=== PATIENT | male | born 1985 | race Caucasian/White ===

== ENCOUNTER 2024-01-28 18:11 | Emergency (ER) | payer OTHER, SELFPAY ==
[2024-01-28 18:14] VITALS: BP 132/72; PULSE 106; O2SAT 96
[2024-01-28 18:19] VITALS: BP 130/79; PULSE 99; RESP 16; TEMP 36.8; O2SAT 98
--- NOTE | 2024-01-28 18:20 | ED_ITS ---
HPI - General Adult General Chief complaint: Psychiatric Symptoms Stated complaint: SI Time Seen by Provider: 01/28/24 18:14 Source: patient and RN notes reviewed Limitations: no limitations History of Present Illness HPI narrative: 38-year-old male who has a history of alcohol use, cocaine use, presents via EMS for evaluation of suicidal ideation. Patient states he was discharged from detox from [facility] yesterday in [place]. He attempted to connect with family here in [place] but he states that ?they want nothing to do with me?. Patient states that ?I feel like everyone has turned their back on me?. He admits to suicidal ideation and had presented to [facility]. Patient was transported via EMS because of this. Currently he reports suicidal ideation where he states he was wandering in traffic hoping to get hit by a car. Patient adamantly denies any alcohol or illicit drug use. He denies tobacco use. He has no physical complaints at this time. Related Data Allergies Allergy/AdvReac Type Severity Reaction Status Date / Time No Known Allergies Allergy Verified 01/28/24 18:26 Review of Systems 2 Constitutional: Constitutional: Denies chills, Denies fever(s) and Denies headache(s) Eyes: Eyes: Denies change in vision and Denies other (No redness.) ENT: Denies headache(s) Cardiovascular: Cardiovascular: Denies chest pain and Denies palpitations Respiratory: Respiratory: Denies cough Gastrointestinal: Gastrointestinal: Denies abdominal pain, Denies hematochezia, Denies diarrhea, Denies nausea and Denies vomiting Genitourinary: Genitourinary: Denies difficulty urinating Musculoskeletal: Musculoskeletal: Denies back pain, Denies muscle weakness and Denies numbness Integumentary/Breasts: Skin/Breast: Denies rash Neurologic: Denies headache(s), Denies focal weakness and Denies numbness Psychiatric: Psychiatric: Reports depression, Reports hopelessness and Reports suicidal ideation Endocrine: Endocrine: Denies palpitations [facility] Past Medical History Attestation statement: The following information was validated with the patient. [facility] Narrative: Polysubstance use Social History Social History Advance Directives: No Advance Directives Information Provided: No Physical Exam ED Vital Signs: Vital Signs - 24 hr 01/28/24 18:19 01/28/24 22:40 01/29/24 04:48 Temperature 98.2 F 98.6 F 98.2 F Pulse Rate 99 86 82 Respiratory Rate 16 18 17 Blood Pressure 130/79 134/78 115/73 Pulse Oximetry 98 98 96 Oxygen Delivery Method Room Air Room Air Room Air BMI result Body Mass Index 40.6 Const General: cooperative Orientation/consciousness: patient oriented x3 Resp Other: Lung sounds clear bilaterally Cardio Rate: regular rate Rhythm: regular rhythm Neuro General: patient oriented x3 Psych Thought content: Suicidality present, no homicidality and no delusions Course Course Course Narrative: 11:00 p.m. patient has been seen and evaluated by the care team. He has been cleared from a psychiatric standpoint. There recommendation was to remain in the emergency department for possible detox placement in the morning. The patient is adamantly refusing this staining does not wish to wait and would like to be discharged. The patient is able to contract for safety. No evidence of withdrawal. January 28, 2024, 11:00 p.m., the patient has changed his mind and would like to remain in the emergency department for detox bed availability search in the morning. January 29, 2024, 1:45 a.m. patient resting comfortably at this time. There is no evidence of withdrawal. Awaiting possible detox bed placement in the morning. Reevaluation(s) Reevaluation #1: Patient was evaluated and cleared by the care team. Not a harm to self or others. Patient not suicidal or homicidal. He did want a detox bed however now he would like to go home and set up detox for himself. Patient denies medical complaints at this time and would like to leave. I agree with this plan Time: 07:59 Medical Decision Making Medical Decision Making [facility] Narrative: 38-year-old male who has a history of alcohol dependence, cocaine use, recent discharge from detox, presenting with suicidal ideation with a plan to jump out into traffic. Patient denies any illicit drug or pill use. He has no physical complaints. Check labs, care team evaluation Differential Diagnosis Differential Diagnoses: The differential diagnosis associated with the presentation includes Polysubstance use Depression Bipolar PTSD Psychosis Admission/Observation Consideration of admission/observation: Escalation of care including admission/observation considered Consult Healthcare Provider Management of the patient was discussed with: Behavioral Health Provider Lab Data 01/28/24 19:38 01/28/24 19:38 Labs: Lab Results 01/28/24 Range/Units 19:38 WBC 11.9 H (4.8-10.8) X10*3/uL RBC 4.66 (4.60-5.80) X10*6/uL Hgb 14.3 (14.0-18.0) g/dl Hct 41.9 L (42.0-52.0) % MCV 89.9 (80.0-98.0) fL MCH 30.7 (27.0-33.0) pg MCHC 34.1 (31.0-36.0) g/dl RDW 13.8 (11.0-16.0) % Plt Count 266 (160-400) X10*3/uL MPV 10.1 (9.4-12.4) fL Immature Gran % (Auto) 0.8 H (0.0-0.4) % Neut % (Auto) 62.4 (45-73) % Lymph % (Auto) 20.1 (20-40) % [place] % (Auto) 13.1 H (2-11) % Eos % (Auto) 3.1 (0-4) % Baso % (Auto) 0.5 (0-2) % Lymph # (Auto) 2.4 (1.2-4.9) X10*3/uL [place] # (Auto) 1.6 H (0.1-1.2) X10*3/uL Eos # (Auto) 0.4 (0.0-0.4) X10*3/uL Baso # (Auto) 0.1 (0.0-0.2) X10*3/uL Abs Immat Gran (auto) 0.09 H (0.00-0.03) X10*3/uL Absolute Neuts (auto) 7.4 (2.0-8.3) x10*3/uL Absolute Nucleated RBC 0.000 (0.0-0.012) X10*3/uL Nucleated RBC % (auto) 0.0 (0.0-0.2) /100WBC Smear Tech's Comments VERIFIED Sodium 140 (135-145) mmol/L Potassium 4.1 (3.3-5.1) mmol/L Chloride 102 (96-108) mmol/L Carbon Dioxide 27 (22-29) mmol/L Anion Gap 15 (12-20) BUN 16 (9-16) mg/dL Creatinine 0.79 (0.5-1.4) mg/dL Estim Creat Clear Calc 168.7 Estimated GFR > 60 Random Glucose 99 (60-115) mg/dL Calcium 8.9 (8.4-10.2) mg/dL Total Bilirubin 0.7 (0.0-1.0) mg/dL AST 95 H (5-37) U/L ALT 110 H (0-40) U/L Alkaline Phosphatase 73 (39-117) U/L Total Protein 7.5 (6.5-8.0) g/dL Albumin 4.0 (3.5-5.0) g/dL Salicylates < 5.0 L (15-30) mg/dL Urine Opiates Screen Not Detected (Not Detect) Ur Buprenorphine Scrn Not Detected (Not Detect) ng/mL Ur Oxycodone Screen Not Detected (Not Detect) ng/mL Urine Methadone Screen Not Detected (Not Detect) ng/mL Urine Fentanyl Screen Not Detected (Not Detect) Acetaminophen < 3 (<30) mcg/mL Ur Barbiturates Screen Not Detected (Not Detect) Ur Phencyclidine Scrn Not Detected (Not Detect) Ur Amphetamines Screen Not Detected (Not Detect) U Benzodiazepines Scrn POSITIVE H (Not Detect) Urine Cocaine Screen POSITIVE H (Not Detect) U Marijuana (THC) Screen Not Detected (Not Detect) Ethyl Alcohol < 10 mg/dL Discharge Plan Discharge Clinical Impression: Suicidal ideation, Cocaine use disorder Patient Disposition: Home, Self-Care Instructions: Cocaine Abuse (ED), Help Prevent Suicide (ED), Suicide Prevention (ED) Additional Instructions: Follow-up with your plan according to the care team Report to detox if you choose. . Follow-up with your primary care provider. Call this week to schedule a follow- up appointment. Return to the emergency department if you have any worsening of symptoms, or any concerns. Get well soon! Referrals: Physician,Wiley J [Primary Care Provider] - 2 days Interventions: [place]-Suicide Risk Severity Scale Last Done: 01/28/24 19:09 Print Language: Panamanian
[2024-01-28 18:23] VITALS: BMI 40.6
[2024-01-28 19:47] LABS: Basophils Absolute Auto 0.1 X10*3/uL (0.0-0.2); Basophils Percent Auto 0.5 % (0-2); Eosinophils Absolute Auto 0.4 X10*3/uL (0.0-0.4); Eosinophils Percent Auto 3.1 % (0-4); Hematocrit 41.9 % (42.0-52.0); Hemoglobin 14.3 g/dl (14.0-18.0); Imm Gran Abs Auto 0.09 X10*3/uL (0.00-0.03); Imm Gran Pct Auto 0.8 % (0.0-0.4); Lymphocytes Absolute Auto 2.4 X10*3/uL (1.2-4.9); Lymphocytes Percent Auto 20.1 % (20-40); MANUAL DIFF FLAG SCAN; Mean Corpuscular HGB Conc 34.1 g/dl (31.0-36.0); Mean Corpuscular Hemoglobin 30.7 pg (27.0-33.0); Mean Corpuscular Volume 89.9 fL (80.0-98.0); Mean Platelet Volume 10.1 fL (9.4-12.4); Monocytes Absolute Auto 1.6 X10*3/uL (0.1-1.2); Monocytes Percent Auto 13.1 % (2-11); Neutrophils Absolute Auto 7.4 x10*3/uL (2.0-8.3); Neutrophils Percent Auto 62.4 % (45-73); Platelet Count 266 X10*3/uL (160-400); Red Blood Count 4.66 X10*6/uL (4.60-5.80); Red Cell Distribution Width 13.8 % (11.0-16.0); SCAN SMEAR FLAG 1; White Blood Count 11.9 X10*3/uL (4.8-10.8)
[2024-01-28 19:56] LABS: Amphetamine Screen Urine Not Detected (Not Detect); Barbiturates, Urine Not Detected (Not Detect); Benzodiazepines Screen Urine POSITIVE (Not Detect); Buprenorphine Scr Not Detected (Not Detect); Cannabinoid Screen Urine Not Detected (Not Detect); Cocaine Screen Urine POSITIVE (Not Detect); Fentanyl, urine Not Detected (Not Detect); Methadone Screen, Urine Not Detected (Not Detect); Opiate Screen Urine Not Detected (Not Detect); Oxycodone Screen Urine Not Detected (Not Detect); Phencyclidine Screen Urine Not Detected (Not Detect)
[2024-01-28 20:06] LABS: Alanine Aminotransferase 110 U/L (0-40); Alkaline Phosphatase 73 U/L (39-117); Anion Gap 15 (12-20); Aspartate Amino Transferase 95 U/L (5-37); Bilirubin Total 0.7 mg/dL (0.0-1.0); Blood Urea Nitrogen 16 mg/dL (9-16); Calcium 8.9 mg/dL (8.4-10.2); Carbon Dioxide 27 mmol/L (22-29); Chloride 102 mmol/L (96-108); Creatinine Clr Calc Pharmacy 168.7; Estimated Glomerular Filt Rate > 60; Ethanol < 10 mg/dL; Glucose Random 99 mg/dL (60-115); Potassium 4.1 mmol/L (3.3-5.1); Sodium 140 mmol/L (135-145); Total Protein 7.5 g/dL (6.5-8.0)
[2024-01-28 20:08] LABS: Acetaminophen LAB < 3 mcg/mL (<30); SLIDE REVIEW VERIFIED; Salicylate < 5.0 mg/dL (15-30)
[2024-01-28 22:40] VITALS: BP 134/78; PULSE 86; RESP 18; TEMP 37; O2SAT 98
[2024-01-29 04:48] VITALS: BP 115/73; PULSE 82; RESP 17; TEMP 36.8; O2SAT 96
--- NOTE | 2024-01-29 05:21 | PC.NURSE ---
belongings by charge desk
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
--- NOTE | 2024-01-29 07:45 | PC.NURSE ---
patient belongings placed in pod locker #9
[2024-01-29 08:04] VITALS: BP 122/79; PULSE 85; RESP 20; TEMP 36.3; O2SAT 99
== END 2024-01-29 08:05 | disposition home or self-care (01) ==
PROVIDERS: Physician Assistant; Emergency Provider Emergency Medicine
DX: R45.851 Suicidal ideations (principal); F14.988 Cocaine use, unspecified with other cocaine-induced disorder; F32.A Depression, unspecified; F19.10 Other psychoactive substance abuse, uncomplicated
CPT/HCPCS: 36415; 80053; 80143; 80179; 80307; 85025; 99284; S9485

== ENCOUNTER 2024-02-03 02:05 | Inpatient (IN) | payer OTHER, SELFPAY ==
--- NOTE | 2024-02-03 | ECG_ITS ---
Test Reason : CHEST PAIN Blood Pressure : / mmHG Vent. Rate : 097 BPM Atrial Rate : 097 BPM P-R Int : 154 ms QRS Dur : 082 ms QT Int : 352 ms P-R-T Axes : 036 009 019 degrees QTc Int : 447 ms Sinus rhythm with occasional Premature ventricular complexes Otherwise normal ECG No previous ECGs available Referred By: Generic ED Physician Electronically Signed By:FABIENNE SOTO MD
[2024-02-03 02:11] VITALS: BP 118/75; PULSE 73; RESP 16; TEMP 36.9; O2SAT 95; BMI 37.7
--- NOTE | 2024-02-03 03:10 | ED.PSYCH ---
HPI - Psych General Chief Complaint: Psychiatric Symptoms Stated Complaint: chest pain Time Seen by Provider: 02/03/24 03:03 Source: patient Mode of arrival: ambulatory Limitations: no limitations History of Present Illness ED Provider: Dr. Verenice Lance HPI Narrative: Patient comes to the emergency room complaining of suicidal ideation. Patient states that he is very upset because he feels that his family does not care about him. Patient states that he went to try detox, sign heme himself out, went to his house to get family support, they turned him away. Patient now has suicidal thoughts. Patient states that now his having flashbacks from childhood. Patient admits to vague SI, no HI. Patient admits to using cocaine. Related Data Home Medications ?Medication ?Instructions ?Recorded ?Confirmed No Known Home Meds 02/03/24 02/03/24 Allergies Allergy/AdvReac Type Severity Reaction Status Date / Time No Known Allergies Allergy Verified 02/03/24 02:16 Review of Systems Review of Systems: Constitutional : No Weight loss, No Fever, No Chills, No Night Sweats, No Fatigue, No Malaise ENT/Mouth : No Hearing loss, No Ear Pain, No Nasal Congestion, No Sinus Pain, No Hoarseness, No sore throat, No Rhinorrhea, No Swallowing Difficulty Eyes: No Eye Pain, No Swelling, No Redness, No Foreign Body, No Discharge, No Vision Changes Cardiovascular : No Chest Pain, No SOB, No Dyspnea on Exertion, No Orthopnea, No Edema, No Palpitations Respiratory : No Cough, No Sputum, No Wheezing, No Smoke Exposure, No Dyspnea Gastrointestinal : No Nausea, No Vomiting, No Diarrhea, No Constipation, No abdominal Pain, No Hematochezia, No Melena Genitourinary : no irregular bleeding, No Dysuria, No Urinary Frequency, No Hematuria, No Urinary Incontinence, No Urgency, No Flank Pain, No Urinary Flow Changes, No Hesitancy Musculoskeletal : No joint pain, No Myalgias, No Joint Swelling Skin : No Skin Lesions, No rash Neuro : No Weakness, No Numbness, No Paresthesias, No Loss of Consciousness, No Dizziness, No Headache Psych : No Anxiety/Panic, complaining of depression and SI, no HI, admits to using cocaine Heme/Lymph: No Bruising, No Bleeding,No Lymphadenopathy Endocrine : No Polyuria, No Polydipsia, No Temperature Intolerance PMFSH Past Medical History Medical History Depression Polysubstance abuse Social History Social History Advance Directives: No Advance Directives Information Provided: Yes Physical Exam Vital Signs: Vital Signs: Last Vital Signs Temp 98.4 F 02/03/24 02:11 Pulse 73 02/03/24 02:11 Resp 16 02/03/24 02:11 BP 118/75 02/03/24 02:11 Pulse Ox 95 02/03/24 02:11 O2 Del Method Room Air 02/03/24 02:11 BMI result Body Mass Index 37.7 Const: Other: Appearance: Alert. Oriented X3. No acute distress. Eyes: Pupils equal, round and reactive to light. ENT: Pharynx normal. Neck: Normal inspection. Neck supple. No lymph nodes noted. No crepitus CVS: Normal heart rate and rhythm. Pulses normal. Normal S1 and S2 Respiratory: No respiratory distress. Breath sounds normal. No Wheezing. No rales Abdomen: Soft and nontender. No rigidity. No distention. Skin: Skin warm and dry. Normal skin color. Normal skin turgor. Extremities: No lower extremity edema. No Lacerations. No Rash Neuro: Oriented X 3. No motor deficit. No sensory deficit. Moving all extremities. No slurred speech. CN 2 through 12 grossly intact Psych: calm, cooperative, tearful Medical Decision Making Medical Decision Making [facility] Narrative: -my interpretation of EKG: Normal sinus rhythm, heart rate 97, no ST segment depression or elevation, nonspecific T-wave inversion in lead 3, multiple PVCs, QTC 447 -patient's white blood cell count slightly elevated, normal chemistry, normal troponin , toxicology positive for benzodiazepines and cocaine -care team consult pending -physician observation started at 04:04 Differential Diagnosis Differential Diagnoses: The differential diagnosis associated with the presentation includes (Polysubstance abuse, ACS, SI) Admission/Observation Consideration of admission/observation: Escalation of care including admission/observation considered (Patient is under physician observation waiting to be seen by the care team) Lab Data 02/03/24 03:19 02/03/24 03:19 Labs: Lab Results 02/03/24 02/03/24 Range/Units 03:19 03:21 WBC 12.5 H (4.8-10.8) X10*3/uL RBC 4.52 L (4.60-5.80) X10*6/uL Hgb 13.5 L (14.0-18.0) g/dl Hct 40.4 L (42.0-52.0) % MCV 89.4 (80.0-98.0) fL MCH 29.9 (27.0-33.0) pg MCHC 33.4 (31.0-36.0) g/dl RDW 13.4 (11.0-16.0) % Plt Count 278 (160-400) X10*3/uL MPV 10.0 (9.4-12.4) fL Immature Gran % (Auto) 0.5 H (0.0-0.4) % Neut % (Auto) 70.5 (45-73) % Lymph % (Auto) 19.0 L (20-40) % [place] % (Auto) 8.7 (2-11) % Eos % (Auto) 1.1 (0-4) % Baso % (Auto) 0.2 (0-2) % Lymph # (Auto) 2.4 (1.2-4.9) X10*3/uL [place] # (Auto) 1.1 (0.1-1.2) X10*3/uL Eos # (Auto) 0.1 (0.0-0.4) X10*3/uL Baso # (Auto) 0.0 (0.0-0.2) X10*3/uL Abs Immat Gran (auto) 0.06 H (0.00-0.03) X10*3/uL Absolute Neuts (auto) 8.8 H (2.0-8.3) x10*3/uL Absolute Nucleated RBC 0.000 (0.0-0.012) X10*3/uL Nucleated RBC % (auto) 0.0 (0.0-0.2) /100WBC Sodium 142 (135-145) mmol/L Potassium 4.4 (3.3-5.1) mmol/L Chloride 106 (96-108) mmol/L Carbon Dioxide 26 (22-29) mmol/L Anion Gap 14 (12-20) BUN 13 (9-16) mg/dL Creatinine 0.82 (0.5-1.4) mg/dL Estim Creat Clear Calc 165.8 Estimated GFR > 60 Random Glucose 96 (60-115) mg/dL Calcium 9.6 D (8.4-10.2) mg/dL Total Bilirubin 0.4 (0.0-1.0) mg/dL AST 32 (5-37) U/L ALT 48 H (0-40) U/L Alkaline Phosphatase 60 (39-117) U/L Troponin I High Sens 5.7 (<3.5-35.0) ng/L Total Protein 7.1 (6.5-8.0) g/dL Albumin 3.9 (3.5-5.0) g/dL Urine Opiates Screen Not Detected (Not Detect) Ur Buprenorphine Scrn Not Detected (Not Detect) ng/mL Ur Oxycodone Screen Not Detected (Not Detect) ng/mL Urine Methadone Screen Not Detected (Not Detect) ng/mL Urine Fentanyl Screen Not Detected (Not Detect) Ur Barbiturates Screen Not Detected (Not Detect) Ur Phencyclidine Scrn Not Detected (Not Detect) Ur Amphetamines Screen Not Detected (Not Detect) U Benzodiazepines Scrn POSITIVE H (Not Detect) Urine Cocaine Screen POSITIVE H (Not Detect) U Marijuana (THC) Screen Not Detected (Not Detect) Ethyl Alcohol < 10 mg/dL Discharge Plan Discharge Clinical Impression: Suicidal ideation, Polysubstance abuse Patient Disposition: Still a Patient Prescriptions: No Action No Known Home Meds Print Language: Kinyarwanda
[2024-02-03 03:27] LABS: MANUAL DIFF FLAG NO
[2024-02-03 03:28] LABS: Basophils Percent Auto 0.2 % (0-2); Eosinophils Absolute Auto 0.1 X10*3/uL (0.0-0.4); Eosinophils Percent Auto 1.1 % (0-4); Hematocrit 40.4 % (42.0-52.0); Hemoglobin 13.5 g/dl (14.0-18.0); Imm Gran Abs Auto 0.06 X10*3/uL (0.00-0.03); Imm Gran Pct Auto 0.5 % (0.0-0.4); Lymphocytes Absolute Auto 2.4 X10*3/uL (1.2-4.9); Mean Corpuscular HGB Conc 33.4 g/dl (31.0-36.0); Mean Corpuscular Hemoglobin 29.9 pg (27.0-33.0); Mean Corpuscular Volume 89.4 fL (80.0-98.0); Monocytes Absolute Auto 1.1 X10*3/uL (0.1-1.2); Monocytes Percent Auto 8.7 % (2-11); Neutrophils Absolute Auto 8.8 x10*3/uL (2.0-8.3); Neutrophils Percent Auto 70.5 % (45-73); Platelet Count 278 X10*3/uL (160-400); Red Blood Count 4.52 X10*6/uL (4.60-5.80); Red Cell Distribution Width 13.4 % (11.0-16.0); White Blood Count 12.5 X10*3/uL (4.8-10.8)
[2024-02-03 03:39] LABS: Amphetamine Screen Urine Not Detected (Not Detect); Barbiturates, Urine Not Detected (Not Detect); Benzodiazepines Screen Urine POSITIVE (Not Detect); Buprenorphine Scr Not Detected (Not Detect); Cannabinoid Screen Urine Not Detected (Not Detect); Cocaine Screen Urine POSITIVE (Not Detect); Fentanyl, urine Not Detected (Not Detect); Methadone Screen, Urine Not Detected (Not Detect); Opiate Screen Urine Not Detected (Not Detect); Oxycodone Screen Urine Not Detected (Not Detect); Phencyclidine Screen Urine Not Detected (Not Detect)
[2024-02-03 03:43] LABS: Alanine Aminotransferase 48 U/L (0-40); Albumin Level 3.9 g/dL (3.5-5.0); Alkaline Phosphatase 60 U/L (39-117); Anion Gap 14 (12-20); Aspartate Amino Transferase 32 U/L (5-37); Bilirubin Total 0.4 mg/dL (0.0-1.0); Blood Urea Nitrogen 13 mg/dL (9-16); Calcium 9.6 mg/dL (8.4-10.2); Carbon Dioxide 26 mmol/L (22-29); Chloride 106 mmol/L (96-108); Creatinine Clr Calc Pharmacy 165.8; Estimated Glomerular Filt Rate > 60; Ethanol < 10 mg/dL; Glucose Random 96 mg/dL (60-115); Potassium 4.4 mmol/L (3.3-5.1); Sodium 142 mmol/L (135-145); Total Protein 7.1 g/dL (6.5-8.0)
[2024-02-03 03:49] LABS: Troponin-I High Sensitivity 5.7 ng/L (<3.5-35.0)
[2024-02-03 09:58] VITALS: BP 105/60; PULSE 67; RESP 14; TEMP 36.2; O2SAT 97
--- NOTE | 2024-02-03 10:09 | PC.NURSE ---
assumed care of pt at 0700, pt resting quietly in room, pending CARE team consult.
[2024-02-03 10:55] LABS: Appearance Urine Clear; Color Urine Yellow; Glucose Urine UA Negative (Negative); Leukocyte Esterase Urine Trace (Negative); Nitrite Urine Negative (Negative); Specific Gravity - Urine 1.025 (1.005-1.025); UMIC TRIGGER UA YES; Urine Blood Negative (Negative); Urine Ketones Trace mg/dL (Negative); Urine Protein Negative (Neg-Trace)
[2024-02-03 11:13] LABS: Bacteria Urine None Seen (None Seen); Hyaline Casts Urine 0-2 /LPF (0-2); RBC Urine 0-2 /HPF (0-2); Squamous Epithelial Cell Urine 0-2 /HPF (0-2); WBC Urine 0-5 /HPF (0-5)
[2024-02-03 14:38] VITALS: BP 126/73; PULSE 68; RESP 18; TEMP 36.7; O2SAT 96
[2024-02-03 20:18] VITALS: BP 128/84; PULSE 72; RESP 18; TEMP 36.5; O2SAT 98
--- NOTE | 2024-02-04 05:57 | PC.NURSE ---
Patient received a shower prior bedtime, he has been sleeping throughout the night, respirations are even and unlabored. Plan of care ongoing.
[2024-02-04 06:03] VITALS: BP 116/70; PULSE 76; RESP 14; TEMP 36.3; O2SAT 99
--- NOTE | 2024-02-04 07:06 | PC.NURSE ---
Assumed care of patient at 0645, patient appears to be sleeping, respirations even and unlabored, no apparent distress noted. Continue plan of care of care for IPLOC
[2024-02-04 15:47] VITALS: BP 121/74; PULSE 82; RESP 18; TEMP 36.4; O2SAT 99; BMI 39.9
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
[2024-02-04 20:00] VITALS: BP 131/82; PULSE 77; TEMP 36.6; O2SAT 98
[2024-02-04] MEDS: traZODone HCL 50 MG TABLET PO (20:49)
[2024-02-04] MEDS: hydrOXYzine HCL 25 MG TABLET PO (20:49)
[2024-02-04] MEDS: Nicotine Polacrilex 2 MG GUM 4 MG BUCCAL (20:50)
[2024-02-05 08:00] VITALS: BP 118/69; PULSE 71; RESP 16; TEMP 36.4; O2SAT 98
[2024-02-05 08:09] LABS: Estimated Average Glucose 114 mg/dL; Hemoglobin A1c % 5.6 % (<6.0)
[2024-02-05 08:23] LABS: Cholesterol 208 mg/dL (<200); HDL Cholesterol 41 mg/dL (>40); LDL Cholesterol Calculated 135 mg/dL (<100); Triglycerides 160 mg/dL (<150)
[2024-02-05 08:40] LABS: TSH reflex Free T4 10.65 uIU/mL (0.32-4.0)
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
[2024-02-05] MEDS: hydrOXYzine HCL 25 MG TABLET PO (10:32)
[2024-02-05] MEDS: Nicotine 21 MG PATCH.TD24 TRANSDERMA (10:33)
[2024-02-05] MEDS: Nicotine Polacrilex 2 MG GUM 4 MG BUCCAL (10:34)
[2024-02-05] MEDS: buPROPion HCL 75 MG TABLET PO (11:51)
[2024-02-05 12:33] LABS: Free T4 (Free Thyroxine) 0.83 ng/dL (0.71-1.85)
[2024-02-05 20:00] VITALS: BP 149/64; PULSE 94; TEMP 35.8; O2SAT 99
[2024-02-05] MEDS: QUEtiapine Fumarate 50 MG TABLET PO (20:35)
[2024-02-06] MEDS: Levothyroxine Sodium 25 MCG TABLET PO (07:13)
[2024-02-06 08:00] VITALS: BP 126/68; PULSE 74; RESP 18; TEMP 36.4; O2SAT 97
[2024-02-06] MEDS: buPROPion HCL 75 MG TABLET PO (08:32)
[2024-02-06] MEDS: Nicotine 21 MG PATCH.TD24 TRANSDERMA (11:28)
[2024-02-06] MEDS: Nicotine Polacrilex 2 MG GUM 4 MG BUCCAL (11:29)
--- NOTE | 2024-02-06 12:38 | P.PNPSI_ITS ---
Subjective Subjective Date of Service: 02/06/24 Reason For Visit: Depression, SI Interim History: Reports he is tolerating new med trial without adverse effects. Isolative in an active milieu which he notes is overwhelming for him. Medication Compliance: Yes Side effects from medications: No Attending Groups: No Review of Systems Acute medical concerns: No Medical Review of Systems: unchanged Review of Systems Review of Systems Yes all other systems are reviewed and are negative Mental Status Exam Mental Status Exam Patient Appearance: Fatigued Patient Orientation: Person, Place, Time and Situation Level of Consciousness: Alert Patient Behavior: Appropriate, Talkative, Cooperative and Good Eye Contact Mood Description: Depressed Affect Description: Flat Patient Cognition Impaired: No Ability to Follow Directions: Good Speech Pattern: Spontaneous Speech Memory Description: Episodic Impaired Perceptual Disturbances: Depersonalization and Derealization Thought Process: Confusion Thought Content: positive for Perseveration and positive for Suicidal Ideation Depressive Symptoms: Thoughts of /Suicide Judgement: Fair Diagnostics Vital Signs (24Hr): Vital Signs - 24 hr 02/05/24 20:00 02/06/24 08:00 Temperature 96.4 F L 97.6 F Pulse Rate 94 74 Respiratory Rate 18 Blood Pressure 149/64 H 126/68 Pulse Oximetry 99 97 Oxygen Delivery Method Room Air Room Air BMI result Body Mass Index 39.9 Labs 02/03/24 03:19 02/03/24 03:19 Labs: Laboratory Results - last 48 hr 02/05/24 07:28 Estimat Average Glucose 114 Hemoglobin A1c % 5.6 Triglycerides 160 H Cholesterol 208 H LDL Cholesterol, Calc 135 H HDL Cholesterol 41 TSH 10.65 H Free T4 0.83 Medications Medications Current Medications Acetaminophen (Acetaminophen 325 Mg Tablet) 650 mg PO Q6H PRN PRN Reason: Headache/Pain Mild Scale (1-3) Al Hydroxide/Mg Hydroxide (Magnesium Hydrox/Alum Hydrox 30 Ml Oral.Susp) 30 ml PO Q6H PRN PRN Reason: Heartburn/Nausea Bupropion HCl (Bupropion Hcl 75 Mg Tablet) 75 mg PO DAILY [facility] Last Admin: 02/06/24 08:32 Dose: 75 mg Hydroxyzine HCl (Hydroxyzine Hcl 25 Mg Tablet) 25 mg PO Q6H PRN PRN Reason: Anxiety Last Admin: 02/05/24 10:32 Dose: 25 mg Levothyroxine Sodium (Levothyroxine Sodium 25 Mcg Tablet) 25 mcg PO DAILY@0600 [facility] Last Admin: 02/06/24 07:13 Dose: 25 mcg Magnesium Hydroxide (Milk Of Magnesia 30 Ml Oral.Susp) 30 ml PO DAILY PRN PRN Reason: Constipation Nicotine (Nicotine 21 Mg Patch.Td24) 21 mg TRANSDERMA DAILY PRN PRN Reason: smoking cessation Last Admin: 02/06/24 11:28 Dose: 21 mg Nicotine Polacrilex (Nicotine Polacrilex 2 Mg Gum) 4 mg BUCCAL Q2H PRN PRN Reason: Nicotine Cravings Last Admin: 02/06/24 11:29 Dose: 4 mg Olanzapine (Olanzapine 5 Mg Tablet) 5 mg PO TID PRN PRN Reason: agitation Quetiapine Fumarate (Quetiapine Fumarate 50 Mg Tablet) 50 mg PO BEDTIME [facility] Last Admin: 02/05/24 20:35 Dose: 50 mg Quetiapine Fumarate (Quetiapine Fumarate 50 Mg Tablet) 50 mg PO BID PRN PRN Reason: anxiety, agitation Allergies Allergies Allergy/AdvReac Type Severity Reaction Status Date / Time trazodone AdvReac Severe Nightmare Verified 02/05/24 11:12 Assessment & Plan Assessment & Plan (1) Polysubstance abuse: Status: Acute Code(s): F19.10 - Other psychoactive substance abuse, uncomplicated (2) Mood disorder: Status: Acute Code(s): F39 - Unspecified mood [affective] disorder Plan 38 yo male, hx of mood disorder (affirms hypomania by hx) and polysubstance use disorder. Plan: Admit, CV, 15 min checks Wellbutrin 75 mg daily Seroquel 50 mg HS Levothyroxine 25 mcg daily Collateral contact Aftercare planning 02/05: Continue tx. Reason for continued inpatient stay Substantial Risk for: rapid decompensation Time Spent With Patient Time: Total time managing care of this patient today ____ minutes.
[2024-02-06 19:56] VITALS: BP 124/72; PULSE 98; TEMP 37.2; O2SAT 98
[2024-02-06] MEDS: QUEtiapine Fumarate 50 MG TABLET PO ×2 (20:41→21:53)
[2024-02-07] MEDS: Levothyroxine Sodium 25 MCG TABLET PO (05:56)
[2024-02-07 08:00] VITALS: BP 136/61; PULSE 86; RESP 18; TEMP 37; O2SAT 98
[2024-02-07] MEDS: buPROPion HCL 75 MG TABLET PO (08:33)
--- NOTE | 2024-02-07 17:02 | P.PNPSI_ITS ---
Subjective Subjective Date of Service: 02/07/24 Reason For Visit: Depression, SI Subjective Notes: Conditional Voluntary Healthcare Proxy: No Guardianship: No Medical Problems Affecting Mental Status: No Interim History: Met with pt to review planning for further care. He has interest in returning home, gathering belongings and application to return to [facility] where he was earlier this year to complete their program and transfer to [facility]. Tolerating Wellbutrin/Seroquel. Asks that Seroquel be titrated. Team has discussed going to [facility] directly from the unit-he declines. Medication Compliance: Yes Side effects from medications: No Attending Groups: Intermittent Review of Systems Acute medical concerns: No Medical Review of Systems: unchanged Review of Systems Review of Systems Yes all other systems are reviewed and are negative (denies) Mental Status Exam Mental Status Exam Patient Appearance: Fatigued Patient Orientation: Person, Place, Time and Situation Level of Consciousness: Alert Patient Behavior: Appropriate, Talkative, Cooperative and Good Eye Contact Mood Description: Depressed Affect Description: Flat Patient Cognition Impaired: No Ability to Follow Directions: Good Speech Pattern: Spontaneous Speech Memory Description: Episodic Impaired Perceptual Disturbances: Depersonalization and Derealization Thought Process: Confusion Thought Content: positive for Perseveration and positive for Suicidal Ideation Depressive Symptoms: Thoughts of /Suicide Judgement: Fair Diagnostics Vital Signs (24Hr): Vital Signs - 24 hr 02/06/24 19:56 02/07/24 08:00 Temperature 98.9 F 98.6 F Pulse Rate 98 86 Respiratory Rate 18 Blood Pressure 124/72 136/61 Pulse Oximetry 98 98 Oxygen Delivery Method Room Air Room Air BMI result Body Mass Index 39.9 Labs 02/03/24 03:19 02/03/24 03:19 Medications Medications Current Medications Acetaminophen (Acetaminophen 325 Mg Tablet) 650 mg PO Q6H PRN PRN Reason: Headache/Pain Mild Scale (1-3) Al Hydroxide/Mg Hydroxide (Magnesium Hydrox/Alum Hydrox 30 Ml Oral.Susp) 30 ml PO Q6H PRN PRN Reason: Heartburn/Nausea Bupropion HCl (Bupropion Hcl 75 Mg Tablet) 75 mg PO DAILY [facility] Last Admin: 02/07/24 08:33 Dose: 75 mg Guaifenesin/Dextromethorphan (Guaifenesin Dm 600/30 1 Tab Tab.Er.12h) 2 tab PO BID PRN PRN Reason: Congestion Hydroxyzine HCl (Hydroxyzine Hcl 25 Mg Tablet) 25 mg PO Q6H PRN PRN Reason: Anxiety Last Admin: 02/05/24 10:32 Dose: 25 mg Levothyroxine Sodium (Levothyroxine Sodium 25 Mcg Tablet) 25 mcg PO DAILY@0600 [facility] Last Admin: 02/07/24 05:56 Dose: 25 mcg Magnesium Hydroxide (Milk Of Magnesia 30 Ml Oral.Susp) 30 ml PO DAILY PRN PRN Reason: Constipation Nicotine (Nicotine 21 Mg Patch.Td24) 21 mg TRANSDERMA DAILY PRN PRN Reason: smoking cessation Last Admin: 02/06/24 11:28 Dose: 21 mg Nicotine Polacrilex (Nicotine Polacrilex 2 Mg Gum) 4 mg BUCCAL Q2H PRN PRN Reason: Nicotine Cravings Last Admin: 02/06/24 11:29 Dose: 4 mg Olanzapine (Olanzapine 5 Mg Tablet) 5 mg PO TID PRN PRN Reason: agitation Quetiapine Fumarate (Quetiapine Fumarate 50 Mg Tablet) 50 mg PO BID PRN PRN Reason: anxiety, agitation Last Admin: 02/06/24 21:53 Dose: 50 mg Quetiapine Fumarate (Quetiapine Fumarate 100 Mg Tablet) 100 mg PO BEDTIME [facility] Allergies Allergies Allergy/AdvReac Type Severity Reaction Status Date / Time trazodone AdvReac Severe Nightmare Verified 02/05/24 11:12 Assessment & Plan Assessment & Plan (1) Polysubstance abuse: Status: Acute Code(s): F19.10 - Other psychoactive substance abuse, uncomplicated (2) Mood disorder: Status: Acute Code(s): F39 - Unspecified mood [affective] disorder Plan 38 yo male, hx of mood disorder (affirms hypomania by hx) and polysubstance use disorder. Plan: Admit, CV, 15 min checks Wellbutrin 75 mg daily Seroquel 50 mg HS Levothyroxine 25 mcg daily Collateral contact Aftercare planning 02/05: Continue tx. 02/06: Increase Seroquel to 100 mg HS Reason for continued inpatient stay Substantial Risk for: rapid decompensation Time Spent With Patient Time: Total time managing care of this patient today ____ minutes.
[2024-02-07 20:00] VITALS: BP 127/72; PULSE 100; TEMP 37.4; O2SAT 98
[2024-02-07] MEDS: Acetaminophen 325 MG TABLET 650 MG PO (21:14)
[2024-02-07] MEDS: QUEtiapine Fumarate 100 MG TABLET PO (21:14)
[2024-02-07] MEDS: guaiFENesin DM 600/30 1 TAB TAB.ER.12H 2 TAB PO (21:18)
[2024-02-08] MEDS: Levothyroxine Sodium 25 MCG TABLET PO (07:00)
[2024-02-08 08:00] VITALS: BP 106/51; PULSE 81; RESP 18; TEMP 36.9; O2SAT 96
[2024-02-08] MEDS: buPROPion HCL 75 MG TABLET PO (08:24)
--- NOTE | 2024-02-08 10:04 | PM.EVENT ---
Event Note Date of Service: 02/08/24 Event Note: 38 year old male admitted to adult psychiatry with consult to hospitalist service for evaluation of possible cellulitis R elbow. The patient has a subcentimeter scabbed abrasion over the R olecranon with out any swelling, fluctuance, purulent drainage. He is unsure how he got the wound. There is faint erythema extending from the elbow into the ulnar aspect of the R forearm. He is afebrile.Do not suspect sepsis at this time. Pt non toxic appearing. Will treat with doxycycline 100mg BID x 7 days for acute cellulitis RUE. Advised to take wtih full glass of water and food. Do not lie down for one hour after taking. Thank you for allowing me to participate in this consult. Signing off at this time. Please do not hesitate to call for further questions or for any acute medical issue. Time Spent With Patient Time: Total time managing care of this patient today ____ minutes.
[2024-02-08] MEDS: Doxycycline Monohydrate 100 MG CAPSULE PO ×2 (10:27→21:47)
--- NOTE | 2024-02-08 11:43 | HO.PSYCHPN ---
Subjective Subjective Date of Service: 02/08/24 Reason For Visit: Depression, SI Subjective Notes: Conditional Voluntary Healthcare Proxy: No Guardianship: No Medical Problems Affecting Mental Status: No Interim History: Reports R Elbow Cellulitis is still painful but improving with treatment. Continues to report poor sleep. Discussed increase of Seroquel to 150 mg which he is in agreement with. Tolerating Wellbutrin. Will plan to increase on 02/09 if he continues to tolerate this. Medication Compliance: Yes Side effects from medications: No Attending Groups: Yes Review of Systems Acute medical concerns: No Medical Review of Systems: unchanged Mental Status Exam Mental Status Exam Patient Appearance: Fatigued Patient Orientation: Person, Place, Time and Situation Level of Consciousness: Alert Patient Behavior: Appropriate, Talkative, Cooperative and Good Eye Contact Mood Description: Depressed Affect Description: Flat Patient Cognition Impaired: No Ability to Follow Directions: Good Speech Pattern: Spontaneous Speech Memory Description: Episodic Impaired Perceptual Disturbances: Depersonalization and Derealization Judgement: Good Diagnostics Vital Signs (24Hr): Vital Signs - 24 hr 02/07/24 20:00 02/08/24 08:00 Temperature 99.3 F 98.5 F Pulse Rate 100 81 Respiratory Rate 18 Blood Pressure 127/72 106/51 L Pulse Oximetry 98 96 Oxygen Delivery Method Room Air Room Air BMI result Body Mass Index 39.9 Labs 02/03/24 03:19 02/03/24 03:19 Medications Medications Current Medications Acetaminophen (Acetaminophen 325 Mg Tablet) 650 mg PO Q6H PRN PRN Reason: Headache/Pain Mild Scale (1-3) Last Admin: 02/07/24 21:14 Dose: 650 mg Al Hydroxide/Mg Hydroxide (Magnesium Hydrox/Alum Hydrox 30 Ml Oral.Susp) 30 ml PO Q6H PRN PRN Reason: Heartburn/Nausea Bupropion HCl (Bupropion Hcl 75 Mg Tablet) 75 mg PO DAILY [facility] Last Admin: 02/08/24 08:24 Dose: 75 mg Doxycycline Monohydrate (Doxycycline Monohydrate 100 Mg Capsule) 100 mg PO Q12H [facility] Stop: 02/14/24 22:16 Last Admin: 02/08/24 10:27 Dose: 100 mg Guaifenesin/Dextromethorphan (Guaifenesin Dm 600/30 1 Tab Tab.Er.12h) 2 tab PO BID PRN PRN Reason: Congestion Last Admin: 02/07/24 21:18 Dose: 2 tab Hydroxyzine HCl (Hydroxyzine Hcl 25 Mg Tablet) 25 mg PO Q6H PRN PRN Reason: Anxiety Last Admin: 02/05/24 10:32 Dose: 25 mg Ibuprofen (Ibuprofen 600 Mg Tablet) 600 mg PO Q8H PRN PRN Reason: Pain, Mild (Pain Scale 1-3) Levothyroxine Sodium (Levothyroxine Sodium 25 Mcg Tablet) 25 mcg PO DAILY@[facility] Last Admin: 02/08/24 07:00 Dose: 25 mcg Magnesium Hydroxide (Milk Of Magnesia 30 Ml Oral.Susp) 30 ml PO DAILY PRN PRN Reason: Constipation Nicotine (Nicotine 21 Mg Patch.Td24) 21 mg TRANSDERMA DAILY PRN PRN Reason: smoking cessation Last Admin: 02/06/24 11:28 Dose: 21 mg Nicotine Polacrilex (Nicotine Polacrilex 2 Mg Gum) 4 mg BUCCAL Q2H PRN PRN Reason: Nicotine Cravings Last Admin: 02/06/24 11:29 Dose: 4 mg Olanzapine (Olanzapine 5 Mg Tablet) 5 mg PO TID PRN PRN Reason: agitation Quetiapine Fumarate (Quetiapine Fumarate 50 Mg Tablet) 50 mg PO BID PRN PRN Reason: anxiety, agitation Last Admin: 02/06/24 21:53 Dose: 50 mg Quetiapine Fumarate (Quetiapine Fumarate 100 Mg Tablet) 100 mg PO [facility]TIME [facility] Last Admin: 02/07/24 21:14 Dose: 100 mg Allergies Allergies Allergy/AdvReac Type Severity Reaction Status Date / Time trazodone AdvReac Severe Nightmare Verified 02/05/24 11:12 Assessment & Plan Assessment & Plan (1) Polysubstance abuse: Status: Acute Code(s): F19.10 - Other psychoactive substance abuse, uncomplicated (2) Mood disorder: Status: Acute Code(s): F39 - Unspecified mood [affective] disorder Plan 38 yo male, hx of mood disorder (affirms hypomania by hx) and polysubstance use disorder. Plan: Admit, CV, 15 min checks Wellbutrin 75 mg daily Seroquel 50 mg HS Levothyroxine 25 mcg daily Collateral contact Aftercare planning 02/05: Continue tx. 02/06: Increase Seroquel to 100 mg HS 02/07: Increase Seroquel to 150 mg HS Reason for continued inpatient stay Substantial Risk for: rapid decompensation Time Spent With Patient Time: Total time managing care of this patient today ____ minutes.
[2024-02-08 20:00] VITALS: BP 150/75; PULSE 104; RESP 18; TEMP 37.1; O2SAT 98
[2024-02-08] MEDS: Ibuprofen 600 MG TABLET PO (20:24)
[2024-02-08] MEDS: Acetaminophen 325 MG TABLET 650 MG PO (20:24)
[2024-02-08] MEDS: QUEtiapine Fumarate 50 MG TABLET 150 MG PO (20:25)
[2024-02-08] MEDS: guaiFENesin DM 600/30 1 TAB TAB.ER.12H 2 TAB PO (20:27)
[2024-02-08] MEDS: hydrOXYzine HCL 25 MG TABLET PO (20:27)
[2024-02-08] MEDS: QUEtiapine Fumarate 50 MG TABLET PO (20:30)
[2024-02-09] MEDS: Levothyroxine Sodium 25 MCG TABLET PO (06:52)
[2024-02-09 08:00] VITALS: BP 105/59; PULSE 68; RESP 18; TEMP 36.1; O2SAT 98
[2024-02-09] MEDS: buPROPion HCL 75 MG TABLET PO (08:53)
[2024-02-09] MEDS: Doxycycline Monohydrate 100 MG CAPSULE PO ×2 (09:58→22:11)
--- NOTE | 2024-02-09 10:26 | P.PNPSI_ITS ---
Subjective Subjective Date of Service: 02/09/24 Reason For Visit: Depression, SI Subjective Notes: Conditional Voluntary Healthcare Proxy: No Guardianship: No Medical Problems Affecting Mental Status: No Interim History: Continues to report poor sleep. As Seroquel 150 mg is ineffective will discontinue and return to Trazodone, adding Prazosin. Discussion of Wellbutrin titration. Pt is finding this agent useful and feels ready to increase. Reports improvement in R Elbow Cellulitis Medication Compliance: Yes Side effects from medications: No Attending Groups: Yes Review of Systems Acute medical concerns: No Medical Review of Systems: unchanged Review of Systems Review of Systems R Elbow Cellulitis resolving Yes all other systems are reviewed and are negative Mental Status Exam Mental Status Exam Patient Appearance: Fatigued Patient Orientation: Person, Place, Time and Situation Level of Consciousness: Alert Patient Behavior: Appropriate, Talkative, Cooperative and Good Eye Contact Mood Description: Depressed Affect Description: Flat Patient Cognition Impaired: No Ability to Follow Directions: Good Speech Pattern: Spontaneous Speech Memory Description: Episodic Impaired Perceptual Disturbances: Depersonalization and Derealization Judgement: Good Diagnostics Vital Signs (24Hr): Vital Signs - 24 hr 02/08/24 20:00 02/09/24 08:00 Temperature 98.7 F 96.9 F Pulse Rate 104 H 68 Respiratory Rate 18 18 Blood Pressure 150/75 H 105/59 L Pulse Oximetry 98 98 Oxygen Delivery Method Room Air Room Air BMI result Body Mass Index 39.9 Labs 02/03/24 03:19 02/03/24 03:19 Medications Medications Current Medications Acetaminophen (Acetaminophen 325 Mg Tablet) 650 mg PO Q6H PRN PRN Reason: Headache/Pain Mild Scale (1-3) Last Admin: 02/08/24 20:24 Dose: 650 mg Al Hydroxide/Mg Hydroxide (Magnesium Hydrox/Alum Hydrox 30 Ml Oral.Susp) 30 ml PO Q6H PRN PRN Reason: Heartburn/Nausea Bupropion HCl (Bupropion Hcl 75 Mg Tablet) 75 mg PO DAILY [facility] Last Admin: 02/09/24 08:53 Dose: 75 mg Doxycycline Monohydrate (Doxycycline Monohydrate 100 Mg Capsule) 100 mg PO Q12H [facility] Stop: 02/14/24 22:16 Last Admin: 02/09/24 09:58 Dose: 100 mg Guaifenesin/Dextromethorphan (Guaifenesin Dm 600/30 1 Tab Tab.Er.12h) 2 tab PO BID PRN PRN Reason: Congestion Last Admin: 02/08/24 20:27 Dose: 2 tab Hydroxyzine HCl (Hydroxyzine Hcl 25 Mg Tablet) 25 mg PO Q6H PRN PRN Reason: Anxiety Last Admin: 02/08/24 20:27 Dose: 25 mg Ibuprofen (Ibuprofen 600 Mg Tablet) 600 mg PO Q8H PRN PRN Reason: Pain, Mild (Pain Scale 1-3) Last Admin: 02/08/24 20:24 Dose: 600 mg Levothyroxine Sodium (Levothyroxine Sodium 25 Mcg Tablet) 25 mcg PO DAILY@0600 [facility] Last Admin: 02/09/24 06:52 Dose: 25 mcg Magnesium Hydroxide (Milk Of Magnesia 30 Ml Oral.Susp) 30 ml PO DAILY PRN PRN Reason: Constipation Nicotine (Nicotine 21 Mg Patch.Td24) 21 mg TRANSDERMA DAILY PRN PRN Reason: smoking cessation Last Admin: 02/06/24 11:28 Dose: 21 mg Nicotine Polacrilex (Nicotine Polacrilex 2 Mg Gum) 4 mg BUCCAL Q2H PRN PRN Reason: Nicotine Cravings Last Admin: 02/06/24 11:29 Dose: 4 mg Olanzapine (Olanzapine 5 Mg Tablet) 5 mg PO TID PRN PRN Reason: agitation Quetiapine Fumarate (Quetiapine Fumarate 50 Mg Tablet) 50 mg PO BID PRN PRN Reason: anxiety, agitation Last Admin: 02/08/24 20:30 Dose: 50 mg Quetiapine Fumarate (Quetiapine Fumarate 50 Mg Tablet) 150 mg PO BEDTIME [facility] Last Admin: 02/08/24 20:25 Dose: 150 mg Allergies Allergies Allergy/AdvReac Type Severity Reaction Status Date / Time trazodone AdvReac Severe Nightmare Verified 02/05/24 11:12 Assessment & Plan Assessment & Plan (1) Polysubstance abuse: Status: Acute Code(s): F19.10 - Other psychoactive substance abuse, uncomplicated (2) Mood disorder: Status: Acute Code(s): F39 - Unspecified mood [affective] disorder Plan 38 yo male, hx of mood disorder (affirms hypomania by hx) and polysubstance use disorder. Plan: Admit, CV, 15 min checks Wellbutrin 75 mg daily Seroquel 50 mg HS Levothyroxine 25 mcg daily Collateral contact Aftercare planning 02/05: Continue tx. 02/06: Increase Seroquel to 100 mg HS 02/08: Discontinue HS Seroquel Increase Wellbutrin XL to 150 mg Trazodone 100 mg HS Prazosin 1 mg HS Reason for continued inpatient stay Substantial Risk for: rapid decompensation Time Spent With Patient Time: Total time managing care of this patient today ____ minutes.
[2024-02-09 20:00] VITALS: BP 141/75; PULSE 95; RESP 17; TEMP 36; O2SAT 98
[2024-02-09] MEDS: Prazosin HCL 1 MG CAPSULE PO (20:00)
[2024-02-09] MEDS: Ibuprofen 600 MG TABLET PO (20:01)
[2024-02-09] MEDS: guaiFENesin DM 600/30 1 TAB TAB.ER.12H 2 TAB PO (20:01)
[2024-02-09] MEDS: traZODone HCL 100 MG TABLET PO (20:01)
[2024-02-09] MEDS: Acetaminophen 325 MG TABLET 650 MG PO (20:01)
[2024-02-09] MEDS: QUEtiapine Fumarate 50 MG TABLET PO (20:02)
[2024-02-10] MEDS: Levothyroxine Sodium 25 MCG TABLET PO (06:23)
[2024-02-10 08:00] VITALS: BP 146/70; PULSE 75; RESP 18; TEMP 36.4; O2SAT 97
[2024-02-10] MEDS: Doxycycline Monohydrate 100 MG CAPSULE PO ×2 (09:14→22:02)
[2024-02-10] MEDS: buPROPion HCl XL 150 MG TAB.ER.24H PO (09:15)
--- NOTE | 2024-02-10 10:52 | HO.PSYCHPN ---
Subjective Subjective Date of Service: 02/10/24 Reason For Visit: Depression, SI Subjective Notes: Conditional Voluntary Healthcare Proxy: No Guardianship: No Medical Problems Affecting Mental Status: No Interim History: Reports regime to be helpful at this time. Denies SE Denies SI/HI/AH/VH Sleep he reports is improving Reports cellulitis resolving-no sx of exacerbation of infection. Medication Compliance: Yes Side effects from medications: No Attending Groups: Intermittent Review of Systems Acute medical concerns: No Medical Review of Systems: unchanged Review of Systems Review of Systems Yes all other systems are reviewed and are negative Mental Status Exam Mental Status Exam Patient Appearance: Fatigued Patient Orientation: Person, Place, Time and Situation Level of Consciousness: Alert Patient Behavior: Appropriate, Talkative, Cooperative and Good Eye Contact Mood Description: Depressed Affect Description: Flat Patient Cognition Impaired: No Ability to Follow Directions: Good Speech Pattern: Spontaneous Speech Memory Description: Episodic Impaired Perceptual Disturbances: Depersonalization and Derealization Judgement: Good Diagnostics Vital Signs (24Hr): Vital Signs - 24 hr 02/09/24 20:00 02/10/24 08:00 Temperature 96.8 F 97.5 F Pulse Rate 95 75 Respiratory Rate 17 18 Blood Pressure 141/75 H 146/70 H Pulse Oximetry 98 97 Oxygen Delivery Method Room Air Room Air BMI result Body Mass Index 39.9 Labs 02/03/24 03:19 02/03/24 03:19 Medications Medications Current Medications Acetaminophen (Acetaminophen 325 Mg Tablet) 650 mg PO Q6H PRN PRN Reason: Headache/Pain Mild Scale (1-3) Last Admin: 02/09/24 20:01 Dose: 650 mg Al Hydroxide/Mg Hydroxide (Magnesium Hydrox/Alum Hydrox 30 Ml Oral.Susp) 30 ml PO Q6H PRN PRN Reason: Heartburn/Nausea Bupropion HCl (Bupropion Hcl Xl 150 Mg Tab.Er.24h) 150 mg PO DAILY [facility] Last Admin: 02/10/24 09:15 Dose: 150 mg Doxycycline Monohydrate (Doxycycline Monohydrate 100 Mg Capsule) 100 mg PO Q12H [facility] Stop: 02/14/24 22:16 Last Admin: 02/10/24 09:14 Dose: 100 mg Guaifenesin/Dextromethorphan (Guaifenesin Dm 600/30 1 Tab Tab.Er.12h) 2 tab PO BID PRN PRN Reason: Congestion Last Admin: 02/09/24 20:01 Dose: 2 tab Hydroxyzine HCl (Hydroxyzine Hcl 25 Mg Tablet) 25 mg PO Q6H PRN PRN Reason: Anxiety Last Admin: 02/08/24 20:27 Dose: 25 mg Ibuprofen (Ibuprofen 600 Mg Tablet) 600 mg PO Q8H PRN PRN Reason: Pain, Mild (Pain Scale 1-3) Last Admin: 02/09/24 20:01 Dose: 600 mg Levothyroxine Sodium (Levothyroxine Sodium 25 Mcg Tablet) 25 mcg PO DAILY@0600 [facility] Last Admin: 02/10/24 06:23 Dose: 25 mcg Magnesium Hydroxide (Milk Of Magnesia 30 Ml Oral.Susp) 30 ml PO DAILY PRN PRN Reason: Constipation Nicotine (Nicotine 21 Mg Patch.Td24) 21 mg TRANSDERMA DAILY PRN PRN Reason: smoking cessation Last Admin: 02/06/24 11:28 Dose: 21 mg Nicotine Polacrilex (Nicotine Polacrilex 2 Mg Gum) 4 mg BUCCAL Q2H PRN PRN Reason: Nicotine Cravings Last Admin: 02/06/24 11:29 Dose: 4 mg Olanzapine (Olanzapine 5 Mg Tablet) 5 mg PO TID PRN PRN Reason: agitation Prazosin HCl (Prazosin Hcl 1 Mg Capsule) 1 mg PO BEDTIME [facility]; Protocol Last Admin: 02/09/24 20:00 Dose: 1 mg Quetiapine Fumarate (Quetiapine Fumarate 50 Mg Tablet) 50 mg PO BID PRN PRN Reason: anxiety, agitation Last Admin: 02/09/24 20:02 Dose: 50 mg Trazodone HCl (Trazodone Hcl 100 Mg Tablet) 100 mg PO BEDTIME [facility] Last Admin: 02/09/24 20:01 Dose: 100 mg Allergies Allergies Allergy/AdvReac Type Severity Reaction Status Date / Time No Known Allergies Allergy Verified 02/09/24 16:48 Assessment & Plan Assessment & Plan (1) Polysubstance abuse: Status: Acute Code(s): F19.10 - Other psychoactive substance abuse, uncomplicated (2) Mood disorder: Status: Acute Code(s): F39 - Unspecified mood [affective] disorder Plan 38 yo male, hx of mood disorder (affirms hypomania by hx) and polysubstance use disorder. Plan: Admit, CV, 15 min checks Wellbutrin 75 mg daily Seroquel 50 mg HS Levothyroxine 25 mcg daily Collateral contact Aftercare planning 02/05: Continue tx. 02/06: Increase Seroquel to 100 mg HS 02/08: Discontinue HS Seroquel Increase Wellbutrin XL to 150 mg Trazodone 100 mg HS Prazosin 1 mg HS 02/09 No changes today. Reason for continued inpatient stay Substantial Risk for: rapid decompensation Time Spent With Patient Time: Total time managing care of this patient today ____ minutes.
[2024-02-10 20:00] VITALS: BP 134/73; PULSE 88; RESP 16; TEMP 36.6; O2SAT 96
[2024-02-10] MEDS: traZODone HCL 100 MG TABLET PO (22:02)
[2024-02-10] MEDS: guaiFENesin DM 600/30 1 TAB TAB.ER.12H 2 TAB PO (22:03)
[2024-02-10] MEDS: QUEtiapine Fumarate 50 MG TABLET PO (22:03)
[2024-02-10 22:05] VITALS: BP 159/89
[2024-02-10] MEDS: Prazosin HCL 1 MG CAPSULE PO (22:05)
[2024-02-11 08:00] VITALS: BP 141/77; PULSE 92; RESP 16; TEMP 36.4; O2SAT 97
[2024-02-11] MEDS: buPROPion HCl XL 150 MG TAB.ER.24H PO (09:45)
[2024-02-11] MEDS: Levothyroxine Sodium 25 MCG TABLET PO (09:45)
[2024-02-11] MEDS: Doxycycline Monohydrate 100 MG CAPSULE PO ×2 (09:45→21:45)
--- NOTE | 2024-02-11 12:02 | HO.PSYCHPN ---
Subjective Subjective Date of Service: 02/11/24 Reason For Visit: Depression, SI Subjective Notes: Conditional Voluntary Interim History: Pt reports some difficulty staying asleep. He reports mood is better, less depressed. No SI/HI. We discussed increasing trazodone to 150mg po qhs and prazosin to 2mg po qhs. No behavioral concerns. Review of Systems Review of Systems R Elbow Cellulitis resolving Yes all other systems are reviewed and are negative Mental Status Exam Mental Status Exam Patient Appearance: Fatigued Patient Orientation: Person, Place, Time and Situation Level of Consciousness: Alert Patient Behavior: Appropriate, Talkative, Cooperative and Good Eye Contact Mood Description: Depressed Affect Description: Flat Patient Cognition Impaired: No Ability to Follow Directions: Good Speech Pattern: Spontaneous Speech Memory Description: Episodic Impaired Diagnostics Vital Signs (24Hr): Vital Signs - 24 hr 02/10/24 20:00 02/10/24 22:05 02/11/24 08:00 Temperature 97.9 F 97.5 F Pulse Rate 88 92 Respiratory Rate 16 16 Blood Pressure 134/73 159/89 H 141/77 H Pulse Oximetry 96 97 Oxygen Delivery Method Room Air Room Air BMI result Body Mass Index 39.9 Labs 02/03/24 03:19 02/03/24 03:19 Medications Medications Current Medications Acetaminophen (Acetaminophen 325 Mg Tablet) 650 mg PO Q6H PRN PRN Reason: Headache/Pain Mild Scale (1-3) Last Admin: 02/09/24 20:01 Dose: 650 mg Al Hydroxide/Mg Hydroxide (Magnesium Hydrox/Alum Hydrox 30 Ml Oral.Susp) 30 ml PO Q6H PRN PRN Reason: Heartburn/Nausea Bupropion HCl (Bupropion Hcl Xl 150 Mg Tab.Er.24h) 150 mg PO DAILY [facility] Last Admin: 02/11/24 09:45 Dose: 150 mg Doxycycline Monohydrate (Doxycycline Monohydrate 100 Mg Capsule) 100 mg PO Q12H [facility] Stop: 02/14/24 22:16 Last Admin: 02/11/24 09:45 Dose: 100 mg Guaifenesin/Dextromethorphan (Guaifenesin Dm 600/30 1 Tab Tab.Er.12h) 2 tab PO BID PRN PRN Reason: Congestion Last Admin: 02/10/24 22:03 Dose: 2 tab Hydroxyzine HCl (Hydroxyzine Hcl 25 Mg Tablet) 25 mg PO Q6H PRN PRN Reason: Anxiety Last Admin: 02/08/24 20:27 Dose: 25 mg Ibuprofen (Ibuprofen 600 Mg Tablet) 600 mg PO Q8H PRN PRN Reason: Pain, Mild (Pain Scale 1-3) Last Admin: 02/09/24 20:01 Dose: 600 mg Levothyroxine Sodium (Levothyroxine Sodium 25 Mcg Tablet) 25 mcg PO DAILY@0600 [facility] Last Admin: 02/11/24 09:45 Dose: 25 mcg Magnesium Hydroxide (Milk Of Magnesia 30 Ml Oral.Susp) 30 ml PO DAILY PRN PRN Reason: Constipation Nicotine (Nicotine 21 Mg Patch.Td24) 21 mg TRANSDERMA DAILY PRN PRN Reason: smoking cessation Last Admin: 02/06/24 11:28 Dose: 21 mg Nicotine Polacrilex (Nicotine Polacrilex 2 Mg Gum) 4 mg BUCCAL Q2H PRN PRN Reason: Nicotine Cravings Last Admin: 02/06/24 11:29 Dose: 4 mg Olanzapine (Olanzapine 5 Mg Tablet) 5 mg PO TID PRN PRN Reason: agitation Prazosin HCl (Prazosin Hcl 1 Mg Capsule) 1 mg PO BEDTIME [facility]; Protocol Last Admin: 02/10/24 22:05 Dose: 1 mg Quetiapine Fumarate (Quetiapine Fumarate 50 Mg Tablet) 50 mg PO BID PRN PRN Reason: anxiety, agitation Last Admin: 02/10/24 22:03 Dose: 50 mg Trazodone HCl (Trazodone Hcl 100 Mg Tablet) 100 mg PO BEDTIME [facility] Last Admin: 02/10/24 22:02 Dose: 100 mg Allergies Allergies Allergy/AdvReac Type Severity Reaction Status Date / Time No Known Allergies Allergy Verified 02/09/24 16:48 Assessment & Plan Assessment & Plan (1) Polysubstance abuse: Status: Acute Code(s): F19.10 - Other psychoactive substance abuse, uncomplicated (2) Mood disorder: Status: Acute Code(s): F39 - Unspecified mood [affective] disorder Plan 38 yo male, hx of mood disorder (affirms hypomania by hx) and polysubstance use disorder. Plan: Admit, CV, 15 min checks Wellbutrin 75 mg daily Seroquel 50 mg HS Levothyroxine 25 mcg daily Collateral contact Aftercare planning 02/05: Continue tx. 02/06: Increase Seroquel to 100 mg HS 02/08: Discontinue HS Seroquel Increase Wellbutrin XL to 150 mg Trazodone 100 mg HS Prazosin 1 mg HS 02/09 No changes today. 02/10 continue tx. Reason for continued inpatient stay Substantial Risk for: inability to function Time Spent With Patient Time: Total time managing care of this patient today ____ minutes.
[2024-02-11 20:00] VITALS: BP 131/70; PULSE 80; RESP 16; TEMP 36.9; O2SAT 96
[2024-02-11 21:44] VITALS: BP 131/70
[2024-02-11] MEDS: traZODone HCL 50 MG TABLET 150 MG PO (21:44)
[2024-02-11] MEDS: Prazosin HCL 1 MG CAPSULE 2 MG PO (21:44)
[2024-02-11] MEDS: guaiFENesin DM 600/30 1 TAB TAB.ER.12H 2 TAB PO (21:45)
[2024-02-12 08:00] VITALS: BP 93/53; PULSE 73; TEMP 36.4; O2SAT 96
[2024-02-12] MEDS: buPROPion HCl XL 150 MG TAB.ER.24H PO (09:07)
[2024-02-12] MEDS: Levothyroxine Sodium 25 MCG TABLET PO (09:07)
[2024-02-12] MEDS: Doxycycline Monohydrate 100 MG CAPSULE PO ×2 (09:16→21:12)
--- NOTE | 2024-02-12 11:39 | HO.PSYCHPN ---
Subjective Subjective Date of Service: 02/12/24 Reason For Visit: Depression, SI Interim History: Met with patient; discussed with team Patient reports that he is feeling good says all SI fully resolved and he is feeling ready to go. Still some trouble sleeping and agrees to start clonidine at bedtime. Asked for trazodone to be lowered back to 100 since he did not fall asleep despite its increase dose. Review of vitals and this morning patient Mild to moderately hypotensive this morning; likely because took trazodone last night; asymptomatic Mental Status Exam Mental Status Exam Narrative: Pt is alert and oriented; behavior is cooperative, friendly and calm; patient is not in distress; dressed in hospitall attire with adequate hygiene; mood is described as good and affect congruent; eye contact appropriate; Speech is normal rate, a little soft volume, normal prosody and not pressured; mi psychomotor retardation present; thought process is organized and goal directed; Thought content is on tx, feeling better; otherwise pertinent to relevant topics and without any delusional content, paranoid ideations or grandiosity; denies any SI/HI. There is no evidence of perceptual disturbance; denies AVH Patients insight and judgment improved Diagnostics Vital Signs (24Hr): Vital Signs - 24 hr 02/11/24 20:00 02/11/24 21:44 02/12/24 08:00 Temperature 98.5 F 97.6 F Pulse Rate 80 73 Respiratory Rate 16 Blood Pressure 131/70 131/70 93/53 L Pulse Oximetry 96 96 Oxygen Delivery Method Room Air Room Air BMI result Body Mass Index 39.9 Labs 02/03/24 03:19 02/03/24 03:19 Medications Medications Current Medications Acetaminophen (Acetaminophen 325 Mg Tablet) 650 mg PO Q6H PRN PRN Reason: Headache/Pain Mild Scale (1-3) Last Admin: 02/09/24 20:01 Dose: 650 mg Al Hydroxide/Mg Hydroxide (Magnesium Hydrox/Alum Hydrox 30 Ml Oral.Susp) 30 ml PO Q6H PRN PRN Reason: Heartburn/Nausea Bupropion HCl (Bupropion Hcl Xl 150 Mg Tab.Er.24h) 150 mg PO DAILY [facility] Last Admin: 02/12/24 09:07 Dose: 150 mg Doxycycline Monohydrate (Doxycycline Monohydrate 100 Mg Capsule) 100 mg PO Q12H [facility] Stop: 02/14/24 22:16 Last Admin: 02/12/24 09:16 Dose: 100 mg Guaifenesin/Dextromethorphan (Guaifenesin Dm 600/30 1 Tab Tab.Er.12h) 2 tab PO BID PRN PRN Reason: Congestion Last Admin: 02/11/24 21:45 Dose: 2 tab Hydroxyzine HCl (Hydroxyzine Hcl 25 Mg Tablet) 25 mg PO Q6H PRN PRN Reason: Anxiety Last Admin: 02/08/24 20:27 Dose: 25 mg Ibuprofen (Ibuprofen 600 Mg Tablet) 600 mg PO Q8H PRN PRN Reason: Pain, Mild (Pain Scale 1-3) Last Admin: 02/09/24 20:01 Dose: 600 mg Levothyroxine Sodium (Levothyroxine Sodium 25 Mcg Tablet) 25 mcg PO DAILY@0600 [facility] Last Admin: 02/12/24 09:07 Dose: 25 mcg Magnesium Hydroxide (Milk Of Magnesia 30 Ml Oral.Susp) 30 ml PO DAILY PRN PRN Reason: Constipation Nicotine (Nicotine 21 Mg Patch.Td24) 21 mg TRANSDERMA DAILY PRN PRN Reason: smoking cessation Last Admin: 02/06/24 11:28 Dose: 21 mg Nicotine Polacrilex (Nicotine Polacrilex 2 Mg Gum) 4 mg BUCCAL Q2H PRN PRN Reason: Nicotine Cravings Last Admin: 02/06/24 11:29 Dose: 4 mg Olanzapine (Olanzapine 5 Mg Tablet) 5 mg PO TID PRN PRN Reason: agitation Prazosin HCl (Prazosin Hcl 1 Mg Capsule) 2 mg PO BEDTIME [facility]; Protocol Last Admin: 02/11/24 21:44 Dose: 2 mg Quetiapine Fumarate (Quetiapine Fumarate 50 Mg Tablet) 50 mg PO BID PRN PRN Reason: anxiety, agitation Last Admin: 02/10/24 22:03 Dose: 50 mg Trazodone HCl (Trazodone Hcl 50 Mg Tablet) 150 mg PO BEDTIME [facility] Last Admin: 02/11/24 21:44 Dose: 150 mg Allergies Allergies Allergy/AdvReac Type Severity Reaction Status Date / Time No Known Allergies Allergy Verified 02/09/24 16:48 Assessment & Plan Assessment & Plan (1) Polysubstance abuse: Status: Acute Code(s): F19.10 - Other psychoactive substance abuse, uncomplicated (2) Mood disorder: Status: Acute Code(s): F39 - Unspecified mood [affective] disorder Plan 38 yo male, hx of mood disorder (affirms hypomania by hx) and polysubstance use disorder. Plan: Admit, CV, 15 min checks Wellbutrin 75 mg daily Seroquel 50 mg HS Levothyroxine 25 mcg daily Collateral contact Aftercare planning 02/05: Continue tx. 02/06: Increase Seroquel to 100 mg HS 02/08: Discontinue HS Seroquel Increase Wellbutrin XL to 150 mg Trazodone 100 mg HS Prazosin 1 mg HS 02/09 No changes today. 02/10 continue tx. Patient reports that he is feeling good says all SI fully resolved and he is feeling ready to go. Still some trouble sleeping and agrees to start clonidine at bedtime. Asked for trazodone to be lowered back to 100 since he did not fall asleep despite its increase dose. Review of vitals and this morning patient Mild to moderately hypotensive this morning; likely because took trazodone last night; asymptomatic and likely to tolerate clonidine -lower trazodone back to 100 -Clonidine 0.1 mg q.h.s. Patient educated on: diagnosis, medication risk/benefits and therapeutic strategies Informed Consent: understands Reason for continued inpatient stay Substantial Risk for: rapid decompensation Time Spent With Patient Time: Total time managing care of this patient today ____ minutes.
[2024-02-12 20:00] VITALS: PULSE 80; RESP 16; TEMP 36.8; O2SAT 96
[2024-02-12 21:12] VITALS: BP 129/76
[2024-02-12] MEDS: Prazosin HCL 1 MG CAPSULE 2 MG PO (21:12)
[2024-02-12] MEDS: traZODone HCL 100 MG TABLET PO (21:12)
[2024-02-12] MEDS: cloNIDine HCL 0.1 MG TABLET PO (21:12)
[2024-02-12] MEDS: guaiFENesin DM 600/30 1 TAB TAB.ER.12H 2 TAB PO (21:13)
[2024-02-13] MEDS: Levothyroxine Sodium 25 MCG TABLET PO (06:31)
[2024-02-13 08:00] VITALS: BP 135/70; PULSE 82; RESP 16; TEMP 36.4; O2SAT 96
[2024-02-13] MEDS: Doxycycline Monohydrate 100 MG CAPSULE PO ×2 (09:14→21:14)
[2024-02-13] MEDS: buPROPion HCl XL 150 MG TAB.ER.24H PO (09:14)
--- NOTE | 2024-02-13 10:57 | P.PNPSI_ITS ---
Subjective Subjective Date of Service: 02/13/24 Reason For Visit: Depression, SI Interim History: Met with patient; discussed with team Patient reports that he is good that he slept well with clonidine at bedtime. Denies psychiatric symptoms and is appreciative of help Mental Status Exam Mental Status Exam Narrative: Pt is alert and oriented; behavior is cooperative, friendly and calm; patient is not in distress; dressed in hospitall attire with adequate hygiene; mood is described as good and affect congruent; eye contact appropriate; Speech is normal rate, a little soft volume, normal prosody and not pressured; mi psychomotor retardation present; thought process is organized and goal directed; Thought content is on tx, feeling better; otherwise pertinent to relevant topics and without any delusional content, paranoid ideations or grandiosity; denies any SI/HI. There is no evidence of perceptual disturbance; denies AVH Patients insight and judgment fair. Diagnostics Vital Signs (24Hr): Vital Signs - 24 hr 02/12/24 20:00 02/12/24 21:12 02/12/24 21:12 Temperature 98.3 F Pulse Rate 80 Respiratory Rate 16 Blood Pressure 129/76 129/76 Pulse Oximetry 96 Oxygen Delivery Method Room Air 02/13/24 08:00 Temperature 97.5 F Pulse Rate 82 Respiratory Rate 16 Blood Pressure 135/70 Pulse Oximetry 96 Oxygen Delivery Method Room Air BMI result Body Mass Index 39.9 Labs 02/03/24 03:19 02/03/24 03:19 Medications Medications Current Medications Acetaminophen (Acetaminophen 325 Mg Tablet) 650 mg PO Q6H PRN PRN Reason: Headache/Pain Mild Scale (1-3) Last Admin: 02/09/24 20:01 Dose: 650 mg Al Hydroxide/Mg Hydroxide (Magnesium Hydrox/Alum Hydrox 30 Ml Oral.Susp) 30 ml PO Q6H PRN PRN Reason: Heartburn/Nausea Bupropion HCl (Bupropion Hcl Xl 150 Mg Tab.Er.24h) 150 mg PO DAILY [facility] Last Admin: 02/13/24 09:14 Dose: 150 mg Clonidine HCl (Clonidine Hcl 0.1 Mg Tablet) 0.1 mg PO BEDTIME [facility]; Protocol Last Admin: 02/12/24 21:12 Dose: 0.1 mg Doxycycline Monohydrate (Doxycycline Monohydrate 100 Mg Capsule) 100 mg PO Q12H [facility] Stop: 02/14/24 22:16 Last Admin: 02/13/24 09:14 Dose: 100 mg Guaifenesin/Dextromethorphan (Guaifenesin Dm 600/30 1 Tab Tab.Er.12h) 2 tab PO BID PRN PRN Reason: Congestion Last Admin: 02/12/24 21:13 Dose: 2 tab Hydroxyzine HCl (Hydroxyzine Hcl 25 Mg Tablet) 25 mg PO Q6H PRN PRN Reason: Anxiety Last Admin: 02/08/24 20:27 Dose: 25 mg Ibuprofen (Ibuprofen 600 Mg Tablet) 600 mg PO Q8H PRN PRN Reason: Pain, Mild (Pain Scale 1-3) Last Admin: 02/09/24 20:01 Dose: 600 mg Levothyroxine Sodium (Levothyroxine Sodium 25 Mcg Tablet) 25 mcg PO DAILY@0600 [facility] Last Admin: 02/13/24 06:31 Dose: 25 mcg Magnesium Hydroxide (Milk Of Magnesia 30 Ml Oral.Susp) 30 ml PO DAILY PRN PRN Reason: Constipation Nicotine (Nicotine 21 Mg Patch.Td24) 21 mg TRANSDERMA DAILY PRN PRN Reason: smoking cessation Last Admin: 02/06/24 11:28 Dose: 21 mg Nicotine Polacrilex (Nicotine Polacrilex 2 Mg Gum) 4 mg BUCCAL Q2H PRN PRN Reason: Nicotine Cravings Last Admin: 02/06/24 11:29 Dose: 4 mg Olanzapine (Olanzapine 5 Mg Tablet) 5 mg PO TID PRN PRN Reason: agitation Prazosin HCl (Prazosin Hcl 1 Mg Capsule) 2 mg PO BEDTIME [facility]; Protocol Last Admin: 02/12/24 21:12 Dose: 2 mg Quetiapine Fumarate (Quetiapine Fumarate 50 Mg Tablet) 50 mg PO BID PRN PRN Reason: anxiety, agitation Last Admin: 02/10/24 22:03 Dose: 50 mg Trazodone HCl (Trazodone Hcl 100 Mg Tablet) 100 mg PO BEDTIME [facility] Last Admin: 02/12/24 21:12 Dose: 100 mg Allergies Allergies Allergy/AdvReac Type Severity Reaction Status Date / Time No Known Allergies Allergy Verified 02/09/24 16:48 Assessment & Plan Assessment & Plan (1) Polysubstance abuse: Status: Acute Code(s): F19.10 - Other psychoactive substance abuse, uncomplicated (2) Mood disorder: Status: Acute Code(s): F39 - Unspecified mood [affective] disorder Plan 38 yo male, hx of mood disorder (affirms hypomania by hx) and polysubstance use disorder. Plan: Admit, CV, 15 min checks Wellbutrin 75 mg daily Seroquel 50 mg HS Levothyroxine 25 mcg daily Collateral contact Aftercare planning 02/05: Continue tx. 02/06: Increase Seroquel to 100 mg HS 02/08: Discontinue HS Seroquel Increase Wellbutrin XL to 150 mg Trazodone 100 mg HS Prazosin 1 mg HS 02/09 No changes today. 02/10 continue tx. 02/11 Patient reports that he is feeling good says all SI fully resolved and he is feeling ready to go. Still some trouble sleeping and agrees to start clonidine at bedtime. Asked for trazodone to be lowered back to 100 since he did not fall asleep despite its increase dose. Review of vitals and this morning patient Mild to moderately hypotensive this morning; likely because took trazodone last night; asymptomatic and likely to tolerate clonidine -lower trazodone back to 100 -Clonidine 0.1 mg q.h.s. 02/12 reports good mood; sleeping well with clonidine at bedtime. Patient educated on: diagnosis and medication risk/benefits Informed Consent: understands Reason for continued inpatient stay Substantial Risk for: med/psych decompensation Time Spent With Patient Time: Total time managing care of this patient today ____ minutes.
[2024-02-13 20:00] VITALS: BP 134/62; PULSE 77; RESP 16; TEMP 36.8; O2SAT 98
[2024-02-13 21:13] VITALS: BP 134/62
[2024-02-13] MEDS: Prazosin HCL 1 MG CAPSULE 2 MG PO (21:13)
[2024-02-13 21:14] VITALS: BP 134/62
[2024-02-13] MEDS: traZODone HCL 100 MG TABLET PO (21:14)
[2024-02-13] MEDS: cloNIDine HCL 0.1 MG TABLET PO (21:14)
[2024-02-13] MEDS: guaiFENesin DM 600/30 1 TAB TAB.ER.12H 2 TAB PO (21:16)
[2024-02-14] MEDS: Levothyroxine Sodium 25 MCG TABLET PO (06:24)
[2024-02-14 08:00] VITALS: BP 119/59; PULSE 80; TEMP 36.2; O2SAT 97
[2024-02-14] MEDS: Doxycycline Monohydrate 100 MG CAPSULE PO (09:16)
[2024-02-14] MEDS: buPROPion HCl XL 150 MG TAB.ER.24H PO (09:16)
--- NOTE | 2024-02-14 16:48 | P.DS_ITS ---
DS: Providers Provider Date of Service: 02/14/24 Date of admission: 02/04/24 11:20 Date of discharge: 02/14/24 Primary care physician: Martine Physician Admitting clinician: Flori Louis Attending physician on admission: Casper Fregoso Consults: 02/07/24 22:07 Consult to Hospitalist Routine Comment: Consulting Provider: Hospitalist Reason For Exam: rule out Rt elbow cellulits Attending physician on discharge: Casper Fregoso Discharging clinician: Flori Louis DS: Diagnosis Discharge Diagnosis (1) Polysubstance abuse: Status: Acute (2) Mood disorder: Status: Acute DS: Medications Discharge Medications Home Medications: Previous Rx's ?Medication ?Instructions ?Recorded bupropion HCl 150 mg 24 hr tablet, 150 mg PO DAILY #30 tabs 02/14/24 extended release clonidine HCl 0.1 mg tablet 0.1 mg PO BEDTIME #30 tabs 02/14/24 doxycycline monohydrate 100 mg 100 mg PO Q12H #2 caps 02/14/24 capsule levothyroxine 25 mcg capsule 25 mcg PO DAILY #30 caps 02/14/24 prazosin 1 mg capsule 2 mg PO BEDTIME #30 caps 02/14/24 quetiapine 50 mg tablet 50 mg PO BID PRN anxiety, 02/14/24 agitation #30 tabs trazodone 100 mg tablet 100 mg PO BEDTIME #30 tabs 02/14/24 Mental Status Exam Mental Status Exam Patient Appearance: Fatigued Patient Orientation: Person, Place, Time and Situation Level of Consciousness: Alert Patient Behavior: Appropriate, Talkative, Cooperative and Good Eye Contact Mood Description: Depressed Affect Description: Flat Patient Cognition Impaired: No Ability to Follow Directions: Good Speech Pattern: Spontaneous Speech Memory Description: Episodic Impaired Perceptual Disturbances: Depersonalization and Derealization Judgement: Good DS: Summary Hospital Course Hospital Course: Admission to adult psychiatry for exacerbation of mood disorder, polysubstance use disorder and SI. Recent AMA discharge from [facility]. When pt returned to family they told him that he was not able to remain at the home due to his substance use. Reports precipitants as loss of relationship with the mother of his children for the past six years due to addiction issues. Pt's goals were to obtain sobriety by a return to [facility] where he reports his best success, transition into their CSS program and hopefully repair relationships with family and return to his children and life. Medications were evaluated and adjusted. Medically, R Elbow Cellulitis was treated. Levothyroxine was initiated for a TSH of 10.65. Pt to follow up with PCP with [facility] for ongoint therapy and psychopharmacology. Status at Discharge Functional status at discharge: independent ambulation Overall status at discharge: patient is progressing back to baseline Time Spent with Patient Time attestation: Total time managing care of this patient today ____ minutes. Time spent: Less than 30 minutes Discharge Plan Discharge Anticipated Discharge Date/Time: 02/14/24 12:00 Patient Disposition: Home, Self-Care Discharge Diagnosis: Mood Disorder Polysubstance Use Disorder Referrals: [facility] Diagnostic Intake saundra Laws [Other] - 02/15/24 3:00 pm [facility] Tawana [Other] - 1 Week (Please follow up for primary care ) Discharge Medications: New clonidine HCl 0.1 mg Tablet 0.1 mg PO BEDTIME Qty: 30 0RF Protocol: Hold for SBP< HOLD for SBP < : 90 prazosin 1 mg Capsule 2 mg PO BEDTIME Qty: 30 0RF Protocol: Hold for SBP< HOLD for SBP < : 90 trazodone 100 mg Tablet 100 mg PO BEDTIME Qty: 30 0RF doxycycline monohydrate 100 mg Capsule 100 mg PO Q12H Qty: 2 0RF bupropion HCl 150 mg Tablet Extended Release 24 Hr 150 mg PO DAILY Qty: 30 0RF quetiapine 50 mg Tablet 50 mg PO BID PRN (Reason: anxiety, agitation) Qty: 30 0RF levothyroxine 25 mcg capsule 25 mcg PO DAILY Qty: 30 0RF Discharge Orders: Discharge Order (Routine); Ordered 02/14/24 Ordered By: Flori Louis Diet: Advance to usual diet Activity on Discharge: As tolerated Stand Alone Forms: Patient Portal Discharge page, Community Support Print Language: Bulgarian Care Plan Goals: Abstinence from substances Mood and Behavioral Stabilization Health Concerns: Abstinence from substances Mood and Behavioral Stabilization Plan of Treatment: Attend scheduled appointments Take medications as directed Follow up with PCP and have labs check thyroid values. --TSH high at 10.65 on admission --Levothyroxine 25 mcg initiated. Call/Return as needed Assessment: Scheduled discharge Discharge Date/Time: 02/14/24 11:39
== END 2024-02-14 11:39 | disposition home or self-care (01) | DRG 753 ==
LOC: HO.ED 03:15 → HO.PM5 02-04 11:24
PROVIDERS: Admitting Provider Psychiatry & Neurology Psychiatry; Emergency Provider Emergency Medicine; Visit Provider Clinical Nurse Specialist Psychiatric/Mental Health, Adult
DX: F39 Unspecified mood [affective] disorder (principal); R45.851 Suicidal ideations; F19.10 Other psychoactive substance abuse, uncomplicated; L03.113 Cellulitis of right upper limb; Z79.890 Hormone replacement therapy; Z79.899 Other long term (current) drug therapy
CPT/HCPCS: 36415; 80053; 80061; 80307; 81001; 81003; 83036; 84439; 84443; 84484; 85025; 93005; 99285; S9485

== ENCOUNTER → 2024-02-03 02:05 | Outpatient (BNV) | payer OTHER, SELFPAY | PROVIDERS: Emergency Provider Emergency Medicine; Visit Provider Internal Medicine Cardiovascular Disease | DX: R07.9 Chest pain, unspecified (principal) | CPT/HCPCS: 93010 ==

== ENCOUNTER → 2024-02-04 11:20 | Outpatient (BNV) | payer OTHER, SELFPAY | PROVIDERS: Admitting Provider Psychiatry & Neurology Psychiatry; Emergency Provider Emergency Medicine; Visit Provider Clinical Nurse Specialist Psychiatric/Mental Health, Adult | DX: F39 Unspecified mood [affective] disorder (principal); F19.10 Other psychoactive substance abuse, uncomplicated | CPT/HCPCS: 90792; 99231; 99232; 99238 ==

== ENCOUNTER 2024-09-02 14:53 | Inpatient (IN) | payer OTHER, SELFPAY ==
--- NOTE | ~2024-09-02 | CT_ITS ---
CLINICAL HISTORY: tachy, hypoxia, elevated ddimer, R sided CP CT angiography chest with contrast. 3D Postprocessing. Comparison: None Findings: The heart is nonenlarged. The study is positive for bilateral lower lobe pulmonary embolism, moderate clot burden. No definite heart strain by CT. No mediastinal adenopathy or pericardial effusion. No discrete thyroid lesion detected. Motion artifact limits interpretation of the lungs. No effusion or pneumothorax. No acute osseous finding. The visualized upper abdomen demonstrates no acute process. Small hiatal hernia. Impression: The study is positive for bilateral lower lobe pulmonary embolism, moderate clot burden. No definite heart strain by CT. This document has been electronically signed by: Broderick Barrera MD on 09/03/2024 11:19:08
--- NOTE | ~2024-09-02 | XR_ITS ---
CLINICAL HISTORY: cough, flu B, low O2 sat 2 views chest Comparison: None Findings: Cardiac and mediastinal contours are normal. Mild interstitial prominence with scattered peribronchial thickening. No focal consolidation. No effusion. No pneumothorax. No acute osseous finding. Impression: Mild interstitial prominence with scattered peribronchial thickening. No focal consolidation. This document has been electronically signed by: Broderick Barrera MD on 09/03/2024 11:53:33
--- NOTE | ~2024-09-02 | US_ITS ---
CLINICAL HISTORY: Pulmonary embolism, look for DVT. Venous duplex ultrasound bilateral lower extremity Comparison: None Findings: The visualized deep veins are fully compressible with normal Doppler color flow and spectral tracings. No popliteal cyst. IMPRESSION: 1. Negative for bilateral lower extremity deep vein thrombosis. This document has been electronically signed by: Vitaly Silva DO on 09/04/2024 10:22:49
--- NOTE | 2024-09-02 14:54 | ECG_ITS ---
Test Reason : chest pain Blood Pressure : */* mmHG Vent. Rate : 116 BPM Atrial Rate : 116 BPM P-R Int : 120 ms QRS Dur : 88 ms QT Int : 332 ms P-R-T Axes : 22 5 60 degrees QTcB Int : 461 ms Sinus tachycardia Otherwise normal ECG When compared with ECG of 03-Feb-2024 02:05, Premature ventricular complexes are no longer Present Nonspecific T wave abnormality now evident in Lateral leads Referred By: Aixa Guerrero Electronically Signed By: FABIENNE SOTO MD
[2024-09-02 15:14] VITALS: BP 147/98; PULSE 116; RESP 18; TEMP 37.1; O2SAT 93; BMI 48.8
--- NOTE | 2024-09-02 15:15 | ED_ITS ---
HPI - General Adult General Chief complaint: Psychiatric Symptoms Stated complaint: chest pain Time Seen by Provider: 09/02/24 15:26 Source: patient Mode of arrival: ambulatory Limitations: no limitations History of Present Illness ED Provider: GRADY CRUZ PA-C HPI narrative: 39-year-old male with pmhx significant for depression presents to the ED today for evaluation of suicidal ideation. Patient reports leaving a prison house yesterday. Upon leaving the house, he felt himself go into a crisis . Admits to SI with plan to stab himself. Denies HI. Gonzalo AH/VH/TH. 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 Denies hx of etoh withdrawal or withdrawal seizures. He also endorses right-sided chest pain radiating to his right shoulder that began this morning. Chest pain began prior to sniffing cocaine. Denies cardiac history. Admits to recent URI with dry cough and sore throat x1 week. Denies fever, chills, sob, wheezing. Related Data Home Medications ?Medication ?Instructions ?Recorded ?Confirmed baclofen 10 mg tablet 10 mg PO BID 09/02/24 09/02/24 bupropion HCl 75 mg tablet 75 mg PO BID 09/02/24 09/02/24 clonidine HCl 0.1 mg tablet 0.1 mg PO TID PRN Anxiety 09/02/24 09/02/24 hydroxyzine HCl 50 mg tablet 50 mg PO 3XD PRN Anxiety 09/02/24 09/02/24 ibuprofen 600 mg PO TID PRN Pain 09/02/24 09/02/24 melatonin 5 mg capsule 5 mg PO BEDTIME PRN Insomnia 09/02/24 09/02/24 trazodone 100 mg tablet 100 mg PO BEDTIME PRN Insomnia 09/02/24 09/02/24 Allergies Allergy/AdvReac Type Severity Reaction Status Date / Time No Known Allergies Allergy Verified 09/02/24 15:16 Review of Systems 2 Review of Systems: Yes all other systems are reviewed and are negative PMFSH Past Medical History Attestation statement: The following information was validated with the patient. Source: old records reviewed and nursing notes reviewed Medical History Mood disorder Depression Polysubstance abuse Social History Social History Household Members: None Housing: Homeless Do you presently have visiting nurse or other home services: No Alcohol intake: current Alcohol intake frequency: 3 or more drinks per day Patient Tobacco Use Status: Never used Tobacco Cigarettes Per Day: 3 Smoked in Last 30 Days: Yes e-Cigarette/Vaping Use: Currently Using Use of substances other than those prescribed or required for medical reasons: Yes Substance Use Type: Crack/Cocaine Substance Use Frequency: Chronic Longstanding Last Used Substance: Hours (ago) Any prior treatment program specific to substance use: Yes (pt left addiction program yesterday) Advance Directives: No Advance Directives Information Provided: Yes Do you have a plan to hurt others: No Plan service: No Sexual orientation: Straight/Heterosexual Physical Exam ED Vital Signs: Vital Signs - 24 hr 09/02/24 15:14 09/02/24 19:11 Temperature 98.7 F 99.1 F Pulse Rate 116 H 97 Respiratory Rate 18 18 Blood Pressure 147/98 H 120/61 Pulse Oximetry 93 91 L Oxygen Delivery Method Room Air Room Air BMI result Body Mass Index 48.8 Hypertensive, tachycardic, afebrile General: Well appearing, in no acute distress. Skin: Warm, dry, intact. No rashes or lesions. Head: Normocephalic, atraumatic. EENT: Hearing is intact b/l. Conjunctiva clear. PERRLA. EOM intact. Moist mucous membranes.? Neck: Supple without LAD Cardiac: Chest wall symmetric. RRR. Lungs: Normal respiratory effort without accessory muscle use. bronchospastic cough. CTA bilaterally, no adventitious breath sounds. Abdomen: Soft, non-tender, non-distended Ext: Upper and lower extremities atraumatic, without tenderness, deformity, swelling or erythema Neuro: AOx3. Normal speech. CN 2-12 grossly intact. Ambulating with steady gait. Psych: Appropriate mood and affect. Responds appropriately to questions. Course Course Course Narrative: RME performed by Aixa Guerrero PA-C. Patient is a 39 year old assigned male at presenting to the emergency department with chest pain and suicidal ideation. Patient states he feels as though he is having a crisis attack and feels like killing himself. Detailed physical exam and review of systems are deferred to the correctional agency director. EKG, labs, and swabs ordered. salesperson sheet music made aware. Reevaluation(s) Reevaluation #1: 1715 --CBC without leukocytosis or left shift. Normocytic anemia, chronic when compared to priors. H&H above transfusion threshold. Chemistry without acute electrolyte abnormality requiring intervention. No JOVAN. Random glucose 129. Liver function around baseline. Troponin 11.7. EKG showing sinus tachycardia with a rate of 116 beats per minute, QT 332, QTC 461, no acute ischemic changes or ST elevations. Urine with trace leukocyte esterase, 6-10 WBCs however there are 11-20 squamous epithelial cells without urine bacteria. Likely contamination. Will await urine culture for treatment as patient is asymptomatic. Urine toxicology positive for benzodiazepines, cocaine and THC, otherwise negative. Salicylates, acetaminophen ethanol undetectable. Patient tested positive for influenza of the. Negative for COVID, RSV and strep throat. > discussed all results with patient. placed on respiratory precautions. as symptoms have been present for 1 week, he is out of window for tamiflu administration. > Spoke with care team. Plan to make patient inpatient bed search. Patient placed in physician observation pending placement and disposition. Reevaluation #2: observation continued no acute events overnight, pending inpatient bed search NAKIA 09/03/24 Medications Administered Generic Name Dose Route Start Last Admin Trade Name Freq PRN Reason Stop Dose Admin Bupropion HCl 75 mg 09/02/24 21:00 09/02/24 21:00 Bupropion Hcl 75 Mg Tablet PO 75 mg BID ELVIRA Administration Trazodone HCl 100 mg 09/02/24 19:47 09/02/24 21:00 Trazodone Hcl 100 Mg Tablet PO 100 mg BEDTIME PRN Administration Insomnia Discontinued Medications Generic Name Dose Route Start Last Admin Trade Name Freq PRN Reason Stop Dose Admin Benzonatate 200 mg 09/02/24 18:09 09/02/24 18:52 Benzonatate 100 Mg Capsule PO 09/02/24 18:10 200 mg ONCE ONE Administration Medical Decision Making Medical Decision Making [facility] Narrative: 39-year-old male with pmhx significant for depression presents to the ED today for evaluation of suicidal ideation. Tachycardic to 116. Hypertensive to 147/98. Vitals are otherwise WNL. He is nontoxic appearing and in NAD. on exam, no noted respiratory distress. bronchospastic cough, lungs are cta b/l. small abrasion to right palm, no active bleeding. exam otherwise unremarkable. Differential diagnosis includes viral syndrome, bronchitis, pneumonia, anemia, electrolyte abnormality, anxiety, depression, psychosis, polysubstance use. low suspicion for acs, arrhythmia Plan for medical clearance and care team evaluation. Differential Diagnosis Differential Diagnoses: The differential diagnosis associated with the presentation includes as above Admission/Observation Consideration of admission/observation: Escalation of care including admission/observation considered Lab Data MDM Lab Attestation statement: I reviewed the patient's lab results. as above. 09/02/24 15:56 09/02/24 15:53 Labs: Lab Results 09/02/24 09/02/24 09/02/24 Range/Units 15:53 15:54 15:56 WBC 8.4 (4.8-10.8) X10*3/uL RBC 4.70 (4.60-5.80) X10*6/uL Hgb 13.9 L (14.0-18.0) g/dl Hct 40.7 L (42.0-52.0) % MCV 86.6 (80.0-98.0) fL MCH 29.6 (27.0-33.0) pg MCHC 34.2 (31.0-36.0) g/dl RDW 13.0 (11.0-16.0) % Plt Count 195 D (160-400) X10*3/uL MPV 10.2 (9.4-12.4) fL Immature Gran % (Auto) 0.4 (0.0-0.4) % Neut % (Auto) 55.7 (45-73) % Lymph % (Auto) 31.5 (20-40) % [place] % (Auto) 11.8 H (2-11) % Eos % (Auto) 0.4 (0-4) % Baso % (Auto) 0.2 (0-2) % Lymph # (Auto) 2.6 (1.2-4.9) X10*3/uL [place] # (Auto) 1.0 (0.1-1.2) X10*3/uL Eos # (Auto) 0.0 (0.0-0.4) X10*3/uL Baso # (Auto) 0.0 (0.0-0.2) X10*3/uL Abs Immat Gran (auto) 0.03 (0.00-0.03) X10*3/uL Absolute Neuts (auto) 4.7 (2.0-8.3) x10*3/uL Absolute Nucleated RBC 0.000 (0.0-0.012) X10*3/uL Nucleated RBC % (auto) 0.0 (0.0-0.2) /100WBC Sodium 142 (135-145) mmol/L Potassium 3.7 (3.3-5.1) mmol/L Chloride 107 (96-108) mmol/L Carbon Dioxide 27 (22-29) mmol/L Anion Gap 12 (12-20) BUN 10 (9-16) mg/dL Creatinine 0.80 (0.5-1.4) mg/dL Estim Creat Clear Calc 188.6 Estimated GFR > 60 Random Glucose 129 H (60-115) mg/dL Calcium 8.6 D (8.4-10.2) mg/dL Total Bilirubin 0.9 (0.0-1.0) mg/dL AST 87 H (5-37) U/L ALT 131 H (0-40) U/L Alkaline Phosphatase 68 (39-117) U/L Troponin I High Sens 11.7 D (<3.5-35.0) ng/L Total Protein 7.8 (6.5-8.0) g/dL Albumin 3.9 (3.5-5.0) g/dL Urine Color Dark Yellow Urine Appearance Cloudy Urine pH 6.0 (5.0-9.0) Ur Specific [place] >= 1.030 H (1.005-1.025) Urine Protein 100 (2+) H (Neg-Trace) mg/dL Urine Glucose (UA) Negative (Negative) mg/dL Urine Ketones Trace (Negative) mg/dL Urine Blood Negative (Negative) Urine Nitrite Negative (Negative) Ur Leukocyte Esterase Trace H (Negative) Urine RBC 0-2 (0-2) /HPF Urine WBC 6-10 H (0-5) /HPF Ur Squamous Epith Cells 11-20 (0-2) /HPF Urine Bacteria None Seen (None Seen) Hyaline Casts 6-10 (0-2) /LPF Salicylates < 5.0 L (15-30) mg/dL Urine Opiates Screen Not Detected (Not Detect) Ur Buprenorphine Scrn Not Detected (Not Detect) ng/mL Ur Oxycodone Screen Not Detected (Not Detect) ng/mL Urine Methadone Screen Not Detected (Not Detect) ng/mL Urine Fentanyl Screen Not Detected (Not Detect) Acetaminophen < 3 (<30) mcg/mL Ur Barbiturates Screen Not Detected (Not Detect) Ur Phencyclidine Scrn Not Detected (Not Detect) Ur Amphetamines Screen Not Detected (Not Detect) U Benzodiazepines Scrn POSITIVE H (Not Detect) Urine Cocaine Screen POSITIVE H (Not Detect) U Marijuana (THC) Screen POSITIVE H (Not Detect) Ethyl Alcohol < 10 mg/dL Influenza Type A (PCR) NEGATIVE (Negative) Influenza Type B (PCR) POSITIVE A (Negative) RSV RNA Qual (PCR) NEGATIVE (Negative) SARS-CoV-2 RNA (RT-PCR) NEGATIVE (Negative) S. pyogenes GrpA GRACE (Negative) 09/02/24 Range/Units 16:38 WBC (4.8-10.8) X10*3/uL RBC (4.60-5.80) X10*6/uL Hgb (14.0-18.0) g/dl Hct (42.0-52.0) % MCV (80.0-98.0) fL MCH (27.0-33.0) pg MCHC (31.0-36.0) g/dl RDW (11.0-16.0) % Plt Count (160-400) X10*3/uL MPV (9.4-12.4) fL Immature Gran % (Auto) (0.0-0.4) % Neut % (Auto) (45-73) % Lymph % (Auto) (20-40) % [place] % (Auto) (2-11) % Eos % (Auto) (0-4) % Baso % (Auto) (0-2) % Lymph # (Auto) (1.2-4.9) X10*3/uL [place] # (Auto) (0.1-1.2) X10*3/uL Eos # (Auto) (0.0-0.4) X10*3/uL Baso # (Auto) (0.0-0.2) X10*3/uL Abs Immat Gran (auto) (0.00-0.03) X10*3/uL Absolute Neuts (auto) (2.0-8.3) x10*3/uL Absolute Nucleated RBC (0.0-0.012) X10*3/uL Nucleated RBC % (auto) (0.0-0.2) /100WBC Sodium (135-145) mmol/L Potassium (3.3-5.1) mmol/L Chloride (96-108) mmol/L Carbon Dioxide (22-29) mmol/L Anion Gap (12-20) BUN (9-16) mg/dL Creatinine (0.5-1.4) mg/dL Estim Creat Clear Calc Estimated GFR Random Glucose (60-115) mg/dL Calcium (8.4-10.2) mg/dL Total Bilirubin (0.0-1.0) mg/dL AST (5-37) U/L ALT (0-40) U/L Alkaline Phosphatase (39-117) U/L Troponin I High Sens (<3.5-35.0) ng/L Total Protein (6.5-8.0) g/dL Albumin (3.5-5.0) g/dL Urine Color Urine Appearance Urine pH (5.0-9.0) Ur Specific [place] (1.005-1.025) Urine Protein (Neg-Trace) mg/dL Urine Glucose (UA) (Negative) mg/dL Urine Ketones (Negative) mg/dL Urine Blood (Negative) Urine Nitrite (Negative) Ur Leukocyte Esterase (Negative) Urine RBC (0-2) /HPF Urine WBC (0-5) /HPF Ur Squamous Epith Cells (0-2) /HPF Urine Bacteria (None Seen) Hyaline Casts (0-2) /LPF Salicylates (15-30) mg/dL Urine Opiates Screen (Not Detect) Ur Buprenorphine Scrn (Not Detect) ng/mL Ur Oxycodone Screen (Not Detect) ng/mL Urine Methadone Screen (Not Detect) ng/mL Urine Fentanyl Screen (Not Detect) Acetaminophen (<30) mcg/mL Ur Barbiturates Screen (Not Detect) Ur Phencyclidine Scrn (Not Detect) Ur Amphetamines Screen (Not Detect) U Benzodiazepines Scrn (Not Detect) Urine Cocaine Screen (Not Detect) U Marijuana (THC) Screen (Not Detect) Ethyl Alcohol mg/dL Influenza Type A (PCR) (Negative) Influenza Type B (PCR) (Negative) RSV RNA Qual (PCR) (Negative) SARS-CoV-2 RNA (RT-PCR) (Negative) S. pyogenes GrpA GRACE Negative (Negative) Independent Interpretation I performed an independent interpretation of an: EKG Interpretation: EKG showing sinus tachycardia with a rate of 116 beats per minute, QT 332, QTC 461, no acute ischemic changes or ST elevation External Record Review External record reviewed: Inpatient record Prescription Management I considered prescription management with: Pain Medication Discharge Plan Discharge Clinical Impression: Suicidal ideation, Polysubstance abuse Patient Disposition: Still a Patient Prescriptions: No Action baclofen 10 mg tablet 10 mg PO BID clonidine HCl 0.1 mg tablet 0.1 mg PO TID PRN (Reason: Anxiety) Protocol: Hold for SBP< HOLD for SBP < : 90 trazodone 100 mg tablet 100 mg PO BEDTIME PRN (Reason: Insomnia) hydroxyzine HCl 50 mg tablet 50 mg PO 3XD PRN (Reason: Anxiety) melatonin 5 mg capsule 5 mg PO BEDTIME PRN (Reason: Insomnia) ibuprofen 600 mg 600 mg PO TID PRN (Reason: Pain) bupropion HCl 75 mg tablet 75 mg PO BID Interventions: [place]-Suicide Risk Severity Scale Last Done: 09/02/24 15:31 Print Language: [place]
--- NOTE | 2024-09-02 15:36 | PC.NURSE ---
Pt congested, coughing on arrival; reports flu-like sx's for 2 days; denies SOB; reports R sided CP, worse with deep inspiration; pt reports leaving his [facility] house yesterday and using ETOH and cocaine last night; pt states he felt suicidal with no plan today
--- OUTSIDE RECORDS SUMMARY | 2024-09-02 15:58 | XMS_ITS | Clinical Summary ---
Author Organization [facility] it Address [address] [place] [address] Care Team Providers Care Conveyor Worker Name Role Phone Grant Moreno MD Primary Care Provider Encounters Date Type Department Care Team Description 08/08/2024 Telephone Adult Medicine [facility] [address] [place] [id number] Praveena Renteria RN from Last 3 Months Immunizations Name Administration Dates Next Due Hepatitis B ([id number] , Recombivax HB-Adult) 19yo and older 12/22/2001 PPD Test 12/22/2001 Social History Tobacco Use Types Packs/Day Years Used Date Smoking Tobacco: Never Assessed Sex and Gender Information Value Date Recorded Sex Assigned at Not on file Legal Sex Male 9:59 AM EST Gender Identity Not on file Sexual Orientation Not on file Plan of Treatment Health Maintenance Due Date Last Done Comments Hepatitis B Vaccines (2 of 3 - 3-dose series) 01/19/2002 12/22/2001 DTaP,Tdap,and Td Vaccines (1 - Tdap) 2006 Cholesterol Screening (Lipid Panel) 09/07/2022 Depression Screening 09/07/2022 HIV Screening 09/07/2022 Hepatitis C Screening 09/07/2022 Social Influencers of Health Screening 09/07/2022 COVID-19 Vaccine ( - 2023-2 5 season) 2024 Influenza Vaccine (#1) 2024 HIB Vaccines Aged Out No longer eligi ble based on patient's age to complete this topic HPV Vaccines Aged Out No longer eligi ble based on patient's age to complete this topic Hepatitis A Vaccines Aged Out No long er eligible based on patient's age to complete this topic IPV Vaccines Aged Out No longer eligi ble based on patient's age to complete this topic MMR Vaccines Aged Out No longer eligi ble based on patient's age to complete this topic Meningococcal ACWY Vaccine Aged Out N o longer eligible based on patient's age to complete this topic Meningococcal B Vacine Aged Out No lo nger eligible based on patient's age to complete this topic Pneumococcal Vaccine: Pediat rics (0 to 5 Years) and At-Risk Patients (6 to 64 Years) Aged Out No longer eligi ble based on patient's age to complete this topic RSV Immunization Patients Un [place] 20 months Aged Out No longer eligible b ased on patient's age to complete this topic Varicella Vaccines Aged Out No longer eligible based on patient's age to complete this topic Care Teams Conveyor Worker Relationship Specialty Start Date End Date Grant Moreno MD [address] [place] [id number] PCP - General 05/29/22
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
--- OUTSIDE RECORDS SUMMARY | 2024-09-02 15:58 | XMS_ITS | Clinical Summary ---
Author Organization [facility] Address [address] [place] [address] Care Team Providers Care Rapid Extractor Operator Name Role Phone Patient, Has No Pcp Or Ref Primary Care Provider Unavailable Allergies No known active allergies Encounters Date Type Department Care Team Description 08/06/2024 7:56 PM EST - 08/07/2024 2:10 AM EST Emergency [facility] Emergency Department [address] [place] [id number] Nitin Hairston II, MD Lindsay, Robert J., MD Traumatic injury of head, initial encounter (Primary Dx) Discharge Disposition: Home or Self Care (01) from Last 3 Months Social History Tobacco Use Types Packs/Day Years [...] 08/06/2024 6:55 PM EST Plan of Treatment Health Maintenance Due Date Last Done Comments HIV Screening 1987 Hepatitis C Screening 1987 Varicella Vaccines (1 of 2 - 13+ 2-dose series) 2000 Hepatitis B Vaccines (2 of 3 - 3-dose series) 01/19/2002 12/22/2001 COVID-19 Vaccine (1 - 2023-2 5 season) 2024 Influenza Vaccine (#1) 2024 Alcohol/Substance Use Screening 07/19/2024 Depression Screening and Follow-Up 07/19/2024 Social Drivers of Health Maria Elena ual Screening 07/19/2024 DTaP,Tdap,and Td Vaccines (2 - Td or Tdap) 04/17/2032 04/17/2022 RSV Vaccine (60+ years old a nd patients) (1 - 1-dose 75+ series) 2062 Pneumococcal Vaccine: Pediat shahram (0-5 Years) and At-Risk Patients (6-50 Years) Aged Out No longer eligible b ased on patient's age to complete this topic Procedures * Due to [place] [employer] law, this organization might not be sharing negative HIV tests. Procedure Name Priority Date/Time Associated Diagnosis Comments CT MAXILLOFACIAL BONES WO CONTRAST STAT 08/06/2024 11:[address] CERVICAL SPINE WO CONTRAST STAT 08/06/2024 11:[address] HEAD WO CONTRAST STAT 08/06/2024 1 1:15 PM EST from Last 3 Months Results * Due to [place] [employer] law, this organization might not be sharing [...] obtain the completed interpretation. ? Workstation ID: [id number] Up-to-date CT equipment and radiation dose reduction techniques were employed. CTDIvol: 34.8 - 121.6 mGy. DLP: 4357 mGy-cm. ??The following accession numbers are related to this dose report [id number]: [id number] Up-to-date CT equipment and radiation dose reduction techniques were employed. CTDIvol: 34.8 - 121.6 mGy. DLP: 4357 mGy-cm. ??The following accession numbers are related to this dose report [id number]: [id number] Up-to-date CT equipment and radiation dose reduction techniques were employed. CTDIvol: 34.8 - 121.6 mGy. DLP: 4357 mGy-cm. ??The following accession numbers are related to this dose report [id number]: [id number] Narrative 08/07/2024 12:47 AM EST PROCEDURE: CT [...] clear. ??Lung apices clear. Resulting Agency Comment [id number] Procedure Note Kun Baltazar MD - 08/07/2024 [...] possible to obtain thecompleted interpretation. Workstation ID: [id number] Up-to-date CT equipment and radiation dose reduction techniques wereemployed. CTDIvol: 34.8 - 121.6 mGy. DLP: 4357 mGy-cm. The followingaccession numbers are related to this dose report [id number]: [id number] Up-to-date CT equipment and radiation dose reduction techniques wereemployed. CTDIvol: 34.8 - 121.6 mGy. DLP: 4357 mGy-cm. The followingaccession numbers are related to this dose report [id number]: [id number] Up-to-date CT equipment and radiation dose reduction techniques wereemployed. CTDIvol: 34.8 - 121.6 mGy. DLP: 4357 mGy-cm. The followingaccession numbers are related to this dose report [id number]: [id number] Nitin Hairston II, MD IMG CT PROCEDURES Final Re sult * CT [...] obtain the completed interpretation. ? Workstation ID: [id number] Up-to-date CT equipment and radiation dose reduction techniques were employed. CTDIvol: 34.8 - 121.6 mGy. DLP: 4357 mGy-cm. ??The following accession numbers are related to this dose report [id number]: [id number] Up-to-date CT equipment and radiation dose reduction techniques were employed. CTDIvol: 34.8 - 121.6 mGy. DLP: 4357 mGy-cm. ??The following accession numbers are related to this dose report [id number]: [id number] Up-to-date CT equipment and radiation dose reduction techniques were employed. CTDIvol: 34.8 - 121.6 mGy. DLP: 4357 mGy-cm. ??The following accession numbers are related to this dose report [id number]: [id number] Narrative 08/07/2024 12:47 AM EST PROCEDURE: CT [...] clear. ??Lung apices clear. Resulting Agency Comment [id number] Procedure Note Kun Baltazar MD - 08/07/2024 [...] possible to obtain thecompleted interpretation. Workstation ID: [id number] Up-to-date CT equipment and radiation dose reduction techniques wereemployed. CTDIvol: 34.8 - 121.6 mGy. DLP: 4357 mGy-cm. The followingaccession numbers are related to this dose report [id number]: [id number] Up-to-date CT equipment and radiation dose reduction techniques wereemployed. CTDIvol: 34.8 - 121.6 mGy. DLP: 4357 mGy-cm. The followingaccession numbers are related to this dose report [id number]: [id number] Up-to-date CT equipment and radiation dose reduction techniques wereemployed. CTDIvol: 34.8 - 121.6 mGy. DLP: 4357 mGy-cm. The followingaccession numbers are related to this dose report [id number]: [id number] Nitin Hairston II, MD IMG CT PROCEDURES Final Re sult * CT [...] obtain the completed interpretation. ? Workstation ID: [id number] Up-to-date CT equipment and radiation dose reduction techniques were employed. CTDIvol: 34.8 - 121.6 mGy. DLP: 4357 mGy-cm. ??The following accession numbers are related to this dose report [id number]: [id number] Up-to-date CT equipment and radiation dose reduction techniques were employed. CTDIvol: 34.8 - 121.6 mGy. DLP: 4357 mGy-cm. ??The following accession numbers are related to this dose report [id number]: [id number] Up-to-date CT equipment and radiation dose reduction techniques were employed. CTDIvol: 34.8 - 121.6 mGy. DLP: 4357 mGy-cm. ??The following accession numbers are related to this dose report [id number]: [id number] Narrative 08/07/2024 12:47 AM EST PROCEDURE: CT [...] clear. ??Lung apices clear. Resulting Agency Comment [id number] Procedure Note Kun Baltazar MD - 08/07/2024 [...] possible to obtain thecompleted interpretation. Workstation ID: [id number] Up-to-date CT equipment and radiation dose reduction techniques wereemployed. CTDIvol: 34.8 - 121.6 mGy. DLP: 4357 mGy-cm. The followingaccession numbers are related to this dose report [id number]: [id number] Up-to-date CT equipment and radiation dose reduction techniques wereemployed. CTDIvol: 34.8 - 121.6 mGy. DLP: 4357 mGy-cm. The followingaccession numbers are related to this dose report [id number]: [id number] Up-to-date CT equipment and radiation dose reduction techniques wereemployed. CTDIvol: 34.8 - 121.6 mGy. DLP: 4357 mGy-cm. The followingaccession numbers are related to this dose report [id number]: [id number] Nitin Hairston II, MD IMG CT PROCEDURES Final Re sult from Last [address] [place] [address] MEDICAID Care Teams Rapid Extractor Operator Relationship Specialty Start Date End Date Patient, Has No Pcp Or Ref DO NOT EDIT THIS RECORD VIA PROVIDER ON THE FLY PCP - General [employer] Bi Developer 08/06/24
--- OUTSIDE RECORDS SUMMARY | 2024-09-02 15:58 | XMS_ITS | Encounter Summary ---
Author Organization [facility] Address [address] [place] [address] Care Team Providers Care Outside Machinist Helper Name Role Phone Grant Moreno MD Primary Care Provider Encounter Details Date Type Department Care Team (Late st Contact Info) Description 08/08/2024 Telephone Adult Medicine [address] [phone] Praveena Renteria RN Social History Tobacco Use Types Packs/Day Years Used Date Smoking Tobacco: Never Assessed Sex and Gender Information Value Date Recorded Sex Assigned at Not on file Legal Sex Male 9:59 AM EST Gender Identity Not on file Sexual Orientation Not on file documented as of this encounter Progress Notes * Praveena Renteria RN - 08/08/2024 4:03 PM EST Pt has not established in the office. Call to the pt and number on file is not in service documented in this encounter Plan of Treatment Not on file documented as of this encounter Visit Diagnoses Not on filedocumented in this encounter Care Teams Outside Machinist Helper Relationship Specialty Start Date End Date Grant Moreno MD [address] [place] [id number] PCP - General 05/29/22 documented as of this encounter
[2024-09-02 16:08] LABS: MANUAL DIFF FLAG NO
[2024-09-02 16:11] LABS: Appearance Urine Cloudy; Color Urine Dark Yellow; Glucose Urine UA Negative (Negative); Leukocyte Esterase Urine Trace (Negative); Nitrite Urine Negative (Negative); Specific Gravity - Urine >= 1.030 (1.005-1.025); UMIC TRIGGER UA YES; Urine Blood Negative (Negative); Urine Ketones Trace mg/dL (Negative); Urine Protein 100 (2+) mg/dL (Neg-Trace)
[2024-09-02 16:13] LABS: Basophils Percent Auto 0.2 % (0-2); Eosinophils Percent Auto 0.4 % (0-4); Hematocrit 40.7 % (42.0-52.0); Hemoglobin 13.9 g/dl (14.0-18.0); Imm Gran Abs Auto 0.03 X10*3/uL (0.00-0.03); Imm Gran Pct Auto 0.4 % (0.0-0.4); Lymphocytes Absolute Auto 2.6 X10*3/uL (1.2-4.9); Lymphocytes Percent Auto 31.5 % (20-40); Mean Corpuscular HGB Conc 34.2 g/dl (31.0-36.0); Mean Corpuscular Hemoglobin 29.6 pg (27.0-33.0); Mean Corpuscular Volume 86.6 fL (80.0-98.0); Mean Platelet Volume 10.2 fL (9.4-12.4); Monocytes Percent Auto 11.8 % (2-11); Neutrophils Absolute Auto 4.7 x10*3/uL (2.0-8.3); Neutrophils Percent Auto 55.7 % (45-73); Platelet Count 195 X10*3/uL (160-400); White Blood Count 8.4 X10*3/uL (4.8-10.8)
[2024-09-02 16:18] LABS: Bacteria Urine None Seen (None Seen); RBC Urine 0-2 /HPF (0-2)
[2024-09-02 16:22] LABS: Amphetamine Screen Urine Not Detected (Not Detect); Barbiturates, Urine Not Detected (Not Detect); Benzodiazepines Screen Urine POSITIVE (Not Detect); Buprenorphine Scr Not Detected (Not Detect); Cannabinoid Screen Urine POSITIVE (Not Detect); Cocaine Screen Urine POSITIVE (Not Detect); Fentanyl, urine Not Detected (Not Detect); Methadone Screen, Urine Not Detected (Not Detect); Opiate Screen Urine Not Detected (Not Detect); Oxycodone Screen Urine Not Detected (Not Detect); Phencyclidine Screen Urine Not Detected (Not Detect)
[2024-09-02 16:24] LABS: Alanine Aminotransferase 131 U/L (0-40); Albumin Level 3.9 g/dL (3.5-5.0); Alkaline Phosphatase 68 U/L (39-117); Anion Gap 12 (12-20); Aspartate Amino Transferase 87 U/L (5-37); Bilirubin Total 0.9 mg/dL (0.0-1.0); Blood Urea Nitrogen 10 mg/dL (9-16); Calcium 8.6 mg/dL (8.4-10.2); Carbon Dioxide 27 mmol/L (22-29); Chloride 107 mmol/L (96-108); Creatinine Clr Calc Pharmacy 188.6; Estimated Glomerular Filt Rate > 60; Ethanol < 10 mg/dL; Glucose Random 129 mg/dL (60-115); Potassium 3.7 mmol/L (3.3-5.1); Sodium 142 mmol/L (135-145); Total Protein 7.8 g/dL (6.5-8.0)
[2024-09-02 16:31] LABS: Troponin-I High Sensitivity 11.7 ng/L (<3.5-35.0)
[2024-09-02 16:46] LABS: Influenza A PCR NEGATIVE (Negative); Influenza B PCR POSITIVE (Negative); Resp Syncy Virus RNA Qual PCR NEGATIVE (Negative); SARS COV2 PCR INHOUSE NEGATIVE (Negative)
[2024-09-02 16:49] LABS: Acetaminophen LAB < 3 mcg/mL (<30); Salicylate < 5.0 mg/dL (15-30)
[2024-09-02 16:54] LABS: IDNOW Serial# 58CA691E; Strep A Nucleic Acid Negative (Negative)
--- NOTE | 2024-09-02 16:59 | PC.NURSE ---
Care airport operations crew member at bedside with pt
--- NOTE | 2024-09-02 18:09 | PC.NURSE ---
Pt flu B+; pt has dry, persistent cough; PAHermanC aware; pt placed on airborne/droplet precautions; pt compliant with wearing a mask when out of the room
[2024-09-02] MEDS: Benzonatate 100 MG CAPSULE 200 MG PO (18:52)
--- NOTE | 2024-09-02 18:58 | PC.NURSE ---
Pt's home medications secured and placed in locker #2; no controlled meds
[2024-09-02 19:11] VITALS: BP 120/61; PULSE 97; RESP 18; TEMP 37.3; O2SAT 91
--- NOTE | 2024-09-02 19:11 | MHC.CARE ---
Pt evaluated by the CARE Team and will be an adult bedsearch. On a section 12A for safety.
--- NOTE | 2024-09-02 19:11 | PC.NURSE ---
patient appears to remain at rest presently respirations are even and unlabored appears in no distress
[2024-09-02] MEDS: traZODone HCL 100 MG TABLET PO (21:00)
[2024-09-02] MEDS: buPROPion HCL 75 MG TABLET PO (21:00)
[2024-09-03 07:41] VITALS: BP 137/91; PULSE 100; RESP 16; TEMP 36.8; O2SAT 92
[2024-09-03] MEDS: Albuterol Sulfate 90 MCG 8 GM INHALER 4 PUFF INHALE (09:22)
[2024-09-03] MEDS: buPROPion HCL 75 MG TABLET PO ×2 (09:22→22:07)
[2024-09-03 09:46] LABS: D Dimer High Sensitivity 901 NG/ML
[2024-09-03 10:01] LABS: B Type Natriuretic Peptide < 10 pg/mL (<100)
[2024-09-03 10:03] LABS: Troponin-I High Sensitivity 11.7 ng/L (<3.5-35.0)
[2024-09-03 10:10] VITALS: O2SAT 88
[2024-09-03 10:11] VITALS: O2SAT 96
[2024-09-03] MEDS: iohexoL 350 MG/ML 100 ML INFUS..BTL IV (11:12)
[2024-09-03 11:45] LABS: INTERNATIONAL NORM RATIO 1.1 (0.9-1.1); Prothrombin Time 13.2 SEC (10.9-12.4)
[2024-09-03 11:48] LABS: Partial Thromboplastin Time 24.5 SEC (26.0-36.8)
--- NOTE | 2024-09-03 12:44 | PHA.MEDREC ---
Addendum entered by Kaye Souza [facility] 09/03/24 13:01: reviewed by [facility]. Addendum entered by Louis Macias 09/03/24 12:46: Patient last took his meds 2 days ago. He takes all as prescribed. Original Note: Pharmacy Consult ? Medication Reconciliation Reviewed med rec done by nursing and verified RX bottles in patient locker. Patient confirmed he is not using nicotine patches. He reports medications he was unable to afford were the ones filled at [facility] outpatient pharmacy. Patient reports he last took his meds
[2024-09-03 13:02] VITALS: BP 134/93; PULSE 84; RESP 24; O2SAT 98
[2024-09-03] MEDS: Enoxaparin Sodium 150 MG/ML SYRINGE SUBCUT (13:04)
[2024-09-03 13:24] LABS: Hematocrit 39.7 % (42.0-52.0); Hemoglobin 13.6 g/dl (14.0-18.0); Mean Corpuscular HGB Conc 34.3 g/dl (31.0-36.0); Mean Corpuscular Hemoglobin 29.8 pg (27.0-33.0); Mean Corpuscular Volume 86.9 fL (80.0-98.0); Mean Platelet Volume 10.1 fL (9.4-12.4); Platelet Count 172 X10*3/uL (160-400); Red Blood Count 4.57 X10*6/uL (4.60-5.80); White Blood Count 7.7 X10*3/uL (4.8-10.8)
--- NOTE | 2024-09-03 13:43 | P.HPHOSP_ITS ---
History of Present Illness Date of Service: 09/03/24 Chief Complaint: pulmonary embolism 39-year-old male with pmhx significant for depression presented to the ED today for evaluation of suicidal ideation. Patient was then noticed to be hypoxic with dyspnea. CTA ordered and showed bilateral PE. Patient given one dose of Lovenox. Patient denied chest pain, NVD, recent travel, sick contacts, bedbound. 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 Plan will be to admit patient for management and treatment of acute unprovoked PE. Review of Systems 2 Review of Systems: Denies any recent fever chills or decrease in appetite respiratory denies any shortness of breath or cough cardiovascular denied chest pain gastrointestinal denies any dysphagia abdominal pain nausea vomiting or diarrhea genitourinary denies any dysuria frequency or hematuria musculoskeletal denies any joint pain or swelling neuropsych denies any weakness or seizures all other systems reviewed are negative [facility] Medical History (Updated 09/06/24 @ 17:05 by Fide Grossman NP) Cocaine use disorder Mood disorder Depression Polysubstance abuse Social History Household Members: None Housing: Homeless Housing Other:: [place] house Do you presently have visiting nurse or other home services: No Alcohol intake: current Alcohol intake frequency: 3 or more drinks per day Comment: Sitter Patient Tobacco Use Status: Current everyday Tobacco user Tobacco use type: Cigarette Cigarette Packs Per Day: 0.5 Cigarettes Per Day: 10.0 Smoked in Last 30 Days: Yes e-Cigarette/Vaping Use: Never Used Patient Interested in Nicotine Replacement: No Patient Given Instructions on How to Stop Smoking: Yes Date Education Initiated: 09/05/24 Second Hand Smoke Exposure: No Use of substances other than those prescribed or required for medical reasons: Yes Substance Use Type: Crack/Cocaine and Marijuana Substance Use Frequency: Chronic Longstanding Last Used Substance: Days (ago) Last Used Substance Other:: 4 days ago Currently Displaying Signs/Symptoms of Drug Intoxication Withdrawal: No Any prior treatment program specific to substance use: Yes Have you been hit, kicked, punched, or otherwise hurt by someone within the past year? If so, by whom?: No Do you feel safe in your current relationship?: No Current Relationship Is there a partner from a previous relationship who is making you feel unsafe now?: No Are you made to feel afraid or neglected: No Advance Directives: No Advance Directives Information Provided: No Do you have thoughts of harming others: None Do you have a plan to hurt others: No Plan Recently lost weight without trying: No How much weight loss: Not applicable Eating poorly because of decreased appetite: No Nutrition screen score: 0 Nutrition Risks: No Nutritional Risk Poor oral hygiene: No service: No Sexual orientation: Straight/Heterosexual Meds Allergies Allergy/AdvReac Type Severity Reaction Status Date / Time No Known Allergies Allergy Verified 09/02/24 15:16 Active Medications: Current Medications Bupropion HCl (Bupropion Hcl 75 Mg Tablet) 75 mg PO BID ELVIRA Last Admin: 09/03/24 09:22 Dose: 75 mg Clonidine HCl (Clonidine Hcl 0.1 Mg Tablet) 0.1 mg PO TID PRN; Protocol PRN Reason: Anxiety Hydroxyzine HCl (Hydroxyzine Hcl 50 Mg Tablet) 50 mg PO TID PRN PRN Reason: Anxiety Ibuprofen (Ibuprofen 200 Mg Tablet) 600 mg PO TID PRN PRN Reason: Pain, Mild (Pain Scale 1-3) Trazodone HCl (Trazodone Hcl 100 Mg Tablet) 100 mg PO BEDTIME PRN PRN Reason: Insomnia Last Admin: 09/02/24 21:00 Dose: 100 mg Home Medications ?Medication ?Instructions ?Recorded ?Confirmed ?Last Taken ?Type baclofen 10 mg tablet 10 mg PO BID 09/02/24 09/05/24 Unknown History bupropion HCl 75 mg tablet 75 mg PO BID 09/02/24 09/05/24 09/05/24 08:08 History clonidine HCl 0.1 mg tablet 0.1 mg PO TID PRN Anxiety 09/02/24 09/05/24 Unknown History hydroxyzine HCl 50 mg tablet 50 mg PO TID PRN Anxiety 09/02/24 09/05/24 Unknown History ibuprofen 600 mg PO TID PRN Pain 09/02/24 09/05/24 Unknown History melatonin 5 mg capsule 5 mg PO BEDTIME PRN Insomnia 09/02/24 09/05/24 Unknown History trazodone 100 mg tablet 100 mg PO BEDTIME PRN Insomnia 09/02/24 09/05/24 09/05/24 00:15 History multivitamin 1 tab PO DAILY 09/03/24 09/05/24 Unknown History Physical Exam 2 Vital Signs and Narrative: Vital Signs: Last Vital Signs Temp 98.2 F 09/03/24 07:41 Pulse 84 09/03/24 13:02 Resp 24 H 09/03/24 13:02 BP 134/93 H 09/03/24 13:02 Pulse Ox 98 09/03/24 13:02 O2 Del Method Nasal Cannula 09/03/24 13:02 O2 Flow Rate 2 09/03/24 13:02 BMI result Body Mass Index 48.8 Appearing in no acute distress head is normocephalic atraumatic eyes pupils are PERRLA sclera is anicteric mouth throat mucous membranes are intact and moist neck is supple no lymphadenopathy, no JVD noted lung sounds are clear to auscultation heart regular rate rhythm, clear S1, S2 positive bowel sounds, abdomen is soft, nontender neuro patient is alert x3, no focal deficits Results Labs 09/04/24 06:36 09/04/24 06:36 Labs: Laboratory Results - last 24 hr 09/02/24 09/02/24 09/02/24 15:53 15:56 16:38 MCV 86.6 MCH 29.6 MCHC 34.2 RDW 13.0 Plt Count 195 D MPV 10.2 Immature Gran % (Auto) 0.4 Neut % (Auto) 55.7 Lymph % (Auto) 31.5 Grundy % (Auto) 11.8 H Eos % (Auto) 0.4 Baso % (Auto) 0.2 Lymph # (Auto) 2.6 [place] # (Auto) 1.0 Eos # (Auto) 0.0 Baso # (Auto) 0.0 Abs Immat Gran (auto) 0.03 Absolute Neuts (auto) 4.7 Absolute Nucleated RBC 0.000 Nucleated RBC % (auto) 0.0 PT INR APTT D-Dimer High Sensitivty Anion Gap 12 Estim Creat Clear Calc 188.6 Estimated GFR > 60 Random Glucose 129 H Calcium 8.6 D Total Bilirubin 0.9 AST 87 H ALT 131 H Alkaline Phosphatase 68 B-Natriuretic Peptide Total Protein 7.8 Albumin 3.9 Urine Color Dark Yellow Urine Appearance Cloudy Urine pH 6.0 Ur Specific [place] >= 1.030 H Urine Protein 100 (2+) H Urine Glucose (UA) Negative Urine Ketones Trace Urine Blood Negative Urine Nitrite Negative Ur Leukocyte Esterase Trace H Urine RBC 0-2 Urine WBC 6-10 H Ur Squamous Epith Cells 11-20 Urine Bacteria None Seen Hyaline Casts 6-10 Salicylates < 5.0 L Urine Opiates Screen Not Detected Ur Buprenorphine Scrn Not Detected Ur Oxycodone Screen Not Detected Urine Methadone Screen Not Detected Urine Fentanyl Screen Not Detected Acetaminophen < 3 Ur Barbiturates Screen Not Detected Ur Phencyclidine Scrn Not Detected Ur Amphetamines Screen Not Detected U Benzodiazepines Scrn POSITIVE H Urine Cocaine Screen POSITIVE H U Marijuana (THC) Screen POSITIVE H Ethyl Alcohol < 10 Influenza Type A (PCR) NEGATIVE Influenza Type B (PCR) POSITIVE A RSV RNA Qual (PCR) NEGATIVE SARS-CoV-2 RNA (RT-PCR) NEGATIVE S. pyogenes GrpA GRACE Negative 09/03/24 09/03/24 09:32 13:15 MCV 86.9 MCH 29.8 MCHC 34.3 RDW 13.0 Plt Count 172 MPV 10.1 Immature Gran % (Auto) Neut % (Auto) Lymph % (Auto) [place] % (Auto) Eos % (Auto) Baso % (Auto) Lymph # (Auto) [place] # (Auto) Eos # (Auto) Baso # (Auto) Abs Immat Gran (auto) Absolute Neuts (auto) Absolute Nucleated RBC 0.000 Nucleated RBC % (auto) 0.0 PT 13.2 H INR 1.1 APTT 24.5 L D-Dimer High Sensitivty 901 Anion Gap Estim Creat Clear Calc Estimated GFR Random Glucose Calcium Total Bilirubin AST ALT Alkaline Phosphatase B-Natriuretic Peptide < 10 Total Protein Albumin Urine Color Urine Appearance Urine pH Ur Specific [place] Urine Protein Urine Glucose (UA) Urine Ketones Urine Blood Urine Nitrite Ur Leukocyte Esterase Urine RBC Urine WBC Ur Squamous Epith Cells Urine Bacteria Hyaline Casts Salicylates Urine Opiates Screen Ur Buprenorphine Scrn Ur Oxycodone Screen Urine Methadone Screen Urine Fentanyl Screen Acetaminophen Ur Barbiturates Screen Ur Phencyclidine Scrn Ur Amphetamines Screen U Benzodiazepines Scrn Urine Cocaine Screen U Marijuana (THC) Screen Ethyl Alcohol Influenza Type A (PCR) Influenza Type B (PCR) RSV RNA Qual (PCR) SARS-CoV-2 RNA (RT-PCR) S. pyogenes GrpA GRACE Assessment and Plan (1) Bilateral pulmonary embolism: Status: Acute Plan 39 year old man admitted with unprovoked PE. Acute hypoxic resp failure secondary to PE CTA>bilateral PE with moderate clot burden s/p Lovenox in the ED start Eliquis 10 mg BID for 7 days then 5 mg BID heme consult oxygen supplementation to keep o2 sats >90% Flu A pos 09/02/24 out of window for tamiflu given 1 week of URI symptoms SI/mental health care team when medically clear continue home medications normocytic anemia no bleeding stable HH Morbid obesity. BMI 48.8 Discussed importance of weight management as this may be contributing to worsening of other comorbidities DVT prophylaxis with eliquis Full code Quality Stroke Does the patient have a stroke diagnosis?: No VTE Prior VTE?: No VTE Risk Level:: Medical - moderate - high VTE Device Contraindication: Treatment Not Indicated VTE Drug Contraindication: N/A - Med Ordered
--- NOTE | 2024-09-03 15:40 | P.CNHO_ITS ---
Subjective - Subjective Chief complaint: Consult for: Pulmonary embolism. Patient: new to practice Consult date: 09/03/24 Primary Care Provider: Unknown Physician Printing Press Machinist Utilized?: No - Greek Speaking HPI - Consult Narrative Reason for consult: Consult for: Pulmonary embolism. Narrative: Tj Pires is a 39 year old gentleman,presented to the ED today for evaluation of suicidal ideation. Patient was then noticed to be hypoxic with dyspnea. CTA ordered and showed bilateral PE. Patient given one dose of Lovenox. Patient denied chest pain, NVD, recent travel, sick contacts, bedbound. 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 Pt. admitted for management and treatment of acute unprovoked PE. PMFSH Medical History) pmhx significant for depression. Mood disorder Depression Polysubstance abuse Social History:) Household Members: None Housing: Homeless Do you presently have visiting nurse or other home services: No Alcohol intake: current Alcohol intake frequency: 3 or more drinks per day Patient Tobacco Use Status: Never used Tobacco Cigarettes Per Day: 3 Smoked in Last 30 Days: Yes e-Cigarette/Vaping Use: Currently Using Use of substances other than those prescribed or required for medical reasons: Yes Substance Use Type: Crack/Cocaine Substance Use Frequency: Chronic Longstanding Last Used Substance: Hours (ago) Review of Systems 2 Review of Systems: Denies any recent fever chills or decrease in appetite respiratory denies any shortness of breath or cough cardiovascular denied chest pain gastrointestinal denies any dysphagia abdominal pain nausea vomiting or diarrhea genitourinary denies any dysuria frequency or hematuria musculoskeletal denies any joint pain or swelling neuropsych denies any weakness or seizures all other systems reviewed are negative Review of Systems - Constitutional Reports no additional constitutional complaints, Reports body aches, Reports fatigue, Reports lack of energy, Reports weight loss - Eyes Reports no additional eye complaints - ENT Reports no additional ear, nose, mouth, and throat complaints - Cardiovascular Reports no additional cardiovascular complaints - Respiratory Reports no additional respiratory complaints - Gastrointestinal Reports no additional gastrointestinal complaints - Genitourinary Genitourinary: Reports no additional male genitourinary complaints - Musculoskeletal Reports no additional musculoskeletal complaints - Integumentary/Breasts Skin/Breast: Reports no additional skin complaints - Neurologic Reports no additional neurologic complaints - Psychiatric Reports no additional psychiatric complaints - Endocrine Reports no additional endocrine complaints - Hematologic/Lymphatic Reports no additional hematologic/lymphatic complaints - Allergic/Immunologic Reports no additional allergic/immunologic complaints Oncology Screenings - ECOG Performance Status ECOG Performance Status: 2 [facility] Medical History: Medical History (Last Reviewed 09/02/24 @ 17:12 by SKY Valdovinos) Depression Mood disorder Polysubstance abuse Functional capacity: wheelchair bound Patient : No Social History: Social History (Last Reviewed 09/02/24 @ 17:12 by SKY Valdovinos) Living Situation History: Household Members: None Housing: Homeless Do you presently have visiting nurse or other home services: No Alcohol History Details: 1. How often do you have a drink containing alcohol?: e. 4 or more times a week Tobacco History: Patient Tobacco Use Status: Never used Tobacco Cigarettes Per Day: 3 Smoked in Last 30 Days: Yes e-Cigarette/Vaping Use: Currently Using Substance Use History: Use of substances other than those prescribed or required for medical reasons : Yes Substance Use Type: Crack/Cocaine Substance Use Frequency: Chronic Longstanding Last Used Substance: Hours (ago) Any prior treatment program specific to substance use: Yes Any prior treatment program specific to substance use comment: pt left addiction program yesterday Advance Directives: Advance Directives: No Advance Directives Information Provided: Yes Homicidal Assessment: Do you have a plan to hurt others: No Plan Occupation Assessmet: service: No Sex/Gender Assessment: Sexual orientation: Straight/Heterosexual Home Medications and Allergies Current Medications: Current Medications Acetaminophen (Acetaminophen 325 Mg Tablet) 650 mg PO Q6H PRN PRN Reason: Pain, Mild 1-3,fever,headache Apixaban (Apixaban 5 Mg Tablet) 10 mg PO BID [facility] Stop: 09/10/24 09:01 Bupropion HCl (Bupropion Hcl 75 Mg Tablet) 75 mg PO BID [facility] Last Admin: 09/03/24 09:22 Dose: 75 mg Calcium Carbonate (Calcium Carbonate 750 Mg Tab.Chew) 750 mg PO Q4H PRN PRN Reason: Heartburn Clonidine HCl (Clonidine Hcl 0.1 Mg Tablet) 0.1 mg PO TID PRN; Protocol PRN Reason: Anxiety Hydroxyzine HCl (Hydroxyzine Hcl 50 Mg Tablet) 50 mg PO TID PRN PRN Reason: Anxiety Ibuprofen (Ibuprofen 200 Mg Tablet) 600 mg PO TID PRN PRN Reason: Pain, Mild (Pain Scale 1-3) Magnesium Hydroxide (Milk Of Magnesia 30 Ml Oral.Susp) 30 ml PO DAILY PRN PRN Reason: Constipation Melatonin (Melatonin 3 Mg Tablet) 6 mg PO BEDTIME PRN PRN Reason: Insomnia Ondansetron HCl (Ondansetron Hcl 4 Mg/2 Ml Vial) 4 mg IVPUSH Q8H PRN PRN Reason: Nausea and Vomiting Sodium Chloride (0.9 % Sodium Chloride Flush 3 Ml Syringe) 3 ml IVFLUSH QSHIFT ELVIRA Trazodone HCl (Trazodone Hcl 100 Mg Tablet) 100 mg PO BEDTIME PRN PRN Reason: Insomnia Last Admin: 09/02/24 21:00 Dose: 100 mg Home Medications ?Medication ?Instructions ?Recorded ?Confirmed ?Type baclofen 10 mg tablet 10 mg PO BID 09/02/24 09/02/24 History bupropion HCl 75 mg tablet 75 mg PO BID 09/02/24 09/02/24 History clonidine HCl 0.1 mg tablet 0.1 mg PO TID PRN Anxiety 09/02/24 09/02/24 History hydroxyzine HCl 50 mg tablet 50 mg PO TID PRN Anxiety 09/02/24 09/03/24 History ibuprofen 600 mg PO TID PRN Pain 09/02/24 09/02/24 History melatonin 5 mg capsule 5 mg PO BEDTIME PRN Insomnia 09/02/24 09/02/24 History trazodone 100 mg tablet 100 mg PO BEDTIME PRN Insomnia 09/02/24 09/02/24 History multivitamin 1 tab PO DAILY 09/03/24 09/03/24 History Allergies Allergy/AdvReac Type Severity Reaction Status Date / Time No Known Allergies Allergy Verified 09/02/24 15:16 Physical Exam Vital signs: Vital Signs Temp 98.2 F 09/03/24 07:41 Pulse 84 09/03/24 13:02 Resp 24 H 09/03/24 13:02 BP 134/93 H 09/03/24 13:02 Pulse Ox 98 09/03/24 13:02 O2 Del Method Nasal Cannula 09/03/24 13:02 O2 Flow Rate 2 09/03/24 13:02 Intake & Output 09/02/24 09/03/24 09/03/24 18:59 06:59 18:59 Other: Weight 154.221 kg Weight 154.221 kg - Constitutional Present: mild distress - Routine HEENT Exam Head: Present: normal inspection, normocephalic Eye: Present: normal appearance ENT: Present: mucous membranes moist - Routine Neck Exam Present: supple - Routine Respiratory Exam Present: decreased breath sounds - Routine Cardiovascular Exam Cardiovascular: Present: RRR, S1, S2 - Routine Abdominal Exam Present: nontender - Routine Extremities Exam Present: pallor, nontender - Routine Skin Exam Present: intact, normal turgor Hem/Onc Consult Result - Labs CBC & Chem 7: 09/03/24 13:15 09/02/24 15:53 Labs: Short CBC 09/02/24 09/03/24 Range/Units 15:56 13:15 WBC 8.4 7.7 (4.8-10.8) X10*3/uL Hgb 13.9 L 13.6 L (14.0-18.0) g/dl Hct 40.7 L 39.7 L (42.0-52.0) % Plt Count 195 D 172 (160-400) X10*3/uL BMP 09/02/24 15:53 Sodium 142 Potassium 3.7 Chloride 107 Carbon Dioxide 27 BUN 10 Creatinine 0.80 Calcium 8.6 D Liver Function 09/02/24 Range/Units 15:53 Total Bilirubin 0.9 (0.0-1.0) mg/dL AST 87 H (5-37) U/L ALT 131 H (0-40) U/L Alkaline Phosphatase 68 (39-117) U/L Albumin 3.9 (3.5-5.0) g/dL Urine 09/02/24 Range/Units 15:56 Urine Color Dark Yellow Urine Appearance Cloudy Urine pH 6.0 (5.0-9.0) Ur Specific Bryant >= 1.030 H (1.005-1.025) Urine Protein 100 (2+) H (Neg-Trace) mg/dL Urine Glucose (UA) Negative (Negative) mg/dL Assessment and Plan (1) Bilateral pulmonary embolism Status: Acute Assessment and plan: 39-year-old homeless gentleman, with history of depression presented with suicidal ideation. Noted to be rather hypoxic. CTA was done which revealed: The heart is nonenlarged. The study is positive for bilateral lower lobe pulmonary embolism, moderate clot burden. No definite heart strain by CT. No mediastinal adenopathy or pericardial effusion. No discrete thyroid lesion detected. Motion artifact limits interpretation of the lungs. No effusion or pneumothorax. No acute osseous finding. The visualized upper abdomen demonstrates no acute process. Small hiatal hernia. Impression: The study is positive for bilateral lower lobe pulmonary embolism, moderate clot burden. No definite heart strain by CT. Patient has been started on Eliquis after getting a dose of Lovenox. He is being oxygenated to keep his saturations up. PLAN: That will be continued in a dose of 10 mg twice a day for 7 days, then switch to 5 mg p.o. b.i.d. Check ultrasound of the lower extremities, to determine the source. Can proceed with hypercoagulable workup on an outpatient basis, after the clot stabilizes. Thank you for the consult, Will follow along with you, - Time Spent With Patient Time Spent with Patient (in minutes): 30
[2024-09-03] MEDS: 0.9 % Sodium Chloride Flush 3 ML SYRINGE IVFLUSH (18:28)
[2024-09-03 21:06] VITALS: BP 98/58; PULSE 91; RESP 22; TEMP 36.9; O2SAT 93
[2024-09-03 22:00] VITALS: BP 139/83; PULSE 90; RESP 18; TEMP 36.2; O2SAT 98
[2024-09-03] MEDS: Apixaban 5 MG TABLET 10 MG PO (22:07)
--- NOTE | 2024-09-03 22:32 | PC.NURSE ---
This chief writer assumed care of this Pt at 1900. Pt A&Ox3, denies any pain. Pt sitting on stretcher, on 2L O2 via NC, SpO2 93%. Requesting night meds. Pt medicated per SEP. Pt denies SI/HI. 1:1 sitter at bedside. Report complete, Pt will be transported to room 473.
[2024-09-03 23:58] VITALS: BMI 48.8
[2024-09-04] MEDS: traZODone HCL 100 MG TABLET PO (00:15)
[2024-09-04 02:00] VITALS: BP 119/64; PULSE 97; RESP 18; TEMP 36.2; O2SAT 94
[2024-09-04] MEDS: 0.9 % Sodium Chloride Flush 3 ML SYRINGE IVFLUSH ×4 (03:56→20:33)
[2024-09-04 06:50] LABS: MANUAL DIFF FLAG NO
[2024-09-04 07:16] LABS: Basophils Percent Auto 0.2 % (0-2); Eosinophils Absolute Auto 0.2 X10*3/uL (0.0-0.4); Eosinophils Percent Auto 2.6 % (0-4); Hematocrit 39.4 % (42.0-52.0); Hemoglobin 13.1 g/dl (14.0-18.0); Imm Gran Abs Auto 0.03 X10*3/uL (0.00-0.03); Imm Gran Pct Auto 0.5 % (0.0-0.4); Lymphocytes Absolute Auto 1.9 X10*3/uL (1.2-4.9); Lymphocytes Percent Auto 29.8 % (20-40); Mean Corpuscular HGB Conc 33.2 g/dl (31.0-36.0); Mean Corpuscular Hemoglobin 29.6 pg (27.0-33.0); Mean Corpuscular Volume 88.9 fL (80.0-98.0); Mean Platelet Volume 10.3 fL (9.4-12.4); Monocytes Percent Auto 14.6 % (2-11); Neutrophils Absolute Auto 3.4 x10*3/uL (2.0-8.3); Neutrophils Percent Auto 52.3 % (45-73); Platelet Count 179 X10*3/uL (160-400); Red Blood Count 4.43 X10*6/uL (4.60-5.80); Red Cell Distribution Width 12.8 % (11.0-16.0); White Blood Count 6.5 X10*3/uL (4.8-10.8)
[2024-09-04 07:27] VITALS: BP 123/72; PULSE 100; RESP 16; TEMP 36.4; O2SAT 96
[2024-09-04 07:27] LABS: Alanine Aminotransferase 91 U/L (0-40); Albumin Level 3.6 g/dL (3.5-5.0); Alkaline Phosphatase 66 U/L (39-117); Anion Gap 13 (12-20); Aspartate Amino Transferase 50 U/L (5-37); Bilirubin Total 0.3 mg/dL (0.0-1.0); Blood Urea Nitrogen 11 mg/dL (9-16); Calcium 8.9 mg/dL (8.4-10.2); Carbon Dioxide 24 mmol/L (22-29); Chloride 108 mmol/L (96-108); Creatinine Clr Calc Pharmacy 188.6; Estimated Glomerular Filt Rate > 60; Glucose Random 118 mg/dL (60-115); Potassium 4.3 mmol/L (3.3-5.1); Sodium 141 mmol/L (135-145); Total Protein 7.4 g/dL (6.5-8.0)
[2024-09-04 07:44] LABS: Thyroid Stimulating Hormone 7.14 uIU/mL (0.32-4.0)
[2024-09-04] MEDS: Apixaban 5 MG TABLET 10 MG PO ×2 (08:17→20:33)
[2024-09-04] MEDS: buPROPion HCL 75 MG TABLET PO ×2 (08:17→20:33)
--- NOTE | 2024-09-04 09:39 | MHC.CM.PN ---
Patient reports he is currently unhoused. Was staying [facility] [place] [facility] house until a few days ago, and since then has been staying w/ friends. Functionally independent. Denies use of services or DME. No PCP. CM provided [facility] brochure. No HCP. CM provided education and offered assistance. Patient declined. + THRIVE. Resource guide provided. Hx KELSY. +SI w/ sitter at bedside. DP: Goal is return to friends house. Will need CARE team eval when medically cleared. Will need lyft or shuttle transport on dc. CM will continue to follow.
--- NOTE | 2024-09-04 10:32 | P.CONGS_ITS ---
History of Present Illness Consult details Consult date: 09/04/24 Narrative: Very pleasant morbidly obese 39-year-old gentleman presents for evaluation regarding pulmonary embolism. He reports that it began approximately 2-3 days ago. He had had not been feeling well and reported upper respiratory type symptoms. Became acutely short of breath and became quite concerned about it. He then presented to the emergency room for evaluation regarding his overall respiratory status. Upon workup he was found to have pulmonary embolism. At the current time he is on 2 L nasal cannula and satting 96%. Review of Systems 2 Review of Systems: Yes all other systems are reviewed and are negative Constitutional: Constitutional: Reports no additional constitutional complaints ENT: Reports Normal hearing present Cardiovascular: Cardiovascular: Denies chest pain, Denies chest pain at rest, Denies chest pain with activity and Denies pedal edema Respiratory: Respiratory: Denies cough Gastrointestinal: Gastrointestinal: Denies abdominal pain Musculoskeletal: Musculoskeletal: Denies abnormal gait, Denies muscle cramps and Denies radiating pain into limb Integumentary/Breasts: Skin/Breast: Denies skin ulcer and Denies wounds Neurologic: Reports Normal hearing present and Denies abnormal gait Psychiatric: Psychiatric: Reports no additional psychiatric complaints PMFSH Past Medical History Medical History Mood disorder Depression Polysubstance abuse Social History Social History Household Members: None Housing: Other Housing Other:: Snf house Do you presently have visiting nurse or other home services: No Alcohol intake: current Alcohol intake frequency: 3 or more drinks per day Patient Tobacco Use Status: Current someday Tobacco user Tobacco use type: Cigarette Cigarettes Per Day: 3 Smoked in Last 30 Days: Yes e-Cigarette/Vaping Use: Currently Using Frequency of e-Cigarette/Vaping Use: daily Patient Interested in Nicotine Replacement: No Patient Given Instructions on How to Stop Smoking: No Second Hand Smoke Exposure: No Use of substances other than those prescribed or required for medical reasons: Yes Substance Use Type: Crack/Cocaine Substance Use Frequency: Chronic Longstanding Last Used Substance: Hours (ago) Last Used Substance Other:: 09/01/2024 Currently Displaying Signs/Symptoms of Drug Intoxication Withdrawal: No Any prior treatment program specific to substance use: Yes Have you been hit, kicked, punched, or otherwise hurt by someone within the past year? If so, by whom?: No Do you feel safe in your current relationship?: No Current Relationship Is there a partner from a previous relationship who is making you feel unsafe now?: No Are you made to feel afraid or neglected: No Spiritual Healthcare Practices: Congregational Advance Directives: No Advance Directives Information Provided: Yes Advance Directives on File: No Do you have a plan to hurt others: No Plan Recently lost weight without trying: No Eating poorly because of decreased appetite: No Nutrition Risks: No Nutritional Risk Poor oral hygiene: No service: No Sexual orientation: Straight/Heterosexual Meds Allergies Allergy/AdvReac Type Severity Reaction Status Date / Time No Known Allergies Allergy Verified 09/02/24 15:16 Active Medications: Current Medications Acetaminophen (Acetaminophen 325 Mg Tablet) 650 mg PO Q6H PRN PRN Reason: Pain, Mild 1-3,fever,headache Apixaban (Apixaban 5 Mg Tablet) 10 mg PO BID [facility] Stop: 09/10/24 09:01 Last Admin: 09/04/24 08:17 Dose: 10 mg Bupropion HCl (Bupropion Hcl 75 Mg Tablet) 75 mg PO BID [facility] Last Admin: 09/04/24 08:17 Dose: 75 mg Calcium Carbonate (Calcium Carbonate 750 Mg Tab.Chew) 750 mg PO Q4H PRN PRN Reason: Heartburn Clonidine HCl (Clonidine Hcl 0.1 Mg Tablet) 0.1 mg PO TID PRN; Protocol PRN Reason: Anxiety Hydroxyzine HCl (Hydroxyzine Hcl 50 Mg Tablet) 50 mg PO TID PRN PRN Reason: Anxiety Ibuprofen (Ibuprofen 200 Mg Tablet) 600 mg PO TID PRN PRN Reason: Pain, Mild (Pain Scale 1-3) Magnesium Hydroxide (Milk Of Magnesia 30 Ml Oral.Susp) 30 ml PO DAILY PRN PRN Reason: Constipation Melatonin (Melatonin 3 Mg Tablet) 6 mg PO BEDTIME PRN PRN Reason: Insomnia Ondansetron HCl (Ondansetron Hcl 4 Mg/2 Ml Vial) 4 mg IVPUSH Q8H PRN PRN Reason: Nausea and Vomiting Sodium Chloride (0.9 % Sodium Chloride Flush 3 Ml Syringe) [facility] Last Admin: 09/04/24 08:18 Dose: 3 ml Trazodone HCl (Trazodone Hcl 100 Mg Tablet) 100 mg PO BEDTIME PRN PRN Reason: Insomnia Last Admin: 09/04/24 00:15 Dose: 100 mg Home Medications ?Medication ?Instructions ?Recorded ?Confirmed ?Last Taken ?Type baclofen 10 mg tablet 10 mg PO BID 09/02/24 09/02/24 Unknown History bupropion HCl 75 mg tablet 75 mg PO BID 09/02/24 09/02/24 09/02/24 08:00 History clonidine HCl 0.1 mg tablet 0.1 mg PO TID PRN Anxiety 09/02/24 09/02/24 Unknown History hydroxyzine HCl 50 mg tablet 50 mg PO TID PRN Anxiety 09/02/24 09/03/24 Unknown History ibuprofen 600 mg PO TID PRN Pain 09/02/24 09/02/24 Unknown History melatonin 5 mg capsule 5 mg PO BEDTIME PRN Insomnia 09/02/24 09/02/24 Unknown History trazodone 100 mg tablet 100 mg PO BEDTIME PRN Insomnia 09/02/24 09/02/24 Unknown History multivitamin 1 tab PO DAILY 09/03/24 09/03/24 Unknown History Physical Exam 2 Vital Signs: Vital Signs: Last Vital Signs Temp 97.6 F 09/04/24 07:27 Pulse 100 09/04/24 07:27 Resp 16 09/04/24 07:27 BP 123/72 09/04/24 07:27 Pulse Ox 96 09/04/24 07:27 O2 Del Method Nasal Cannula 09/04/24 07:27 O2 Flow Rate 2 09/04/24 07:27 BMI result Body Mass Index 48.8 Const: General: cooperative, healthy appearing and comfortable O rientation/consciousness: oriented to person, oriented to place and oriented to time HEENT: Head: Yes normal to inspection Neck: Neck: Yes normal visual inspection Carotids: no bruits Chest: Chest palpation & inspection: normal inspection of the chest Resp: Effort & Inspection: normal respiratory effort and able to speak in complete sentences Auscultation: clear to auscultation bilaterally, no crackles, no rales, no rhonchi and no wheezes Cardio: Rate: regular rate Rhythm: regular rhythm Heart sounds: S1 normal heart sound present and S2 normal heart sound present Bruits: no carotid bruits Peripheral pulses: Peripheral pulses 2+ throughout GI: Inspection: Yes normal to inspection Skin: Wounds: no wounds Hair: normal Neuro: General: oriented to person, oriented to place and oriented to time Cranial nerves: Yes CN's II-XII intact bilaterally and Yes Normal hearing present Cognition (Neuro): normal cognition Motor exam (neuro): 5/5 motor strength present throughout Extrem: Other: venous exam: No significant superficial varicosities or spider telangiectasias, minimal edema General: No clubbing, No cyanosis and No edema Psych: Appearance: grossly normal Mental Status: mental status grossly normal Speech and movement: Normal speech and movement present Results Labs 09/04/24 06:36 09/04/24 06:36 Labs: Abnormal lab results 09/03/24 09/03/24 09/04/24 Range/Units 09:32 13:15 06:36 RBC 4.57 L 4.43 L (4.60-5.80) X10*6/uL Hgb 13.6 L 13.1 L (14.0-18.0) g/dl Hct 39.7 L 39.4 L (42.0-52.0) % Immature Gran % (Auto) 0.5 H (0.0-0.4) % [place] % (Auto) 14.6 H (2-11) % PT 13.2 H (10.9-12.4) SEC APTT 24.5 L (26.0-36.8) SEC Random Glucose 118 H (60-115) mg/dL AST 50 H (5-37) U/L ALT 91 H (0-40) U/L TSH 7.14 H (0.32-4.0) uIU/mL Short CBC 09/03/24 09/04/24 09/04/24 Range/Units 13:15 06:36 06:36 WBC 7.7 6.5 Cancelled (4.8-10.8) X10*3/uL Hgb 13.6 L 13.1 L (14.0-18.0) g/dl Hct 39.7 L (42.0-52.0) % Plt Count 172 (160-400) X10*3/uL 09/04/24 09/04/24 09/04/24 Range/Units 06:36 06:36 06:36 WBC (4.8-10.8) X10*3/uL Hgb Cancelled (14.0-18.0) g/dl Hct 39.4 L Cancelled (42.0-52.0) % Plt Count 179 Cancelled (160-400) X10*3/uL BMP 09/04/24 06:36 Sodium 141 Potassium 4.3 Chloride 108 Carbon Dioxide 24 BUN 11 Creatinine 0.80 Calcium 8.9 Liver Function 09/04/24 Range/Units 06:36 Total Bilirubin 0.3 (0.0-1.0) mg/dL AST 50 H (5-37) U/L ALT 91 H (0-40) U/L Alkaline Phosphatase 66 (39-117) U/L Albumin 3.6 (3.5-5.0) g/dL Urine 09/02/24 Range/Units 15:56 Urine Color Dark Yellow Urine Appearance Cloudy Urine pH 6.0 (5.0-9.0) Ur Specific Wilson >= 1.030 H (1.005-1.025) Urine Protein 100 (2+) H (Neg-Trace) mg/dL Urine Glucose (UA) Negative (Negative) mg/dL All other labs normal. Assessment and Plan (1) Bilateral pulmonary embolism: Status: Acute Plan In short patient has bilateral lower extremity pulmonary lobe pulmonary embolisms. I did review the CT scan it appears to be relatively small clot burden and would not benefit from embolectomy. In addition his lower extremity venous ultrasound which was done this morning was negative for DVT. I did discuss these findings with the patient. I do think oral anticoagulation will be most beneficial to him. We also did discuss risk factor modification and the importance of ambulation. Will follow up with us on an as-needed basis. No follow up with us as required. Thank you for allowing us to assist in his care. If there are any questions or concerns please do not hesitate to contact us. Procedures Date of Service Date of Service: 09/04/24
[2024-09-04 12:00] VITALS: BP 130/74; PULSE 93; RESP 16; TEMP 36.8; O2SAT 92
--- NOTE | 2024-09-04 12:09 | HO.PM.IMPN ---
Subjective Subjective Date of Service: 09/04/24 Review of Systems Follow up PE feeling well, no hypoxia Physical Exam Vital Signs: Vital Signs: Last Vital Signs Temp 98.2 F 09/04/24 12:00 Pulse 93 09/04/24 12:00 Resp 16 09/04/24 12:00 BP 130/74 09/04/24 12:00 Pulse Ox 92 09/04/24 12:00 O2 Del Method Room Air 09/04/24 12:00 O2 Flow Rate 2 09/04/24 07:27 BMI result Body Mass Index 48.8 Appearing in no acute distress lung sounds are clear to auscultation heart regular rate rhythm, clear S1, S2 positive bowel sounds, abdomen is soft, nontender neuro patient is alert x3, no focal deficits Objective Data Active Medications Acetaminophen (Acetaminophen 325 Mg Tablet) 650 mg PO Q6H PRN PRN Reason: Pain, Mild 1-3,fever,headache Apixaban (Apixaban 5 Mg Tablet) 10 mg PO BID [facility] Stop: 09/10/24 09:01 Last Admin: 09/04/24 08:17 Dose: 10 mg Documented By: ROBERT Bupropion HCl (Bupropion Hcl 75 Mg Tablet) 75 mg PO BID [facility] Last Admin: 09/04/24 08:17 Dose: 75 mg Documented By: ROBERT Calcium Carbonate (Calcium Carbonate 750 Mg Tab.Chew) 750 mg PO Q4H PRN PRN Reason: Heartburn Clonidine HCl (Clonidine Hcl 0.1 Mg Tablet) 0.1 mg PO TID PRN; Protocol PRN Reason: Anxiety Hydroxyzine HCl (Hydroxyzine Hcl 50 Mg Tablet) 50 mg PO TID PRN PRN Reason: Anxiety Ibuprofen (Ibuprofen 200 Mg Tablet) 600 mg PO TID PRN PRN Reason: Pain, Mild (Pain Scale 1-3) Magnesium Hydroxide (Milk Of Magnesia 30 Ml Oral.Susp) 30 ml PO DAILY PRN PRN Reason: Constipation Melatonin (Melatonin 3 Mg Tablet) 6 mg PO BEDTIME PRN PRN Reason: Insomnia Ondansetron HCl (Ondansetron Hcl 4 Mg/2 Ml Vial) 4 mg IVPUSH Q8H PRN PRN Reason: Nausea and Vomiting Sodium Chloride (0.9 % Sodium Chloride Flush 3 Ml Syringe) 3 ml IVFLUSH QSHIFT [facility] Last Admin: 09/04/24 08:18 Dose: 3 ml Documented By: ROBERT Trazodone HCl (Trazodone Hcl 100 Mg Tablet) 100 mg PO BEDTIME PRN PRN Reason: Insomnia Last Admin: 09/04/24 00:15 Dose: 100 mg Documented By: ISIDRO Comments: Insomnia Labs 09/04/24 06:36 09/04/24 06:36 Labs: Laboratory Results - last 24 hr 09/03/24 09/04/24 09/04/24 13:15 06:36 06:36 MCV 86.9 88.9 Cancelled MCH 29.8 29.6 MCHC 34.3 RDW 13.0 Plt Count 172 MPV 10.1 Immature Gran % (Auto) Neut % (Auto) Lymph % (Auto) [place] % (Auto) Eos % (Auto) Baso % (Auto) Lymph # (Auto) [place] # (Auto) Eos # (Auto) Baso # (Auto) Abs Immat Gran (auto) Absolute Neuts (auto) Absolute Nucleated RBC 0.000 Nucleated RBC % (auto) 0.0 Anion Gap Estim Creat Clear Calc Estimated GFR Random Glucose Calcium Total Bilirubin AST ALT Alkaline Phosphatase Total Protein Albumin TSH 09/04/24 09/04/24 09/04/24 06:36 06:36 06:36 MCV MCH Cancelled MCHC 33.2 Cancelled RDW 12.8 Cancelled Plt Count 179 MPV Immature Gran % (Auto) Neut % (Auto) Lymph % (Auto) [place] % (Auto) Eos % (Auto) Baso % (Auto) Lymph # (Auto) [place] # (Auto) Eos # (Auto) Baso # (Auto) Abs Immat Gran (auto) Absolute Neuts (auto) Absolute Nucleated RBC Nucleated RBC % (auto) Anion Gap Estim Creat Clear Calc Estimated GFR Random Glucose Calcium Total Bilirubin AST ALT Alkaline Phosphatase Total Protein Albumin TSH 09/04/24 09/04/24 09/04/24 06:36 06:36 06:36 MCV MCH MCHC RDW Plt Count Cancelled MPV 10.3 Cancelled Immature Gran % (Auto) 0.5 H Neut % (Auto) 52.3 Lymph % (Auto) 29.8 [place] % (Auto) 14.6 H Eos % (Auto) 2.6 Baso % (Auto) 0.2 Lymph # (Auto) 1.9 [place] # (Auto) 1.0 Eos # (Auto) 0.2 Baso # (Auto) 0.0 Abs Immat Gran (auto) 0.03 Absolute Neuts (auto) 3.4 Absolute Nucleated RBC 0.000 Cancelled Nucleated RBC % (auto) 0.0 Anion Gap Estim Creat Clear Calc Estimated GFR Random Glucose Calcium Total Bilirubin AST ALT Alkaline Phosphatase Total Protein Albumin TSH 09/04/24 06:36 MCV MCH MCHC RDW Plt Count MPV Immature Gran % (Auto) Neut % (Auto) Lymph % (Auto) [place] % (Auto) Eos % (Auto) Baso % (Auto) Lymph # (Auto) [place] # (Auto) Eos # (Auto) Baso # (Auto) Abs Immat Gran (auto) Absolute Neuts (auto) Absolute Nucleated RBC Nucleated RBC % (auto) Cancelled Anion Gap 13 Estim Creat Clear Calc 188.6 Estimated GFR > 60 Random Glucose 118 H Calcium 8.9 Total Bilirubin 0.3 AST 50 H ALT 91 H Alkaline Phosphatase 66 Total Protein 7.4 Albumin 3.6 TSH 7.14 H Assessment and Plan (1) Bilateral pulmonary embolism: Status: Acute Plan 39 year old man admitted with unprovoked PE. Acute hypoxic resp failure secondary to PE CTA>bilateral PE with moderate clot burden s/p Lovenox in the ED Eliquis 10 mg BID for 7 days then 5 mg BID heme consult oxygen supplementation to keep o2 sats >90% Flu A pos 09/02/24 out of window for tamiflu given 1 week of URI symptoms SI/mental health continue home medications medically clear, CARE team consult pending normocytic anemia no bleeding stable HH Morbid obesity. BMI 48.8 Discussed importance of weight management as this may be contributing to worsening of other comorbidities DVT prophylaxis with eliquis Full code Quality Stroke Does the patient have a stroke diagnosis?: No VTE Prior VTE?: No VTE Risk Level:: Medical - moderate - high VTE Device Contraindication: Treatment Not Indicated VTE Drug Contraindication: N/A - Med Ordered
[2024-09-04 15:09] VITALS: BP 135/77; PULSE 97; RESP 14; TEMP 36.7; O2SAT 92
[2024-09-04 19:58] VITALS: BP 144/88; PULSE 93; RESP 20; TEMP 36.4; O2SAT 97
[2024-09-04 23:51] VITALS: BP 117/69; PULSE 94; RESP 16; TEMP 36.6; O2SAT 94
[2024-09-05 03:30] VITALS: BP 126/67; PULSE 94; RESP 17; TEMP 36.8; O2SAT 91
[2024-09-05 07:23] VITALS: BP 111/56; PULSE 90; RESP 20; TEMP 36.2; O2SAT 92
[2024-09-05] MEDS: Apixaban 5 MG TABLET 10 MG PO (08:08)
[2024-09-05] MEDS: buPROPion HCL 75 MG TABLET PO (08:08)
[2024-09-05] MEDS: 0.9 % Sodium Chloride Flush 3 ML SYRINGE IVFLUSH (08:09)
--- NOTE | 2024-09-05 09:06 | P.PNIM_ITS ---
Subjective Subjective Date of Service: 09/05/24 Review of Systems Follow up PE feeling well, no hypoxia Physical Exam 2 Vital Signs: Vital Signs: Last Vital Signs Temp 97.1 F 09/05/24 07:23 Pulse 90 09/05/24 07:23 Resp 20 09/05/24 07:23 BP 111/56 L 09/05/24 07:23 Pulse Ox 92 09/05/24 07:23 O2 Del Method Room Air 09/05/24 07:23 O2 Flow Rate 2 09/04/24 07:27 BMI result Body Mass Index 48.8 Appearing in no acute distress lung sounds are clear to auscultation heart regular rate rhythm, clear S1, S2 positive bowel sounds, abdomen is soft, nontender neuro patient is alert x3, no focal deficits Objective Data Active Medications Acetaminophen (Acetaminophen 325 Mg Tablet) 650 mg PO Q6H PRN PRN Reason: Pain, Mild 1-3,fever,headache Apixaban (Apixaban 5 Mg Tablet) 10 mg PO BID [facility] Stop: 09/10/24 09:01 Last Admin: 09/05/24 08:08 Dose: 10 mg Documented By: ALEXANDRU Bupropion HCl (Bupropion Hcl 75 Mg Tablet) 75 mg PO BID [facility] Last Admin: 09/05/24 08:08 Dose: 75 mg Documented By: ALEXANDRU Calcium Carbonate (Calcium Carbonate 750 Mg Tab.Chew) 750 mg PO Q4H PRN PRN Reason: Heartburn Clonidine HCl (Clonidine Hcl 0.1 Mg Tablet) 0.1 mg PO TID PRN; Protocol PRN Reason: Anxiety Hydroxyzine HCl (Hydroxyzine Hcl 50 Mg Tablet) 50 mg PO TID PRN PRN Reason: Anxiety Ibuprofen (Ibuprofen 200 Mg Tablet) 600 mg PO TID PRN PRN Reason: Pain, Mild (Pain Scale 1-3) Magnesium Hydroxide (Milk Of Magnesia 30 Ml Oral.Susp) 30 ml PO DAILY PRN PRN Reason: Constipation Melatonin (Melatonin 3 Mg Tablet) 6 mg PO BEDTIME PRN PRN Reason: Insomnia Ondansetron HCl (Ondansetron Hcl 4 Mg/2 Ml Vial) 4 mg IVPUSH Q8H PRN PRN Reason: Nausea and Vomiting Sodium Chloride (0.9 % Sodium Chloride Flush 3 Ml Syringe) 3 ml IVFLUSH QSHIFT [facility] Last Admin: 09/05/24 08:09 Dose: 3 ml Documented By: ALEXANDRU Trazodone HCl (Trazodone Hcl 100 Mg Tablet) 100 mg PO BEDTIME PRN PRN Reason: Insomnia Last Admin: 09/04/24 00:15 Dose: 100 mg Documented By: ISIDRO Comments: Insomnia Labs 09/04/24 06:36 09/04/24 06:36 Assessment and Plan (1) Bilateral pulmonary embolism: Status: Acute Plan 39 year old man admitted with unprovoked PE. Acute hypoxic resp failure secondary to PE CTA>bilateral PE with moderate clot burden neg venous doppler us s/p Lovenox in the ED Eliquis 10 mg BID for 7 days then 5 mg BID heme>eliquis, o/p hypercoag workup off oxygen Flu A pos 09/02/24 out of window for tamiflu given 1 week of URI symptoms SI/mental health continue home medications medically clear, Plan for IPLOC normocytic anemia no bleeding stable HH Morbid obesity. BMI 48.8 Discussed importance of weight management as this may be contributing to worsening of other comorbidities DVT prophylaxis with eliquis Full code Quality Stroke Does the patient have a stroke diagnosis?: No VTE Prior VTE?: No VTE Risk Level:: Medical - moderate - high VTE Device Contraindication: Treatment Not Indicated VTE Drug Contraindication: N/A - Med Ordered
--- NOTE | 2024-09-05 09:09 | PM.DS ---
DS: Providers Provider Date of Service: 09/05/24 Date of admission: 09/03/24 14:14 Date of discharge: 09/05/24 Primary care physician: Unknown Physician Consults: 09/02/24 15:16 ED CARE Team Crisis Consult Stat Comment: Reason for consultation: SI - no plan 09/03/24 15:05 Consult to Hematology / Oncology [place]ine [place]ing [place] [facility] Reason for consultation: PE 09/03/24 16:12 Consult to Vascular Surgery Routine Consulting Provider[place] [facility] [place] Reason for consultation: bilateral PE 09/04/24 12:08 Inpt CARE Team Crisis Consult Routine Comment: Reason for consultation: medically clear DS: Diagnosis Discharge Diagnosis (1) Bilateral pulmonary embolism: Status: Acute DS: Summary Hospital Course Hospital Course: 39-year-old male with pmhx significant for depression presented to the ED today for evaluation of suicidal ideation. Patient was then noticed to be hypoxic with dyspnea. CTA ordered and showed bilateral PE. Patient given one dose of Lovenox. Patient denied chest pain, NVD, recent travel, sick contacts, bedbound. 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 Plan will be to admit patient for management and treatment of acute unprovoked PE. 37-year-old man treated for acute hypoxic respiratory failure secondary to unprovoked pulmonary embolus. Given Lovenox in the ED. Started on Eliquis 10 mg twice daily for 7 days and 5 mg twice daily. Bilateral venous Doppler ultrasound negative for DVT. Seen evaluated by Hematology, recommendation for outpatient hypercoagulable workup. Also had flu a, diagnosed 09/02/2024, out of window for Tamiflu given 1 week of URI symptoms. Patient is no longer hypoxic and not on oxygen. SI/Mental Health. Patient seen and evaluated by the care team and we will need IPLOC, patient in agreement with this. Normocytic anemia. Stable H&H, no bleeding Morbid obesity. BMI 48.8. Discussed importance of weight management as this may be contributing to worsening of other comorbidities Time Attestation Discharge Coordination Time (in mins): 35 Quality: Safe Use of Opioids Does Pt have an Active Cancer Diagnosis on the Problem List?: No Quality: Stroke Does the patient have a stroke diagnosis?: No Physical Exam Vital Signs: Vital Signs: Last Vital Signs Temp 97.1 F 09/05/24 07:23 Pulse 90 09/05/24 07:23 Resp 20 09/05/24 07:23 BP 111/56 L 09/05/24 07:23 Pulse Ox 92 09/05/24 07:23 O2 Del Method Room Air 09/05/24 07:23 O2 Flow Rate 2 09/04/24 07:27 BMI result Body Mass Index 48.8 Appearing in no acute distress head is normocephalic atraumatic eyes pupils are PERRLA sclera is anicteric mouth throat mucous membranes are intact and moist neck is supple no lymphadenopathy, no JVD noted lung sounds are clear to auscultation heart regular rate rhythm, clear S1, S2 positive bowel sounds, abdomen is soft, nontender neuro patient is alert x3, no focal deficits Discharge Plan Discharge Anticipated Discharge Date/Time: 09/05/24 10:56 Patient Disposition: Xfer Psychiatric Hosp Discharge Diagnosis: Bilateral unprovoked pulmonary embolism Influenza B Referrals: Shilpi Light MD [Physician] - 1 Week Discharge Medications: New Eliquis 5 mg Tablet 10 mg PO BID Qty: 60 0RF Continued baclofen 10 mg tablet 10 mg PO BID clonidine HCl 0.1 mg tablet 0.1 mg PO TID PRN (Reason: Anxiety) Protocol: Hold for SBP< HOLD for SBP < : 90 trazodone 100 mg tablet 100 mg PO BEDTIME PRN (Reason: Insomnia) hydroxyzine HCl 50 mg tablet 50 mg PO TID PRN (Reason: Anxiety) melatonin 5 mg capsule 5 mg PO BEDTIME PRN (Reason: Insomnia) ibuprofen 600 mg 600 mg PO TID PRN (Reason: Pain) bupropion HCl 75 mg tablet 75 mg PO BID multivitamin Tablet 1 tab PO DAILY Discharge Orders: Discharge Order (Routine); Ordered 09/05/24 Ordered By: Angella Denny Diet: Advance to usual diet Activity on Discharge: As tolerated Stand Alone Forms: Patient Portal Discharge page Print Language: [place] Care Plan Goals: Eliquis 10mg BID for total of 7 days (09/10/24) then 5mg twice daily Health Concerns: Bilateral unprovoked pulmonary embolism Influenza B Plan of Treatment: Primary care provider as needed Follow up with Oncology for outpatient hypercoagulable workup Take all medications as prescribed Assessment: See discharge summary
--- NOTE | 2024-09-05 09:50 | HO.VASCPN ---
Subjective Subjective Date of Service: 09/05/24 Interval history: Tj is doing well this morning. He has a sitter in his room with him. He is eating and drinking well. He denies any shortness of breath, diff breathing or chest pain today. He states he is feeling well overall. He has been sleeping well. Physical Exam Vital Signs: Vital Signs: Last Vital Signs Temp 97.1 F 09/05/24 07:23 Pulse 90 09/05/24 07:23 Resp 20 09/05/24 07:23 BP 111/56 L 09/05/24 07:23 Pulse Ox 92 09/05/24 07:23 O2 Del Method Room Air 09/05/24 07:23 O2 Flow Rate 2 09/04/24 07:27 BMI result Body Mass Index 48.8 Const: General: comfortable and no acute distress Orientation/consciousness: patient oriented x3 HEENT: Ears: hearing grossly normal bilaterally Resp: Effort & Inspection: normal respiratory effort and able to speak in complete sentences Auscultation: clear to auscultation bilaterally Cardio: Rate: regular rate Rhythm: regular rhythm Heart sounds: S1 normal heart sound present and S2 normal heart sound present Bruits: no abdominal aortic bruits, no carotid bruits, no femoral bruits and no renal bruits GI: Palpation (GI): No Abdominal aortic bruit present Neuro: General: patient oriented x3 Cranial nerves: Yes CN's II-XII intact bilaterally Progress Note: A&P Assessment and plan (1) Bilateral pulmonary embolism: Status: Acute Assessment and Plan: Tj remains stable from a vascular standpoint. He denies any shortness of breath, difficulty breathing, or chest pain. He denies any bilateral lower extremity pain. He states he is doing well overall. He was recently started on Eliquis for the bilateral pulmonary embolism. It was found that there was only a small clot burden, and the best course of treatment would be oral anticoagulation. We will follow up with him as needed outpatient. We will continue to monitor. If there are any questions or concerns, please do not hesitate to reach out to us. Time Spent With Patient Time: Total time managing care of this patient today ____ minutes. Procedures Date of Service Date of Service: 09/05/24 Quality Stroke Does the patient have a stroke diagnosis?: No VTE Prior VTE?: No VTE Risk Level:: Medical - moderate - high VTE Device Contraindication: Treatment Not Indicated VTE Drug Contraindication: N/A - Med Ordered
[2024-09-05 11:30] VITALS: BP 134/88; PULSE 98; RESP 20; TEMP 36.3; O2SAT 92
--- NOTE | 2024-09-05 12:54 | MHC.CM.PN ---
Pt has been medically cleared, he will transfer to inpatient psych provider.
== END 2024-09-05 13:56 | DRG 134 ==
LOC: HO.ED 09-03 11:29 → HO.EDOVER 09-03 14:34 → HO.IMC 09-03 21:54
PROVIDERS: Physician Assistant Medical; Admitting Provider Nurse Practitioner Acute Care; Emergency Provider Emergency Medicine; Visit Provider Nurse Practitioner Acute Care
DX: I26.99 Other pulmonary embolism without acute cor pulmonale (principal); J96.01 Acute respiratory failure with hypoxia; F17.210 Nicotine dependence, cigarettes, uncomplicated; R45.851 Suicidal ideations; J10.1 Influenza due to other identified influenza virus with other respiratory manifestations; D64.9 Anemia, unspecified; E66.01 Morbid (severe) obesity due to excess calories; Z59.02 Unsheltered homelessness; Z68.42 Body mass index [BMI] 45.0-49.9, adult; Z71.3 Dietary counseling and surveillance; Z71.6 Tobacco abuse counseling; Z79.899 Other long term (current) drug therapy
CPT/HCPCS: 0241U; 36415; 71045; 71275; 80053; 80143; 80179; 80307; 81001; 83880; 84443; 84484; 85025; 85027; 85379; 85610; 85730; 87651; 93005; 93970; 99285; J1650; Q9967; S9485

== ENCOUNTER → 2024-09-02 14:54 | Outpatient (BNV) | payer OTHER, SELFPAY | PROVIDERS: Emergency Provider Emergency Medicine; Visit Provider Internal Medicine Cardiovascular Disease | DX: R00.0 Tachycardia, unspecified (principal) | CPT/HCPCS: 93010 ==

== ENCOUNTER → 2024-09-03 08:28 | Outpatient (BNV) | payer OTHER, SELFPAY | PROVIDERS: Emergency Provider Emergency Medicine; Visit Provider Radiology Vascular & Interventional Radiology | DX: R07.9 Chest pain, unspecified (principal); R05.9 Cough, unspecified | CPT/HCPCS: 71045; 71275 ==

== ENCOUNTER 2024-09-03 14:14 | Outpatient (BNV) | payer OTHER, SELFPAY | END 2024-09-04 08:00 | PROVIDERS: Admitting Provider Nurse Practitioner Acute Care; Emergency Provider Emergency Medicine; Visit Provider Radiology Diagnostic Radiology | DX: I26.99 Other pulmonary embolism without acute cor pulmonale (principal) | CPT/HCPCS: 93970 ==

== ENCOUNTER → 2024-09-03 14:14 | Outpatient (BNV) | payer OTHER, SELFPAY | PROVIDERS: Admitting Provider Nurse Practitioner Acute Care; Emergency Provider Emergency Medicine; Visit Provider Surgery Vascular Surgery | DX: I26.99 Other pulmonary embolism without acute cor pulmonale (principal) | CPT/HCPCS: 99222; 99232 ==

== ENCOUNTER → 2024-09-03 14:14 | Outpatient (BNV) | payer OTHER, SELFPAY | PROVIDERS: Admitting Provider Nurse Practitioner Acute Care; Emergency Provider Emergency Medicine; Visit Provider Nurse Practitioner Acute Care | DX: I26.99 Other pulmonary embolism without acute cor pulmonale (principal) | CPT/HCPCS: 99499 ==

== ENCOUNTER → 2024-09-03 14:14 | Outpatient (BNV) | payer OTHER, SELFPAY | PROVIDERS: Admitting Provider Nurse Practitioner Acute Care; Emergency Provider Emergency Medicine; Visit Provider Internal Medicine Medical Oncology | DX: I26.99 Other pulmonary embolism without acute cor pulmonale (principal) | CPT/HCPCS: 99222 ==

== ENCOUNTER 2024-09-05 11:08 | Inpatient (IN) | payer OTHER, SELFPAY ==
[2024-09-05 14:52] VITALS: BP 141/96; PULSE 102; RESP 22; TEMP 36.7; O2SAT 92
[2024-09-05 15:14] VITALS: BMI 50.2
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
--- OUTSIDE RECORDS SUMMARY | 2024-09-05 15:21 | XMS_ITS | Clinical Summary ---
Author Organization [facility] it Address [address] [place] [address] Care Team Providers Care Pigment Processor Name Role Phone Grant Moreno MD Primary Care Provider Encounters Date Type Department Care Team Description 08/08/[address] [facility] [address] [place] [phone] Praveena Renteria RN from Last 3 Months Immunizations Name Administration Dates Next Due Hepatitis B (Oooakkq-O-Eyzyg , Recombivax HB-Adult) 19yo and older 12/22/2001 [...] age to complete this topic Care Teams Pigment Processor Relationship Specialty Start Date End Date Grant Moreno MD [address] [place] [phone] PCP - General 05/29/22
--- OUTSIDE RECORDS SUMMARY | 2024-09-05 15:21 | XMS_ITS | Encounter Summary ---
Author Organization [facility] Address [address] [place] [address] Care Team Providers Care Adult Education Instructor Name Role Phone Grant Moreno MD Primary Care Provider Encounter Details Date Type Department Care Team (Late st Contact Info) Description 08/08/2024 Telephone Adult Medicine [address] [phone] Praveena Renteria RN Social History Tobacco Use [...] on filedocumented in this encounter Care Teams Adult Education Instructor Relationship Specialty Start Date End Date Grant Moreno MD [address] [place] [id number] PCP - General 05/29/22 documented as of this encounter
--- OUTSIDE RECORDS SUMMARY | 2024-09-05 15:21 | XMS_ITS | Clinical Summary ---
Author Organization [facility] Address [address] [place] [address] Care Team Providers Care Fish Hatchery Inspector Name Role Phone Patient, Has No Pcp Or Ref Primary Care Provider Unavailable Allergies No known active allergies Encounters Date Type Department Care Team Description 08/06/2024 7:56 PM EST - 08/07/2024 2:10 AM EST Emergency [facility] Emergency Department [address] [place] [phone] Nitin Hairston II, MD Lindsay, Robert [...] complete this topic Procedures * Due to [place] [employer] law, this organization might not be sharing negative HIV tests. Procedure Name Priority Date/Time Associated Diagnosis Comments CT MAXILLOFACIAL BONES WO CONTRAST STAT 08/06/2024 11:[address] CERVICAL SPINE WO CONTRAST STAT 08/06/2024 11:[address] HEAD WO CONTRAST STAT 08/06/2024 1 1:15 PM EST from Last 3 Months Results * Due to [place] [employer] law, this organization might not be sharing [...] obtain the completed interpretation. ? Workstation ID: [id number] Up-to-date CT equipment and radiation dose reduction techniques were employed. CTDIvol: 34.8 - 121.6 mGy. DLP: 4357 mGy-cm. ??The following accession numbers are related to this dose report [id number]: [id number] Up-to-date CT equipment and radiation dose reduction techniques were employed. CTDIvol: 34.8 - 121.6 mGy. DLP: 4357 mGy-cm. ??The following accession numbers are related to this dose report [id number]: [id number] Up-to-date CT equipment and radiation dose reduction techniques were employed. CTDIvol: 34.8 - 121.6 mGy. DLP: 4357 mGy-cm. ??The following accession numbers are related to this dose report [id number]: [id number] Narrative 08/07/2024 12:47 AM EST PROCEDURE: CT [...] clear. ??Lung apices clear. Resulting Agency Comment [id number] Procedure Note Kun Baltazar MD - 08/07/2024 [...] possible to obtain thecompleted interpretation. Workstation ID: [id number] Up-to-date CT equipment and radiation dose reduction techniques wereemployed. CTDIvol: 34.8 - 121.6 mGy. DLP: 4357 mGy-cm. The followingaccession numbers are related to this dose report [id number]: [id number] Up-to-date CT equipment and radiation dose reduction techniques wereemployed. CTDIvol: 34.8 - 121.6 mGy. DLP: 4357 mGy-cm. The followingaccession numbers are related to this dose report [id number]: [id number] Up-to-date CT equipment and radiation dose reduction techniques wereemployed. CTDIvol: 34.8 - 121.6 mGy. DLP: 4357 mGy-cm. The followingaccession numbers are related to this dose report [id number]: [id number] Nitin Hairston II, MD IMG CT PROCEDURES [...] obtain the completed interpretation. ? Workstation ID: [id number] Up-to-date CT equipment and radiation dose reduction techniques were employed. CTDIvol: 34.8 - 121.6 mGy. DLP: 4357 mGy-cm. ??The following accession numbers are related to this dose report [id number]: [id number] Up-to-date CT equipment and radiation dose reduction techniques were employed. CTDIvol: 34.8 - 121.6 mGy. DLP: 4357 mGy-cm. ??The following accession numbers are related to this dose report [id number]: [id number] Up-to-date CT equipment and radiation dose reduction techniques were employed. CTDIvol: 34.8 - 121.6 mGy. DLP: 4357 mGy-cm. ??The following accession numbers are related to this dose report [id number]: [id number] Narrative 08/07/2024 12:47 AM EST PROCEDURE: CT [...] clear. ??Lung apices clear. Resulting Agency Comment [id number] Procedure Note Kun Baltazar MD - 08/07/2024 [...] possible to obtain thecompleted interpretation. Workstation ID: [id number] Up-to-date CT equipment and radiation dose reduction techniques wereemployed. CTDIvol: 34.8 - 121.6 mGy. DLP: 4357 mGy-cm. The followingaccession numbers are related to this dose report [id number]: [id number] Up-to-date CT equipment and radiation dose reduction techniques wereemployed. CTDIvol: 34.8 - 121.6 mGy. DLP: 4357 mGy-cm. The followingaccession numbers are related to this dose report [id number]: [id number] Up-to-date CT equipment and radiation dose reduction techniques wereemployed. CTDIvol: 34.8 - 121.6 mGy. DLP: 4357 mGy-cm. The followingaccession numbers are related to this dose report [id number]: [id number] Nitin Hairston II, MD IMG CT PROCEDURES [...] obtain the completed interpretation. ? Workstation ID: [id number] Up-to-date CT equipment and radiation dose reduction techniques were employed. CTDIvol: 34.8 - 121.6 mGy. DLP: 4357 mGy-cm. ??The following accession numbers are related to this dose report [id number]: [id number] Up-to-date CT equipment and radiation dose reduction techniques were employed. CTDIvol: 34.8 - 121.6 mGy. DLP: 4357 mGy-cm. ??The following accession numbers are related to this dose report [id number]: [id number] Up-to-date CT equipment and radiation dose reduction techniques were employed. CTDIvol: 34.8 - 121.6 mGy. DLP: 4357 mGy-cm. ??The following accession numbers are related to this dose report [id number]: [id number] Narrative 08/07/2024 12:47 AM EST PROCEDURE: CT [...] clear. ??Lung apices clear. Resulting Agency Comment [id number] Procedure Note Kun Baltazar MD - 08/07/2024 [...] possible to obtain thecompleted interpretation. Workstation ID: [id number] Up-to-date CT equipment and radiation dose reduction techniques wereemployed. CTDIvol: 34.8 - 121.6 mGy. DLP: 4357 mGy-cm. The followingaccession numbers are related to this dose report [id number]: [id number] Up-to-date CT equipment and radiation dose reduction techniques wereemployed. CTDIvol: 34.8 - 121.6 mGy. DLP: 4357 mGy-cm. The followingaccession numbers are related to this dose report [id number]: [id number] Up-to-date CT equipment and radiation dose reduction techniques wereemployed. CTDIvol: 34.8 - 121.6 mGy. DLP: 4357 mGy-cm. The followingaccession numbers are related to this dose report [id number]: [id number] Nitin Hairston II, MD IMG CT PROCEDURES Final Re sult from Last [address] [place] [address] MEDICAID Care Teams Fish Hatchery Inspector Relationship Specialty Start Date End Date Patient, Has No Pcp Or Ref DO NOT EDIT THIS RECORD VIA PROVIDER ON THE FLY PCP - General Seafood And Service Meat Manager 08/06/24
--- OUTSIDE RECORDS SUMMARY | 2024-09-05 15:21 | XMS_ITS | Referral Summary ---
Author Organization [facility] Address [address] [place] [address] Care Team Providers Care Executive Director Of Marketing Name Role Phone Patient, Has No Pcp Or Ref Primary Care Provider Unavailable Encounters Date Type Department Care Team Description 08/06/2024 7:56 PM EST - 08/07/2024 2:10 AM EST Emergency [facility] Emergency Department [address] [place] [id number] Nitin Hairston II, MD Lindsay, Robert [...] Not on file Procedures * Due to [place] state law, this organization might not be sharing negative HIV tests. Procedure Name Priority Date/Time Associated Diagnosis Comments CT MAXILLOFACIAL BONES WO CONTRAST STAT 08/06/2024 11:[address] CERVICAL SPINE WO CONTRAST STAT 08/06/2024 11:[address] HEAD WO CONTRAST STAT 08/06/2024 1 1:15 PM EST from Last 3 Months Results * Due to [place] state law, this organization might not be [...] obtain the completed interpretation. ? Workstation ID: [id number] Up-to-date CT equipment and radiation dose reduction techniques were employed. CTDIvol: 34.8 - 121.6 mGy. DLP: 4357 mGy-cm. ??The following accession numbers are related to this dose report [id number]: [id number] Up-to-date CT equipment and radiation dose reduction techniques were employed. CTDIvol: 34.8 - 121.6 mGy. DLP: 4357 mGy-cm. ??The following accession numbers are related to this dose report [id number]: [id number] Up-to-date CT equipment and radiation dose reduction techniques were employed. CTDIvol: 34.8 - 121.6 mGy. DLP: 4357 mGy-cm. ??The following accession numbers are related to this dose report [id number]: [id number] Narrative 08/07/2024 12:47 AM EST PROCEDURE: CT [...] clear. ??Lung apices clear. Resulting Agency Comment [id number] Procedure Note Kun Baltazar MD - 08/07/2024 [...] possible to obtain thecompleted interpretation. Workstation ID: [id number] Up-to-date CT equipment and radiation dose reduction techniques wereemployed. CTDIvol: 34.8 - 121.6 mGy. DLP: 4357 mGy-cm. The followingaccession numbers are related to this dose report [id number]: [id number] Up-to-date CT equipment and radiation dose reduction techniques wereemployed. CTDIvol: 34.8 - 121.6 mGy. DLP: 4357 mGy-cm. The followingaccession numbers are related to this dose report [id number]: [id number] Up-to-date CT equipment and radiation dose reduction techniques wereemployed. CTDIvol: 34.8 - 121.6 mGy. DLP: 4357 mGy-cm. The followingaccession numbers are related to this dose report [id number]: [id number] Nitin Hairston II, MD IMEdna CT PROCEDURES [...] obtain the completed interpretation. ? Workstation ID: [id number] Up-to-date CT equipment and radiation dose reduction techniques were employed. CTDIvol: 34.8 - 121.6 mGy. DLP: 4357 mGy-cm. ??The following accession numbers are related to this dose report [id number]: [id number] Up-to-date CT equipment and radiation dose reduction techniques were employed. CTDIvol: 34.8 - 121.6 mGy. DLP: 4357 mGy-cm. ??The following accession numbers are related to this dose report [id number]: [id number] Up-to-date CT equipment and radiation dose reduction techniques were employed. CTDIvol: 34.8 - 121.6 mGy. DLP: 4357 mGy-cm. ??The following accession numbers are related to this dose report [id number]: [id number] Narrative 08/07/2024 12:47 AM EST PROCEDURE: CT [...] clear. ??Lung apices clear. Resulting Agency Comment [id number] Procedure Note Kun Baltazar MD - 08/07/2024 [...] possible to obtain thecompleted interpretation. Workstation ID: [id number] Up-to-date CT equipment and radiation dose reduction techniques wereemployed. CTDIvol: 34.8 - 121.6 mGy. DLP: 4357 mGy-cm. The followingaccession numbers are related to this dose report [id number]: [id number] Up-to-date CT equipment and radiation dose reduction techniques wereemployed. CTDIvol: 34.8 - 121.6 mGy. DLP: 4357 mGy-cm. The followingaccession numbers are related to this dose report [id number]: [id number] Up-to-date CT equipment and radiation dose reduction techniques wereemployed. CTDIvol: 34.8 - 121.6 mGy. DLP: 4357 mGy-cm. The followingaccession numbers are related to this dose report [id number]: [id number] Nitin Hairston II, MD IMEdna CT PROCEDURES [...] obtain the completed interpretation. ? Workstation ID: [id number] Up-to-date CT equipment and radiation dose reduction techniques were employed. CTDIvol: 34.8 - 121.6 mGy. DLP: 4357 mGy-cm. ??The following accession numbers are related to this dose report [id number]: [id number] Up-to-date CT equipment and radiation dose reduction techniques were employed. CTDIvol: 34.8 - 121.6 mGy. DLP: 4357 mGy-cm. ??The following accession numbers are related to this dose report [id number]: [id number] Up-to-date CT equipment and radiation dose reduction techniques were employed. CTDIvol: 34.8 - 121.6 mGy. DLP: 4357 mGy-cm. ??The following accession numbers are related to this dose report [id number]: [id number] Narrative 08/07/2024 12:47 AM EST PROCEDURE: CT [...] clear. ??Lung apices clear. Resulting Agency Comment [id number] Procedure Note Kun Baltazar MD - 08/07/2024 [...] possible to obtain thecompleted interpretation. Workstation ID: [id number] Up-to-date CT equipment and radiation dose reduction techniques wereemployed. CTDIvol: 34.8 - 121.6 mGy. DLP: 4357 mGy-cm. The followingaccession numbers are related to this dose report [id number]: [id number] Up-to-date CT equipment and radiation dose reduction techniques wereemployed. CTDIvol: 34.8 - 121.6 mGy. DLP: 4357 mGy-cm. The followingaccession numbers are related to this dose report [id number]: [id number] Up-to-date CT equipment and radiation dose reduction techniques wereemployed. CTDIvol: 34.8 - 121.6 mGy. DLP: 4357 mGy-cm. The followingaccession numbers are related to this dose report [id number]: [id number] Nitin Hairston II, MD IMG CT PROCEDURES Final Re sult from Last [address] [place] [address] [address] [place] [address] MEDICAID Care Teams Executive Director Of Marketing Relationship Specialty Start Date End Date Patient, Has No Pcp Or Ref DO NOT EDIT THIS RECORD VIA PROVIDER ON THE FLY PCP - General Cryogenics Engineer 08/06/24
--- NOTE | 2024-09-05 15:25 | PC.NURSE ---
Tj declined Nicotine replacement and does not qualify for Flu Vaccine due to being Flu positive
--- NOTE | 2024-09-05 18:19 | PC.ADMIT ---
Tj was admitted to on a CV from [facility] for treatment of unspecified depressive disorder on 09/05/24 at 1458. He came to the hospital for suicidal ideation without specific plans. He originally came to the hospital with chest pain and SI, and was found to have a bilateral PE and was medically admitted. During admission assessment, Tj is calm, cooperative and pleasant. He is linear and has good eye contact/focus. He is depressed and flat but pleasant. He reports he uses marijuanna and cocaine occasionally with most recent use on 09/01/24, tox screen was positive for cocaine, marijuanna and benzodiazpines. He reports he was getting Valium while at his recent detox admission (not listed in crisis). He denied SI/HI/AVH, vape use, alcohol use and SIB during admission. However, per crisis, he has a history of SIB via cutting/burning and recently drank 3 nips while using cocaine after 3 months of sobriety. He recently left [facility] [place] due to drama the day he last used cocaine. He was recently on on 02/07/24. When asked who was providing him medications, he reports he was getting them from [facility] since he has no PCP. He denies sleep or appetite disturbances. He denies medical issues other than recent bilateral PE and recently testing positive for Flu B. He reports some shortness of breath and O2 sat 92%, Chucky Tillman MD made aware. He has no other physical complaints. He was placed on 5 minute checks for medical monitoring and safety.
[2024-09-05 20:00] VITALS: BP 138/72; PULSE 100; RESP 18; TEMP 36.8; O2SAT 94
[2024-09-05] MEDS: traZODone HCL 100 MG TABLET PO (20:46)
[2024-09-05] MEDS: Baclofen 10 MG TABLET PO (20:46)
[2024-09-05] MEDS: hydrOXYzine HCL 50 MG TABLET PO (20:46)
[2024-09-05] MEDS: Melatonin 3 MG TABLET 6 MG PO (20:46)
[2024-09-05] MEDS: Apixaban 5 MG TABLET 10 MG PO (20:47)
[2024-09-05] MEDS: buPROPion HCL 75 MG TABLET PO (20:47)
[2024-09-06 08:00] VITALS: BP 135/79; PULSE 88; RESP 20; TEMP 36.8; O2SAT 97
--- NOTE | 2024-09-06 09:12 | P.HPPS_ITS ---
[facility] Date of Service: 09/06/24 Chief Complaint: SI Sources of Information: patient interviewed, chart reviewed and crisis/core team assessment reviewed HPI Subjective Notes: Conditional Voluntary Narrative: Patient is a 39-year-old male with history of MDD, PTSD and cocaine use disorder who self presented to ER due to chest pain and suicidal ideation then was admitted medically, treated for acute hypoxic respiratory failure and pulmonary embolus. Per crisis report, patient is known to crisis team through 2 previous assessments with similar presentation. History of 2 inpatient psychiatric hospitalizations on [facility]. Last admission being in January 2024. Patient reports sleep and appetite are okay. Increased in depression and anxiety reported suicidal ideation with no plan. Denies HI/VH/AH. History of minimizing his substance use. Reports lack of supports and does not have outpatient providers at this time. States that he has been medication compliant with most of his medications but states he was not able to afford others. Patient reports he has been residing at [facility] for the past 3 months. He reports he decided to leave on September 01 due to too much drama and was having too many bad thoughts . He reports relapsing and engaging in both alcohol and cocaine use after 3 months of sobriety. No history of suicide attempts. History of self-injurious behavior via cutting/burning. During admission assessment, patient presents alert and oriented x3. Calm and cooperative. Patient reports feeling depressed patient stated, I came in and was feeling suicidal but ended up on the medical unit. The lack of family support was making me suicidal . Patient reports he would like help with his anxiety and depression and would like referrals to outpatient psychiatric providers. He currently denies SI/HI/VH/AH. Patient reports he uses cocaine every few months . Utox positive for marijuana, cocaine, and benzodiazepines. Patient is positive for influenza type B and is currently in isolation. Past Psychiatric History: Patient reports history of inpatient psychiatric hospitalization at [facility]. History of detox and respite admissions. Reports he does not have outpatient psychiatric providers at this time. Denies history of SA. Medical Evaluation Reviewed: Yes [facility] Medical History (Updated 09/06/24 @ 17:05 by Fide Grossman NP) Cocaine use disorder Mood disorder Depression Polysubstance abuse Family History: Denies Social History: Lives in an apartment by himself. Single. Two kids who were with their mother. Unemployed. Highest level of education 9th grade. Substance History: U tox positive for cocaine, marijuana and benzodiazepines. Patient reports he uses cocaine every few months. Trauma History: Yes Diagnostics Vital Signs (24Hr): Vital Signs - 24 hr 09/05/24 14:52 09/05/24 20:00 Temperature 98.0 F 98.2 F Pulse Rate 102 H 100 Respiratory Rate 22 H 18 Blood Pressure 141/96 H 138/72 Pulse Oximetry 92 94 Oxygen Delivery Method Room Air Room Air BMI result Body Mass Index 50.2 Meds/Allergies Meds Home Medications ?Medication ?Instructions ?Recorded ?Confirmed ?Type baclofen 10 mg tablet 10 mg PO BID 09/02/24 09/05/24 History bupropion HCl 75 mg tablet 75 mg PO BID 09/02/24 09/05/24 History clonidine HCl 0.1 mg tablet 0.1 mg PO TID PRN Anxiety 09/02/24 09/05/24 History hydroxyzine HCl 50 mg tablet 50 mg PO TID PRN Anxiety 09/02/24 09/05/24 History ibuprofen 600 mg PO TID PRN Pain 09/02/24 09/05/24 History melatonin 5 mg capsule 5 mg PO BEDTIME PRN Insomnia 09/02/24 09/05/24 History trazodone 100 mg tablet 100 mg PO BEDTIME PRN Insomnia 09/02/24 09/05/24 History multivitamin 1 tab PO DAILY 09/03/24 09/05/24 History Allergies Allergies Allergy/AdvReac Type Severity Reaction Status Date / Time No Known Allergies Allergy Verified 09/02/24 15:16 Mental Status Exam Mental Status Exam Narrative: Pt is alert and oriented; behavior is cooperative, calm, guarded; dressed in casual attire; mood is described as anxious and depressed ; eye contact appropriate; Speech is normal rate, volume and not pressured; thought process is organized and goal directed; Thought content is on tx; otherwise pertinent to relevant topics and without any delusional content, paranoid ideations or grandiosity; denies SI/HI/VH/AH. Assessment & Plan Assessment & Plan (1) MDD (major depressive disorder), recurrent episode: Status: Acute Code(s): F33.9 - Major depressive disorder, recurrent, unspecified (2) PTSD (post-traumatic stress disorder): Status: Acute Code(s): F43.10 - Post-traumatic stress disorder, unspecified (3) Cocaine use disorder: Status: Inactive Code(s): F14.10 - Cocaine abuse, uncomplicated Plan Patient is a 39-year-old male with history of MDD, PTSD and cocaine use disorder who self presented to ER due to chest pain and suicidal ideation then was admitted medically, treated for acute hypoxic respiratory failure and pulmonary embolus. Plan: CV 15 minute safety checks Continue home medications Referral to outpatient psychiatric providers Encourage groups when no longer on isolation ? Referral to substance abuse program Discharge planning Patient educated on: diagnosis and medication risk/benefits Reason for continued inpatient stay Substantial Risk for: med/psych decompensation Statement Statement: I have reviewed the history and physical and performed a pertinent examination on my patient. No changes have occurred unless specified. If the History and Physical was not performed prior to admission, the Hospitalist's service will be consulted for completing the admission physical. Time Spent With Patient Time: Total time managing care of this patient today _60___ minutes.
[2024-09-06] MEDS: Apixaban 5 MG TABLET 10 MG PO ×2 (09:19→21:22)
[2024-09-06] MEDS: Multivitamin TABLET 1 TAB PO (09:19)
[2024-09-06] MEDS: Baclofen 10 MG TABLET PO ×2 (09:20→21:22)
[2024-09-06] MEDS: buPROPion HCL 75 MG TABLET PO ×2 (09:20→21:22)
[2024-09-06 20:00] VITALS: BP 135/90; PULSE 112; RESP 18; TEMP 36.4; O2SAT 95
[2024-09-06] MEDS: traZODone HCL 100 MG TABLET PO (21:22)
[2024-09-07 07:45] VITALS: BP 104/59; PULSE 87; RESP 14; TEMP 36.4; O2SAT 93
[2024-09-07] MEDS: Apixaban 5 MG TABLET 10 MG PO ×2 (09:38→21:18)
[2024-09-07] MEDS: buPROPion HCL 75 MG TABLET PO ×2 (09:38→21:18)
[2024-09-07] MEDS: Multivitamin TABLET 1 TAB PO (09:38)
[2024-09-07] MEDS: Baclofen 10 MG TABLET PO ×2 (09:39→21:18)
--- NOTE | 2024-09-07 10:14 | HO.PSYCHPN ---
Subjective Subjective Date of Service: 09/07/24 Reason For Visit: SI Subjective Notes: Conditional Voluntary Interim History: Continues on isolation in room d/t flu. Pt reports feeling depressed because I'm sick and stuck in my room ; pt reports he was hoping to attend groups when admitted to hospital. Showered yesterday. denies SI/HI/VH/AH. Medication Compliance: Yes Side effects from medications: No Attending Groups: No Mental Status Exam Mental Status Exam Narrative: Pt is alert and oriented; behavior is cooperative, calm, guarded; dressed in casual attire; mood is described as anxious and depressed ; eye contact appropriate; Speech is normal rate, volume and not pressured; thought process is organized and goal directed; Thought content is on tx; otherwise pertinent to relevant topics and without any delusional content, paranoid ideations or grandiosity; denies SI/HI/VH/AH. Diagnostics Vital Signs (24Hr): Vital Signs - 24 hr 09/06/24 20:00 09/07/24 07:45 Temperature 97.5 F 97.5 F Pulse Rate 112 H 87 Respiratory Rate 18 14 Blood Pressure 135/90 H 104/59 L Pulse Oximetry 95 93 Oxygen Delivery Method Room Air Room Air BMI result Body Mass Index 50.2 Medications Medications Current Medications Acetaminophen (Acetaminophen 325 Mg Tablet) 650 mg PO Q6H PRN PRN Reason: Headache/Pain, Scale 1-10 Al Hydroxide/Mg Hydroxide (Magnesium Hydrox/Alum Hydrox 30 Ml Oral.Susp) 30 ml PO Q6H PRN PRN Reason: Heartburn/Nausea Apixaban (Apixaban 5 Mg Tablet) 10 mg PO BID [facility] Last Admin: 09/07/24 09:38 Dose: 10 mg Baclofen (Baclofen 10 Mg Tablet) 10 mg PO BID [facility] Last Admin: 09/07/24 09:39 Dose: 10 mg Bupropion HCl (Bupropion Hcl 75 Mg Tablet) 75 mg PO BID [facility] Last Admin: 09/07/24 09:38 Dose: 75 mg Clonidine HCl (Clonidine Hcl 0.1 Mg Tablet) 0.1 mg PO TID PRN; Protocol PRN Reason: Anxiety Hydroxyzine HCl (Hydroxyzine Hcl 50 Mg Tablet) 50 mg PO TID PRN PRN Reason: Anxiety Last Admin: 09/05/24 20:46 Dose: 50 mg Magnesium Hydroxide (Milk Of Magnesia 30 Ml Oral.Susp) 30 ml PO DAILY PRN PRN Reason: Constipation Melatonin (Melatonin 3 Mg Tablet) 6 mg PO BEDTIME PRN PRN Reason: Insomnia Last Admin: 09/05/24 20:46 Dose: 6 mg Multivitamins/Vitamin C (Multivitamin Tablet) 1 tab PO DAILY [facility] Last Admin: 09/07/24 09:38 Dose: 1 tab Nicotine Polacrilex (Nicotine Polacrilex 2 Mg Gum) 4 mg BUCCAL Q2H PRN PRN Reason: Nicotine Cravings Trazodone HCl (Trazodone Hcl 100 Mg Tablet) 100 mg PO BEDTIME PRN PRN Reason: Insomnia Last Admin: 09/06/24 21:22 Dose: 100 mg Allergies Allergies Allergy/AdvReac Type Severity Reaction Status Date / Time No Known Allergies Allergy Verified 09/02/24 15:16 Assessment & Plan Assessment & Plan (1) MDD (major depressive disorder), recurrent episode: Status: Acute Code(s): F33.9 - Major depressive disorder, recurrent, unspecified (2) PTSD (post-traumatic stress disorder): Status: Acute Code(s): F43.10 - Post-traumatic stress disorder, unspecified (3) Cocaine use disorder: Status: Inactive Code(s): F14.10 - Cocaine abuse, uncomplicated Plan Patient is a 39-year-old male with history of MDD, PTSD and cocaine use disorder who self presented to ER due to chest pain and suicidal ideation then was admitted medically, treated for acute hypoxic respiratory failure and pulmonary embolus. Plan: CV 15 minute safety checks Continue home medications Referral to outpatient psychiatric providers Encourage groups when no longer on isolation ? Referral to substance abuse program Discharge planning 09/07: Continues on isolation in room d/t flu. Pt reports feeling depressed because I'm sick and stuck in my room ; pt reports he was hoping to attend groups when admitted to hospital. Showered yesterday. denies SI/HI/VH/AH. Patient educated on: diagnosis and medication risk/benefits Reason for continued inpatient stay Substantial Risk for: med/psych decompensation Time Spent With Patient Time: Total time managing care of this patient today _15___ minutes.
[2024-09-07 20:00] VITALS: BP 137/95; PULSE 94; RESP 16; TEMP 36.7; O2SAT 94
[2024-09-07 21:17] VITALS: BP 137/95
[2024-09-07] MEDS: cloNIDine HCL 0.1 MG TABLET PO (21:17)
[2024-09-07] MEDS: traZODone HCL 100 MG TABLET PO (21:18)
[2024-09-07] MEDS: Melatonin 3 MG TABLET 6 MG PO (21:19)
[2024-09-07] MEDS: guaiFENesin 100 MG/5 ML 5 ML LIQUID PO (21:20)
[2024-09-07 22:00] VITALS: BP 135/75; PULSE 102; TEMP 36.3
[2024-09-08 07:43] VITALS: BP 120/55; PULSE 88; RESP 14; TEMP 36.9; O2SAT 91
[2024-09-08] MEDS: Multivitamin TABLET 1 TAB PO (08:41)
[2024-09-08] MEDS: Apixaban 5 MG TABLET 10 MG PO ×2 (08:41→21:36)
[2024-09-08] MEDS: Baclofen 10 MG TABLET PO ×2 (08:41→21:37)
[2024-09-08] MEDS: buPROPion HCL 75 MG TABLET PO ×2 (08:41→21:37)
[2024-09-08] MEDS: guaiFENesin 100 MG/5 ML 5 ML LIQUID PO ×2 (08:45→21:38)
--- NOTE | 2024-09-08 11:53 | P.PNPSI_ITS ---
Subjective Subjective Date of Service: 09/08/24 Reason For Visit: SI Subjective Notes: Conditional Voluntary Interim History: Active on unit, social with peers. out of room with mask. Pt reports feeling a little better today d/t being able to leave room and interact with peers/attend groups. denies SI/HI/VH/AH. Pt reports he would like a referral to [facility]; social work aware. Medication Compliance: Yes Side effects from medications: No Mental Status Exam Mental Status Exam Narrative: Pt is alert and oriented; behavior is cooperative, calm; dressed in casual attire; mood is described as a little better ; eye contact appropriate; Speech is normal rate, volume and not pressured; thought process is organized and goal directed; Thought content is on tx; denies SI/HI/VH/AH. Diagnostics Vital Signs (24Hr): Vital Signs - 24 hr 09/07/24 20:00 09/07/24 21:17 09/07/24 22:00 Temperature 98.1 F 97.3 F Pulse Rate 94 102 H Respiratory Rate 16 Blood Pressure 137/95 H 137/95 H 135/75 Pulse Oximetry 94 Oxygen Delivery Method Room Air 09/08/24 07:43 Temperature 98.5 F Pulse Rate 88 Respiratory Rate 14 Blood Pressure 120/55 L Pulse Oximetry 91 L Oxygen Delivery Method Room Air BMI result Body Mass Index 50.2 Medications Medications Current Medications Acetaminophen (Acetaminophen 325 Mg Tablet) 650 mg PO Q6H PRN PRN Reason: Headache/Pain, Scale 1-10 Al Hydroxide/Mg Hydroxide (Magnesium Hydrox/Alum Hydrox 30 Ml Oral.Susp) 30 ml PO Q6H PRN PRN Reason: Heartburn/Nausea Apixaban (Apixaban 5 Mg Tablet) 10 mg PO BID [facility] Last Admin: 09/08/24 08:41 Dose: 10 mg Baclofen (Baclofen 10 Mg Tablet) 10 mg PO BID [facility] Last Admin: 09/08/24 08:41 Dose: 10 mg Bupropion HCl (Bupropion Hcl 75 Mg Tablet) 75 mg PO BID [facility] Last Admin: 09/08/24 08:41 Dose: 75 mg Clonidine HCl (Clonidine Hcl 0.1 Mg Tablet) 0.1 mg PO TID PRN; Protocol PRN Reason: Anxiety Last Admin: 09/07/24 21:17 Dose: 0.1 mg Guaifenesin (Guaifenesin 100 Mg/5 Ml 5 Ml Liquid) 5 ml PO Q6H PRN PRN Reason: Cough Last Admin: 09/08/24 08:45 Dose: 5 ml Hydroxyzine HCl (Hydroxyzine Hcl 50 Mg Tablet) 50 mg PO TID PRN PRN Reason: Anxiety Last Admin: 09/05/24 20:46 Dose: 50 mg Magnesium Hydroxide (Milk Of Magnesia 30 Ml Oral.Susp) 30 ml PO DAILY PRN PRN Reason: Constipation Melatonin (Melatonin 3 Mg Tablet) 6 mg PO BEDTIME PRN PRN Reason: Insomnia Last Admin: 09/07/24 21:19 Dose: 6 mg Multivitamins/Vitamin C (Multivitamin Tablet) 1 tab PO DAILY [facility] Last Admin: 09/08/24 08:41 Dose: 1 tab Nicotine Polacrilex (Nicotine Polacrilex 2 Mg Gum) 4 mg BUCCAL Q2H PRN PRN Reason: Nicotine Cravings Trazodone HCl (Trazodone Hcl 100 Mg Tablet) 100 mg PO BEDTIME PRN PRN Reason: Insomnia Last Admin: 09/07/24 21:18 Dose: 100 mg Allergies Allergies Allergy/AdvReac Type Severity Reaction Status Date / Time No Known Allergies Allergy Verified 09/02/24 15:16 Assessment & Plan Assessment & Plan (1) MDD (major depressive disorder), recurrent episode: Status: Acute Code(s): F33.9 - Major depressive disorder, recurrent, unspecified (2) PTSD (post-traumatic stress disorder): Status: Acute Code(s): F43.10 - Post-traumatic stress disorder, unspecified (3) Cocaine use disorder: Status: Inactive Code(s): F14.10 - Cocaine abuse, uncomplicated Plan Patient is a 39-year-old male with history of MDD, PTSD and cocaine use disorder who self presented to ER due to chest pain and suicidal ideation then was admitted medically, treated for acute hypoxic respiratory failure and pulmonary embolus. Plan: CV 15 minute safety checks Continue home medications Referral to outpatient psychiatric providers Encourage groups when no longer on isolation ? Referral to substance abuse program Discharge planning 09/07: Continues on isolation in room d/t flu. Pt reports feeling depressed because I'm sick and stuck in my room ; pt reports he was hoping to attend groups when admitted to hospital. Showered yesterday. denies SI/HI/VH/AH. 09/08: Active on unit, social with peers. out of room with mask. Pt reports feeling a little better today d/t being able to leave room and interact with peers/attend groups. denies SI/HI/VH/AH. Pt reports he would like a referral to [facility] [facility]; social work aware. continue current tx plan. Patient educated on: diagnosis, medication risk/benefits and therapeutic strate gies Reason for continued inpatient stay Substantial Risk for: med/psych decompensation Time Spent With Patient Time: Total time managing care of this patient today _20___ minutes.
[2024-09-08 20:00] VITALS: BP 127/80; PULSE 104; RESP 16; TEMP 36.8; O2SAT 96
[2024-09-08] MEDS: traZODone HCL 100 MG TABLET PO (21:37)
[2024-09-08] MEDS: Melatonin 3 MG TABLET 6 MG PO (21:38)
[2024-09-09 07:20] VITALS: BP 115/58; PULSE 92; RESP 14; TEMP 36.7; O2SAT 94
[2024-09-09] MEDS: buPROPion HCL 75 MG TABLET PO ×2 (08:52→21:23)
[2024-09-09] MEDS: Baclofen 10 MG TABLET PO ×2 (08:53→21:23)
[2024-09-09] MEDS: Apixaban 5 MG TABLET 10 MG PO ×2 (08:53→21:23)
[2024-09-09] MEDS: guaiFENesin 100 MG/5 ML 5 ML LIQUID PO ×2 (08:53→21:25)
[2024-09-09] MEDS: Multivitamin TABLET 1 TAB PO (08:53)
[2024-09-09] MEDS: Acetaminophen 325 MG TABLET 650 MG PO (09:20)
--- NOTE | 2024-09-09 10:18 | P.PNPSI_ITS ---
Subjective Subjective Date of Service: 09/09/24 Reason For Visit: SI Interim History: Active on unit, social with peers. Pt reports feeling better today. Tolerating medications well. Complaining of some right shoulder pain. Requested Lidocaine patch. Attending groups. denies SI/HI/VH/AH. Pt reports he would like a referral to [facility] Mental Status Exam Mental Status Exam Narrative: Pt is alert and oriented; behavior is cooperative, calm; dressed in casual attire; mood is described as a little better ; eye contact appropriate; Speech is normal rate, volume and not pressured; thought process is organized and goal directed; Thought content is on tx; denies SI/HI/VH/AH. Diagnostics Vital Signs (24Hr): Vital Signs - 24 hr 09/08/24 20:00 09/09/24 07:20 Temperature 98.2 F 98.0 F Pulse Rate 104 H 92 Respiratory Rate 16 14 Blood Pressure 127/80 115/58 L Pulse Oximetry 96 94 Oxygen Delivery Method Room Air Room Air BMI result Body Mass Index 50.2 Medications Medications Current Medications Acetaminophen (Acetaminophen 325 Mg Tablet) 650 mg PO Q6H PRN PRN Reason: Headache/Pain, Scale 1-10 Last Admin: 09/09/24 09:20 Dose: 650 mg Al Hydroxide/Mg Hydroxide (Magnesium Hydrox/Alum Hydrox 30 Ml Oral.Susp) 30 ml PO Q6H PRN PRN Reason: Heartburn/Nausea Apixaban (Apixaban 5 Mg Tablet) 10 mg PO BID [facility] Last Admin: 09/09/24 08:53 Dose: 10 mg Baclofen (Baclofen 10 Mg Tablet) 10 mg PO BID [facility] Last Admin: 09/09/24 08:53 Dose: 10 mg Bupropion HCl (Bupropion Hcl 75 Mg Tablet) 75 mg PO BID [facility] Last Admin: 09/09/24 08:52 Dose: 75 mg Clonidine HCl (Clonidine Hcl 0.1 Mg Tablet) 0.1 mg PO TID PRN; Protocol PRN Reason: Anxiety Last Admin: 09/07/24 21:17 Dose: 0.1 mg Guaifenesin (Guaifenesin 100 Mg/5 Ml 5 Ml Liquid) 5 ml PO Q6H PRN PRN Reason: Cough Last Admin: 09/09/24 08:53 Dose: 5 ml Hydroxyzine HCl (Hydroxyzine Hcl 50 Mg Tablet) 50 mg PO TID PRN PRN Reason: Anxiety Last Admin: 09/05/24 20:46 Dose: 50 mg Magnesium Hydroxide (Milk Of Magnesia 30 Ml Oral.Susp) 30 ml PO DAILY PRN PRN Reason: Constipation Melatonin (Melatonin 3 Mg Tablet) 6 mg PO BEDTIME PRN PRN Reason: Insomnia Last Admin: 09/08/24 21:38 Dose: 6 mg Multivitamins/Vitamin C (Multivitamin Tablet) 1 tab PO DAILY [facility] Last Admin: 09/09/24 08:53 Dose: 1 tab Nicotine Polacrilex (Nicotine Polacrilex 2 Mg Gum) 4 mg BUCCAL Q2H PRN PRN Reason: Nicotine Cravings Trazodone HCl (Trazodone Hcl 100 Mg Tablet) 100 mg PO BEDTIME PRN PRN Reason: Insomnia Last Admin: 09/08/24 21:37 Dose: 100 mg Allergies Allergies Allergy/AdvReac Type Severity Reaction Status Date / Time No Known Allergies Allergy Verified 09/02/24 15:16 Assessment & Plan Assessment & Plan (1) MDD (major depressive disorder), recurrent episode: Status: Acute Code(s): F33.9 - Major depressive disorder, recurrent, unspecified (2) PTSD (post-traumatic stress disorder): Status: Acute Code(s): F43.10 - Post-traumatic stress disorder, unspecified Plan Patient is a 39-year-old male with history of MDD, PTSD and cocaine use disorder who self presented to ER due to chest pain and suicidal ideation then was admitted medically, treated for acute hypoxic respiratory failure and pulmonary embolus. Plan: CV 15 minute safety checks Continue home medications Referral to outpatient psychiatric providers Encourage groups when no longer on isolation ? Referral to substance abuse program Discharge planning 09/07: Continues on isolation in room d/t flu. Pt reports feeling depressed because I'm sick and stuck in my room ; pt reports he was hoping to attend groups when admitted to hospital. Showered yesterday. denies SI/HI/VH/AH. 09/08: Active on unit, social with peers. out of room with mask. Pt reports feeling a little better today d/t being able to leave room and interact with peers/attend groups. denies SI/HI/VH/AH. Pt reports [facility]; social work aware. continue current tx plan. 09/09: Continue current management and treatment plan. Reason for continued inpatient stay Substantial Risk for: harm to self and rapid decompensation Time Spent With Patient Time: Total time managing care of this patient today ____ minutes.
[2024-09-09 20:00] VITALS: BP 130/81; PULSE 95; RESP 18; TEMP 36.8; O2SAT 98
[2024-09-09] MEDS: Melatonin 3 MG TABLET 6 MG PO (21:24)
[2024-09-09] MEDS: traZODone HCL 100 MG TABLET PO (21:24)
[2024-09-09] MEDS: Lidocaine 4 % Patch ADH..PATCH 1 PATCH TRANSDERMA (22:11)
[2024-09-10 07:30] VITALS: BP 108/56; PULSE 93; RESP 14; TEMP 36.8; O2SAT 93
[2024-09-10] MEDS: Baclofen 10 MG TABLET PO ×2 (08:42→21:08)
[2024-09-10] MEDS: buPROPion HCL 75 MG TABLET PO ×2 (08:42→21:08)
[2024-09-10] MEDS: Apixaban 5 MG TABLET 10 MG PO ×2 (08:42→21:08)
[2024-09-10] MEDS: Multivitamin TABLET 1 TAB PO (08:42)
[2024-09-10] MEDS: Lidocaine 4 % Patch ADH..PATCH 1 PATCH TRANSDERMA (08:42)
--- NOTE | 2024-09-10 11:10 | HO.PSYCHPN ---
Subjective Subjective Date of Service: 09/10/24 Reason For Visit: SI Interim History: Active on unit, social with peers. Pt reports feeling good today. Tolerating medications well. Attending groups. denies SI/HI/VH/AH. [facility]. Mental Status Exam Mental Status Exam Narrative: Pt is alert and oriented; behavior is cooperative, calm; dressed in casual attire; mood is described as a little better ; eye contact appropriate; Speech is normal rate, volume and not pressured; thought process is organized and goal directed; Thought content is on tx; denies SI/HI/VH/AH. Diagnostics Vital Signs (24Hr): Vital Signs - 24 hr 09/09/24 20:00 09/10/24 07:30 Temperature 98.3 F 98.3 F Pulse Rate 95 93 Respiratory Rate 18 14 Blood Pressure 130/81 108/56 L Pulse Oximetry 98 93 Oxygen Delivery Method Room Air Room Air BMI result Body Mass Index 50.2 Medications Medications Current Medications Acetaminophen (Acetaminophen 325 Mg Tablet) 650 mg PO Q6H PRN PRN Reason: Headache/Pain, Scale 1-10 Last Admin: 09/09/24 09:20 Dose: 650 mg Al Hydroxide/Mg Hydroxide (Magnesium Hydrox/Alum Hydrox 30 Ml Oral.Susp) 30 ml PO Q6H PRN PRN Reason: Heartburn/Nausea Apixaban (Apixaban 5 Mg Tablet) 10 mg PO BID [facility] Last Admin: 09/10/24 08:42 Dose: 10 mg Baclofen (Baclofen 10 Mg Tablet) 10 mg PO BID [facility] Last Admin: 09/10/24 08:42 Dose: 10 mg Bupropion HCl (Bupropion Hcl 75 Mg Tablet) 75 mg PO BID [facility] Last Admin: 09/10/24 08:42 Dose: 75 mg Clonidine HCl (Clonidine Hcl 0.1 Mg Tablet) 0.1 mg PO TID PRN; Protocol PRN Reason: Anxiety Last Admin: 09/07/24 21:17 Dose: 0.1 mg Guaifenesin (Guaifenesin 100 Mg/5 Ml 5 Ml Liquid) 5 ml PO Q6H PRN PRN Reason: Cough Last Admin: 09/09/24 21:25 Dose: 5 ml Hydroxyzine HCl (Hydroxyzine Hcl 50 Mg Tablet) 50 mg PO TID PRN PRN Reason: Anxiety Last Admin: 09/05/24 20:46 Dose: 50 mg Lidocaine (Lidocaine 4 % Patch Adh..Patch) 1 patch TRANSDERMA DAILY [facility]; Protocol Last Admin: 09/10/24 08:42 Dose: 1 patch Magnesium Hydroxide (Milk Of Magnesia 30 Ml Oral.Susp) 30 ml PO DAILY PRN PRN Reason: Constipation Melatonin (Melatonin 3 Mg Tablet) 6 mg PO BEDTIME PRN PRN Reason: Insomnia Last Admin: 09/09/24 21:24 Dose: 6 mg Multivitamins/Vitamin C (Multivitamin Tablet) 1 tab PO DAILY [facility] Last Admin: 09/10/24 08:42 Dose: 1 tab Nicotine Polacrilex (Nicotine Polacrilex 2 Mg Gum) 4 mg BUCCAL Q2H PRN PRN Reason: Nicotine Cravings Trazodone HCl (Trazodone Hcl 100 Mg Tablet) 100 mg PO BEDTIME PRN PRN Reason: Insomnia Last Admin: 09/09/24 21:24 Dose: 100 mg Allergies Allergies Allergy/AdvReac Type Severity Reaction Status Date / Time No Known Allergies Allergy Verified 09/02/24 15:16 Assessment & Plan Assessment & Plan (1) MDD (major depressive disorder), recurrent episode: Status: Acute Code(s): F33.9 - Major depressive disorder, recurrent, unspecified (2) PTSD (post-traumatic stress disorder): Status: Acute Code(s): F43.10 - Post-traumatic stress disorder, unspecified Plan Patient is a 39-year-old male with history of MDD, PTSD and cocaine use disorder who self presented to ER due to chest pain and suicidal ideation then was admitted medically, treated for acute hypoxic respiratory failure and pulmonary embolus. Plan: CV 15 minute safety checks Continue home medications Referral to outpatient psychiatric providers Encourage groups when no longer on isolation ? Referral to substance abuse program Discharge planning 09/07: Continues on isolation in room d/t flu. Pt reports feeling depressed because I'm sick and stuck in my room ; pt reports he was hoping to attend groups when admitted to hospital. Showered yesterday. denies SI/HI/VH/AH. 09/08: Active on unit, social with peers. out of room with mask. Pt reports feeling a little better today d/t being able to leave room and interact with peers/attend groups. denies SI/HI/VH/AH. Pt reports he would like a referral to [facility]; social work aware. continue current tx plan. 09/09: Continue current management and treatment plan. 09/10: Continue current management and treatment plan. Reason for continued inpatient stay Substantial Risk for: harm to self Time Spent With Patient Time: Total time managing care of this patient today ____ minutes.
[2024-09-10 20:00] VITALS: BP 138/87; PULSE 108; RESP 16; TEMP 36.8; O2SAT 95
[2024-09-10] MEDS: Acetaminophen 325 MG TABLET 650 MG PO (21:11)
[2024-09-11 07:55] VITALS: BP 125/72; PULSE 85; RESP 14; TEMP 36.7; O2SAT 95
[2024-09-11] MEDS: Multivitamin TABLET 1 TAB PO (09:13)
[2024-09-11] MEDS: Apixaban 5 MG TABLET 10 MG PO ×2 (09:13→21:09)
[2024-09-11] MEDS: Lidocaine 4 % Patch ADH..PATCH 1 PATCH TRANSDERMA (09:13)
[2024-09-11] MEDS: buPROPion HCL 75 MG TABLET PO ×2 (09:13→21:09)
[2024-09-11] MEDS: Baclofen 10 MG TABLET PO ×2 (09:13→21:09)
--- NOTE | 2024-09-11 09:27 | HO.PSYCHPN ---
Subjective Subjective Date of Service: 09/11/24 Reason For Visit: SI Subjective Notes: Conditional Voluntary Interim History: Active on unit, social with peers. attending groups. Pt reports feeling better than when I came in ; he reports having a phone intake with [facility] today. Pt stated, I'm hoping they will take me since I've been there before . He denies SI/HI/VH/AH. Pt reports sleeping well. denies any issues at this time. Plan for discharge on Wednesday; pt aware. Medication Compliance: Yes Side effects from medications: No Attending Groups: Yes Mental Status Exam Mental Status Exam Narrative: Pt is alert and oriented; behavior is cooperative and calm; dressed in casual attire; mood is described as good ; eye contact appropriate; Speech is normal rate, volume and not pressured; thought process is organized and goal directed; Thought content is on tx; denies SI/HI/VH/AH. Diagnostics Vital Signs (24Hr): Vital Signs - 24 hr 09/10/24 20:00 09/11/24 07:55 Temperature 98.3 F 98.1 F Pulse Rate 108 H 85 Respiratory Rate 16 14 Blood Pressure 138/87 125/72 Pulse Oximetry 95 95 Oxygen Delivery Method Room Air Room Air BMI result Body Mass Index 50.2 Medications Medications Current Medications Acetaminophen (Acetaminophen 325 Mg Tablet) 650 mg PO Q6H PRN PRN Reason: Headache/Pain, Scale 1-10 Last Admin: 09/10/24 21:11 Dose: 650 mg Al Hydroxide/Mg Hydroxide (Magnesium Hydrox/Alum Hydrox 30 Ml Oral.Susp) 30 ml PO Q6H PRN PRN Reason: Heartburn/Nausea Apixaban (Apixaban 5 Mg Tablet) 10 mg PO BID [facility] Last Admin: 09/11/24 09:13 Dose: 10 mg Baclofen (Baclofen 10 Mg Tablet) 10 mg PO BID [facility] Last Admin: 09/11/24 09:13 Dose: 10 mg Bupropion HCl (Bupropion Hcl 75 Mg Tablet) 75 mg PO BID [facility] Last Admin: 09/11/24 09:13 Dose: 75 mg Clonidine HCl (Clonidine Hcl 0.1 Mg Tablet) 0.1 mg PO TID PRN; Protocol PRN Reason: Anxiety Last Admin: 09/07/24 21:17 Dose: 0.1 mg Guaifenesin (Guaifenesin 100 Mg/5 Ml 5 Ml Liquid) 5 ml PO Q6H PRN PRN Reason: Cough Last Admin: 09/09/24 21:25 Dose: 5 ml Hydroxyzine HCl (Hydroxyzine Hcl 50 Mg Tablet) 50 mg PO TID PRN PRN Reason: Anxiety Last Admin: 09/05/24 20:46 Dose: 50 mg Lidocaine (Lidocaine 4 % Patch Adh..Patch) 1 patch TRANSDERMA DAILY [facility]; Protocol Last Admin: 09/11/24 09:13 Dose: 1 patch Magnesium Hydroxide (Milk Of Magnesia 30 Ml Oral.Susp) 30 ml PO DAILY PRN PRN Reason: Constipation Melatonin (Melatonin 3 Mg Tablet) 6 mg PO BEDTIME PRN PRN Reason: Insomnia Last Admin: 09/09/24 21:24 Dose: 6 mg Multivitamins/Vitamin C (Multivitamin Tablet) 1 tab PO DAILY [facility] Last Admin: 09/11/24 09:13 Dose: 1 tab Nicotine Polacrilex (Nicotine Polacrilex 2 Mg Gum) 4 mg BUCCAL Q2H PRN PRN Reason: Nicotine Cravings Trazodone HCl (Trazodone Hcl 100 Mg Tablet) 100 mg PO BEDTIME PRN PRN Reason: Insomnia Last Admin: 09/09/24 21:24 Dose: 100 mg Allergies Allergies Allergy/AdvReac Type Severity Reaction Status Date / Time No Known Allergies Allergy Verified 09/02/24 15:16 Assessment & Plan Assessment & Plan (1) MDD (major depressive disorder), recurrent episode: Status: Acute Code(s): F33.9 - Major depressive disorder, recurrent, unspecified (2) PTSD (post-traumatic stress disorder): Status: Acute Code(s): F43.10 - Post-traumatic stress disorder, unspecified Plan Patient is a 39-year-old male with history of MDD, PTSD and cocaine use disorder who self presented to ER due to chest pain and suicidal ideation then was admitted medically, treated for acute hypoxic respiratory failure and pulmonary embolus. Plan: CV 15 minute safety checks Continue home medications Referral to outpatient psychiatric providers Encourage groups when no longer on isolation ? Referral to substance abuse program Discharge planning 09/07: Continues on isolation in room d/t flu. Pt reports feeling depressed because I'm sick and stuck in my room ; pt reports he was hoping to attend groups when admitted to hospital. Showered yesterday. denies SI/HI/VH/AH. 09/08: Active on unit, social with peers. out of room with mask. Pt reports feeling a little better today d/t being able to leave room and interact with peers/attend groups. denies SI/HI/VH/AH. Pt reports he would like a referral to [facility]; social work aware. continue current tx plan. 09/09: Continue current management and treatment plan. 09/10: Continue current management and treatment plan. 09/11: Active on unit, social with peers. attending groups. Pt reports feeling better than when I came in ; he reports having a phone intake with [facility] today. Pt stated, I'm hoping they will take me since I've been there before . He denies SI/HI/VH/AH. Pt reports sleeping well. denies any issues at this time. Plan for discharge on Wednesday; pt aware. Patient educated on: diagnosis and medication risk/benefits Reason for continued inpatient stay Substantial Risk for: med/psych decompensation Time Spent With Patient Time: Total time managing care of this patient today _20___ minutes.
[2024-09-11 20:00] VITALS: BP 137/73; PULSE 102; RESP 18; TEMP 36.4; O2SAT 99
[2024-09-11] MEDS: Acetaminophen 325 MG TABLET 650 MG PO (21:17)
[2024-09-12 07:55] VITALS: BP 123/65; PULSE 90; RESP 18; TEMP 36.3; O2SAT 93
[2024-09-12] MEDS: Multivitamin TABLET 1 TAB PO (08:47)
[2024-09-12] MEDS: Baclofen 10 MG TABLET PO ×2 (08:47→21:44)
[2024-09-12] MEDS: buPROPion HCL 75 MG TABLET PO ×2 (08:47→21:42)
[2024-09-12] MEDS: Apixaban 5 MG TABLET 10 MG PO ×2 (08:47→21:44)
[2024-09-12] MEDS: Lidocaine 4 % Patch ADH..PATCH 1 PATCH TRANSDERMA (08:49)
--- NOTE | 2024-09-12 09:20 | HO.PSYCHPN ---
Subjective Subjective Date of Service: 09/12/24 Reason For Visit: SI Subjective Notes: Conditional Voluntary Interim History: Pt reports feeling good today; he reports feeling glad about being [email or web address]. denies SI/HI/VH/AH. Pt reports sleeping well. He plans on following up with his outpatient providers. Medication Compliance: Yes Side effects from medications: No Mental Status Exam Mental Status Exam Narrative: Pt is alert and oriented; behavior is cooperative and calm; dressed in casual attire; mood is described as good ; eye contact appropriate; Speech is normal rate, volume and not pressured; thought process is organized; Thought content is on tx; denies SI/HI/VH/AH. Diagnostics Vital Signs (24Hr): Vital Signs - 24 hr 09/11/24 20:00 09/12/24 07:55 Temperature 97.6 F 97.4 F Pulse Rate 102 H 90 Respiratory Rate 18 18 Blood Pressure 137/73 123/65 Pulse Oximetry 99 93 Oxygen Delivery Method Room Air Room Air BMI result Body Mass Index 50.2 Medications Medications Current Medications Acetaminophen (Acetaminophen 325 Mg Tablet) 650 mg PO Q6H PRN PRN Reason: Headache/Pain, Scale 1-10 Last Admin: 09/11/24 21:17 Dose: 650 mg Al Hydroxide/Mg Hydroxide (Magnesium Hydrox/Alum Hydrox 30 Ml Oral.Susp) 30 ml PO Q6H PRN PRN Reason: Heartburn/Nausea Apixaban (Apixaban 5 Mg Tablet) 10 mg PO BID [facility] Last Admin: 09/12/24 08:47 Dose: 10 mg Baclofen (Baclofen 10 Mg Tablet) 10 mg PO BID [facility] Last Admin: 09/12/24 08:47 Dose: 10 mg Bupropion HCl (Bupropion Hcl 75 Mg Tablet) 75 mg PO BID [facility] Last Admin: 09/12/24 08:47 Dose: 75 mg Clonidine HCl (Clonidine Hcl 0.1 Mg Tablet) 0.1 mg PO TID PRN; Protocol PRN Reason: Anxiety Last Admin: 09/07/24 21:17 Dose: 0.1 mg Guaifenesin (Guaifenesin 100 Mg/5 Ml 5 Ml Liquid) 5 ml PO Q6H PRN PRN Reason: Cough Last Admin: 09/09/24 21:25 Dose: 5 ml Hydroxyzine HCl (Hydroxyzine Hcl 50 Mg Tablet) 50 mg PO TID PRN PRN Reason: Anxiety Last Admin: 09/05/24 20:46 Dose: 50 mg Lidocaine (Lidocaine 4 % Patch Adh..Patch) 1 patch TRANSDERMA DAILY [facility]; Protocol Last Admin: 09/12/24 08:49 Dose: 1 patch Magnesium Hydroxide (Milk Of Magnesia 30 Ml Oral.Susp) 30 ml PO DAILY PRN PRN Reason: Constipation Melatonin (Melatonin 3 Mg Tablet) 6 mg PO BEDTIME PRN PRN Reason: Insomnia Last Admin: 09/09/24 21:24 Dose: 6 mg Multivitamins/Vitamin C (Multivitamin Tablet) 1 tab PO DAILY [facility] Last Admin: 09/12/24 08:47 Dose: 1 tab Nicotine Polacrilex (Nicotine Polacrilex 2 Mg Gum) 4 mg BUCCAL Q2H PRN PRN Reason: Nicotine Cravings Trazodone HCl (Trazodone Hcl 100 Mg Tablet) 100 mg PO BEDTIME PRN PRN Reason: Insomnia Last Admin: 09/09/24 21:24 Dose: 100 mg Allergies Allergies Allergy/AdvReac Type Severity Reaction Status Date / Time No Known Allergies Allergy Verified 09/02/24 15:16 Assessment & Plan Assessment & Plan (1) MDD (major depressive disorder), recurrent episode: Status: Acute Code(s): F33.9 - Major depressive disorder, recurrent, unspecified (2) PTSD (post-traumatic stress disorder): Status: Acute Code(s): F43.10 - Post-traumatic stress disorder, unspecified Plan Patient is a 39-year-old male with history of MDD, PTSD and cocaine use disorder who self presented to ER due to chest pain and suicidal ideation then was admitted medically, treated for acute hypoxic respiratory failure and pulmonary embolus. Plan: CV 15 minute safety checks Continue home medications Referral to outpatient psychiatric providers Encourage groups when no longer on isolation ? Referral to substance abuse program Discharge planning 09/07: Continues on isolation in room d/t flu. Pt reports feeling depressed because I'm sick and stuck in my room ; pt reports he was hoping to attend groups when admitted to hospital. Showered yesterday. denies SI/HI/VH/AH. 09/08: Active on unit, social with peers. out of room with mask. Pt reports feeling a little better today d/t being able to leave room and interact with peers/attend groups. denies SI/HI/VH/AH. Pt reports he would like a referral to [facility]; social work aware. continue current tx plan. 09/09: Continue current management and treatment plan. 09/10: Continue current management and treatment plan. 09/11: Active on unit, social with peers. attending groups. Pt reports feeling better than when I came in ; he reports having a phone intake with [facility] today. Pt stated, I'm hoping they will take me since I've been there before . He denies SI/HI/VH/AH. Pt reports sleeping well. denies any issues at this time. Plan for discharge on Wednesday; pt aware. 09/12: Pt reports feeling good today; he reports feeling glad about being accepted to [facility]. denies SI/HI/VH/AH. Pt reports sleeping well. He plans on following up with his outpatient providers. Patient educated on: diagnosis and medication risk/benefits Reason for continued inpatient stay Substantial Risk for: stable for discharge Time Spent With Patient Time: Total time managing care of this patient today _20___ minutes.
[2024-09-12 20:00] VITALS: BP 145/97; PULSE 115; RESP 18; TEMP 36.6; O2SAT 96
[2024-09-12] MEDS: traZODone HCL 100 MG TABLET PO (21:42)
[2024-09-12] MEDS: Acetaminophen 325 MG TABLET 650 MG PO (21:43)
[2024-09-12] MEDS: Melatonin 3 MG TABLET 6 MG PO (21:43)
[2024-09-13 07:25] VITALS: BP 151/89; PULSE 100; RESP 16; TEMP 36.6; O2SAT 97
[2024-09-13] MEDS: Baclofen 10 MG TABLET PO (08:50)
[2024-09-13] MEDS: buPROPion HCL 75 MG TABLET PO (08:50)
[2024-09-13] MEDS: Multivitamin TABLET 1 TAB PO (08:50)
[2024-09-13] MEDS: Apixaban 5 MG TABLET 10 MG PO (08:50)
[2024-09-13] MEDS: Lidocaine 4 % Patch ADH..PATCH 1 PATCH TRANSDERMA (08:51)
[2024-09-13] MEDS: Naloxone HCl Nasal TAKE HOME 4 MG SPRAY 8 MG NOSTRILALT (08:52)
--- NOTE | 2024-09-13 09:06 | PC.NURSE ---
Tj informed this RN of him coughing up a quarter sized amount of bright red blood into a cup this morning but did not show this RN. Vitals 97.9*F 100 16 97% 151/89 R arm. Barbie Grossman [employer] made aware. No suggestions/orders made.
[2024-09-13 10:20] LABS: MANUAL DIFF FLAG NO
[2024-09-13 10:22] LABS: Basophils Percent Auto 0.4 % (0-2); Eosinophils Absolute Auto 0.4 X10*3/uL (0.0-0.4); Eosinophils Percent Auto 3.8 % (0-4); Hematocrit 42.4 % (42.0-52.0); Hemoglobin 14.6 g/dl (14.0-18.0); Imm Gran Abs Auto 0.06 X10*3/uL (0.00-0.03); Imm Gran Pct Auto 0.6 % (0.0-0.4); Lymphocytes Absolute Auto 2.6 X10*3/uL (1.2-4.9); Lymphocytes Percent Auto 26.1 % (20-40); Mean Corpuscular HGB Conc 34.4 g/dl (31.0-36.0); Mean Corpuscular Hemoglobin 29.7 pg (27.0-33.0); Mean Corpuscular Volume 86.4 fL (80.0-98.0); Mean Platelet Volume 10.2 fL (9.4-12.4); Monocytes Percent Auto 9.6 % (2-11); Neutrophils Percent Auto 59.5 % (45-73); Platelet Count 302 X10*3/uL (160-400); Red Blood Count 4.91 X10*6/uL (4.60-5.80)
--- NOTE | 2024-09-13 11:36 | PM.EVENT ---
Event Note Date of Service: 09/13/24 Event Note: Pt is a 39-year-old male with a PMH significant for recent diagnosis with diagnosis on 09/03/2024 of unprovoked bilateral pulmonary emboli , as well as flu diagnosis on 09/02/2024. The pt is admitted [facility] with hospitalist consult for hemoptysis. Pt reports woke up this morning and coughed to clear his lungs. Cough was initially dry but eventually pt coughed up sputum x4 with streaks of blood. Has otherwise not been having a cough for the past few days and denies any other episodes of hemoptysis. Denies michelle bleeding or clots. No lightheadedness or dizziness. Denies dark-colored stool. No fever, chills, N/V, or diarrhea. Review or records indicates pt has continue to be on Eliquis 10mg bid for PE. Patient's H&H stable at 14.6/40.4, improved from prior at 13.1/39.4. Hemoptysis likely secondary to high-dose Eliquis. Pt should be switched and discharged on Eliquis 5 mg b.i.d. for at least the next 3 months. Needs to follow up outpatient with heme/Onc for hypercoagulable workup and Eliquis management. Given stable H&H and pt is otherwise asymptomatic, pt should be able to be discharged today without additional workup or treatment. Pt knows to present to the ED if hemoptysis continues or worsens, notices melena, or becomes symptomatic with lightheadedness / dizziness or fatigue. Time Spent With Patient Time: Total time managing care of this patient today ____ minutes.
--- NOTE | 2024-09-13 11:53 | P.DS_ITS ---
DS: Providers Provider Date of Service: 09/13/24 Date of admission: 09/05/24 11:08 Date of discharge: 09/13/24 Primary care physician: Unknown Physician Admitting clinician: Fide Grossman Attending physician on admission: Casper Fregoso Consults: 09/13/24 09:27 Consult to Hospitalist Routine Comment: Consulting Provider: [facility] Reason For Exam: reported coughing up blood,supposed to dc today Attending physician on discharge: Casper Fregoso Discharging clinician: Fide Grossman DS: Diagnosis Discharge Diagnosis (1) MDD (major depressive disorder), recurrent episode: Status: Acute (2) PTSD (post-traumatic stress disorder): Status: Acute DS: Medications Discharge Medications Home Medications: Home Medications ?Medication ?Instructions ?Recorded ?Confirmed baclofen 10 mg tablet 10 mg PO BID 09/02/24 09/05/24 bupropion HCl 75 mg tablet 75 mg PO BID 09/02/24 09/05/24 clonidine HCl 0.1 mg tablet 0.1 mg PO TID PRN Anxiety 09/02/24 09/05/24 hydroxyzine HCl 50 mg tablet 50 mg PO TID PRN Anxiety 09/02/24 09/05/24 melatonin 5 mg capsule 5 mg PO BEDTIME PRN Insomnia 09/02/24 09/05/24 trazodone 100 mg tablet 100 mg PO BEDTIME PRN Insomnia 09/02/24 09/05/24 multivitamin 1 tab PO DAILY 09/03/24 09/05/24 Previous Rx's ?Medication ?Instructions ?Recorded apixaban 5 mg tablet 5 mg PO BID 30 days #30 tabs 09/13/24 Mental Status Exam Mental Status Exam Narrative: Pt is alert and oriented; behavior is cooperative and calm; dressed in casual attire; mood is described as good ; eye contact appropriate; Speech is normal rate, volume and not pressured; thought process is organized; Thought content is on tx; denies SI/HI/VH/AH. Data Data Completed and Pending Completed studies during hospitalization [Text1]: 09/13/24 09:59 WBC 10.0 RBC 4.91 Hgb 14.6 Hct 42.4 MCV 86.4 MCH 29.7 MCHC 34.4 RDW 13.0 Plt Count 302 D MPV 10.2 Immature Gran % (Auto) 0.6 H Neut % (Auto) 59.5 Lymph % (Auto) 26.1 [place] % (Auto) 9.6 Eos % (Auto) 3.8 Baso % (Auto) 0.4 Lymph # (Auto) 2.6 [place] # (Auto) 1.0 Eos # (Auto) 0.4 Baso # (Auto) 0.0 Abs Immat Gran (auto) 0.06 H Absolute Neuts (auto) 6.0 Absolute Nucleated RBC 0.000 Nucleated RBC % (auto) 0.0 DS: Summary Hospital Course Hospital Course: Patient is a 39-year-old male with history of MDD, PTSD and cocaine use disorder who self presented to ER due to chest pain and suicidal ideation then was admitted medically, treated for acute hypoxic respiratory failure and pulmonary embolus. Per crisis report, patient is known to crisis team through 2 previous assessments with similar presentation. History of 2 inpatient psychiatric hospitalizations on M5. Last admission being in January 2024. Patient reports sleep and appetite are okay. Increased in depression and anxiety reported suicidal ideation with no plan. Denies HI/VH/AH. History of minimizing his substance use. Reports lack of supports and does not have outpatient providers at this time. States that he has been medication compliant with most of his medications but states he was not able to afford others. Patient reports he has been residing at [facility] for the past 3 months. He reports he decided to leave on September 01 due to too much drama and was having too many bad thoughts . He reports relapsing and engaging in both alcohol and cocaine use after 3 months of sobriety. No history of suicide attempts. History of self-injurious behavior via cutting/burning. During admission assessment, patient presents alert and oriented x3. Calm and cooperative. Patient reports feeling depressed patient stated, I came in and was feeling suicidal but ended up on the medical unit. The lack of family support was making me suicidal . Patient reports he would like help with his anxiety and depression and would like referrals to outpatient psychiatric providers. He currently denies SI/HI/VH/AH. Patient reports he uses cocaine every few months . Utox positive for marijuana, cocaine, and benzodiazepines. Patient is positive for influenza type B and is currently in isolation. Plan: CV 15 minute safety checks Continue home medications Referral to outpatient psychiatric providers Encourage groups when no longer on isolation ? Referral to substance abuse program Discharge planning Continues on isolation in room d/t flu. Pt reports feeling depressed because I'm sick and stuck in my room ; pt reports he was hoping to attend groups when admitted to hospital. Showered yesterday. denies SI/HI/VH/AH. Active on unit, social with peers. out of room with mask. Pt reports feeling a little better today d/t being able to leave room and interact with peers/attend groups. denies SI/HI/VH/AH. Pt reports he would like a referral to [facility]; social work aware. continue current tx plan. Active on unit, social with peers. attending groups. Pt reports feeling better than when I came in ; he reports having a phone intake with [facility] today. Pt stated, I'm hoping they will take me since I've been there before . He denies SI/HI/VH/AH. Pt reports sleeping well. denies any issues at this time. Plan for discharge on Wednesday; pt aware. Pt reports feeling good today; he reports feeling glad about being accepted to [facility]. denies SI/HI/VH/AH. Pt reports sleeping well. He plans on following up with his outpatient providers. Status at Discharge Cognitive/behavioral status at discharge: Patient has insight and demonstrates good judgment in terms of wanting to pursue treatment. Patient has a safety plan that includes presenting to the closest ER or calling 911 if feeling unsafe. Functional status at discharge: independent ambulation Overall status at discharge: patient is back to baseline Time Spent with Patient Time attestation: Total time managing care of this patient today _20___ minutes. Time spent: Less than 30 minutes Discharge Plan Discharge Anticipated Discharge Date/Time: 09/13/24 11:00 Patient Disposition: Home, Self-Care Discharge Diagnosis: MDD, PTSD, Cocaine use d/o Referrals: Erma Eng ([facility]) [Other] - 09/14/24 10:00 am (In person appointment) Kristina Luther (Psychiatrist) [Other] - 10/09/24 11:00 am (Telehealth appointment) [facility] [Provider Group] - 1 Week (09-13-24 [facility] was added to patients chart. Please call [phone] to schedule your follow up appt within 7-10 days of discharge.) Discharge Medications: New apixaban 5 mg Tablet 5 mg PO BID 30 Days Qty: 30 0RF Continued baclofen 10 mg tablet 10 mg PO BID clonidine HCl 0.1 mg tablet 0.1 mg PO TID PRN (Reason: Anxiety) Protocol: Hold for SBP< HOLD for SBP < : 90 trazodone 100 mg tablet 100 mg PO BEDTIME PRN (Reason: Insomnia) hydroxyzine HCl 50 mg tablet 50 mg PO TID PRN (Reason: Anxiety) melatonin 5 mg capsule 5 mg PO BEDTIME PRN (Reason: Insomnia) bupropion HCl 75 mg tablet 75 mg PO BID multivitamin Tablet 1 tab PO DAILY Discontinued ibuprofen 600 mg 600 mg PO TID PRN (Reason: Pain) Eliquis 5 mg Tablet 10 mg PO BID Qty: 60 0RF Discharge Orders: Discharge Order (Routine); Ordered 09/13/24 Ordered By: Fide Grossman Diet: Regular diet Activity on Discharge: As tolerated Stand Alone Forms: Patient Portal Discharge page, Community Support Print Language: Georgian Care Plan Goals: Maintain mood and safe behaviors Take medications as prescribed Continue to pursue sobriety Practice coping skills Continue with outpatient providers and reach out to them as needed Health Concerns: Mood stability and behaviors Sobriety Plan of Treatment: Follow up with your PCP, psychiatric provider and other outpatient providers regarding above concerns Take medications as prescribed Assessment: Patient has insight and demonstrates good judgment in terms of wanting to pursue treatment. Patient has a safety plan that includes presenting to the closest ER or calling 911 if feeling unsafe. Discharge Date/Time: 09/13/24 11:41
== END 2024-09-13 11:41 | disposition home or self-care (01) | DRG 751 ==
PROVIDERS: Admitting Provider Psychiatry & Neurology Psychiatry; Responsible Provider Registered Nurse; Visit Provider Psychiatry & Neurology Psychiatry
DX: F33.9 Major depressive disorder, recurrent, unspecified (principal); F14.10 Cocaine abuse, uncomplicated; F17.210 Nicotine dependence, cigarettes, uncomplicated; F19.10 Other psychoactive substance abuse, uncomplicated; Z71.6 Tobacco abuse counseling; F43.10 Post-traumatic stress disorder, unspecified; Z86.711 Personal history of pulmonary embolism; Z79.01 Long term (current) use of anticoagulants; Z79.899 Other long term (current) drug therapy
CPT/HCPCS: 36415; 85025

== ENCOUNTER → 2024-09-05 11:08 | Outpatient (BNV) | payer OTHER, SELFPAY | PROVIDERS: Admitting Provider Psychiatry & Neurology Psychiatry; Responsible Provider Registered Nurse; Visit Provider Registered Nurse | DX: F33.9 Major depressive disorder, recurrent, unspecified (principal); F43.10 Post-traumatic stress disorder, unspecified | CPT/HCPCS: 90792; 99231; 99232; 99238 ==

== ENCOUNTER 2024-11-01 10:24 | Inpatient (IN) | payer OTHER, SELFPAY ==
--- NOTE | 2024-11-01 | ECG_ITS ---
Test Reason : MED CLEARANCE Blood Pressure : */* mmHG Vent. Rate : 82 BPM Atrial Rate : 82 BPM P-R Int : 160 ms QRS Dur : 90 ms QT Int : 392 ms P-R-T Axes : 46 10 32 degrees QTcB Int : 457 ms Normal sinus rhythm Cannot rule out Anterior infarct , age undetermined Abnormal ECG When compared with ECG of 02-Sep-2024 15:02, Nonspecific T wave abnormality no longer evident in Lateral leads Referred By: Eliza Tracy Electronically Signed By: FABIENNE SOTO MD
--- NOTE | ~2024-11-01 | XR_ITS ---
EXAMINATION: XR ABDOMEN KUB CLINICAL INDICATION: diarrhea 4-5 times per day, several days,?obstruct COMPARISON: None available. TECHNIQUE: AP view of the abdomen. FINDINGS: Bowel gas pattern is normal/nonspecific. There is no focally dilated loop. There is no organomegaly. There are two 3 mm calcifications overlying the inferior left renal shadow. No additional abnormal soft tissue calcification. Lung bases are clear. Bony structures are normal. XR/XR KUB IMPRESSION: 1. Normal bowel gas pattern. No bowel obstruction. 2. There are two 3 mm calcifications overlying the left inferior renal shadow suspicious for nephrolithiasis. Electronically signed by: Kun Cohen MD 11/09/2024 04:45 PM EDT
--- NOTE | ~2024-11-01 | XR_ITS ---
CLINICAL HISTORY: pain Chest Radiographs, 2 views Comparison: US - US VENOUS DUPLEX LE BI - 09/04/24 09:35 EST CR - XR CHEST 1V - 09/03/24 10:04 EST Findings: No cardiomegaly. Normal mediastinal contours. No pneumothorax. Unchanged linear opacity in the right upper lobe could be scarring or subsegmental atelectasis. No pleural effusion. Normal upper abdomen. No acute fracture. Impression: No acute pathology. This document has been electronically signed by: Kristina Shaikh MD on 11/04/2024 13:05:15
--- NOTE | ~2024-11-01 | XR_ITS ---
CLINICAL HISTORY: pain, injury? Radiographs of the right shoulder, 3 views Comparison: None Findings: No fracture or dislocation. Normal acromiohumeral interval.Mild degenerative change. Bone mineralization is normal. No soft tissue swelling. Impression: No acute findings. Mild degenerative change. This document has been electronically signed by: Kristina Shaikh MD on 11/04/2024 13:01:42
[2024-11-01 10:28] VITALS: BP 138/81; PULSE 95; RESP 16; TEMP 36.8; O2SAT 97; BMI 51.2
--- NOTE | 2024-11-01 11:00 | ED_ITS ---
HPI - Psych General Chief Complaint: Psychiatric Symptoms Stated Complaint: Mental Breakdown Time Seen by Provider: 11/01/24 10:50 Source: patient, RN notes reviewed and old records reviewed Mode of arrival: ambulatory Limitations: no limitations History of Present Illness ED Provider: Demarcus HPI Narrative: Patient is a 39-year-old male presenting to the emergency department with complaint of depression and suicidal ideation. Recently learned that his son has cancer, but was not allowed to visit him in the hospital, which was very upsetting to him. He admits to relapsing on alcohol and cocaine last night. States that he was standing on the bridge last night contemplating suicide, but changed his mind when a car pulled over. Reports he was diagnosed with a PE 2 mos ago, but did not take his Eliquis last night or this morning. MD complaint: suicidal ideation, feels depressed and substance abuse If self harm: admits thoughts of self harm and has plan Related Data Home Medications ?Medication ?Instructions ?Recorded ?Confirmed baclofen 10 mg tablet 10 mg PO BID 09/02/24 09/05/24 bupropion HCl 75 mg tablet 75 mg PO BID 09/02/24 09/05/24 clonidine HCl 0.1 mg tablet 0.1 mg PO TID PRN Anxiety 09/02/24 09/05/24 hydroxyzine HCl 50 mg tablet 50 mg PO TID PRN Anxiety 09/02/24 09/05/24 melatonin 5 mg capsule 5 mg PO BEDTIME PRN Insomnia 09/02/24 09/05/24 trazodone 100 mg tablet 100 mg PO BEDTIME PRN Insomnia 09/02/24 09/05/24 multivitamin 1 tab PO DAILY 09/03/24 09/05/24 Previous Rx's ?Medication ?Instructions ?Recorded apixaban 5 mg tablet 5 mg PO BID 30 days #30 tabs 09/13/24 Allergies Allergy/AdvReac Type Severity Reaction Status Date / Time No Known Allergies Allergy Verified 11/01/24 10:35 Review of Systems 2 Review of Systems: As per HPI Yes all other systems are reviewed and are negative Constitutional: Constitutional: Reports as per HPI [facility] Past Medical History Medical History (Updated 11/01/24 @ 12:14 by Eliza Tracy NP) Cocaine use disorder Mood disorder Depression Polysubstance abuse Social History Social History Household Members: None Housing: Homeless Housing Other:: [facility] Do you presently have visiting nurse or other home services: No Alcohol intake: current Alcohol intake frequency: 3 or more drinks per day Comment: Sitter Patient Tobacco Use Status: Current everyday Tobacco user Tobacco use type: Cigarette Cigarette Packs Per Day: 0.5 Cigarettes Per Day: 10.0 e-Cigarette/Vaping Use: Never Used Second Hand Smoke Exposure: No Substance Use Type: Crack/Cocaine and Marijuana Advance Directives: No Advance Directives Information Provided: Yes service: No Sexual orientation: Straight/Heterosexual Physical Exam 2 Vital Signs: Vital Signs: Last Vital Signs Temp 98.3 F 11/01/24 10:28 Pulse 95 11/01/24 10:28 Resp 16 11/01/24 10:28 BP 138/81 11/01/24 10:28 Pulse Ox 97 11/01/24 10:28 O2 Del Method Room Air 11/01/24 10:28 BMI result Body Mass Index 51.2 Vital signs have been reviewed and appear to be correct. Blood pressure normal. Heart rate normal. Respiratory rate normal. Temperature normal. Oxygen saturation normal. Const: General: cooperative, healthy appearing and no acute distress O rientation/consciousness: oriented to person, oriented to place, oriented to time and patient oriented x3 Limitations: no limitations HEENT: Head: Yes normocephalic and Yes atraumatic Ears: external ears normal General nose exam: Normal external nose present Face and sinus: Yes face symmetric Mouth: oropharynx normal and moist mucous membranes Throat: Yes uvula midline Eyes: Pupils: Equal, round and reactive pupils present Neck: Neck: Yes normal visual inspection and Yes supple Resp: Effort & Inspection: normal respiratory effort and able to speak in complete sentences Auscultation: clear to auscultation bilaterally Cardio: Rate: regular rate Rhythm: regular rhythm Heart sounds: S1 normal heart sound present and S2 normal heart sound present GI: Palpation (GI): Soft to palpation and nontender Auscultation: n ormoactive bowel sounds : General: Yes no CVA tenderness Back/Spine/Pelvis: Back: no CVA tenderness Skin: General skin exam: elasticity normal and turgor normal Neuro: General: oriented to person, oriented to place, oriented to time, patient oriented x3, moves all extremities, no focal motor deficits and CN's II- XI intact bilaterally Cranial nerves: Yes Equal, round and reactive pupils present Cognition (Neuro): normal cognition Extrem: General: Yes full ROM, Yes no pedal edema and Yes no calf tenderness Psych: Appearance: grossly normal Mental Status: mental status grossly normal Speech and movement: Normal speech and movement present Affect: n ormal affect Attitude: cooperative Thought process: Normal thought process present Thought content: Suicidality present, no homicidality, no hallucinations and Depressive thoughts present Insight: Fair insight present (Psych) Judgement: Fair judgement present (Psych) Medications Administered Generic Name Dose Route Start Last Admin Trade Name Freq PRN Reason Stop Dose Admin Apixaban 5 mg 11/01/24 11:30 11/01/24 12:25 Apixaban 5 Mg Tablet PO 5 mg BID ELVIRA Administration Medical Decision Making Medical Decision Making [facility] Narrative: Patient is a 39-year-old male presenting to the emergency department with complaint of depression and suicidal ideation. On exam patient is awake, A+Ox3, VS WNL, afebrile, normal neurological exam without focal deficits, physical exam findings as above. Given reported symptoms and physical exam findings, initial differential includes but is not limited to depression, anxiety, suicidal ideation. Plan for medical clearance then CARE team evaluation. Labs notable for slight leukocytosis, mildly elevated transaminases, otherwise unremarkable. UA without evidence of infection. CARE team recommending admission. Differential Diagnosis Differential Diagnoses: The differential diagnosis associated with the presentation includes As per [facility] Admission/Observation Consideration of admission/observation: Escalation of care including admission/observation considered Consult Healthcare Provider Management of the patient was discussed with: Behavioral Health Provider Lab Data [facility] Lab Attestation statement: I reviewed the patient's lab results. as per [facility] 11/01/24 11:09 11/01/24 11:09 Labs: Lab Results 11/01/24 11/01/24 11/01/24 Range/Units 11:09 11:10 11:12 WBC 11.9 H (4.8-10.8) X10*3/uL RBC 5.11 (4.60-5.80) X10*6/uL Hgb 15.1 (14.0-18.0) g/dl Hct 44.1 (42.0-52.0) % MCV 86.3 (80.0-98.0) fL MCH 29.5 (27.0-33.0) pg MCHC 34.2 (31.0-36.0) g/dl RDW 13.7 (11.0-16.0) % Plt Count 291 (160-400) X10*3/uL MPV 9.9 (9.4-12.4) fL Immature Gran % (Auto) 0.3 (0.0-0.4) % Neut % (Auto) 64.0 (45-73) % Lymph % (Auto) 24.2 (20-40) % [place] % (Auto) 10.5 (2-11) % Eos % (Auto) 0.7 (0-4) % Baso % (Auto) 0.3 (0-2) % Lymph # (Auto) 2.9 (1.2-4.9) X10*3/uL [place] # (Auto) 1.3 H (0.1-1.2) X10*3/uL Eos # (Auto) 0.1 (0.0-0.4) X10*3/uL Baso # (Auto) 0.0 (0.0-0.2) X10*3/uL Abs Immat Gran (auto) 0.04 H (0.00-0.03) X10*3/uL Absolute Neuts (auto) 7.6 (2.0-8.3) x10*3/uL Absolute Nucleated RBC 0.000 (0.0-0.012) X10*3/uL Nucleated RBC % (auto) 0.0 (0.0-0.2) /100WBC Sodium 140 (135-145) mmol/L Potassium 3.9 (3.3-5.1) mmol/L Chloride 110 H (96-108) mmol/L Carbon Dioxide 23 (22-29) mmol/L Anion Gap 11 L (12-20) BUN 12 (9-16) mg/dL Creatinine 0.79 (0.5-1.4) mg/dL Estim Creat Clear Calc 190.8 Estimated GFR > 60 Random Glucose 131 H (60-115) mg/dL Calcium 9.5 D (8.4-10.2) mg/dL Total Bilirubin 0.8 (0.0-1.0) mg/dL AST 51 H (5-37) U/L ALT 84 H (0-40) U/L Alkaline Phosphatase 66 (39-117) U/L Total Protein 7.8 (6.5-8.0) g/dL Albumin 4.4 (3.5-5.0) g/dL Urine Color Dark Yellow Urine Appearance Clear Urine pH 5.5 (5.0-9.0) Ur Specific [place] >= 1.030 H (1.005-1.025) Urine Protein 30 (1+) H (Neg-Trace) mg/dL Urine Glucose (UA) Negative (Negative) mg/dL Urine Ketones Trace (Negative) mg/dL Urine Blood Trace H (Negative) Urine Nitrite Negative (Negative) Ur Leukocyte Esterase Negative (Negative) Urine RBC 6-10 H (0-2) /HPF Urine WBC 0-5 (0-5) /HPF Ur Squamous Epith Cells 0-2 (0-2) /HPF Urine Bacteria None Seen (None Seen) Hyaline Casts 0-2 (0-2) /LPF Urine Opiates Screen Not Detected (Not Detect) Ur Buprenorphine Scrn Not Detected (Not Detect) ng/mL Ur Oxycodone Screen Not Detected (Not Detect) ng/mL Urine Methadone Screen Not Detected (Not Detect) ng/mL Urine Fentanyl Screen Not Detected (Not Detect) Ur Barbiturates Screen Not Detected (Not Detect) Ur Phencyclidine Scrn Not Detected (Not Detect) Ur Amphetamines Screen Not Detected (Not Detect) U Benzodiazepines Scrn Not Detected (Not Detect) Urine Cocaine Screen POSITIVE H (Not Detect) U Marijuana (THC) Screen Not Detected (Not Detect) Ethyl Alcohol < 10 mg/dL Influenza Type A (PCR) NEGATIVE (Negative) Influenza Type B (PCR) NEGATIVE (Negative) RSV RNA Qual (PCR) NEGATIVE (Negative) SARS-CoV-2 RNA (RT-PCR) NEGATIVE (Negative) External Record Review External record reviewed: Inpatient record, Office record and Outpatient record Discharge Plan Discharge Clinical Impression: Suicidal ideation Patient Disposition: Admitted As Inpatient Interventions: [place]-Suicide Risk Severity Scale Last Done: 11/01/24 10:36
[2024-11-01 11:19] LABS: MANUAL DIFF FLAG NO
[2024-11-01 11:21] LABS: Appearance Urine Clear; Color Urine Dark Yellow; Glucose Urine UA Negative (Negative); Leukocyte Esterase Urine Negative (Negative); Nitrite Urine Negative (Negative); PH 5.5 (5.0-9.0); Specific Gravity - Urine >= 1.030 (1.005-1.025); UMIC TRIGGER UACC YES; Urine Blood Trace (Negative); Urine Ketones Trace mg/dL (Negative); Urine Protein 30 (1+) mg/dL (Neg-Trace)
[2024-11-01 11:22] LABS: Basophils Percent Auto 0.3 % (0-2); Eosinophils Absolute Auto 0.1 X10*3/uL (0.0-0.4); Eosinophils Percent Auto 0.7 % (0-4); Hematocrit 44.1 % (42.0-52.0); Hemoglobin 15.1 g/dl (14.0-18.0); Imm Gran Abs Auto 0.04 X10*3/uL (0.00-0.03); Imm Gran Pct Auto 0.3 % (0.0-0.4); Lymphocytes Absolute Auto 2.9 X10*3/uL (1.2-4.9); Lymphocytes Percent Auto 24.2 % (20-40); Mean Corpuscular HGB Conc 34.2 g/dl (31.0-36.0); Mean Corpuscular Hemoglobin 29.5 pg (27.0-33.0); Mean Corpuscular Volume 86.3 fL (80.0-98.0); Mean Platelet Volume 9.9 fL (9.4-12.4); Monocytes Absolute Auto 1.3 X10*3/uL (0.1-1.2); Monocytes Percent Auto 10.5 % (2-11); Neutrophils Absolute Auto 7.6 x10*3/uL (2.0-8.3); Platelet Count 291 X10*3/uL (160-400); Red Blood Count 5.11 X10*6/uL (4.60-5.80); Red Cell Distribution Width 13.7 % (11.0-16.0); White Blood Count 11.9 X10*3/uL (4.8-10.8)
[2024-11-01 11:23] LABS: Bacteria Urine None Seen (None Seen); Hyaline Casts Urine 0-2 /LPF (0-2); Squamous Epithelial Cell Urine 0-2 /HPF (0-2); WBC Urine 0-5 /HPF (0-5)
[2024-11-01 11:31] LABS: Amphetamine Screen Urine Not Detected (Not Detect); Barbiturates, Urine Not Detected (Not Detect); Benzodiazepines Screen Urine Not Detected (Not Detect); Buprenorphine Scr Not Detected (Not Detect); Cannabinoid Screen Urine Not Detected (Not Detect); Cocaine Screen Urine POSITIVE (Not Detect); Fentanyl, urine Not Detected (Not Detect); Methadone Screen, Urine Not Detected (Not Detect); Opiate Screen Urine Not Detected (Not Detect); Oxycodone Screen Urine Not Detected (Not Detect); Phencyclidine Screen Urine Not Detected (Not Detect)
[2024-11-01 11:44] LABS: Alanine Aminotransferase 84 U/L (0-40); Albumin Level 4.4 g/dL (3.5-5.0); Alkaline Phosphatase 66 U/L (39-117); Anion Gap 11 (12-20); Aspartate Amino Transferase 51 U/L (5-37); Bilirubin Total 0.8 mg/dL (0.0-1.0); Blood Urea Nitrogen 12 mg/dL (9-16); Calcium 9.5 mg/dL (8.4-10.2); Carbon Dioxide 23 mmol/L (22-29); Chloride 110 mmol/L (96-108); Creatinine Clr Calc Pharmacy 190.8; Estimated Glomerular Filt Rate > 60; Ethanol < 10 mg/dL; Glucose Random 131 mg/dL (60-115); Potassium 3.9 mmol/L (3.3-5.1); Sodium 140 mmol/L (135-145); Total Protein 7.8 g/dL (6.5-8.0)
[2024-11-01 11:57] LABS: Influenza A PCR NEGATIVE (Negative); Influenza B PCR NEGATIVE (Negative); Resp Syncy Virus RNA Qual PCR NEGATIVE (Negative); SARS COV2 PCR INHOUSE NEGATIVE (Negative)
--- NOTE | 2024-11-01 12:10 | PC.NURSE ---
Called main ED to request Eliquis PO. None available in [facility]. Will medicate upon receipt.
--- NOTE | 2024-11-01 12:15 | MHC.CARE ---
Pt meets the criteria for IPLOC. Section 12a in chart. Provider in agreement.
[2024-11-01] MEDS: Apixaban 5 MG TABLET PO ×2 (12:25→21:59)
--- OUTSIDE RECORDS SUMMARY | 2024-11-01 13:57 | XMS_ITS ---
Author Organization [facility] Address [address], [place] [id number] Care Team Providers Care Production Potter Name Role Phone No, PCP Primary Care Provider Unavailabl e [facility] Unavailable [phone] Jp Santiago Unavailable [phone] Allergies No Known Allergies REASON FOR VISIT SA: Bruses on palm of hands,fingers Medications Medication SIG (Take, Route, Frequency, Duration) Notes Start Date End Date Status diclofenac topical 1% 2.25 inch applied topically 4 times a day for 30 days pls deliver to [facility] 10/03/2024 Active cloNIDine 0.1 mg 1 tab(s) orally 2 times a day Active Melatonin 5 mg 1 cap(s) orally once a day (at bedtime) for 90 days Active rosuvastatin 5 mg 1 tab(s) orally once a day for 90 days pls deliver to [facility] 10/03/2024 Active Lidoderm 5% 1 PATCH applied topically on right shoulder in the morning and remove in the evening once a day for 90 days pls deliver to [facility] 10/03/2024 Active Mapap Arthritis Pain 650 mg 2 tab(s) orally every 8 hours for 15 days As needed 10/17/2024 Active Wellbutrin SR 100 mg/12 hours 1 tab(s) orally 2 times a day Active baclofen 20 mg 1 tab(s) orally 3 times a day Active hydrOXYzine pamoate 100 mg 1 cap(s) orally 4 times a day Active Eliquis 5 mg as directed orally 2 times a day pls deliver to Active traZODone 100 mg as directed orally Active Problems Problem Type SNOMED Code ICD Code Onset Dates Problem Status W/U Status Risk Notes Problem Body mass index 40+ - severely obese (399472200) Body mass index [BMI] 45.0-49.9, adult (Z68.42) Active confirmed Vital Signs Temperature 97.1 degrees Fahrenheit 10/18/19 25 Height 70 in 10/17/2024 Weight 320.0 lbs 10/17/2024 BMI 45.91 kg/m2 10/17/2024 Oximetry 95 10/17/2024 Blood pressure systolic 140 10/18/19 25 Blood pressure diastolic 86 025 Encounters Encounter Location Date Provider Diagnosis [address] [phone] 10/17/2024 Jp Antonioayesha Encounter for screening for COVID-19 Z11.52 ; Pain in right shoulder M25.511 and Body mass index [BMI] 45.0-49.9, adult Z68.42 Assessments Encounter Date Diagnosis (ICD Code) Assessment Notes Treatment Notes Treatment Clinical Notes 10/17/2024 Encounter for screening for COVID-19 (ICD-10 - Z11.52) Covid screening is negative. Discussed in detail with patient how to practice social distancing by avoiding public spaces and crowds now, wearing a mask in public to keep nose and mouth covered, and washing hands frequently especially before eating and after using the bathroom. Return to clinic if you develop any symptoms of concern to be rescreened or go to the emergency room if you are having concerning symptoms for COVID-19. 10/17/2024 Pain in right shoulder (ICD-10 - M25.511) He is on Eliquis so we oral NSAID won't be appropriate Ultram is narcotic which is not allowed at [facility] He is already on a muscle relaxant Trial Tylenol ES Our staff called ortho. They have no schedule yet 10/17/2024 Body mass index [BMI] 45.0-49.9, adult (ICD-10 - Z68.42) He lost some weight Encouraged to lose more 10/17/2024 Other Plan Of Treatment Medication Medication Name Sig Start Date Stop Date Notes Melatonin 5 mg 1 cap(s) orally once a day (at bedtime) for 90 days Mapap Arthritis Pain 650 mg 2 tab(s) ora lly every 8 hours for 15 days 10/17/2024 Treatment Notes Assessment Notes Encounter for screening for COVID-19 Cov id screening is negative. Discussed in detail with patient how to practice social distancing by avoiding public spaces and crowds now, wearing a mask in public to keep nose and mouth covered, and washing hands frequently especially before eating and after using the bathroom. Return to clinic if you develop any symptoms of concern to be rescreened or go to the emergency room if you are having concerning symptoms for COVID-19. Pain in right shoulder He is on Eliquis so we oral NSAID won't be appropriate Ultram is narcotic which is not allowed at [facility] He is already on a muscle relaxant Trial Tylenol ES Our staff called ortho. They have no schedule yet Body mass index [BMI] 45.0-49.9, adult He lost some weight Encouraged to lose more Next Appt Details Follow Up: prn, Reason: Provider Name:Eduardo Story, 11/14/2024 10:00:00 AM, [address] [place] [address], [phone], Provider Name:Mirna jain, 11/16/2024 11:00:00 AM, [address] [place] [address], [phone], Provider Name:Maribel [facility], 01/02/2025 01:00:00 PM, [address] [place] [address], [phone], Progress Notes * Tj KEARNSDOB:[birth year] (39 yo M)Acc No.[id number]:10/17/2024 Progress Notes Patient:?Tj KEARNS Provider:?TRINI Wall :1985???Age:39 Y???Sex:Male Panfilo e:10/17/2024 Address:[address], [place] [phone] Pcp:PCP No Subjective: * Chief Complaints: * ???SA: Bruses on palm of khan ds,fingers * HPI: ???General:? Symptom Screen: - Fever in the last 1 week? Patient denies - New or worsening cough in the last 1 week? Patient denies. - Contact will known COVID exposure in last 5 days? Patient denies -new rash within last 3 weeks? Patient denies - Fever in the last 1 week? Patient denies - New or worsening cough in the last 1 week? Patient denies. - Contact will known COVID exposure in last 5 days? Patient denies -new rash within last 3 weeks? Patient denies LF: pt have a severe R Shoulder pain , lidocaine patches and the diclofenac gel are not working. ? -TICKET TAKER: 39 y/o male with history of opioid use disorder, non Hodgkin's lymphoma and PE Presents self with complaint f right shoulder pain. He is already on baclofen. Reports Lidoderm patch and NSAID cream do not work. We referred him to ortho with pending appt. -He figured out that the bruises on his hands are from relations director stains. He hangs clothes at the warehouse -07/2024 - [facility] admission for psyche. Reports dyspnea on 2nd day of admission. Was found to have PE. Reports BLE U/S and was told negative. He was shoulder pain. Started on Eliquis 09/03/24 -Complains of right shoulder pain with no related trauma history -Reports he was seen at [facility] in 2014 for his non Hodgkin's lymphoma -smokes 5 cigarettes/day. Smoker since 15 y/o. * ROS:?No acute C/P no acute SOB, No problem with urine, No heartburn or abdominal pain. Endorses being able to climb one fight of stairs without stopping due to SOB, Mood: stable, appetite: good, sleeping well. Denies new skin rashes. * Medical History:? * Surgical History:? * Hospitalization/Major Diagno stic Procedure:? * Medications:?Takingrosuvasta tin 5 mg tablet 1 tab(s) orally once a day , Notes to Pharmacist[facility] 1 PATCH applied topically on right shoulder in the morning and remove in the evening once a day , Notes to Pharmacist: [facility]% gel 2.25 inch applied topically 4 times a day , Notes to Pharmacist: [facility].1 mg tablet 1 tab(s) orally 2 times a day Melatonin 5 mg capsule 1 cap(s) orally once a day (at bedtime) traZODone 100 mg tablet as directed orally Wellbutrin SR 100 mg/12 hours tablet, extended release 1 tab(s) orally 2 times a day baclofen 20 mg tablet 1 tab(s) orally 3 times a day hydrOXYzine pamoate 100 mg capsule 1 cap(s) orally 4 times a day Eliquis 5 mg tablet as directed orally 2 times a day , Notes to Pharmacist: pls deliver to SAMedication List reviewed and reconciled with the patientTaking rosuvastatin 5 mg tablet 1 tab(s) orally once a day , Notes to Pharmacist: pls deliver to [facility] Lidoderm 5% film 1 PATCH applied topically on right shoulder in the morning and remove in the evening once a day , Notes to Pharmacist: pls deliver to [facility] diclofenac topical 1% gel 2.25 inch applied topically 4 times a day , Notes to Pharmacist: pls deliver to [facility] cloNIDine 0.1 mg tablet 1 tab(s) orally 2 times a day Taking Melatonin 5 mg capsule 1 cap(s) orally once a day (at bedtime) Taking traZODone 100 mg tablet as directed orally Taking Wellbutrin SR 100 mg/12 hours tablet, extended release 1 tab(s) orally 2 times a day Taking baclofen 20 mg tablet 1 tab(s) orally 3 times a day Taking hydrOXYzine pamoate 100 mg capsule 1 cap(s) orally 4 times a day Taking Eliquis 5 mg tablet as directed orally 2 times a day , Notes to Pharmacist: pls deliver to SAMedication List reviewed and reconciled with the patient * Allergies:?N.K.D.A.no[Allerg ies Verified] Objective: * Vitals:?BP Generic: 140/86, Ht: 70, Wt: 320.0, BMI:45.91, HR: 96, Oxygen sat %: 95, Temp: 97.1. * Examination: ???General Examination: ?General Appearance?markedly obese, , NAD, No obvious signs of illness.?MENTAL HEALTH?Easy to engage, engaged in OV concern today, good eye contact.?LUNGS:?clear to auscultation bilaterally with good excursion, regular breathing rate and effort, no wheezes, rhonchi or crackles.?EXTREMITIES:?limited ROM of right shoulder due to pain.? Assessment: * Assessment: 1.?Pain in right shoulder - M25.511 (Primary)???2.?Encounter for screening for COVID-19 - Z11.52???3.?Body mass index [BMI] 45.0-49.9, adult - Z68.42??? Plan: * Treatment: 2.?Encounter for screening f or COVID-19? Refill Melatonin capsule, 5 mg, 1 cap(s), orally, once a day (at bedtime), 90 days, 90, Refills 0.?? Notes:Covid screening is negative. Discussed in detail with patient how to practice social distancing by avoiding public spaces and crowds now, wearing a mask in public to keep nose and mouth covered, and washing hands frequently especially before eating and after using the bathroom. Return to clinic if you develop any symptoms of concern to be rescreened or go to the emergency room if you are having concerning symptoms for COVID-19.?? 3.?Body mass index [BMI] 45. 0-49.9, adult? Notes: He lost some weight Encouraged to lose more?? * Procedure Codes:?70810 OFFIC E O/P EST LOW 20 [id number] CLINIC VST/ENCOUNTER ALL-INCLUSIVE * Follow Up:?prn * Images: Billing Information: * Visit Code:? * Procedure Codes:? 96486 OFFICE O/P EST LOW 20 MIN. T1015 CLINIC VST/ENCOUNTER ALL-INCLUSIVE. Care Plan Details* * Sign off status: Completed true * Provider:?TRINI Wall Date: ?10/17/2024 Generated for Ermelinda maharaj/Srinath/Irineo on:?11/01/2024 01:56 PM EDT History and Physical Notes * Examination Category Sub-Category Detail Notes General Examination LUNGS: clear to aus cultation bilaterally with good excursion, regular breathing rate and effort, no wheezes, rhonchi or crackles EXTREMITIES: limited ROM of right shoulder due to pain General Appearance markedly obese, , NA D, No obvious signs of illness MENTAL HEALTH Easy to engage, mohit read in OV concern today, good eye contact
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
--- OUTSIDE RECORDS SUMMARY | 2024-11-01 13:57 | XMS_ITS | Patient Health Record ---
Author Organization [facility] Address [address], [place] [id number] Care Team Providers Care Software Systems Architect Name Role Phone No, PCP Primary Care Provider Unavailabl e [facility], [facility] Unavailable [phone] Eduardo Story Unavailable [phone] [facility], Nursing Unavailable [phone] Mirna Gonzalez Unavailable [phone] Cas[facility]odge Unavailable [phone] Allergies No Known Allergies Results Component Value Reference Range Notes QUANTIFERON(R)-TB GOLD PLUS, 1 TUBE (Not yet reviewed by provider) Interpretation: Performing Lab:NL2, [employer] [facility] [address] [place], [place] [id number] Rosey Delacruz Notes/Report: NON-FASTING QUANTIFERON(R)-TB GOLD PLUS, 1 TUBE NEGATIVE NEGATIVE Negative test result. M. tuberculosis complex infection unlikely. NIL 0.06 MITOGEN-NIL >10.00 TB1-NIL 0.00 TB2-NIL 0.00 The Nil tube value reflects the background interferon gamma immune response of the patient's blood sample. This value has been subtracted from the patient's displayed TB and Mitogen results. Lower than expected results with the Mitogen tube prevent false-negative Quantiferon readings by detecting a patient with a potential immune suppressive condition and/or suboptimal pre-analytical specimen handling. The TB1 Antigen tube is coated with the M. tuberculosis-specific antigens designed to elicit responses from TB antigen primed CD4+ helper T-lymphocytes. The TB2 Antigen tube is coated with the M. tuberculosis-specific antigens designed to elicit responses from TB antigen primed CD4+ helper and CD8+ cytotoxic T-lymphocytes. For additional information, please refer to https://education.Voxeet.com/faq/CZD654 (This link is being provided for informational/ educational purposes only.) COMPREHENSIVE METABOLIC PANE L Reviewed date:09/26/2024 10:17:48 AM Interpretation:Abnormal Performing Lab: Notes/Report: Sodium 138 133-145 mmol/L Potassium 4.3 3.5-5.5 mmol/L Chloride 107 96-110 mmol/L CO2 26 21-32 mmol/L Anion Gap 5 3-11 Glucose 124 70-100 mg/dL BUN 14 5-25 mg/dL Creatinine 0.76 0.70-1.30 mg/dL eGFR 119 >=60 mL/min/1.73m2 Calculati on based on the?Chronic Kidney Disease Epidemiology Collaboration (CKD-EPI) equation refit?without adjustment for race. BUN/Creatinine Ratio 18.4 Calcium 9.4 8.5-10.5 mg/dL AST (SGOT) 40 10-42 unit/L ALT (SGPT) 85 10-60 unit/L Alkaline Phosphatase 94 42-121 unit/L Total Protein 7.5 6.0-8.0 g/dL Albumin 3.6 3.2-5.0 g/dL Total Bilirubin 0.3 0.0-1.4 mg/dL COMPLETE BLOOD COUNT Reviewed date:09/26/2024 10:17:18 AM Interpretation:Normal Performing Lab: Notes/Report: WBC 7.6 4.8-10.8 K/mcL RBC 4.60 4.50-5.50 M/mcL Hemoglobin 13.7 13.5-17.5 g/dL Hematocrit 42.6 42.0-54.0 % MCV 92.6 79.0-98.0 FL MCH 29.8 27.0-32.0 pcg MCHC 32.2 32.0-37.0 g/dL RDW 13.5 11.0-15.0 % Platelets 254 130-400 K/mcL MPV 11.2 7.0-11.0 FL NRBC 0.0 <1.0 % NRBC Absolute 0.00 <0.10 K/mcL LIPID PANEL WITH REFLEX TO D IRECT LDL Reviewed date:09/27/2024 10:08:09 AM Interpretation:High Performing Lab: Notes/Report: Cholesterol 195 0-200 mg/dL Triglycerides 201 0-150 mg/dL HDL 38 >=40 mg/dL LDL Calculated 117 0-100 mg/dL VLDL Cholesterol Jose R 40.2 Non HDL Chol. (LDL+VLDL) 157 <145 mg/dL Chol/HDL Ratio 5.1 0.0-4.4 THYROID STIMULATING HORMONE WITH REFLEX TO FREE T4 AND FREE T3 Reviewed date:09/26/2024 10:16:57 AM Interpretation:High Performing Lab: Notes/Report: TSH 6.52 0.40-4.00 mcIU/mL TREPONEMA PALLIDUM ANTIBODY WITH REFLEX TO RPR AND PARTICLE AGGLUTINATION Reviewed date:09/26/2024 10:14:52 AM Interpretation:Negative Performing Lab: Notes/Report: T. Pallidum Antibodies Negative Negative HIV 1, 2 ANTIBODY, P24 ANTIG EN WITH REFLEX TO DIFFERENTIATION Reviewed date:09/26/2024 10:15:39 AM Interpretation:Negative Performing Lab: Notes/Report: This assay is a 4th generation assay allowing for earlier detection of HIV infection by detecting the presence of the HIV-1 p24 antigen as well as the traditional antibodies to HIV type 1 (including group O) and type 2. Use of a 4th generation assay is the current CDC recommendation for HIV screening. HIV Combo AB/AG Negative Negative HEPATITIS C ANTIBODY Reviewed date:09/26/2024 10:15:46 AM Interpretation:Negative Performing Lab: Notes/Report: Hepatitis C Antibody Negative Negative CHLAMYDIA TRACHOMATIS AND NE ISSERIA GONORRHOEAE MOLECULAR STUDY Reviewed date:09/26/2024 02:39:59 PM Interpretation:Negative Performing Lab: Notes/Report: Neisseria gonorrhoeae PCR Negative Negative Chlamydia trachomatis PCR Negative Negative FREE THYROXINE WITH REFLEX T O FREE TRIIODOTHYRONINE Reviewed date:09/26/2024 10:16:36 AM Interpretation:Normal Performing Lab: Notes/Report: Free T4 0.87 0.70-1.80 ng/dL TRIIODOTHYRONINE FREE Reviewed date:09/26/2024 10:14:59 AM Interpretation:Normal Performing Lab: Notes/Report: T3, Free 344 230-420 pcg/dL HEPATITIS B SURFACE ANTIGEN WITH REFLEX TO CONFIRMATION Reviewed date:09/26/2024 10:16:44 AM Interpretation:Negative Performing Lab: Notes/Report: Over the counter supplements containing high doses of biotin may interfere with this assay. If interference is suspected, patients shoud be retested after refraining from biotin supplements for 72 hours. Hepatitis B Surface Ag Negative Negative HEPATITIS B CORE ANTIBODY, T OTAL Reviewed date:09/26/2024 10:15:08 AM Interpretation:Negative Performing Lab: Notes/Report: Hep B Core Total Ab Negative Negative HEPATITIS B SURFACE ANTIBODY Reviewed date:09/26/2024 10:17:12 AM Interpretation:+ immunity Performing Lab: Notes/Report: >=10 mIU/mL is considered to be consistent with immunity. Hepatitis B Surface Ab Positive Negative Hepatitis B Surface Ab Quantitative 243.6 Reason For Referral Reason Sister Cristina Sweet [facility], [address] [place] [address] P: [phone] F: [phone] evaluate for history of non hodgkin's lymphoma with radiation and recent pulmonary embolism Diagnosis 1 Personal history of other venous thrombosis and embolism (Z86.718) Diagnosis 2 Personal history of non-Hodgkin lymphomas (Z85.72) Referral Organization [facility] Referring Provider First Name Jp Referring Provider Last Name Jack Referring Provider Speciality Nurse [place] Referred Provider Specialty Oncology General Notes Shelby Hilliard 10:23:44 AM > Faxed to [facility] cancer center, Shelby Hilliard 10/10/2024 10:06:16 AM > they need previous records of treatment, notified provider for release as this patient is at [facility] Referral Priority Routine Reason [facility] , [address], [place] P: [phone] F: [phone] treat for right shoulder pain Diagnosis 1 Pain in right should er (M25.511) Referral Organization [facility] Referring Provider First Name Jp Referring Provider Last Name Jack Referring Provider Speciality Nurse Prac xiomara Referred Provider Specialty Orthopedic S urgery General Notes Shelby Hilliard 10:31:05 AM > Faxed to [facility] ortho Referral Priority Routine Medications Medication SIG (Take, Route, Frequency, Duration) Notes Start Date End Date Status cloNIDine 0.1 mg 1 tab(s) orally 2 times a day as needed for anxiety, sleep for 30 days please deliver to [facility]. Active traZODone 100 mg 1 tablet orally nightly at bedtime for 30 days please deliver to [facility]. Active baclofen 20 mg 1 tab(s) orally 2 times a day Active Melatonin 5 mg 1 cap(s) orally once a day (at bedtime) for 30 days please deliver to [facility]. Active diclofenac topical 1% 2.25 inch applied topically 4 times a day for 30 days pls deliver to [facility] 10/03/2024 Active rosuvastatin 5 mg 1 tab(s) orally once a day for 90 days pls deliver to [facility] 10/03/2024 Active Lidoderm 5% 1 PATCH applied topically on right shoulder in the morning and remove in the evening once a day for 90 days pls deliver to [facility] 10/03/2024 Active Mapap Arthritis Pain 650 mg 2 tab(s) orally every 8 hours for 15 days As needed 10/17/2024 Active Eliquis 5 mg as directed orally 2 times a day for 90 days Active Wellbutrin XL 300 mg/24 hours 1 tab(s) orally every 24 hours for 30 days please deliver to [facility]. 10/31/2024 Active Social History Tobacco Use: Social History [...] q uitting Patient counseled on the norberto ponce of tobacco use and advised to quit: 09/25/2024 Problems Problem Type SNOMED Code ICD Code Onset Dates Problem Status W/U Status Risk Notes Problem Subclinical iodine deficiency hypothyroidism (disorder) (657926907) Subclinical iodine-deficiency hypothyroidism (E02) Active confirmed Problem Morbid obesity (disorder) (795660532) Morbid (severe) obesity due to excess calories (E66.01) Active confirmed Problem Mixed hyperlipidemia (426262005) Mixed hyperlipidemia (E78.2) Active confirmed Problem Moderate recurrent major depression (04859631) Major depressive disorder, recurrent, moderate (F33.1) Active confirmed Problem Anxiety disorder (970003700) Anxiety disorder, unspecified (F41.9) Active confirmed Problem Posttraumatic stress disorder (99374475) Post-traumatic stress disorder, chronic (F43.12) Active confirmed Problem Insomnia disorder related to another mental disorder (77203707) Insomnia due to other mental disorder (F51.05) Active confirmed Problem Pain of right shoulder region (finding) (0320773116) Pain in right shoulder (M25.511) Active confirmed Problem Body mass index 40+ - morbidly obese (681541107) Body mass index (BMI) 50-59.9 , adult (Z68.43) Active confirmed Problem History of non-Hodgkins lymphoma (051935268) Personal history of non-Hodgkin lymphomas (Z85.72) Active confirmed Problem History of thromboembolism of vein (038435836) Personal history of other venous thrombosis and embolism (Z86.718) Active confirmed Problem Body mass index 40+ - severely obese (245278924) Body mass index [BMI] 45.0-49.9, adult (Z68.42) Active confirmed Problem Sheltered homelessness (013489424464551) Sheltered homelessness (Z59.01) Active confirmed Vital Signs Temperature 98.5 degrees Fahrenheit 10/31/2024 Blood pressure diastolic 79 10/31/2024 Oximetry 99 10/31/2024 Height 70 in 10/31/2024 Blood pressure systolic 136 10/31/2024 Weight 320.0 lbs 10/17/2024 BMI 45.91 kg/m2 10/17/2024 Encounters Encounter Location Date Provider Diagnosis [address] [id number] 10/31/2024 Eduardo Story Major depressive disorder, recurrent, moderate F33.1 ; Post-traumatic stress disorder, chronic F43.12 ; Insomnia due to other mental disorder F51.05 ; Anxiety disorder, unspecified F41.9 ; Other nursing home (current) drug therapy Z79.899 ; Personal history of non-Hodgkin lymphomas Z85.72 ; Encounter for screening for COVID-19 Z11.52 and Subclinical iodine-deficiency hypothyroidism E02 [address] [id number] 09/18/[address] [id number] 09/25/2024 Nursing [facility] Encounter for screening for cardiovascular disorders Z13.6 ; Sheltered homelessness Z59.01 ; Encounter for screening for infections with a predominantly sexual mode of transmission Z11.3 ; Encounter for screening for infectious and parasitic diseases, unspecified Z11.9 ; Encounter for screening for other suspected endocrine disorder Z13.29 ; Encounter for screening for respiratory tuberculosis Z11.1 and Encounter for screening for COVID-[address] [id number] 09/25/[address] [id number] 10/03/2024 Eddieliza Casionan Encounter for screening for COVID-19 Z11.52 ; Encounter for general adult medical examination with abnormal findings Z00.01 ; Mixed hyperlipidemia E78.2 ; Pain in right shoulder M25.511 ; Personal history of non-Hodgkin lymphomas Z85.72 ; Body mass index (BMI) 50-59.9 , adult Z68.43 ; Morbid (severe) obesity due to excess calories E66.01 ; Sheltered homelessness Z59.01 ; Opioid dependence, uncomplicated F11.20 ; Personal history of other venous thrombosis and embolism Z86.718 and Subclinical iodine-deficiency hypothyroidism E02 [address] [id number] 10/03/2024 Mirna Gonzalez Major depressive disorder, recurrent, moderate F33.[address] [id number] 10/10/[address] [id number] 10/17/2024 Mirna Gonzalez Major depressive disorder, recurrent, moderate F33.[address] [id number] 10/17/2024 Eddieliza Antonioionan Encounter for screening for COVID-19 Z11.52 ; Pain in right shoulder M25.511 and Body mass index [BMI] 45.0-49.9, adult Z68.42 [facility] [address] [place] [id number] 09/18/2024 [facility] [address] [place] [id number] 09/19/[address] [id number] 09/25/2024 Eddieliza Casionan [address] [id number] 10/03/2024 Jp Santiago [address] [id number] 10/06/[address] [id number] 10/10/2024 [facility] Assessments Encounter Date Diagnosis (ICD Code) Assessment [...] to proceed with prescribed treatment. 1. Mass COMPOSITOR APPRENTICE reviewed: see exam 2. Medications: 3. Cont psychotherapy: hs f/u juliánt Georges TELLEZ 4. Labs/Procedures: 5. Exercise/Nutrition: sleep, regular exercise and nutrition all have a direct impact on our health and well-being. Keeping them in balance is especially important when we face stressful times in our lives. Eat balanced meals, get 6-8 hours of sleep a night, daily walking as able. 6. Understands plan and verbalizes agreement, allowed time for clarifying questions. 10/31/2024 Post-traumatic stress disorder, chronic (ICD-10 - F43.12) 09/25/2024 Encounter for screening for cardiovascular disorders (ICD-10 - Z13.6) 09/25/2024 Sheltered homelessness (ICD-10 - Z59.01) LF: pt is a man that arrive at 2 weeks ago, before that he was admitted at [facility] for Depression. He have a clot in his lungs and he is been treated for this with medication. pt is concern about only have one week left on Eliquis, a msg was sent to provider to refill it. He already have an appt scheduled to see in two weeks. pt didnt express any other concerns at the moment. Labs were drawn today. Diagnostic labs drawn as ordered per protocol using aseptic technique. We will attempt to reach you by telephone to discuss the test results. If we cannot reach you by telephone, we will mail you your results to the address we have on file. In all cases, results will be reviewed at your next office visit. We will contact you sooner if you have a telephone or address where we can reach you for abnormal test results requiring immediate action. Labs drawn by: LF 10/03/2024 Encounter for general adult medical examination with abnormal findings (ICD-10 - Z00.01) Annual PE performed.General recommendation for good health made: brush/floss your teeth 2x per day. Eat a healthy diet and obtain 30 minutes of aerobic exercise 5/7 days per week. Maintain high in take of water and avoid soda and energy drinks. Get 8 hours of sleep every night. 10/03/2024 Encounter for screening for COVID-19 (ICD-10 - [...] you are having concerning symptoms for COVID-19. 10/03/2024 Major depressive disorder, recurrent, moderate (ICD-10 - F33.1) Appt scheduled for continued psychotherapy and engagement in therapeutic process for 10/17/24 with GEOFF Fonseca. Clt given psych med eval appt with BOB Nettles, 10/31/24. Clt reminded of appt for CPE today at clinic with Cesia Santiago NP. Clt to remain engaged with counseling at with counselor through program. Clt given HSH and crisis contact information. Clt understands and agrees with plan. 10/17/2024 Major depressive disorder, recurrent, moderate (ICD-10 - F33.1) Appt scheduled for continued psychotherapy and engagement in therapeutic process for with GEOFF Fonseca, 11/16/24. Aware of psych med eval appt with BOB Nettles, 10/31/24. Clt reminded of appt for medical appt today at clinic with Cesia Santiago NP, 3:20pm. Clt to remain engaged with counseling at with counselor through program. Clt given HSH and crisis contact information. Clt understands and agrees with plan. 10/17/2024 Pain in right shoulder (ICD-10 - M25.511) He is on Eliquis so we oral NSAID won't be appropriate Ultram is narcotic which is not allowed at [facility] He is already on a muscle relaxant Trial Tylenol ES Our staff called ortho. They have no schedule yet 10/17/2024 Encounter for screening for COVID-19 (ICD-10 [...] are having concerning symptoms for COVID-19. 10/31/2024 Insomnia due to other mental disorder (ICD-10 - F51.05) 09/25/2024 Encounter for screening for infections with a predominantly sexual mode of transmission (ICD-10 - Z11.3) 10/03/2024 Mixed hyperlipidemia (ICD-10 - E78.2) Reviewed statin side effects reviewed: N/V, Fatigue, Indigestion, muscle pain, loss of appetite, elevated liver enzymes. 10/17/2024 Body mass index [BMI] 45.0-49.9, adult (ICD-10 - Z68.42) He lost some weight Encouraged to lose more 10/31/2024 Anxiety disorder, unspecified (ICD-10 - F41.9) 09/25/2024 Encounter for screening for infectious and parasitic diseases, unspecified (ICD-10 - Z11.9) 10/03/2024 Pain in right shoulder (ICD-10 - M25.511) Asking for referral to ortho 10/31/2024 Other nursing home (current) drug therapy (ICD-10 - Z79.899) 09/25/2024 Encounter for screening for other suspected endocrine disorder (ICD-10 - Z13.29) 10/03/2024 Personal history of non-Hodgkin lymphomas (ICD-10 - Z85.72) He agrees to see oncology 10/31/2024 Personal history of non-Hodgkin lymphomas (ICD-10 - Z85.72) 09/25/2024 Encounter for screening for respiratory tuberculosis (ICD-10 - Z11.1) 10/03/2024 Body mass index (BMI) 50-59.9 , adult (ICD-10 - Z68.43) Engaged discussion on maintaining healthy lifestyle: healthy diet low on fats and simple carbohydrates, and regular physical exercise of at least 30 minutes daily 10/31/2024 Encounter for screening for COVID-19 (ICD-10 [...] you are having concerning symptoms for COVID-19. 09/25/2024 Encounter for screening for COVID-19 (ICD-10 - Z11.52) Covid verbal screening negative. 10/03/2024 Morbid (severe) obesity due to excess calories (ICD-10 - E66.01) Engaged discussion on maintaining healthy lifestyle: healthy diet low on fats and simple carbohydrates, and regular physical exercise of at least 30 minutes daily 10/31/2024 Subclinical iodine-deficiency hypothyroidism (ICD-10 - E02) 10/03/2024 Sheltered homelessness (ICD-10 - Z59.01) Staying at 10/03/2024 Opioid dependence, uncomplicated (ICD-10 - F11.20) On recovery 10/03/2024 Personal history of other venous thrombosis and embolism (ICD-10 - Z86.718) Possibly related to his reported history of non - hodgkin's lymphoma. We resent request for medical records from [facility] Reports that at the hospital, bilateral ultrasound of his legs were negative He agrees to f/u with oncology Advised to abstain from NSAID wile on Eliquis 10/03/2024 Subclinical iodine-deficiency hypothyroidism (ICD-10 - E02) Denies symptoms. Will recheck in 3 mos 10/31/2024 Other 09/25/2024 Other Time spent in visit: 40 minutes 10/03/2024 Other 10/17/2024 Other Plan Of Treatment Pending Test Test Name Order Date CBC 09/25/2024 CHLAMYDIA / GC DNA W RFLX 09/25/2024 COMPREHENSIVE METABOLIC PANEL 09/25/2024 HEPATITIS B CORE AB TOTAL 09/25/2024 HEPATITIS B SURFACE ANTIBODY 09/25/2024 HEPATITIS B SURFACE ANTIGEN 09/25/2024 HIV 1 AND 2 ANTIBODY SCREEN 09/25/2024 LIPID PROFILE 09/25/2024 TSH CASCADE 09/25/2024 QUANTIFERON(R)-TB GOLD PLUS, 1 TUBE 09/16 HEPATITIS C ANTIBODY 09/25/2024 TREPONEMA PALLIDUM ANTIBODY 09/25/2024 Next Appt Details Provider Name:Eduardo Mcdonoughvey, 11/14/2024 10:00:00 AM, [address] [place] [address], [phone], Provider Name:Mirna jain, 11/16/2024 11:00:00 AM, [address] [place] [address], [phone], Provider Name:Maribel [facility], 01/02/2025 01:00:00 PM, [address] [place] [address], [phone], Insurance Providers Payer Name Payer Address Payer Phone Subscriber Number Group Number Insured Name Patient Relationship to Insured Coverage Start Date Coverage End Date [place] Medicaid C3 [address] [place], [place] [id number] Tj Pires Self - patient is the insured Medical (General) History Medical History History ICD Code depression Anxiety disorder obsessive-compulsive disorder 2012 Non Hodgkins Lymphoma [facility] radiation tx, did not want to do chemo Surgical History Surgery Date(Month/Year) Lymphoma removed one tumor i n neck and the other he had radiation to treat 2012 2014 Hospitalization History Reason Date(Month/Year) Pulmonary Emboli- C 08/2024 [facility] In[facility] Psych[facility], SI depression 12/2023 [facility] Inpt Psych[facility], SI depression , off meds 08/2024
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
--- OUTSIDE RECORDS SUMMARY | 2024-11-01 13:57 | XMS_ITS | Clinical Summary ---
Author Organization [facility] Address [address] [place] [address] Care Team Providers Care Table Games Dual Rate Supervisor Name Role Phone Patient, Has No Pcp Or Ref Primary Care Provider Unavailable Allergies No known active allergies Encounters Date Type Department Care Team Description 08/06/2024 7:56 PM EST - 08/07/2024 2:10 AM EST Emergency [facility] [address] [place] [phone] Nitin Hairston II, MD Lindsay, Robert [...] Vaccine (1 - 2023-2 5 season) 2024 Alcohol/Substance Use Screening 07/19/2024 Depression Screening and Follow-Up 07/19/2024 Social Drivers of Health Maria Elena ual Screening 07/19/2024 Influenza Vaccine (Season Ended) 2025 DTaP,Tdap,and Td Vaccines (2 - Td or Tdap) 04/17/2032 04/17/2022 RSV Vaccine (60+ years old a nd patients) (1 - 1-dose 75+ series) 2062 Pneumococcal Vaccine: Pediat shahram (0-5 Years) and At-Risk Patients (6-50 Years) Aged Out No longer eligible b ased on patient's age to complete this topic Procedures * Due to [place] Gramov[employer] law, this organization might not be sharing negative HIV tests. Procedure Name Priority Date/Time Associated Diagnosis Comments CT MAXILLOFACIAL BONES WO CONTRAST STAT 08/06/2024 11:[address] CERVICAL SPINE WO CONTRAST STAT 08/06/2024 11:[address] HEAD WO CONTRAST STAT 08/06/2024 1 1:15 PM EST from Last 3 Months Results * Due to [place] [employer]ov[employer] law, this organization might not be sharing [...] obtain the completed interpretation. ? Workstation ID: [id number] Up-to-date CT equipment and radiation dose reduction techniques were employed. CTDIvol: 34.8 - 121.6 mGy. DLP: 4357 mGy-cm. ??The following accession numbers are related to this dose report [id number]: [id number] Up-to-date CT equipment and radiation dose reduction techniques were employed. CTDIvol: 34.8 - 121.6 mGy. DLP: 4357 mGy-cm. ??The following accession numbers are related to this dose report [id number]: [id number] Up-to-date CT equipment and radiation dose reduction techniques were employed. CTDIvol: 34.8 - 121.6 mGy. DLP: 4357 mGy-cm. ??The following accession numbers are related to this dose report [id number]: [id number] Narrative 08/07/2024 12:47 AM EST PROCEDURE: CT [...] clear. ??Lung apices clear. Resulting Agency Comment [id number] Procedure Note Kun Baltazar MD - 08/07/2024 [...] possible to obtain thecompleted interpretation. Workstation ID: [id number] Up-to-date CT equipment and radiation dose reduction techniques wereemployed. CTDIvol: 34.8 - 121.6 mGy. DLP: 4357 mGy-cm. The followingaccession numbers are related to this dose report [id number]: [id number] Up-to-date CT equipment and radiation dose reduction techniques wereemployed. CTDIvol: 34.8 - 121.6 mGy. DLP: 4357 mGy-cm. The followingaccession numbers are related to this dose report [id number]: [id number] Up-to-date CT equipment and radiation dose reduction techniques wereemployed. CTDIvol: 34.8 - 121.6 mGy. DLP: 4357 mGy-cm. The followingaccession numbers are related to this dose report [id number]: [id number] Nitin Hairston II, MD IMG CT PROCEDURES [...] obtain the completed interpretation. ? Workstation ID: [id number] Up-to-date CT equipment and radiation dose reduction techniques were employed. CTDIvol: 34.8 - 121.6 mGy. DLP: 4357 mGy-cm. ??The following accession numbers are related to this dose report [id number]: [id number] Up-to-date CT equipment and radiation dose reduction techniques were employed. CTDIvol: 34.8 - 121.6 mGy. DLP: 4357 mGy-cm. ??The following accession numbers are related to this dose report [id number]: [id number] Up-to-date CT equipment and radiation dose reduction techniques were employed. CTDIvol: 34.8 - 121.6 mGy. DLP: 4357 mGy-cm. ??The following accession numbers are related to this dose report [id number]: [id number] Narrative 08/07/2024 12:47 AM EST PROCEDURE: CT [...] clear. ??Lung apices clear. Resulting Agency Comment [id number] Procedure Note Kun Baltazar MD - 08/07/2024 [...] possible to obtain thecompleted interpretation. Workstation ID: [id number] Up-to-date CT equipment and radiation dose reduction techniques wereemployed. CTDIvol: 34.8 - 121.6 mGy. DLP: 4357 mGy-cm. The followingaccession numbers are related to this dose report [id number]: [id number] Up-to-date CT equipment and radiation dose reduction techniques wereemployed. CTDIvol: 34.8 - 121.6 mGy. DLP: 4357 mGy-cm. The followingaccession numbers are related to this dose report [id number]: [id number] Up-to-date CT equipment and radiation dose reduction techniques wereemployed. CTDIvol: 34.8 - 121.6 mGy. DLP: 4357 mGy-cm. The followingaccession numbers are related to this dose report [id number]: [id number] Nitin Hairston II, MD IMG CT PROCEDURES [...] obtain the completed interpretation. ? Workstation ID: [id number] Up-to-date CT equipment and radiation dose reduction techniques were employed. CTDIvol: 34.8 - 121.6 mGy. DLP: 4357 mGy-cm. ??The following accession numbers are related to this dose report [id number]: [id number] Up-to-date CT equipment and radiation dose reduction techniques were employed. CTDIvol: 34.8 - 121.6 mGy. DLP: 4357 mGy-cm. ??The following accession numbers are related to this dose report [id number]: [id number] Up-to-date CT equipment and radiation dose reduction techniques were employed. CTDIvol: 34.8 - 121.6 mGy. DLP: 4357 mGy-cm. ??The following accession numbers are related to this dose report [id number]: [id number] Narrative 08/07/2024 12:47 AM EST PROCEDURE: CT [...] clear. ??Lung apices clear. Resulting Agency Comment [id number] Procedure Note Kun Baltazar MD - 08/07/2024 [...] possible to obtain thecompleted interpretation. Workstation ID: [id number] Up-to-date CT equipment and radiation dose reduction techniques wereemployed. CTDIvol: 34.8 - 121.6 mGy. DLP: 4357 mGy-cm. The followingaccession numbers are related to this dose report [id number]: [id number] Up-to-date CT equipment and radiation dose reduction techniques wereemployed. CTDIvol: 34.8 - 121.6 mGy. DLP: 4357 mGy-cm. The followingaccession numbers are related to this dose report [id number]: [id number] Up-to-date CT equipment and radiation dose reduction techniques wereemployed. CTDIvol: 34.8 - 121.6 mGy. DLP: 4357 mGy-cm. The followingaccession numbers are related to this dose report [id number]: [id number] Nitin Hairston II, MD IMG CT PROCEDURES Final Re sult from Last [address] [place] [address] [address] [address] MEDICAID Care Teams Table Games Dual Rate Supervisor Relationship Specialty Start Date End Date Patient, Has No Pcp Or Ref DO NOT EDIT THIS RECORD VIA PROVIDER ON THE FLY PCP - General Hair Spring Cutter 08/06/24
--- OUTSIDE RECORDS SUMMARY | 2024-11-01 13:57 | XMS_ITS | Encounter Summary ---
Author Organization [facility] Address [address] [place] [address] Care Team Providers Care Shot Lighter Name Role Phone Grant Moreno MD Primary Care Provider [phone] Encounter Details Date Type Department Care Team (Late st Contact Info) Description 09/25/2024 Lab Requisition [facility] - Main Lab [address] [facility] [place] [address] Jp Santiago, COLIN [address] [place] [address] Encounter for screening for cardiovascular disorders; Encounter for screening for infectious and parasitic diseases, unspecified; Encounter for screening for infections with a predominantly sexual mode of transmission; Encounter for screening for other suspected endocrine disorder Social History Tobacco Use Types Packs/Day Years Used Date Smoking Tobacco: Never Assessed Sex and Gender Information Value Date Recorded Sex Assigned at Not on file Legal Sex Male 9:59 AM EST Gender Identity Not on file Sexual Orientation Not on file documented as of this encounter Plan of Treatment Not on file documented as of this encounter Procedures Procedure Name Priority Date/Time Associated Diagnosis Comments HEPATITIS C ANTIBODY Routine 09/25/2024 9:00 AM EDT Encounter for screening for cardiovascular disorders Encounter for screening for infectious and parasitic diseases, unspecified Encounter for screening for infections with a predominantly sexual mode of transmission Encounter for screening for other suspected endocrine disorder HIV 1, 2 ANTIBODY, P24 ANTIGEN WITH REFLEX TO DIFFERENTIATION Routine 09/25/2024 9:00 AM EDT Encounter for screening for cardiovascular disorders Encounter for screening for infectious and parasitic diseases, unspecified Encounter for screening for infections with a predominantly sexual mode of transmission Encounter for screening for other suspected endocrine disorder WHITE - NO ADDITIVE Routine 09/25/2024 9 :00 AM EDT Encounter for screening for cardiovascular disorders Encounter for screening for infectious and parasitic diseases, unspecified Encounter for screening for infections with a predominantly sexual mode of transmission Encounter for screening for other suspected endocrine disorder HEPATITIS B SURFACE ANTIGEN WITH CONFIRMATION Routine 09/25/2024 9:00 AM EDT Encounter for screening for cardiovascular disorders Encounter for screening for infectious and parasitic diseases, unspecified Encounter for screening for infections with a predominantly sexual mode of transmission Encounter for screening for other suspected endocrine disorder TREPONEMA PALLIDUM ANTIBODY WITH REFLEX TO RPR AND PARTICLE AGGLUTINATION Routine 09/25/2024 9:00 AM EDT Encounter for screening for cardiovascular disorders Encounter for screening for infectious and parasitic diseases, unspecified Encounter for screening for infections with a predominantly sexual mode of transmission Encounter for screening for other suspected endocrine disorder THYROID STIMULATING HORMONE WITH REFLEX TO FREE T4 AND FREE T3 Routine 09/25/2024 9:00 AM EDT Encounter for screening for cardiovascular disorders Encounter for screening for infectious and parasitic diseases, unspecified Encounter for screening for infections with a predominantly sexual mode of transmission Encounter for screening for other suspected endocrine disorder FREE THYROXINE WITH REFLEX TO FREE TRIIODOTHYRONINE Routine 09/25/2024 9:00 AM EDT Encounter for screening for cardiovascular disorders Encounter for screening for infectious and parasitic diseases, unspecified Encounter for screening for infections with a predominantly sexual mode of transmission Encounter for screening for other suspected endocrine disorder LIPID PANEL WITH REFLEX TO DIRECT LDL Routine 09/25/2024 9:00 AM EDT Encounter for screening for cardiovascular disorders Encounter for screening for infectious and parasitic diseases, unspecified Encounter for screening for infections with a predominantly sexual mode of transmission Encounter for screening for other suspected endocrine disorder CHLAMYDIA TRACHOMATIS AND NEISSERIA GONORRHOEAE PCR Routine 09/25/2024 9:00 AM EDT Encounter for screening for cardiovascular disorders Encounter for screening for infectious and parasitic diseases, unspecified Encounter for screening for infections with a predominantly sexual mode of transmission Encounter for screening for other suspected endocrine disorder HEPATITIS B CORE ANTIBODY, TOTAL Routine 09/25/2024 9:00 AM EDT Encounter for screening for cardiovascular disorders Encounter for screening for infectious and parasitic diseases, unspecified Encounter for screening for infections with a predominantly sexual mode of transmission Encounter for screening for other suspected endocrine disorder HEPATITIS B SURFACE ANTIBODY Routine 09/25/2024 9:00 AM EDT Encounter for screening for cardiovascular disorders Encounter for screening for infectious and parasitic diseases, unspecified Encounter for screening for infections with a predominantly sexual mode of transmission Encounter for screening for other suspected endocrine disorder COMPLETE BLOOD COUNT Routine 09/25/2024 9:00 AM EDT Encounter for screening for cardiovascular disorders Encounter for screening for infectious and parasitic diseases, unspecified Encounter for screening for infections with a predominantly sexual mode of transmission Encounter for screening for other suspected endocrine disorder TRIIODOTHYRONINE FREE Routine 09/25/2024 9:00 AM EDT Encounter for screening for cardiovascular disorders Encounter for screening for infectious and parasitic diseases, unspecified Encounter for screening for infections with a predominantly sexual mode of transmission Encounter for screening for other suspected endocrine disorder COMPREHENSIVE METABOLIC PANEL Routine 09/25/2024 9:00 AM EDT Encounter for screening for cardiovascular disorders Encounter for screening for infectious and parasitic diseases, unspecified Encounter for screening for infections with a predominantly sexual mode of transmission Encounter for screening for other suspected endocrine disorder documented in this encounter Results * Treponema pallidum antibody with reflex to RPR and particle agglutination (09/25/2024 9:00 AM EDT) Pathologist [facility] T. Pallidum Antibodies Negative Negative LAB CHEMISTRY METHOD 09/25/2024 8:26 PM EDT [facility] Blood Venous blood specimen / Unknown 09/25/2024 9:00 AM EDT 09/25/2024 6:01 PM EDT us Eddieliza Jack MAIL CARRIER AND CLERK LAB BLOOD ORDERABLES Final Result [facility] [address] [place] [address], [place] [phone] * Triiodothyronine free (09/25/2024 9:00 AM EDT) T3, Free 344 230 - 420 pcg/dL LAB CHEMISTRY METHOD 09/25/2024 8:15 PM EDT [facility] Blood Venous blood specimen / Unknown 09/25/2024 9:00 AM EDT 09/25/2024 6:01 PM EDT [facility] MAIL CARRIER AND CLERK LAB BLOOD ORDERABLES Final Result Performing Organization Address City/[facility]/ZIP Co de Phone Number [facility] [address] [place] [address], [place] [phone] * Free thyroxine with reflex to free triiodothyronine (09/25/2024 9:00 AM EDT) Free T4 0.87 0.70 - 1.80 ng/dL LAB CHEMISTRY METHOD 09/25/2024 7:50 PM EDT [facility] Blood Venous blood specimen / Unknown 09/25/2024 9:00 AM EDT 09/25/2024 6:01 PM EDT [facility] LAB BLOOD ORDERABLES Final Result [facility] [address] [place] [address], [place] [phone] * White no additive tube (09/25/2024 9:00 AM EDT) Pathologist [facility] Extra Tube Hold for add-ons. 09/25/2024 8:01 PM EDT [facility] Comment:Auto resulted. Urine Urine specimen obtained by clean catch procedure / Unknown 09/25/2024 9:00 AM EDT 09/25/2024 6:04 PM EDT Jp Santiago MAIL CARRIER AND CLERK LAB MICROBIOLOGY - GENERAL ORDERABLES Final Result Performing Organization Address [facility]/ZIP Co de Phone Number [facility] [address] [place] [address], [place] [phone] * Hepatitis C antibody (09/25/2024 9:00 AM EDT) Hepatitis C Antibody Negative Negative LAB CHEMISTRY METHOD 09/25/2024 8:03 PM EDT [facility] Blood Venous blood specimen / Unknown 09/25/2024 9:00 AM EDT 09/25/2024 6:01 PM EDT [facility] LAB BLOOD ORDERABLES Final Result Performing Organization Address [facility] de Phone Number [facility] [address] [place] [address], [place] [phone] * (ABNORMAL) Thyroid stimulating hormone with reflex to free t4 and free t3 (09/25/2024 9:00 AM EDT) Pathologist [facility] TSH 6.52(H) 0.40 - 4.00 mcIU/mL LAB CHEMISTRY METHOD 09/25/2024 7:25 PM EDT [facility] Blood Venous blood specimen / Unknown 09/25/2024 9:00 AM EDT 09/25/2024 6:01 PM EDT [facility] MAIL CARRIER AND CLERK LAB BLOOD ORDERABLES Final Result Performing Organization Address [facility]/ZIP Co de Phone Number [facility] [address] [place] [address], [place] [phone] * (ABNORMAL) Lipid panel with reflex to direct LDL (09/25/2024 9:00 AM EDT) Cholesterol 195 0 - 200 mg/dL LAB CHEMISTRY METHOD 09/25/2024 7:20 PM EDT [facility] Triglycerides 201(H) 0 - 150 mg/dL LAB CHEMISTRY METHOD 09/25/2024 7:20 PM EDT [facility] HDL 38(L) >=40 mg/dL LAB CHEMISTRY METHOD 09/25/2024 7:20 PM EDT [facility] LDL Calculated 117(H) 0 - 100 mg/dL LAB CHEMISTRY METHOD 09/25/2024 7:20 PM EDT [facility] VLDL Cholesterol Jose R 40.2 mg/dL LAB CHEMISTRY METHOD 09/25/2024 7:20 PM EDT [facility] Non HDL Chol. (LDL+VLDL) 157(H) <145 mg/dL LAB CHEMISTRY METHOD 09/25/2024 7:20 PM EDT [facility] Chol/HDL Ratio 5.1(H) 0.0 - 4.4 LAB CHEMISTRY METHOD 09/25/2024 7:20 PM EDT [facility] Blood Venous blood specimen / Unknown 09/25/2024 9:00 AM EDT 09/25/2024 6:01 PM EDT us Jp Santiago MAIL CARRIER AND CLERK LAB BLOOD ORDERABLES Final Result [facility] [address] [place] [address], * HIV 1,2 antibody, p24 antigen with reflex to differentiation (09/25/2024 9:00 AM EDT) HIV Combo AB/AG Negative Negative LAB CHEMISTRY METHOD 09/25/2024 8:04 PM EDT [facility] Blood Venous blood specimen / Unknown 09/25/2024 9:00 AM EDT 09/25/2024 6:01 PM EDT Narrative [facility] - 09/25/2024 8:04 PM EDT This assay is a 4th generation assay allowing for earlier detection of HIV infection by detecting the presence of the HIV-1 p24 antigen as well as the traditional antibodies to HIV type 1 (including group O) and type 2. ??Use of a 4th generation assay is the current CDC recommendation for HIV screening. [employer] [facility] LAB BLOOD ORDERABLES Final Result Performing Organization Address City/[facility]/ZIP Co de Phone Number [facility] [address] [place] [address], * Hepatitis B surface antigen with reflex to confirmation (09/25/2024 9:00 AM EDT) Hepatitis B Surface Ag Negative Negative LAB CHEMISTRY METHOD 09/25/2024 7:35 PM EDT [facility] Blood Venous blood specimen / Unknown 09/25/2024 9:00 AM EDT 09/25/2024 6:01 PM EDT Narrative [facility] - 09/25/2024 7:35 PM EDT Over the counter supplements containing high doses of biotin may interfere with this assay. ??If interference is suspected, patients shoud be retested after refraining from biotin supplements for 72 hours. [facility] Inc[employer]nguyen [employer] LAB BLOOD ORDERABLES Final Result Performing Organization Address [facility]/ZIP Co de Phone Number [facility] [address] [place] [address], * (ABNORMAL) Hepatitis B surface antibody (09/25/2024 9:00 AM EDT) Hepatitis B Surface Ab Positive (A) Negative LAB CHEMISTRY METHOD 09/25/2024 7:24 PM EDT [facility] Hepatitis B Surface Ab Quantitative 243.6 mIU/mL LAB CHEMISTRY METHOD 09/25/2024 7:24 PM EDT [facility] Blood Venous blood specimen / Unknown 09/25/2024 9:00 AM EDT 09/25/2024 6:01 PM EDT Narrative [facility] - 09/25/2024 7:24 PM EDT >=10 mIU/mL is considered to be consistent with immunity. [facility] MAIL CARRIER AND CLERK LAB BLOOD ORDERABLES Final Result Performing Organization Address City/[facility]/ZIP Co de Phone Number [facility] [address] [place] [address], [place] [phone] * Hepatitis B core antibody, total (09/25/2024 9:00 AM EDT) Pathologist [facility] Hep B Core Total Ab Negative Negative LAB CHEMISTRY METHOD 09/25/2024 8:10 PM EDT [facility] Blood Venous blood specimen / Unknown 09/25/2024 9:00 AM EDT 09/25/2024 6:01 PM EDT [facility] MAIL CARRIER AND CLERK LAB BLOOD ORDERABLES Final Result Performing Organization Address City/[facility]/ZIP Co de Phone Number [facility] [address] [place] [address], [place] [phone] * (ABNORMAL) Comprehensive metabolic panel (09/25/2024 9:00 AM EDT) Pathologist [facility] Sodium 138 133 - 145 mmol/L LAB CHEMISTRY METHOD 09/25/2024 7:20 PM EDT [facility] Potassium 4.3 3.5 - 5.5 mmol/L LAB CHEMISTRY METHOD 09/25/2024 7:20 PM EDT [facility] Chloride 107 96 - 110 mmol/L LAB CHEMISTRY METHOD 09/25/2024 7:20 PM EDT [facility] CO2 26 21 - 32 mmol/L LAB CHEMISTRY METHOD 09/25/2024 7:20 PM EDT [facility] Anion Gap 5 3 - 11 LAB CHEMISTRY METHOD 09/25/2024 7:20 PM [facility] Glucose 124(H) 70 - 100 mg/dL LAB CHEMISTRY METHOD 09/25/2024 7:20 PM [facility] BUN 14 5 - 25 mg/dL LAB CHEMISTRY METHOD 09/25/2024 7:20 PM [facility] Creatinine 0.76 0.70 - 1.30 mg/dL LAB CHEMISTRY METHOD 09/25/2024 7:20 PM [facility] eGFR 119 >=60 mL/min/1. 73m2 LAB CHEMISTRY METHOD 09/25/2024 7:20 PM [facility] Comment:Calculation based on the??Chronic Kidney Disease Epidemiology Collaboration (CKD-EPI) equation refit??without adjustment for race. BUN/Creatinine Ratio 18.4 LAB CHEMISTRY METHOD 09/25/2024 7:20 PM [facility] Calcium 9.4 8.5 - 10.5 mg/dL LAB CHEMISTRY METHOD 09/25/2024 7:20 PM [facility] AST (SGOT) 40 10 - 42 unit/L LAB CHEMISTRY METHOD 09/25/2024 7:20 PM [facility] ALT (SGPT) 85(H) 10 - 60 unit/L LAB CHEMISTRY METHOD 09/25/2024 7:20 PM [facility] Alkaline Phosphatase 94 42 - 121 unit/L LAB CHEMISTRY METHOD 09/25/2024 7:20 PM [facility] Total Protein 7.5 6.0 - 8.0 g/dL LAB CHEMISTRY METHOD 09/25/2024 7:20 PM [facility] Albumin 3.6 3.2 - 5.0 g/dL LAB CHEMISTRY METHOD 09/25/2024 7:20 PM [facility] Total Bilirubin 0.3 0.0 - 1.4 mg/dL LAB CHEMISTRY METHOD 09/25/2024 7:20 PM [facility] Blood Venous blood specimen / Unknown 09/25/2024 9:00 AM EDT 09/25/2024 6:01 PM EDT Hirodifelicitas Lamaran MAIL CARRIER AND CLERK LAB BLOOD ORDERABLES Final Result Performing Organization Address [facility]/ZIP Co de Phone Number [facility] [address] [place] [address], [place] [phone] * Chlamydia trachomatis and Neisseria gonorrhoeae molecular study (09/25/2024 9:00 AM EDT) Pathologist [facility] Neisseria gonorrhoeae PCR Negative Negative LAB MOLECULAR DIAGNOSTICS METHOD 09/26/2024 11:35 AM EDT [facility] Chlamydia trachomatis PCR Negative Negative LAB MOLECULAR DIAGNOSTICS METHOD 09/26/2024 11:35 AM EDT [facility] Urine Urethral structure / Unknown 09/25/2024 9:00 AM EDT 09/25/2024 6:01 PM EDT [facility] MAIL CARRIER AND CLERK LAB MICROBIOLOGY - GENERAL ORDERABLES Final Result Performing Organization Address [facility]/ZIP Co de Phone Number [facility] [address] [place] [address], [place] [phone] * (ABNORMAL) Complete blood count (09/25/2024 9:00 AM EDT) Pathologist [facility] WBC 7.6 4.8 - 10.8 K/mcL LAB HEMETOLOGY METHOD 09/25/2024 7:21 PM EDT [facility] RBC 4.60 4.50 - 5.50 M/mcL LAB HEMETOLOGY METHOD 09/25/2024 7:21 PM EDT [facility] Hemoglobin 13.7 13.5 - 17.5 g/dL LAB HEMETOLOGY METHOD 09/25/2024 7:21 PM EDT [facility] Hematocrit 42.6 42.0 - 54.0 % LAB HEMETOLOGY METHOD 09/25/2024 7:21 PM EDT [facility] MCV 92.6 79.0 - 98.0 FL LAB HEMETOLOGY METHOD 09/25/2024 7:21 PM EDT [facility] MCH 29.8 27.0 - 32.0 pcg LAB HEMETOLOGY METHOD 09/25/2024 7:21 PM EDT [facility] MCHC 32.2 32.0 - 37.0 g/dL LAB HEMETOLOGY METHOD 09/25/2024 7:21 PM EDT [facility] RDW 13.5 11.0 - 15.0 % LAB HEMETOLOGY METHOD 09/25/2024 7:21 PM EDT [facility] Platelets 254 130 - 400 K/mcL LAB HEMETOLOGY METHOD 09/25/2024 7:21 PM EDT [facility] MPV 11.2(H) 7.0 - 11.0 FL LAB HEMETOLOGY METHOD 09/25/2024 7:21 PM EDT [facility] NRBC 0.0 <1.0 % LAB HEMETOLOGY METHOD 09/25/2024 7:21 PM EDT [facility] NRBC Absolute 0.00 <0.10 K/mcL LAB HEMETOLOGY METHOD 09/25/2024 7:21 PM T [facility] Blood Venous blood specimen / Unknown 09/25/2024 9:00 AM EDT 09/25/2024 6:01 PM EDT Jp Santiago NP LAB BLOOD ORDERABLES Final Result [facility] [address] [place] [address], documented in this encounter Visit Diagnoses Diagnosis Encounter for screening for cardiovascular disorders Encounter for screening for infectious and parasitic diseases, unspecified Encounter for screening for infections with a predominantly sexual mode of transmission Encounter for screening for other suspected endocrine disorder documented in this encounter Care Teams Shot Lighter Relationship Specialty Start Date End Date Grant Moreno MD [address] [place] [id number] PCP - General 05/29/22 documented as of this encounter
--- OUTSIDE RECORDS SUMMARY | 2024-11-01 13:57 | XMS_ITS | Clinical Summary ---
Author Organization [address] [facility] Address [address] [place] [address] Phone Care Team Providers Care Duster Tender Name Role Phone Grant Moreno MD Primary Care Provider Encounters Date Type Department Care Team Description 09/25/[address] [facility] - Main Lab [address] [place] [address] Jp Santiago NP Encounter for screening for cardiovascular disorders; Encounter for screening for infectious and parasitic diseases, unspecified; Encounter for screening for infections with a predominantly sexual mode of transmission; Encounter for screening for other suspected endocrine disorder 08/08/2024 Telephone Adult Medicine [address] [phone] Praveena Renteria RN from Last 3 Months Immunizations Name Administration Dates Next Due Hepatitis B (Hdaeaqe-I-Hzbny , Recombivax HB-Adult) 19yo and older 12/22/2001 [...] DTaP,Tdap,and Td Vaccines (1 - Tdap) 2006 Depression Screening 09/07/2022 Social Influencers of Health Screening 09/07/2022 COVID-19 Vaccine ( - 2023-2 5 season) 2024 Influenza Vaccine (Season Ended) 2025 Cholesterol Screening (Lipid Panel) 09/25/2029 09/25/2024 HIV Screening Completed 09/25/2024 Hepatitis C Screening Completed 09/25/2024 HIB Vaccines Aged Out No longer eligi [...] age to complete this topic Meningococcal B Vaccine Aged Out No l onger eligible based on patient's age to complete [...] patient's age to complete this topic Procedures Procedure Name Priority Date/Time Associated Diagnosis Comments TREPONEMA PALLIDUM ANTIBODY WITH REFLEX TO RPR [...] screening for other suspected endocrine disorder HEPATITIS C ANTIBODY Routine 09/25/2024 9:00 AM [...] for screening for other suspected endocrine disorder from Last 3 Months Results * Hepatitis C antibody (09/25/2024 9:00 AM EDT) Pathologist [facility] Hepatitis C Antibody Negative Negative LAB CHEMISTRY METHOD 09/25/2024 8:03 PM EDT [facility] Blood Venous blood specimen / Unknown 09/25/2024 9:00 AM EDT 09/25/2024 6:01 PM EDT us Jp Santiago PIPE ORGAN INSTALLER LAB BLOOD ORDERABLES Final Result [facility] [address] [place] [address], * HIV 1,2 antibody, p24 antigen with reflex to differentiation (09/25/2024 9:00 AM EDT) Pathologist [facility] HIV Combo AB/AG Negative Negative LAB CHEMISTRY METHOD 09/25/2024 8:04 PM EDT [facility] Blood Venous blood specimen / Unknown 09/25/2024 9:00 AM EDT 09/25/2024 6:01 PM EDT Narrative [facility] - 09/25/2024 8:04 PM EDT This assay is a 4th generation assay allowing for earlier detection of HIV infection by detecting the presence of the HIV-1 p24 antigen as well as the traditional antibodies to HIV type 1 (including group O) and type 2. ??Use of a 4th generation assay is the current CDC recommendation for HIV screening. [facility] PIPE ORGAN INSTALLER LAB BLOOD ORDERABLES Final Result Performing Organization Address City/[facility]/ZIP Co de Phone Number [facility] [address] [place] [address], [place] [phone] * White no additive tube (09/25/2024 9:00 AM EDT) Extra Tube Hold for add-ons. 09/25/2024 8:01 PM EDT [facility] Comment:Auto resulted. Urine Urine specimen obtained by clean catch procedure / Unknown 09/25/2024 9:00 AM EDT 09/25/2024 6:04 PM EDT [facility] PIPE ORGAN INSTALLER LAB MICROBIOLOGY - GENERAL ORDERABLES Final Result Performing Organization Address [facility]/ZIP Co de Phone Number [facility] [address] [place] [address], [place] [phone] * Hepatitis B surface antigen with reflex to confirmation (09/25/2024 9:00 AM EDT) Hepatitis B Surface Ag Negative Negative LAB CHEMISTRY METHOD 09/25/2024 7:35 PM EDT [facility] Blood Venous blood specimen / Unknown 09/25/2024 9:00 AM EDT 09/25/2024 6:01 PM EDT Narrative [facility] - 09/25/2024 7:35 PM EDT Over the counter supplements containing high doses of biotin may interfere with this assay. ??If interference is suspected, patients shoud be retested after refraining from biotin supplements for 72 hours. [facility] Monitor [facility] LAB BLOOD ORDERABLES Final Result Performing Organization Address [facility]/ZIP Co de Phone Number [facility] [address] [place] [address], [place] [phone] * Treponema pallidum antibody with reflex to RPR and particle agglutination (09/25/2024 9:00 AM EDT) T. Pallidum Antibodies Negative Negative LAB CHEMISTRY METHOD 09/25/2024 8:26 PM EDT [facility] Blood Venous blood specimen / Unknown 09/25/2024 9:00 AM EDT 09/25/2024 6:01 PM EDT [facility] Event [facility] centernguyen Monitor [facility] LAB BLOOD ORDERABLES Final Result Performing Organization Address [facility] Co de Phone Number [facility] [address] [place] [address], [place] [phone] * (ABNORMAL) Thyroid stimulating hormone with reflex to free t4 and free t3 (09/25/2024 9:00 AM EDT) TSH 6.52(H) 0.40 - 4.00 mcIU/mL LAB CHEMISTRY METHOD 09/25/2024 7:25 PM EDT [facility] Blood Venous blood specimen / Unknown 09/25/2024 9:00 AM EDT 09/25/2024 6:01 PM EDT [facility] center[facility] Monitor [facility] LAB BLOOD ORDERABLES Final Result Performing Organization Address [facility]/ZIP Co de Phone Number [facility] [address] [place] [address], [place] [phone] * Free thyroxine with reflex to free triiodothyronine (09/25/2024 9:00 AM EDT) Free T4 0.87 0.70 - 1.80 ng/dL LAB CHEMISTRY METHOD 09/25/2024 7:50 PM EDT [facility] Blood Venous blood specimen / Unknown 09/25/2024 9:00 AM EDT 09/25/2024 6:01 PM EDT Jp Santiago PIPE ORGAN INSTALLER LAB BLOOD ORDERABLES Final Result [facility] [address] [place] [address], [place] [phone] * (ABNORMAL) Lipid panel with reflex to direct LDL (09/25/2024 9:00 AM EDT) Cholesterol 195 0 - 200 mg/dL LAB CHEMISTRY METHOD 09/25[facility]2024 7:[facility] Triglycerides 201(H) 0 - 150 mg/dL LAB CHEMISTRY METHOD 09/25/2024 7:20 PM [facility] HDL 38(L) >=40 mg/dL LAB CHEMISTRY METHOD 09/25/2024 7:20 PM [facility] LDL Calculated 117(H) 0 - 100 mg/dL LAB CHEMISTRY METHOD 09/25/2024 7:20 PM [facility] VLDL Cholesterol Jose R 40.2 mg/dL LAB CHEMISTRY METHOD 09/25/2024 7:20 PM [facility] Non HDL Chol. (LDL+VLDL) 157(H) <145 mg/dL LAB CHEMISTRY METHOD 09/25/2024 7:20 PM [facility] Chol/HDL Ratio 5.1(H) 0.0 - 4.4 LAB CHEMISTRY METHOD 09/25/2024 7:20 PM [facility] Blood Venous blood specimen / Unknown 09/25/2024 9:00 AM EDT 09/25/2024 6:01 PM EDT Jp Santiago PIPE ORGAN INSTALLER LAB BLOOD ORDERABLES Final Result [facility] [address] [place] [address], [place] [phone] * Chlamydia trachomatis and Neisseria gonorrhoeae molecular study (09/25/2024 9:00 AM EDT) Neisseria gonorrhoeae PCR Negative Negative LAB MOLECULAR DIAGNOSTICS METHOD 09/26/2024 11:35 AM EDT [facility] Chlamydia trachomatis PCR Negative Negative LAB MOLECULAR DIAGNOSTICS METHOD 09/26/2024 11:35 AM EDT [facility] Urine Urethral structure / Unknown 09/25/2024 9:00 AM EDT 09/25/2024 6:01 PM EDT Jp Santiago PIPE ORGAN INSTALLER LAB MICROBIOLOGY - GENERAL ORDERABLES Final Result Performing Organization Address City/[facility]/ZIP Co de Phone Number [facility] [address] [place] [address], [place] [phone] * Hepatitis B core antibody, total (09/25/2024 9:00 AM EDT) Hep B Core Total Ab Negative Negative LAB CHEMISTRY METHOD 09/25/2024 8:10 PM EDT [facility] Blood Venous blood specimen / Unknown 09/25/2024 9:00 AM EDT 09/25/2024 6:01 PM EDT Jp Santiago PIPE ORGAN INSTALLER LAB BLOOD ORDERABLES Final Result [facility] [address] [place] [address], [place] [phone] * (ABNORMAL) Hepatitis B surface antibody (09/25/2024 9:00 AM EDT) [facility] Hepatitis B Surface Ab Positive (A) Negative LAB CHEMISTRY METHOD 09/25/2024 7:24 PM EDT [facility] Hepatitis B Surface Ab Quantitative 243.6 mIU/mL LAB CHEMISTRY METHOD 09/25/2024 7:24 PM EDT [facility] Blood Venous blood specimen / Unknown 09/25/2024 9:00 AM EDT 09/25/2024 6:01 PM EDT Narrative [facility] - 09/25/2024 7:24 PM EDT >=10 mIU/mL is considered to be consistent with immunity. us Jp Santiago PIPE ORGAN INSTALLER LAB BLOOD ORDERABLES Final Result [facility] [address] [place] [address], * (ABNORMAL) Complete blood count (09/25/2024 9:00 AM EDT) [facility] WBC 7.6 4.8 - 10.8 K/mcL LAB HEMETOLOGY METHOD 09/25/2024 7:21 PM EDT [facility] RBC 4.60 4.50 - 5.50 M/mcL LAB HEMETOLOGY METHOD 09/25/2024 7:21 PM EDT [facility] Hemoglobin 13.7 13.5 - 17.5 g/dL LAB HEMETOLOGY METHOD 09/25/2024 7:21 PM EDT [facility] Hematocrit 42.6 42.0 - 54.0 % LAB HEMETOLOGY METHOD 09/25/2024 7:21 PM EDT [facility] MCV 92.6 79.0 - 98.0 FL LAB HEMETOLOGY METHOD 09/25/2024 7:21 PM EDT [facility] MCH 29.8 27.0 - 32.0 pcg LAB HEMETOLOGY METHOD 09/25/2024 7:21 PM EDT [facility] MCHC 32.2 32.0 - 37.0 g/dL LAB HEMETOLOGY METHOD 09/25/2024 7:21 PM EDT [facility] RDW 13.5 11.0 - 15.0 % LAB HEMETOLOGY METHOD 09/25/2024 7:21 PM EDT [facility] Platelets 254 130 - 400 K/mcL LAB HEMETOLOGY METHOD 09/25/2024 7:21 PM EDT [facility] MPV 11.2(H) 7.0 - 11.0 FL LAB HEMETOLOGY METHOD 09/25/2024 7:21 PM EDT [facility] NRBC 0.0 <1.0 % LAB HEMETOLOGY METHOD 09/25/2024 7:21 PM EDT [facility] NRBC Absolute 0.00 <0.10 K/mcL LAB HEMETOLOGY METHOD 09/25/2024 7:21 PM EDT [facility] Blood Venous blood specimen / Unknown 09/25/2024 9:00 AM EDT 09/25/2024 6:01 PM EDT us Jp Santiago PIPE ORGAN INSTALLER LAB BLOOD ORDERABLES Final Result [facility] [address] [place] [address], * Triiodothyronine free (09/25/2024 9:00 AM EDT) T3, Free 344 230 - 420 pcg/dL LAB CHEMISTRY METHOD 09/25/2024 8:15 PM EDT [facility] Blood Venous blood specimen / Unknown 09/25/2024 9:00 AM EDT 09/25/2024 6:01 PM EDT us Jp Santiago PIPE ORGAN INSTALLER LAB BLOOD ORDERABLES Final Result [facility] [address] [place] [address], [place] [phone] * (ABNORMAL) Comprehensive metabolic panel (09/25/2024 9:00 AM EDT) Sodium 138 133 - 145 mmol/L LAB CHEMISTRY METHOD 09/25/2024 7:20 PM EDT [facility] Potassium 4.3 3.5 - 5.5 mmol/L LAB CHEMISTRY METHOD 09/25/2024 7:20 PM [facility] Chloride 107 96 - 110 mmol/L LAB CHEMISTRY METHOD 09/25/2024 7:20 PM [facility] CO2 26 21 - 32 mmol/L LAB CHEMISTRY METHOD 09/25/2024 7:20 PM [facility] Anion Gap 5 3 - 11 LAB CHEMISTRY METHOD 09/25/2024 7:20 PM [facility] Glucose 124(H) 70 - 100 mg/dL LAB CHEMISTRY METHOD 09/25/2024 7:20 PM [facility] BUN 14 5 - 25 mg/dL LAB CHEMISTRY METHOD 09/25/2024 7:20 PM [facility] Creatinine 0.76 0.70 - 1.30 mg/dL LAB CHEMISTRY METHOD 09/25/2024 7:20 PM [facility] eGFR 119 >=60 mL/min/1. 73m2 LAB CHEMISTRY METHOD 09/25/2024 7:20 PM [facility] Comment:Calculation based on the??Chronic Kidney Disease Epidemiology Collaboration (CKD-EPI) equation refit??without adjustment for race. BUN/Creatinine Ratio 18.4 LAB CHEMISTRY METHOD 09/25/2024 7:20 PM [facility] Calcium 9.4 8.5 - 10.5 mg/dL LAB CHEMISTRY METHOD 09/25/2024 7:20 PM EDT [facility] AST (SGOT) 40 10 - 42 unit/L LAB CHEMISTRY METHOD 09/25/2024 7:20 PM EDT [facility] ALT (SGPT) 85(H) 10 - 60 unit/L LAB CHEMISTRY METHOD 09/25/2024 7:20 PM EDT [facility] Alkaline Phosphatase 94 42 - 121 unit/L LAB CHEMISTRY METHOD 09/25/2024 7:20 PM EDT [facility] Total Protein 7.5 6.0 - 8.0 g/dL LAB CHEMISTRY METHOD 09/25/2024 7:20 PM EDT [facility] Albumin 3.6 3.2 - 5.0 g/dL LAB CHEMISTRY METHOD 09/25/2024 7:20 PM EDT [facility] Total Bilirubin 0.3 0.0 - 1.4 mg/dL LAB CHEMISTRY METHOD 09/25/2024 7:20 PM EDT [facility] Blood Venous blood specimen / Unknown 09/25/2024 9:00 AM EDT 09/25/2024 6:01 PM EDT us Jp Santiago PIPE ORGAN INSTALLER LAB BLOOD ORDERABLES Final Result [facility] [address] [place] [address], from Last 3 Months Insurance MEDICAID - [place] Care Teams Duster Tender Relationship Specialty Start Date End Date Grant Moreno MD [address] [place] [phone] PCP - General 05/29/22
--- OUTSIDE RECORDS SUMMARY | 2024-11-01 13:57 | XMS_ITS | Referral Summary ---
Author Organization [facility] Address [address] [place] [address] Care Team Providers Care Sugar Cane Farm Manager Name Role Phone Patient, Has No Pcp Or Ref Primary Care Provider Unavailable Encounters Date Type Department Care Team Description 08/06/2024 7:56 PM EST - 08/07/2024 2:10 AM EST Emergency [facility] Emergency Department [address] [place] [phone] Nitin Hairston II, MD Lindsay, Robert [...] Not on file Procedures * Due to [place] state law, this organization might not be sharing negative HIV tests. Procedure Name Priority Date/Time Associated Diagnosis Comments CT MAXILLOFACIAL BONES WO CONTRAST STAT 08/06/2024 11:[address] CERVICAL SPINE WO CONTRAST STAT 08/06/2024 11:[address] HEAD WO CONTRAST STAT 08/06/2024 1 1:15 PM EST from Last 3 Months Results * Due to [place] state law, this organization might not be [...] obtain the completed interpretation. ? Workstation ID: [id number] Up-to-date CT equipment and radiation dose reduction techniques were employed. CTDIvol: 34.8 - 121.6 mGy. DLP: 4357 mGy-cm. ??The following accession numbers are related to this dose report [id number]: [id number] Up-to-date CT equipment and radiation dose reduction techniques were employed. CTDIvol: 34.8 - 121.6 mGy. DLP: 4357 mGy-cm. ??The following accession numbers are related to this dose report [id number]: [id number] Up-to-date CT equipment and radiation dose reduction techniques were employed. CTDIvol: 34.8 - 121.6 mGy. DLP: 4357 mGy-cm. ??The following accession numbers are related to this dose report [id number]: [id number] Narrative 08/07/2024 12:47 AM EST PROCEDURE: CT [...] clear. ??Lung apices clear. Resulting Agency Comment [id number] Procedure Note Kun Baltazar MD - 08/07/2024 [...] possible to obtain thecompleted interpretation. Workstation ID: [id number] Up-to-date CT equipment and radiation dose reduction techniques wereemployed. CTDIvol: 34.8 - 121.6 mGy. DLP: 4357 mGy-cm. The followingaccession numbers are related to this dose report [id number]: [id number] Up-to-date CT equipment and radiation dose reduction techniques wereemployed. CTDIvol: 34.8 - 121.6 mGy. DLP: 4357 mGy-cm. The followingaccession numbers are related to this dose report [id number]: [id number] Up-to-date CT equipment and radiation dose reduction techniques wereemployed. CTDIvol: 34.8 - 121.6 mGy. DLP: 4357 mGy-cm. The followingaccession numbers are related to this dose report [id number]: [id number] Nitin Hairston II, MD IMEdna CT PROCEDURES [...] obtain the completed interpretation. ? Workstation ID: [id number] Up-to-date CT equipment and radiation dose reduction techniques were employed. CTDIvol: 34.8 - 121.6 mGy. DLP: 4357 mGy-cm. ??The following accession numbers are related to this dose report [id number]: [id number] Up-to-date CT equipment and radiation dose reduction techniques were employed. CTDIvol: 34.8 - 121.6 mGy. DLP: 4357 mGy-cm. ??The following accession numbers are related to this dose report [id number]: [id number] Up-to-date CT equipment and radiation dose reduction techniques were employed. CTDIvol: 34.8 - 121.6 mGy. DLP: 4357 mGy-cm. ??The following accession numbers are related to this dose report [id number]: [id number] Narrative 08/07/2024 12:47 AM EST PROCEDURE: CT [...] clear. ??Lung apices clear. Resulting Agency Comment [id number] Procedure Note Kun Baltazar MD - 08/07/2024 [...] possible to obtain thecompleted interpretation. Workstation ID: [id number] Up-to-date CT equipment and radiation dose reduction techniques wereemployed. CTDIvol: 34.8 - 121.6 mGy. DLP: 4357 mGy-cm. The followingaccession numbers are related to this dose report [id number]: [id number] Up-to-date CT equipment and radiation dose reduction techniques wereemployed. CTDIvol: 34.8 - 121.6 mGy. DLP: 4357 mGy-cm. The followingaccession numbers are related to this dose report [id number]: [id number] Up-to-date CT equipment and radiation dose reduction techniques wereemployed. CTDIvol: 34.8 - 121.6 mGy. DLP: 4357 mGy-cm. The followingaccession numbers are related to this dose report [id number]: [id number] Nitin Hairston II, MD IMEdna CT PROCEDURES [...] obtain the completed interpretation. ? Workstation ID: [id number] Up-to-date CT equipment and radiation dose reduction techniques were employed. CTDIvol: 34.8 - 121.6 mGy. DLP: 4357 mGy-cm. ??The following accession numbers are related to this dose report [id number]: [id number] Up-to-date CT equipment and radiation dose reduction techniques were employed. CTDIvol: 34.8 - 121.6 mGy. DLP: 4357 mGy-cm. ??The following accession numbers are related to this dose report [id number]: [id number] Up-to-date CT equipment and radiation dose reduction techniques were employed. CTDIvol: 34.8 - 121.6 mGy. DLP: 4357 mGy-cm. ??The following accession numbers are related to this dose report [id number]: [id number] Narrative 08/07/2024 12:47 AM EST PROCEDURE: CT [...] clear. ??Lung apices clear. Resulting Agency Comment [id number] Procedure Note Kun Baltazar MD - 08/07/2024 [...] possible to obtain thecompleted interpretation. Workstation ID: [id number] Up-to-date CT equipment and radiation dose reduction techniques wereemployed. CTDIvol: 34.8 - 121.6 mGy. DLP: 4357 mGy-cm. The followingaccession numbers are related to this dose report [id number]: [id number] Up-to-date CT equipment and radiation dose reduction techniques wereemployed. CTDIvol: 34.8 - 121.6 mGy. DLP: 4357 mGy-cm. The followingaccession numbers are related to this dose report [id number]: [id number] Up-to-date CT equipment and radiation dose reduction techniques wereemployed. CTDIvol: 34.8 - 121.6 mGy. DLP: 4357 mGy-cm. The followingaccession numbers are related to this dose report [id number]: [id number] Nitin Hairston II, MD IMG CT PROCEDURES Final Re sult from Last [address] [place] [address] MEDICAID Care Teams Sugar Cane Farm Manager Relationship Specialty Start Date End Date Patient, Has No Pcp Or Ref DO NOT EDIT THIS RECORD VIA PROVIDER ON THE FLY PCP - General Buffing Wheel Operator 08/06/24
[2024-11-01 14:47] VITALS: BMI 51.1
[2024-11-01 15:00] VITALS: BP 130/79; PULSE 96; RESP 18; TEMP 36.9; O2SAT 96
[2024-11-01 15:43] LABS: Alanine Aminotransferase 81 U/L (0-40); Albumin Level 4.1 g/dL (3.5-5.0); Alkaline Phosphatase 73 U/L (39-117); Anion Gap 11 (12-20); Aspartate Amino Transferase 49 U/L (5-37); Bilirubin Total 0.6 mg/dL (0.0-1.0); Blood Urea Nitrogen 14 mg/dL (9-16); Calcium 9.9 mg/dL (8.4-10.2); Carbon Dioxide 25 mmol/L (22-29); Chloride 109 mmol/L (96-108); Creatinine Clr Calc Pharmacy 179.2; Estimated Glomerular Filt Rate > 60; Glucose Random 118 mg/dL (60-115); Potassium 3.9 mmol/L (3.3-5.1); Sodium 141 mmol/L (135-145); Total Protein 7.8 g/dL (6.5-8.0)
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
[2024-11-01 20:00] VITALS: BP 149/85; PULSE 92; RESP 16; TEMP 36.2; O2SAT 96
[2024-11-01] MEDS: cloNIDine HCL 0.1 MG TABLET PO (21:59)
[2024-11-01] MEDS: Melatonin 3 MG TABLET 6 MG PO (21:59)
[2024-11-01] MEDS: traZODone HCL 100 MG TABLET PO (21:59)
[2024-11-01] MEDS: Hydrocortisone 1 % Cream 28.35 GM TUBE 1 APPL TOPICAL (22:00)
[2024-11-02 07:00] VITALS: BMI 51.8
[2024-11-02 08:00] VITALS: BP 135/88; PULSE 88; TEMP 36.4; O2SAT 97
[2024-11-02] MEDS: Apixaban 5 MG TABLET PO ×2 (08:28→22:19)
[2024-11-02 09:18] LABS: Estimated Average Glucose 137 mg/dL; Hemoglobin A1c % 6.4 % (<6.0); Total Hemoglobin (HGBA1C) 3866.8053 umol/L
[2024-11-02 09:28] LABS: Cholesterol 177 mg/dL (<200); HDL Cholesterol 34 mg/dL (>40); LDL Cholesterol Calculated 114 mg/dL (<100); Triglycerides 149 mg/dL (<150)
[2024-11-02 09:42] LABS: TSH reflex Free T4 6.85 uIU/mL (0.32-4.0)
[2024-11-02 10:26] LABS: Free T4 (Free Thyroxine) 0.73 ng/dL (0.71-1.85)
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
[2024-11-02] MEDS: Atorvastatin Calcium 20 MG TABLET PO (13:48)
[2024-11-02] MEDS: buPROPion HCl XL 300 MG TAB.ER.24H PO (13:48)
[2024-11-02 20:00] VITALS: BP 139/89; PULSE 104; RESP 16; TEMP 36.7; O2SAT 96
[2024-11-02] MEDS: Melatonin 3 MG TABLET 6 MG PO (22:10)
[2024-11-02 22:13] VITALS: BP 140/81
[2024-11-02] MEDS: cloNIDine HCL 0.1 MG TABLET PO (22:13)
[2024-11-02] MEDS: Acetaminophen 325 MG TABLET 650 MG PO (22:14)
[2024-11-02] MEDS: traZODone HCL 100 MG TABLET PO (22:19)
[2024-11-03 08:14] VITALS: BP 135/62; PULSE 86; RESP 16; TEMP 36.4; O2SAT 96
[2024-11-03] MEDS: Apixaban 5 MG TABLET PO ×2 (08:47→21:42)
[2024-11-03] MEDS: Atorvastatin Calcium 20 MG TABLET PO (08:47)
[2024-11-03] MEDS: buPROPion HCl XL 300 MG TAB.ER.24H PO (08:47)
[2024-11-03] MEDS: Lidocaine 4 % Patch ADH..PATCH 1 PATCH TRANSDERMA (08:57)
[2024-11-03] MEDS: Acetaminophen 325 MG TABLET 650 MG PO ×2 (08:57→16:19)
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
[2024-11-03 19:57] VITALS: BP 132/70; PULSE 93; RESP 18; TEMP 36.5; O2SAT 96
[2024-11-03] MEDS: traZODone HCL 100 MG TABLET 300 MG PO (21:42)
[2024-11-03] MEDS: Melatonin 3 MG TABLET 6 MG PO (21:43)
[2024-11-03] MEDS: hydrOXYzine HCL 25 MG TABLET PO (21:43)
[2024-11-03] MEDS: cloNIDine HCL 0.1 MG TABLET PO (21:44)
[2024-11-04 08:00] VITALS: BP 115/63; PULSE 100; TEMP 36.9; O2SAT 95
[2024-11-04] MEDS: Lidocaine 4 % Patch ADH..PATCH 1 PATCH TRANSDERMA (08:50)
[2024-11-04] MEDS: Atorvastatin Calcium 20 MG TABLET PO (08:50)
[2024-11-04] MEDS: buPROPion HCl XL 300 MG TAB.ER.24H PO (08:50)
[2024-11-04] MEDS: Apixaban 5 MG TABLET PO ×2 (08:51→22:18)
--- NOTE | 2024-11-04 10:53 | HO.PSYCHPN ---
Subjective Subjective Date of Service: 11/04/24 Reason For Visit: depression/SI Subjective Notes: Conditional Voluntary Interim History: Patient was seen and discussed in rounds today. Records and plans were reviewed. He has been compliant with medications. No complaints or side effects. Still awaiting his right shoulder x-ray which could not be done yesterday because we did not have adequate staffing. Attending groups. No SI/AVH. No changes were made today Review of Systems Review of Systems Right shoulder discomfort Yes all other systems are reviewed and are negative Mental Status Exam Mental Status Exam Narrative: In today's visit he is alert, oriented and pleasant. Normal speech. Minimal eye contact. Affect is appropriate and constricted. No signs of psychosis. No AVH. Cognitively is grossly intact. Able to move all limbs. No gait abnormalities. Judgment is intact Diagnostics Vital Signs (24Hr): Vital Signs - 24 hr 11/03/24 19:57 11/04/24 08:00 Temperature 97.7 F 98.4 F Pulse Rate 93 100 Respiratory Rate 18 Blood Pressure 132/70 115/63 Pulse Oximetry 96 95 Oxygen Delivery Method Room Air Room Air BMI result Body Mass Index 51.8 Labs 11/01/24 11:09 11/01/24 15:24 Medications Medications Current Medications Acetaminophen (Acetaminophen 325 Mg Tablet) 650 mg PO Q6H PRN PRN Reason: Headache/Pain, Scale 1-10 Last Admin: 11/03/24 16:19 Dose: 650 mg Al Hydroxide/Mg Hydroxide (Magnesium Hydrox/Alum Hydrox 30 Ml Oral.Susp) 30 ml PO Q6H PRN PRN Reason: Heartburn/Nausea Apixaban (Apixaban 5 Mg Tablet) 5 mg PO BID [facility] Last Admin: 11/04/24 08:51 Dose: 5 mg Atorvastatin Calcium (Atorvastatin Calcium 20 Mg Tablet) 20 mg PO DAILY [facility] Last Admin: 11/04/24 08:50 Dose: 20 mg Bupropion HCl (Bupropion Hcl Xl 300 Mg Tab.Er.24h) 300 mg PO DAILY [facility] Last Admin: 11/04/24 08:50 Dose: 300 mg Clonidine HCl (Clonidine Hcl 0.1 Mg Tablet) 0.1 mg PO Q4H PRN; Protocol PRN Reason: moderate anxiety Last Admin: 11/03/24 21:44 Dose: 0.1 mg Hydrocortisone (Hydrocortisone 1 % Cream 28.35 Gm Tube) 1 appl TOPICAL DAILY PRN; Protocol PRN Reason: b/l forearm rash Last Admin: 11/01/24 22:00 Dose: 1 appl Hydroxyzine HCl (Hydroxyzine Hcl 25 Mg Tablet) 25 mg PO Q6H PRN PRN Reason: mild anxiety Last Admin: 11/03/24 21:43 Dose: 25 mg Lidocaine (Lidocaine 4 % Patch Adh..Patch) 1 patch TRANSDERMA DAILY [facility]; Protocol Last Admin: 11/04/24 08:50 Dose: 1 patch Magnesium Hydroxide (Milk Of Magnesia 30 Ml Oral.Susp) 30 ml PO DAILY PRN PRN Reason: Constipation Melatonin (Melatonin 3 Mg Tablet) 6 mg PO BEDTIME [facility] Last Admin: 11/03/24 21:43 Dose: 6 mg Nicotine (Nicotine 21 Mg Patch.Td24) 21 mg TRANSDERMA DAILY PRN PRN Reason: smoking cessation Nicotine Polacrilex (Nicotine Polacrilex 2 Mg Gum) 4 mg BUCCAL Q2H PRN PRN Reason: Nicotine Cravings Olanzapine (Olanzapine 5 Mg Tablet) 5 mg PO TID PRN PRN Reason: agitation Trazodone HCl (Trazodone Hcl 100 Mg Tablet) 300 mg PO BEDTIME [facility] Last Admin: 11/03/24 21:42 Dose: 300 mg Allergies Allergies Allergy/AdvReac Type Severity Reaction Status Date / Time No Known Allergies Allergy Verified 11/01/24 10:35 Assessment & Plan Assessment & Plan (1) MDD (major depressive disorder), recurrent episode: Status: Acute Code(s): F33.9 - Major depressive disorder, recurrent, unspecified Assessment and Plan: Admit to M5. CV 15 minutes check. Diagnostics as needed. Collateral contact. Bupropion XL 300 mg daily ordered. Continue remainder of regime. Encouraged full milieu. Discharge planning. 11/03: TSH repeat 11/06. Chest xray- PE 08/2024, pt wanting to stop eliquis R shoulder x ray Increase Trazodone to 300 mg HS 11/04: Continue current plans and regimen (2) Suicidal ideation: Status: Acute Code(s): R45.851 - Suicidal ideations Assessment and Plan: Plan as above. (3) Polysubstance abuse: Status: Acute Code(s): F19.10 - Other psychoactive substance abuse, uncomplicated Assessment and Plan: Plan as above. (4) Right shoulder pain: Status: Acute Code(s): M25.511 - Pain in right shoulder Assessment and Plan: Continue current treatment regime. (5) Numbness of upper extremity: Status: Acute Code(s): R20.0 - Anesthesia of skin Assessment and Plan: BUE numbness. Continue current regime. Reason for continued inpatient stay Substantial Risk for: med/psych decompensation Time Spent With Patient Time: Total time managing care of this patient today ____ minutes.
[2024-11-04 20:00] VITALS: BP 135/64; PULSE 95; RESP 18; TEMP 37; O2SAT 98
[2024-11-04] MEDS: traZODone HCL 100 MG TABLET 300 MG PO (22:18)
[2024-11-04] MEDS: Melatonin 3 MG TABLET 6 MG PO (22:19)
[2024-11-04] MEDS: Acetaminophen 325 MG TABLET 650 MG PO (22:19)
[2024-11-05 08:00] VITALS: BP 144/88; PULSE 104; TEMP 36.4; O2SAT 94
[2024-11-05] MEDS: Lidocaine 4 % Patch ADH..PATCH 1 PATCH TRANSDERMA (08:51)
[2024-11-05] MEDS: Apixaban 5 MG TABLET PO ×2 (08:52→21:49)
[2024-11-05] MEDS: Atorvastatin Calcium 20 MG TABLET PO (08:52)
[2024-11-05] MEDS: buPROPion HCl XL 300 MG TAB.ER.24H PO (08:52)
--- NOTE | 2024-11-05 09:55 | HO.PSYCHPN ---
Subjective Subjective Date of Service: 11/05/24 Reason For Visit: depression/SI Subjective Notes: Conditional Voluntary Interim History: Patient was seen and discussed in rounds today. Records and plans were reviewed. He is stable and continues to have some right shoulder complaints. His chest and shoulder x-rays did not show any acute findings. Some degenerative issues. No SI. No complaints or side effects. No changes were made today Diagnostics Vital Signs (24Hr): Vital Signs - 24 hr 11/04/24 20:00 11/05/24 08:00 Temperature 98.6 F 97.5 F Pulse Rate 95 104 H Respiratory Rate 18 Blood Pressure 135/64 144/88 H Pulse Oximetry 98 94 Oxygen Delivery Method Room Air Room Air BMI result Body Mass Index 51.8 Labs 11/01/24 11:09 11/01/24 15:24 Medications Medications Current Medications Acetaminophen (Acetaminophen 325 Mg Tablet) 650 mg PO Q6H PRN PRN Reason: Headache/Pain, Scale 1-10 Last Admin: 11/04/24 22:19 Dose: 650 mg Al Hydroxide/Mg Hydroxide (Magnesium Hydrox/Alum Hydrox 30 Ml Oral.Susp) 30 ml PO Q6H PRN PRN Reason: Heartburn/Nausea Apixaban (Apixaban 5 Mg Tablet) 5 mg PO BID [facility] Last Admin: 11/05/24 08:52 Dose: 5 mg Atorvastatin Calcium (Atorvastatin Calcium 20 Mg Tablet) 20 mg PO DAILY [facility] Last Admin: 11/05/24 08:52 Dose: 20 mg Bupropion HCl (Bupropion Hcl Xl 300 Mg Tab.Er.24h) 300 mg PO DAILY [facility] Last Admin: 11/05/24 08:52 Dose: 300 mg Clonidine HCl (Clonidine Hcl 0.1 Mg Tablet) 0.1 mg PO Q4H PRN; Protocol PRN Reason: moderate anxiety Last Admin: 11/03/24 21:44 Dose: 0.1 mg Hydrocortisone (Hydrocortisone 1 % Cream 28.35 Gm Tube) 1 appl TOPICAL DAILY PRN; Protocol PRN Reason: b/l forearm rash Last Admin: 11/01/24 22:00 Dose: 1 appl Hydroxyzine HCl (Hydroxyzine Hcl 25 Mg Tablet) 25 mg PO Q6H PRN PRN Reason: mild anxiety Last Admin: 11/03/24 21:43 Dose: 25 mg Lidocaine (Lidocaine 4 % Patch Adh..Patch) 1 patch TRANSDERMA DAILY [facility]; Protocol Last Admin: 11/05/24 08:51 Dose: 1 patch Magnesium Hydroxide (Milk Of Magnesia 30 Ml Oral.Susp) 30 ml PO DAILY PRN PRN Reason: Constipation Melatonin (Melatonin 3 Mg Tablet) 6 mg PO BEDTIME [facility] Last Admin: 11/04/24 22:19 Dose: 6 mg Nicotine (Nicotine 21 Mg Patch.Td24) 21 mg TRANSDERMA DAILY PRN PRN Reason: smoking cessation Nicotine Polacrilex (Nicotine Polacrilex 2 Mg Gum) 4 mg BUCCAL Q2H PRN PRN Reason: Nicotine Cravings Olanzapine (Olanzapine 5 Mg Tablet) 5 mg PO TID PRN PRN Reason: agitation Trazodone HCl (Trazodone Hcl 100 Mg Tablet) 300 mg PO BEDTIME [facility] Last Admin: 11/04/24 22:22 Dose: Not Given Allergies Allergies Allergy/AdvReac Type Severity Reaction Status Date / Time No Known Allergies Allergy Verified 11/01/24 10:35 Assessment & Plan Assessment & Plan (1) MDD (major depressive disorder), recurrent episode: Status: Acute Code(s): F33.9 - Major depressive disorder, recurrent, unspecified Assessment and Plan: Admit to . CV 15 minutes check. Diagnostics as needed. Collateral contact. Bupropion XL 300 mg daily ordered. Continue remainder of regime. Encouraged full milieu. Discharge planning. 11/03: TSH repeat 11/06. Chest xray- PE 08/2024, pt wanting to stop eliquis R shoulder x ray Increase Trazodone to 300 mg HS 11/04: Continue current plans and regimen 11/05: Continue current plans and regimen (2) Suicidal ideation: Status: Acute Code(s): R45.851 - Suicidal ideations Assessment and Plan: Plan as above. (3) Polysubstance abuse: Status: Acute Code(s): F19.10 - Other psychoactive substance abuse, uncomplicated Assessment and Plan: Plan as above. (4) Right shoulder pain: Status: Acute Code(s): M25.511 - Pain in right shoulder Assessment and Plan: Continue current treatment regime. (5) Numbness of upper extremity: Status: Acute Code(s): R20.0 - Anesthesia of skin Assessment and Plan: BUE numbness. Continue current regime. Reason for continued inpatient stay Substantial Risk for: med/psych decompensation Time Spent With Patient Time: Total time managing care of this patient today ____ minutes.
[2024-11-05 20:00] VITALS: BP 148/86; PULSE 88; RESP 16; TEMP 36.4; O2SAT 93
[2024-11-05] MEDS: traZODone HCL 100 MG TABLET 300 MG PO (21:49)
[2024-11-05] MEDS: Acetaminophen 325 MG TABLET 650 MG PO (21:49)
[2024-11-05] MEDS: Magnesium Hydrox/Alum Hydrox 30 ML ORAL.SUSP PO (21:49)
[2024-11-05] MEDS: Melatonin 3 MG TABLET 6 MG PO (21:50)
[2024-11-06 08:00] VITALS: BP 123/73; PULSE 86; RESP 18; TEMP 36.9; O2SAT 95
[2024-11-06] MEDS: buPROPion HCl XL 300 MG TAB.ER.24H PO (09:11)
[2024-11-06] MEDS: Atorvastatin Calcium 20 MG TABLET PO (09:11)
[2024-11-06] MEDS: Apixaban 5 MG TABLET PO ×2 (09:11→22:01)
[2024-11-06] MEDS: Lidocaine 4 % Patch ADH..PATCH 1 PATCH TRANSDERMA (09:12)
--- NOTE | 2024-11-06 09:36 | P.PNPSI_ITS ---
Subjective Subjective Date of Service: 11/06/24 Reason For Visit: depression/SI Interim History: Met w/pt; discussed with team; reviewed chart Patient reports that he is doing better that his mood is better. He says he is no longer waking up with negative thoughts and denies any SI; denies any AVH. Patient reports that he was oversedated with trazodone 300mg and asks to lower it to 200mg Mental Status Exam Mental Status Exam Narrative: Pt is alert and oriented; behavior is cooperative, friendly and calm; patient is not in distress; dressed in casual attire, adequate hygiene, bald; mood is described as better though affect still somewhat constricted; eye contact appropriate; Speech is normal rate, volume and prosody and not pressured; no psychomotor agitation/retardation present; thought process is goal directed; Thought content is on tx; otherwise pertinent to relevant topics and without any delusional content, paranoid ideations or grandiosity; denies any SI/HI. Denies AVH and there is no evidence of perceptual disturbance. Patients insight and judgment appear intact. Diagnostics Vital Signs (24Hr): Vital Signs - 24 hr 11/05/24 20:00 Temperature 97.6 F Pulse Rate 88 Respiratory Rate 16 Blood Pressure 148/86 H Pulse Oximetry 93 Oxygen Delivery Method Room Air BMI result Body Mass Index 51.8 Labs 11/01/24 11:09 11/01/24 15:24 Medications Medications Current Medications Acetaminophen (Acetaminophen 325 Mg Tablet) 650 mg PO Q6H PRN PRN Reason: Headache/Pain, Scale 1-10 Last Admin: 11/05/24 21:49 Dose: 650 mg Al Hydroxide/Mg Hydroxide (Magnesium Hydrox/Alum Hydrox 30 Ml Oral.Susp) 30 ml PO Q6H PRN PRN Reason: Heartburn/Nausea Last Admin: 11/05/24 21:49 Dose: 30 ml Apixaban (Apixaban 5 Mg Tablet) 5 mg PO BID [facility] Last Admin: 11/06/24 09:11 Dose: 5 mg Atorvastatin Calcium (Atorvastatin Calcium 20 Mg Tablet) 20 mg PO DAILY [facility] Last Admin: 11/06/24 09:11 Dose: 20 mg Bupropion HCl (Bupropion Hcl Xl 300 Mg Tab.Er.24h) 300 mg PO DAILY [facility] Last Admin: 11/06/24 09:11 Dose: 300 mg Clonidine HCl (Clonidine Hcl 0.1 Mg Tablet) 0.1 mg PO Q4H PRN; Protocol PRN Reason: moderate anxiety Last Admin: 11/03/24 21:44 Dose: 0.1 mg Hydrocortisone (Hydrocortisone 1 % Cream 28.35 Gm Tube) 1 appl TOPICAL DAILY PRN; Protocol PRN Reason: b/l forearm rash Last Admin: 11/01/24 22:00 Dose: 1 appl Hydroxyzine HCl (Hydroxyzine Hcl 25 Mg Tablet) 25 mg PO Q6H PRN PRN Reason: mild anxiety Last Admin: 11/03/24 21:43 Dose: 25 mg Lidocaine (Lidocaine 4 % Patch Adh..Patch) 1 patch TRANSDERMA DAILY [facility]; Protocol Last Admin: 11/06/24 09:12 Dose: 1 patch Magnesium Hydroxide (Milk Of Magnesia 30 Ml Oral.Susp) 30 ml PO DAILY PRN PRN Reason: Constipation Melatonin (Melatonin 3 Mg Tablet) 6 mg PO BEDTIME [facility] Last Admin: 11/05/24 21:50 Dose: 6 mg Nicotine (Nicotine 21 Mg Patch.Td24) 21 mg TRANSDERMA DAILY PRN PRN Reason: smoking cessation Nicotine Polacrilex (Nicotine Polacrilex 2 Mg Gum) 4 mg BUCCAL Q2H PRN PRN Reason: Nicotine Cravings Olanzapine (Olanzapine 5 Mg Tablet) 5 mg PO TID PRN PRN Reason: agitation Trazodone HCl (Trazodone Hcl 100 Mg Tablet) 300 mg PO BEDTIME [facility] Last Admin: 11/05/24 21:49 Dose: 300 mg Allergies Allergies Allergy/AdvReac Type Severity Reaction Status Date / Time No Known Allergies Allergy Verified 11/01/24 10:35 Assessment & Plan Assessment & Plan (1) MDD (major depressive disorder), recurrent episode: Status: Acute Code(s): F33.9 - Major depressive disorder, recurrent, unspecified (2) Suicidal ideation: Status: Acute Code(s): R45.851 - Suicidal ideations Assessment and Plan: Plan as above. (3) Polysubstance abuse: Status: Acute Code(s): F19.10 - Other psychoactive substance abuse, uncomplicated Assessment and Plan: Plan as above. (4) Right shoulder pain: Status: Acute Code(s): M25.511 - Pain in right shoulder Assessment and Plan: Continue current treatment regime. (5) Numbness of upper extremity: Status: Acute Code(s): R20.0 - Anesthesia of skin Assessment and Plan: BUE numbness. Continue current regime. Plan Admit to M5. CV 15 minutes check. Diagnostics as needed. Collateral contact. Bupropion XL 300 mg daily ordered. Continue remainder of regime. Encouraged full milieu. Discharge planning. 11/03: TSH repeat 11/06. Chest xray- PE 08/2024, pt wanting to stop eliquis R shoulder x ray Increase Trazodone to 300 mg HS 11/04: Continue current plans and regimen 11/05: Continue current plans and regimen 11/06 Patient reports that he is doing better that his mood is better. He says he is no longer waking up with negative thoughts and denies any SI; denies any AVH. Patient reports that he was oversedated with trazodone 300mg and asks to lower it to 200mg -lower trazodone to 200 mg q.h.s. -add p.r.n. trazodone 50 mg p.r.n. for continued insomnia Patient educated on: diagnosis and medication risk/benefits Informed Consent: understands Reason for continued inpatient stay Substantial Risk for: rapid decompensation Time Spent With Patient Time: Total time managing care of this patient today ____ minutes.
[2024-11-06 09:44] LABS: Thyroid Stimulating Hormone 6.35 uIU/mL (0.32-4.0)
[2024-11-06] MEDS: Loperamide HCl 2 MG CAPSULE PO ×2 (10:02→14:34)
[2024-11-06 11:33] LABS: Influenza A PCR NEGATIVE (Negative); Influenza B PCR NEGATIVE (Negative); Resp Syncy Virus RNA Qual PCR NEGATIVE (Negative); SARS COV2 PCR INHOUSE NEGATIVE (Negative)
[2024-11-06 20:00] VITALS: BP 130/63; PULSE 84; RESP 16; TEMP 36.8; O2SAT 97
[2024-11-06] MEDS: hydrOXYzine HCL 25 MG TABLET PO (22:01)
[2024-11-06] MEDS: Acetaminophen 325 MG TABLET 650 MG PO (22:01)
[2024-11-06] MEDS: Melatonin 3 MG TABLET 6 MG PO (22:02)
[2024-11-06] MEDS: traZODone HCL 100 MG TABLET 200 MG PO (22:02)
[2024-11-07 08:00] VITALS: BP 118/58; PULSE 84; RESP 18; TEMP 36.9; O2SAT 97
[2024-11-07] MEDS: Lidocaine 4 % Patch ADH..PATCH 1 PATCH TRANSDERMA (08:32)
[2024-11-07] MEDS: Atorvastatin Calcium 20 MG TABLET PO (08:33)
[2024-11-07] MEDS: Apixaban 5 MG TABLET PO ×2 (08:33→22:25)
[2024-11-07] MEDS: buPROPion HCl XL 300 MG TAB.ER.24H PO (08:33)
[2024-11-07] MEDS: Loperamide HCl 2 MG CAPSULE PO (09:03)
--- NOTE | 2024-11-07 15:12 | P.PNPSI_ITS ---
Subjective Subjective Date of Service: 11/07/24 Reason For Visit: depression/SI Subjective Notes: Conditional Voluntary Healthcare Proxy: No Guardianship: No Medical Problems Affecting Mental Status: No Interim History: Pt reports diarrhea. He does not believe it is from recent Trazodone increase. Will proceed with a stool culture. TSH remains high from 11/06 lab. Discussed. Pt requests to DC Lidocaine Patch for Lidocaine cream which has been more helpful by hx. Pt learned today that [facility] will not accept his return until after 12/01/24. Team has discussed [facility] however pt declines these options He will consider respite, or will stay locally with his grandfather. He did express interest in PHP Medication Compliance: Yes Side effects from medications: No Attending Groups: Intermittent Review of Systems Acute medical concerns: No Review of Systems: TSH remains elevated. Review of Systems Review of Systems Diarrhea continues per pt report Shoulder pain-Lidocaine patch change to cream. Mental Status Exam Mental Status Exam Patient Appearance: Appropriate Patient Orientation: Person, Place, Time and Situation Level of Consciousness: Alert Patient Behavior: Talkative and Good Eye Contact Mood Description: Flat Affect Description: Flat Patient Cognition Impaired: No Ability to Follow Directions: Good Speech Pattern: Spontaneous Speech Memory Description: Intact Hallucinations: None Delusions: Not Present Thought Process: Goal Oriented Thought Content: positive for Goal Oriented and positive for Suicidal Ideation (denies) Depressive Symptoms: Thoughts of /Suicide (denies) Judgement: Fair Diagnostics Vital Signs (24Hr): Vital Signs - 24 hr 11/06/24 20:00 11/07/24 08:00 Temperature 98.2 F 98.5 F Pulse Rate 84 84 Respiratory Rate 16 18 Blood Pressure 130/63 118/58 L Pulse Oximetry 97 97 Oxygen Delivery Method Room Air Room Air BMI result Body Mass Index 51.8 Labs 11/01/24 11:09 11/01/24 15:24 Labs: Laboratory Results - last 48 hr 11/06/24 11/06/24 08:25 10:10 TSH 6.35 H Influenza Type A (PCR) NEGATIVE Influenza Type B (PCR) NEGATIVE RSV RNA Qual (PCR) NEGATIVE SARS-CoV-2 RNA (RT-PCR) NEGATIVE Medications Medications Current Medications Acetaminophen (Acetaminophen 325 Mg Tablet) 650 mg PO Q6H PRN PRN Reason: Headache/Pain, Scale 1-10 Last Admin: 11/06/24 22:01 Dose: 650 mg Al Hydroxide/Mg Hydroxide (Magnesium Hydrox/Alum Hydrox 30 Ml Oral.Susp) 30 ml PO Q6H PRN PRN Reason: Heartburn/Nausea Last Admin: 11/05/24 21:49 Dose: 30 ml Apixaban (Apixaban 5 Mg Tablet) 5 mg PO BID [facility] Last Admin: 11/07/24 08:33 Dose: 5 mg Atorvastatin Calcium (Atorvastatin Calcium 20 Mg Tablet) 20 mg PO DAILY [facility] Last Admin: 11/07/24 08:33 Dose: 20 mg Bupropion HCl (Bupropion Hcl Xl 300 Mg Tab.Er.24h) 300 mg PO DAILY [facility] Last Admin: 11/07/24 08:33 Dose: 300 mg Clonidine HCl (Clonidine Hcl 0.1 Mg Tablet) 0.1 mg PO Q4H PRN; Protocol PRN Reason: moderate anxiety Last Admin: 11/03/24 21:44 Dose: 0.1 mg Hydrocortisone (Hydrocortisone 1 % Cream 28.35 Gm Tube) 1 appl TOPICAL DAILY PRN; Protocol PRN Reason: b/l forearm rash Last Admin: 11/01/24 22:00 Dose: 1 appl Hydroxyzine HCl (Hydroxyzine Hcl 25 Mg Tablet) 25 mg PO Q6H PRN PRN Reason: mild anxiety Last Admin: 11/06/24 22:01 Dose: 25 mg Lidocaine (Lidocaine 5 % Ointment 35 Gm) 1 appl TOPICAL Q6H PRN; Protocol PRN Reason: Pain, Moderate(Pain Scale 4-6) Loperamide HCl (Loperamide Hcl 2 Mg Capsule) 2 mg PO Q6H PRN PRN Reason: loose stool Last Admin: 11/07/24 09:03 Dose: 2 mg Magnesium Hydroxide (Milk Of Magnesia 30 Ml Oral.Susp) 30 ml PO DAILY PRN PRN Reason: Constipation Melatonin (Melatonin 3 Mg Tablet) 6 mg PO BEDTIME [facility] Last Admin: 11/06/24 22:02 Dose: 6 mg Nicotine (Nicotine 21 Mg Patch.Td24) 21 mg TRANSDERMA DAILY PRN PRN Reason: smoking cessation Nicotine Polacrilex (Nicotine Polacrilex 2 Mg Gum) 4 mg BUCCAL Q2H PRN PRN Reason: Nicotine Cravings Olanzapine (Olanzapine 5 Mg Tablet) 5 mg PO TID PRN PRN Reason: agitation Trazodone HCl (Trazodone Hcl 100 Mg Tablet) 200 mg PO BEDTIME [facility] Last Admin: 11/06/24 22:02 Dose: 200 mg Trazodone HCl (Trazodone Hcl 50 Mg Tablet) 50 mg PO BEDTIME PRN PRN Reason: continued insomnia Allergies Allergies Allergy/AdvReac Type Severity Reaction Status Date / Time No Known Allergies Allergy Verified 11/01/24 10:35 Assessment & Plan Assessment & Plan (1) MDD (major depressive disorder), recurrent episode: Status: Acute Code(s): F33.9 - Major depressive disorder, recurrent, unspecified (2) Suicidal ideation: Status: Acute Code(s): R45.851 - Suicidal ideations Assessment and Plan: Plan as above. (3) Polysubstance abuse: Status: Acute Code(s): F19.10 - Other psychoactive substance abuse, uncomplicated Assessment and Plan: Plan as above. (4) Right shoulder pain: Status: Acute Code(s): M25.511 - Pain in right shoulder Assessment and Plan: Continue current treatment regime. (5) Numbness of upper extremity: Status: Acute Code(s): R20.0 - Anesthesia of skin Assessment and Plan: BUE numbness. Continue current regime. Plan Admit to M5. CV 15 minutes check. Diagnostics as needed. Collateral contact. Bupropion XL 300 mg daily ordered. Continue remainder of regime. Encouraged full milieu. Discharge planning. 11/03: TSH repeat 11/06. Chest xray- PE 08/2024, pt wanting to stop eliquis R shoulder x ray Increase Trazodone to 300 mg HS 11/04: Continue current plans and regimen 11/05: Continue current plans and regimen 11/06 Patient reports that he is doing better that his mood is better. He says he is no longer waking up with negative thoughts and denies any SI; denies any AVH. Patient reports that he was oversedated with trazodone 300mg and asks to lower it to 200mg -lower trazodone to 200 mg q.h.s. -add p.r.n. trazodone 50 mg p.r.n. for continued insomnia Reason for continued inpatient stay Substantial Risk for: rapid decompensation Time Spent With Patient Time: Total time managing care of this patient today ____ minutes.
[2024-11-07 20:00] VITALS: BP 125/72; PULSE 91; RESP 16; TEMP 36.9; O2SAT 96
[2024-11-07] MEDS: Acetaminophen 325 MG TABLET 650 MG PO (22:24)
[2024-11-07] MEDS: traZODone HCL 100 MG TABLET 200 MG PO (22:25)
[2024-11-07] MEDS: hydrOXYzine HCL 25 MG TABLET PO (22:25)
[2024-11-07] MEDS: Melatonin 3 MG TABLET 6 MG PO (22:25)
[2024-11-07] MEDS: Lidocaine 5 % Ointment 35 GM 1 APPL TOPICAL (22:29)
[2024-11-08 08:00] VITALS: BP 103/55; PULSE 78; TEMP 36.8; O2SAT 97
[2024-11-08] MEDS: Atorvastatin Calcium 20 MG TABLET PO (08:28)
[2024-11-08] MEDS: buPROPion HCl XL 300 MG TAB.ER.24H PO (08:28)
[2024-11-08] MEDS: Apixaban 5 MG TABLET PO ×2 (08:28→22:29)
[2024-11-08 09:04] LABS: Adenovirus F 40/41 Not Detected (Not Detect.); Astrovirus Not Detected (Not Detect.); Campylobacter Not Detected (Not Detect.); Cryptosporidium Not Detected (Not Detect.); Cyclospora cayetanensis Not Detected (Not Detect.); E. coli EAEC Not Detected (Not Detect.); E. coli EPEC Not Detected (Not Detect.); E. coli ETEC Not Detected (Not Detect.); E. coli STEC Not Detected (Not Detect.); Entamoeba histolytica Not Detected (Not Detect.); Giardia lamblia Not Detected (Not Detect.); Norovirus GI/GII Not Detected (Not Detect.); Plesiomonas shigelloides Not Detected (Not Detect.); Rotavirus A Not Detected (Not Detect.); Salmonella Not Detected (Not Detect.); Sapovirus Not Detected (Not Detect.); Shigella sp./EIEC Not Detected (Not Detect.); Vibrio Not Detected (Not Detect.); Vibrio Cholerae Not Detected (Not Detect.); Yersinia enterocolitica Not Detected (Not Detect.)
--- NOTE | 2024-11-08 10:03 | HO.PSYCHPN ---
Subjective Subjective Date of Service: 11/08/24 Reason For Visit: depression/SI Subjective Notes: Conditional Voluntary Healthcare Proxy: No Guardianship: No Medical Problems Affecting Mental Status: No Interim History: Discussed housing with pt and team. Pt asking for respite referral. Review of slightly elevated TSH. Will not medicate this currently-pt with hx of thyroid surgery-he will follow up with OP connections Reports diarrhea continues. Cultures are negative from GI Panel. Asks to trial Ensure. Denies medication SE. Reports regime to be effective. intermediate frame tender plan to [facility] [place] [email or web address] in November. Their team report he excels in their program. Eligible after 12/01 to return. Denies SI,HI,AH,VH. No sx of acute psychosis, jasmin. Preparing for discharge on 11/10. Medication Compliance: Yes Side effects from medications: No Attending Groups: Intermittent Review of Systems diarrhea Review of Systems Review of Systems diarrhea Mental Status Exam Mental Status Exam Patient Appearance: Appropriate Patient Orientation: Person, Place, Time and Situation Level of Consciousness: Alert Patient Behavior: Talkative and Good Eye Contact Mood Description: Flat Affect Description: Flat Patient Cognition Impaired: No Ability to Follow Directions: Good Speech Pattern: Spontaneous Speech Memory Description: Intact Hallucinations: None Delusions: Not Present Thought Process: Goal Oriented Thought Content: positive for Goal Oriented and positive for Suicidal Ideation (denies) Depressive Symptoms: Thoughts of /Suicide (denies) Judgement: Fair Diagnostics Vital Signs (24Hr): Vital Signs - 24 hr 11/07/24 20:00 11/08/24 08:00 Temperature 98.5 F 98.2 F Pulse Rate 91 78 Respiratory Rate 16 Blood Pressure 125/72 103/55 L Pulse Oximetry 96 97 Oxygen Delivery Method Room Air Room Air BMI result Body Mass Index 51.8 Labs 11/01/24 11:09 11/01/24 15:24 Labs: Laboratory Results - last 48 hr 11/06/24 11/07/24 10:10 16:39 Stl C. cayetanensis PCR Not Detected Stool Rotavirus A PCR Not Detected Stl Adenov F 40/41 PCR Not Detected Stool Astrovirus (PCR) Not Detected Stool Campylobacter PCR Not Detected Stool Cryptosporidium PCR Not Detected Stl Sh Tox Pr E STEC PCR Not Detected Stool E coli O157 PCR TNP Stl Enterotoxigenic E PCR Not Detected Stool EPEC (PCR) Not Detected Stool EAEC (PCR) Not Detected Stl E. histolytica PCR Not Detected Stool Giardia Lamblia PCR Not Detected Stl P. shigelloides PCR Not Detected Stool Salmonella PCR Not Detected Stool Sapovirus (PCR) Not Detected Stl Shigella/EIEC PCR Not Detected St Y.enterocolitica PCR Not Detected Stool Vibrio (PCR) Not Detected Stl Vibrio cholerae PCR Not Detected Stl Norovirus GI/GII PCR Not Detected Influenza Type A (PCR) NEGATIVE Influenza Type B (PCR) NEGATIVE RSV RNA Qual (PCR) NEGATIVE SARS-CoV-2 RNA (RT-PCR) NEGATIVE Medications Medications Current Medications Acetaminophen (Acetaminophen 325 Mg Tablet) 650 mg PO Q6H PRN PRN Reason: Headache/Pain, Scale 1-10 Last Admin: 11/07/24 22:24 Dose: 650 mg Al Hydroxide/Mg Hydroxide (Magnesium Hydrox/Alum Hydrox 30 Ml Oral.Susp) 30 ml PO Q6H PRN PRN Reason: Heartburn/Nausea Last Admin: 11/05/24 21:49 Dose: 30 ml Apixaban (Apixaban 5 Mg Tablet) 5 mg PO BID [facility] Last Admin: 11/08/24 08:28 Dose: 5 mg Atorvastatin Calcium (Atorvastatin Calcium 20 Mg Tablet) 20 mg PO DAILY [facility] Last Admin: 11/08/24 08:28 Dose: 20 mg Bupropion HCl (Bupropion Hcl Xl 300 Mg Tab.Er.24h) 300 mg PO DAILY [facility] Last Admin: 11/08/24 08:28 Dose: 300 mg Clonidine HCl (Clonidine Hcl 0.1 Mg Tablet) 0.1 mg PO Q4H PRN; Protocol PRN Reason: moderate anxiety Last Admin: 11/03/24 21:44 Dose: 0.1 mg Hydrocortisone (Hydrocortisone 1 % Cream 28.35 Gm Tube) 1 appl TOPICAL DAILY PRN; Protocol PRN Reason: b/l forearm rash Last Admin: 11/01/24 22:00 Dose: 1 appl Hydroxyzine HCl (Hydroxyzine Hcl 25 Mg Tablet) 25 mg PO Q6H PRN PRN Reason: mild anxiety Last Admin: 11/07/24 22:25 Dose: 25 mg Lidocaine (Lidocaine 5 % Ointment 35 Gm) 1 appl TOPICAL Q6H PRN; Protocol PRN Reason: Pain, Moderate(Pain Scale 4-6) Last Admin: 11/07/24 22:29 Dose: 1 appl Loperamide HCl (Loperamide Hcl 2 Mg Capsule) 2 mg PO Q6H PRN PRN Reason: loose stool Last Admin: 11/07/24 09:03 Dose: 2 mg Magnesium Hydroxide (Milk Of Magnesia 30 Ml Oral.Susp) 30 ml PO DAILY PRN PRN Reason: Constipation Melatonin (Melatonin 3 Mg Tablet) 6 mg PO BEDTIME [facility] Last Admin: 11/07/24 22:25 Dose: 6 mg Nicotine (Nicotine 21 Mg Patch.Td24) 21 mg TRANSDERMA DAILY PRN PRN Reason: smoking cessation Nicotine Polacrilex (Nicotine Polacrilex 2 Mg Gum) 4 mg BUCCAL Q2H PRN PRN Reason: Nicotine Cravings Olanzapine (Olanzapine 5 Mg Tablet) 5 mg PO TID PRN PRN Reason: agitation Trazodone HCl (Trazodone Hcl 100 Mg Tablet) 200 mg PO BEDTIME [facility] Last Admin: 11/07/24 22:25 Dose: 200 mg Trazodone HCl (Trazodone Hcl 50 Mg Tablet) 50 mg PO BEDTIME PRN PRN Reason: continued insomnia Allergies Allergies Allergy/AdvReac Type Severity Reaction Status Date / Time No Known Allergies Allergy Verified 11/01/24 10:35 Assessment & Plan Assessment & Plan (1) MDD (major depressive disorder), recurrent episode: Status: Acute Code(s): F33.9 - Major depressive disorder, recurrent, unspecified (2) Suicidal ideation: Status: Acute Code(s): R45.851 - Suicidal ideations Assessment and Plan: Plan as above. (3) Polysubstance abuse: Status: Acute Code(s): F19.10 - Other psychoactive substance abuse, uncomplicated Assessment and Plan: Plan as above. (4) Right shoulder pain: Status: Acute Code(s): M25.511 - Pain in right shoulder Assessment and Plan: Continue current treatment regime. (5) Numbness of upper extremity: Status: Acute Code(s): R20.0 - Anesthesia of skin Assessment and Plan: BUE numbness. Continue current regime. Plan Admit to M5. CV 15 minutes check. Diagnostics as needed. Collateral contact. Bupropion XL 300 mg daily ordered. Continue remainder of regime. Encouraged full milieu. Discharge planning. 11/03: TSH repeat 11/06. Chest xray- PE 08/2024, pt wanting to stop eliquis R shoulder x ray Increase Trazodone to 300 mg HS 11/04: Continue current plans and regimen 11/05: Continue current plans and regimen 11/06 Patient reports that he is doing better that his mood is better. He says he is no longer waking up with negative thoughts and denies any SI; denies any AVH. Patient reports that he was oversedated with trazodone 300mg and asks to lower it to 200mg -lower trazodone to 200 mg q.h.s. -add p.r.n. trazodone 50 mg p.r.n. for continued insomnia 11/08 Stool cultures negative. Ensure trial per pt request DC 11/10. Reason for continued inpatient stay Substantial Risk for: stable for discharge Time Spent With Patient Time: Total time managing care of this patient today ____ minutes.
[2024-11-08 20:00] VITALS: BP 115/79; PULSE 95; RESP 16; TEMP 36.9; O2SAT 96
[2024-11-08] MEDS: traZODone HCL 100 MG TABLET 200 MG PO (22:29)
[2024-11-08] MEDS: Melatonin 3 MG TABLET 6 MG PO (22:30)
[2024-11-08] MEDS: Lidocaine 5 % Ointment 35 GM 1 APPL TOPICAL (22:36)
[2024-11-08] MEDS: Acetaminophen 325 MG TABLET 650 MG PO (22:37)
[2024-11-08 22:38] VITALS: BP 120/84
[2024-11-08] MEDS: cloNIDine HCL 0.1 MG TABLET PO (22:38)
[2024-11-09 07:00] VITALS: BMI 52.7
[2024-11-09 07:59] VITALS: BP 113/65; PULSE 80; TEMP 36.9; O2SAT 96
[2024-11-09] MEDS: Acetaminophen 325 MG TABLET 650 MG PO ×2 (08:40→22:28)
[2024-11-09] MEDS: Apixaban 5 MG TABLET PO ×2 (08:41→22:28)
[2024-11-09] MEDS: buPROPion HCl XL 300 MG TAB.ER.24H PO (08:41)
[2024-11-09] MEDS: Loperamide HCl 2 MG CAPSULE PO ×2 (08:41→22:30)
[2024-11-09] MEDS: Atorvastatin Calcium 20 MG TABLET PO (08:41)
--- NOTE | 2024-11-09 19:31 | HO.PSYCHPN ---
Subjective Subjective Date of Service: 11/09/24 Reason For Visit: depression/SI Subjective Notes: Conditional Voluntary Healthcare Proxy: No Guardianship: No Medical Problems Affecting Mental Status: No Interim History: Pt reports diarrhea continues. Will get KUB and ask hospitalist to evaluate. Pt denies SI,HI,AH,VH. No sx of mood or behavioral dyscontrol. He is hoping for acceptance to respite on 11/10. Medication Compliance: Yes Side effects from medications: No Attending Groups: Intermittent Review of Systems diarrhea Review of Systems Review of Systems diarrhea Mental Status Exam Mental Status Exam Patient Appearance: Appropriate Patient Orientation: Person, Place, Time and Situation Level of Consciousness: Alert Patient Behavior: Talkative and Good Eye Contact Mood Description: Flat Affect Description: Flat Patient Cognition Impaired: No Ability to Follow Directions: Good Speech Pattern: Spontaneous Speech Memory Description: Intact Hallucinations: None Delusions: Not Present Thought Process: Goal Oriented Thought Content: positive for Goal Oriented and positive for Suicidal Ideation (denies) Depressive Symptoms: Thoughts of /Suicide (denies) Judgement: Fair Diagnostics Vital Signs (24Hr): Vital Signs - 24 hr 11/08/24 20:00 11/08/24 22:38 11/09/24 07:59 Temperature 98.4 F 98.5 F Pulse Rate 95 80 Respiratory Rate 16 Blood Pressure 115/79 120/84 113/65 Pulse Oximetry 96 96 Oxygen Delivery Method Room Air Room Air BMI result Body Mass Index 52.7 Labs 11/01/24 11:09 11/01/24 15:24 Labs: Laboratory Results - last 48 hr 11/07/24 16:39 Stl C. cayetanensis PCR Not Detected Stool Rotavirus A PCR Not Detected Stl Adenov F 40/41 PCR Not Detected Stool Astrovirus (PCR) Not Detected Stool Campylobacter PCR Not Detected Stool Cryptosporidium PCR Not Detected Stl Sh Tox Pr E STEC PCR Not Detected Stool E coli O157 PCR TNP Stl Enterotoxigenic E PCR Not Detected Stool EPEC (PCR) Not Detected Stool EAEC (PCR) Not Detected Stl E. histolytica PCR Not Detected Stool Giardia Lamblia PCR Not Detected Stl P. shigelloides PCR Not Detected Stool Salmonella PCR Not Detected Stool Sapovirus (PCR) Not Detected Stl Shigella/EIEC PCR Not Detected St Y.enterocolitica PCR Not Detected Stool Vibrio (PCR) Not Detected Stl Vibrio cholerae PCR Not Detected Stl Norovirus GI/GII PCR Not Detected Imaging Radiology Impressions: ITS Impressions KUB X-Ray 11/09/24 15:15 IMPRESSION: 1. Normal bowel gas pattern. No bowel obstruction. 2. There are two 3 mm calcifications overlying the left inferior renal shadow suspicious for nephrolithiasis. Electronically signed by: Kun Cohen MD 11/09/2024 04:45 PM EDT RP Medications Medications Current Medications Acetaminophen (Acetaminophen 325 Mg Tablet) 650 mg PO Q6H PRN PRN Reason: Headache/Pain, Scale 1-10 Last Admin: 11/09/24 08:40 Dose: 650 mg Al Hydroxide/Mg Hydroxide (Magnesium Hydrox/Alum Hydrox 30 Ml Oral.Susp) 30 ml PO Q6H PRN PRN Reason: Heartburn/Nausea Last Admin: 11/05/24 21:49 Dose: 30 ml Apixaban (Apixaban 5 Mg Tablet) 5 mg PO BID [facility] Last Admin: 11/09/24 08:41 Dose: 5 mg Atorvastatin Calcium (Atorvastatin Calcium 20 Mg Tablet) 20 mg PO DAILY [facility] Last Admin: 11/09/24 08:41 Dose: 20 mg Bupropion HCl (Bupropion Hcl Xl 300 Mg Tab.Er.24h) 300 mg PO DAILY [facility] Last Admin: 11/09/24 08:41 Dose: 300 mg Clonidine HCl (Clonidine Hcl 0.1 Mg Tablet) 0.1 mg PO Q4H PRN; Protocol PRN Reason: moderate anxiety Last Admin: 11/08/24 22:38 Dose: 0.1 mg Hydrocortisone (Hydrocortisone 1 % Cream 28.35 Gm Tube) 1 appl TOPICAL DAILY PRN; Protocol PRN Reason: b/l forearm rash Last Admin: 11/01/24 22:00 Dose: 1 appl Hydroxyzine HCl (Hydroxyzine Hcl 25 Mg Tablet) 25 mg PO Q6H PRN PRN Reason: mild anxiety Last Admin: 11/07/24 22:25 Dose: 25 mg Lidocaine (Lidocaine 5 % Ointment 35 Gm) 1 appl TOPICAL Q6H PRN; Protocol PRN Reason: Pain, Moderate(Pain Scale 4-6) Last Admin: 11/08/24 22:36 Dose: 1 appl Loperamide HCl (Loperamide Hcl 2 Mg Capsule) 2 mg PO Q6H PRN PRN Reason: loose stool Last Admin: 11/09/24 08:41 Dose: 2 mg Magnesium Hydroxide (Milk Of Magnesia 30 Ml Oral.Susp) 30 ml PO DAILY PRN PRN Reason: Constipation Melatonin (Melatonin 3 Mg Tablet) 6 mg PO BEDTIME [facility] Last Admin: 11/08/24 22:30 Dose: 6 mg Nicotine (Nicotine 21 Mg Patch.Td24) 21 mg TRANSDERMA DAILY PRN PRN Reason: smoking cessation Nicotine Polacrilex (Nicotine Polacrilex 2 Mg Gum) 4 mg BUCCAL Q2H PRN PRN Reason: Nicotine Cravings Olanzapine (Olanzapine 5 Mg Tablet) 5 mg PO TID PRN PRN Reason: agitation Trazodone HCl (Trazodone Hcl 100 Mg Tablet) 200 mg PO BEDTIME [facility] Last Admin: 11/08/24 22:29 Dose: 200 mg Trazodone HCl (Trazodone Hcl 50 Mg Tablet) 50 mg PO BEDTIME PRN PRN Reason: continued insomnia Allergies Allergies Allergy/AdvReac Type Severity Reaction Status Date / Time No Known Allergies Allergy Verified 11/01/24 10:35 Assessment & Plan Assessment & Plan (1) MDD (major depressive disorder), recurrent episode: Status: Acute Code(s): F33.9 - Major depressive disorder, recurrent, unspecified (2) Suicidal ideation: Status: Acute Code(s): R45.851 - Suicidal ideations Assessment and Plan: Plan as above. (3) Polysubstance abuse: Status: Acute Code(s): F19.10 - Other psychoactive substance abuse, uncomplicated Assessment and Plan: Plan as above. (4) Right shoulder pain: Status: Acute Code(s): M25.511 - Pain in right shoulder Assessment and Plan: Continue current treatment regime. (5) Numbness of upper extremity: Status: Acute Code(s): R20.0 - Anesthesia of skin Assessment and Plan: BUE numbness. Continue current regime. Plan Admit to M5. CV 15 minutes check. Diagnostics as needed. Collateral contact. Bupropion XL 300 mg daily ordered. Continue remainder of regime. Encouraged full milieu. Discharge planning. 11/03: TSH repeat 11/06. Chest xray- PE 08/2024, pt wanting to stop eliquis R shoulder x ray Increase Trazodone to 300 mg HS 11/04: Continue current plans and regimen 11/05: Continue current plans and regimen 11/06 Patient reports that he is doing better that his mood is better. He says he is no longer waking up with negative thoughts and denies any SI; denies any AVH. Patient reports that he was oversedated with trazodone 300mg and asks to lower it to 200mg -lower trazodone to 200 mg q.h.s. -add p.r.n. trazodone 50 mg p.r.n. for continued insomnia 11/08 Stool cultures negative. Ensure trial per pt request DC 11/10. 11/09 DC 11/10 MELODY, Hospitalist consult for diarrhea. Reason for continued inpatient stay Substantial Risk for: stable for discharge Time Spent With Patient Time: Total time managing care of this patient today ____ minutes.
[2024-11-09 20:00] VITALS: BP 131/71; PULSE 87; RESP 16; TEMP 36.9; O2SAT 99
[2024-11-09] MEDS: traZODone HCL 100 MG TABLET 200 MG PO (22:27)
[2024-11-09] MEDS: Melatonin 3 MG TABLET 6 MG PO (22:28)
[2024-11-09 22:29] VITALS: BP 134/75
[2024-11-09] MEDS: cloNIDine HCL 0.1 MG TABLET PO (22:29)
[2024-11-10 07:54] VITALS: BP 94/55; PULSE 78; RESP 18; TEMP 36.9; O2SAT 95
[2024-11-10] MEDS: buPROPion HCl XL 300 MG TAB.ER.24H PO (08:12)
[2024-11-10] MEDS: Atorvastatin Calcium 20 MG TABLET PO (08:12)
[2024-11-10] MEDS: Apixaban 5 MG TABLET PO (08:12)
--- NOTE | 2024-11-10 09:42 | P.DS_ITS ---
DS: Providers Provider Date of admission: 11/01/24 13:50 Primary care physician: None Physician Consults: 11/01/24 10:47 ED CARE Team Crisis Consult Stat Comment: Reason for consultation: SI, ETOH use, Cocaine use 11/01/24 10:50 ED CARE Team Crisis Consult Routine Comment: Reason for consultation: SI 11/09/24 14:44 Consult to Hospitalist Routine Comment: kub pending, stool cultures are negative Consulting Provider: [facility] [place] Hospitalists Reason For Exam: diarrhea, several days 4-5 times per day. DS: Diagnosis Discharge Diagnosis (1) MDD (major depressive disorder), recurrent episode: Status: Acute (2) Suicidal ideation: Status: Acute (3) Polysubstance abuse: Status: Acute (4) Right shoulder pain: Status: Acute (5) Numbness of upper extremity: Status: Acute DS: Medications Discharge Medications Home Medications: Home Medications ?Medication ?Instructions ?Recorded ?Confirmed baclofen 10 mg tablet 10 mg PO BID 09/02/24 11/01/24 bupropion HCl 75 mg tablet 75 mg PO BID 09/02/24 11/01/24 clonidine HCl 0.1 mg tablet 0.1 mg PO TID PRN Anxiety 09/02/24 11/01/24 hydroxyzine HCl 50 mg tablet 50 mg PO TID PRN Anxiety 09/02/24 11/01/24 melatonin 5 mg capsule 5 mg PO BEDTIME PRN Insomnia 09/02/24 11/01/24 trazodone 100 mg tablet 100 mg PO BEDTIME PRN Insomnia 09/02/24 11/01/24 multivitamin 1 tab PO DAILY 09/03/24 11/01/24 rosuvastatin 5 mg tablet 5 mg PO DAILY 11/02/24 11/02/24 Previous Rx's ?Medication ?Instructions ?Recorded apixaban 5 mg tablet 5 mg PO BID 30 days #30 tabs 09/13/24 Data Data Completed and Pending Completed studies during hospitalization [Text1]: 11/06/24 11/06/24 11/07/24 08:25 10:10 16:39 TSH 6.35 H Stl C. cayetanensis PCR Not Detected Stool Rotavirus A PCR Not Detected Stl Adenov F 40/41 PCR Not Detected Stool Astrovirus (PCR) Not Detected Stool Campylobacter PCR Not Detected Stool Cryptosporidium PCR Not Detected Stl Sh Tox Pr E STEC PCR Not Detected Stool E coli O157 PCR TNP Stl Enterotoxigenic E PCR Not Detected Stool EPEC (PCR) Not Detected Stool EAEC (PCR) Not Detected Stl E. histolytica PCR Not Detected Stool Giardia Lamblia PCR Not Detected Stl P. shigelloides PCR Not Detected Stool Salmonella PCR Not Detected Stool Sapovirus (PCR) Not Detected Stl Shigella/EIEC PCR Not Detected St Y.enterocolitica PCR Not Detected Stool Vibrio (PCR) Not Detected Stl Vibrio cholerae PCR Not Detected Stl Norovirus GI/GII PCR Not Detected Influenza Type A (PCR) NEGATIVE Influenza Type B (PCR) NEGATIVE RSV RNA Qual (PCR) NEGATIVE SARS-CoV-2 RNA (RT-PCR) NEGATIVE Imaging Diagnostic Imaging Impressions KUB X-Ray 11/09/24 15:15 IMPRESSION: 1. Normal bowel gas pattern. No bowel obstruction. 2. There are two 3 mm calcifications overlying the left inferior renal shadow suspicious for nephrolithiasis. Electronically signed by: Kun Cohen MD 11/09/2024 04:45 PM EDT DS: Summary Time Spent with Patient Time attestation: Total time managing care of this patient today ____ minutes. Discharge Plan Discharge Referrals: Aramis Santiago: [facility] [Other] - 11/16/24 1:00 pm (Hospital discharge appointment with primary care provider ) Elizabeth Story: [facility] (psychiatry) [Other] - 11/16/24 2:30 pm (Hospital discharge appointment with psychiatric provider ) Lisa (therapist): [facility] [Other] (Therapist will follow-up with you in the community to schedule a therapy appointment.) [address] [Other] - 12/01/24 (Patient is accepted back to [facility] program although not able to return until 12/01/24 due to program decision.) [facility]Other[facility] ([facility] ) [facility]Other[facility] ([facility] ) [facility] [Other] (Crisis service phone number ) Discharge Medications: No Action baclofen 10 mg tablet 10 mg PO BID clonidine HCl 0.1 mg tablet 0.1 mg PO TID PRN (Reason: Anxiety) Protocol: Hold for SBP< HOLD for SBP < : 90 trazodone 100 mg tablet 100 mg PO BEDTIME PRN (Reason: Insomnia) hydroxyzine HCl 50 mg tablet 50 mg PO TID PRN (Reason: Anxiety) melatonin 5 mg capsule 5 mg PO BEDTIME PRN (Reason: Insomnia) bupropion HCl 75 mg tablet 75 mg PO BID multivitamin Tablet 1 tab PO DAILY apixaban 5 mg Tablet 5 mg PO BID 30 Days Qty: 30 0RF rosuvastatin 5 mg tablet 5 mg PO DAILY Stand Alone Forms: Community Support Print Language: Fijian
--- NOTE | 2024-11-10 10:32 | P.EN_ITS ---
Event Note Date of Service: 11/10/24 Event Note: Pt is a 39-year-old male with a PMH significant for bilateral PE on 09/03/2024 of unclear etiology on Eliquis, HLD, polysubstance use disorder, PTSD and MDD who was admitted to [facility] psych unit with hospitalist consult for diarrhea. Pt states he has been having 3-4 episodes of nonbloody diarrhea for the past 5 days which is uncommon for him. Reports initially also experienced multiple episodes of burping that smelled ?like rotten eggs?. One episode of incontinence at night. Denies any significant abdominal pains. No fever, chills, nausea, or vomiting. Overall abdominal exam benign without significant tenderness or discomfort. Abdomen obese but soft and without noticeable distention. Spoke to nursing who mentioned that stool that has been collected has been soft but not liquid diarrhea. Also state that it did not smell like C diff. of note, pt is sc heduled for discharge later in the afternoon. Plan: Overall workup has been reassuring: KUB negative for acute abnormality. Stool studies on 11/07/2024 negative. Abdominal exam benign. Pt afebrile, denies N/V/abdominal pain. C diff has been ordered but not yet collected. Given negative GI panel and the overall benign presentation, pt can be treated and discharged on Imodium 4 mg p.o. q.6 H p.r.n.. If symptoms persist or worsen, or pt develops significant abdominal pain and/or N/V will re-evaluate pt or he knows he should come to the ED if he has already been discharged. Time Spent With Patient Time: Total time managing care of this patient today ____ minutes.
== END 2024-11-10 17:06 | disposition other institution (70) | DRG 751 ==
LOC: HO.ED 11:29 → HO.PM5 13:51
PROVIDERS: Registered Nurse Emergency; Admitting Provider Psychiatry & Neurology Psychiatry; Emergency Provider Emergency Medicine; Visit Provider Clinical Nurse Specialist Psychiatric/Mental Health, Adult
DX: F33.9 Major depressive disorder, recurrent, unspecified (principal); R45.851 Suicidal ideations; F19.10 Other psychoactive substance abuse, uncomplicated; F17.210 Nicotine dependence, cigarettes, uncomplicated; M25.511 Pain in right shoulder; R19.7 Diarrhea, unspecified; R20.0 Anesthesia of skin; Z86.711 Personal history of pulmonary embolism; Z20.822 Contact with and (suspected) exposure to COVID-19; Z71.6 Tobacco abuse counseling; Z79.01 Long term (current) use of anticoagulants; Z79.899 Other long term (current) drug therapy
CPT/HCPCS: 0241U; 36415; 71046; 73030; 74018; 80053; 80061; 80307; 81001; 83036; 84439; 84443; 85025; 87507; 93005; 99285; S9485

== ENCOUNTER → 2024-11-01 13:28 | Outpatient (BNV) | payer MEDICAID, SELFPAY | PROVIDERS: Admitting Provider Psychiatry & Neurology Psychiatry; Emergency Provider Emergency Medicine; Visit Provider Internal Medicine Cardiovascular Disease | DX: R94.31 Abnormal electrocardiogram [ECG] [EKG] (principal); Z13.6 Encounter for screening for cardiovascular disorders | CPT/HCPCS: 93010 ==

== ENCOUNTER 2024-11-01 13:50 | Outpatient (BNV) | payer MEDICAID, SELFPAY | END 2024-11-04 08:30 | PROVIDERS: Admitting Provider Psychiatry & Neurology Psychiatry; Emergency Provider Emergency Medicine; Visit Provider Radiology Diagnostic Radiology | DX: R07.9 Chest pain, unspecified (principal); M25.511 Pain in right shoulder | CPT/HCPCS: 71046; 73030 ==

== ENCOUNTER 2024-11-01 13:50 | Outpatient (BNV) | payer MEDICAID, SELFPAY | END 2024-11-09 15:15 | PROVIDERS: Admitting Provider Psychiatry & Neurology Psychiatry; Emergency Provider Emergency Medicine; Visit Provider Radiology Diagnostic Radiology | DX: R19.7 Diarrhea, unspecified (principal) | CPT/HCPCS: 74018 ==

== ENCOUNTER → 2024-11-01 13:50 | Outpatient (BNV) | payer OTHER, SELFPAY | PROVIDERS: Admitting Provider Psychiatry & Neurology Psychiatry; Emergency Provider Emergency Medicine; Visit Provider Nurse Practitioner Family | DX: F33.2 Major depressive disorder, recurrent severe without psychotic features (principal); F19.10 Other psychoactive substance abuse, uncomplicated; R45.851 Suicidal ideations; M25.511 Pain in right shoulder; R20.0 Anesthesia of skin | CPT/HCPCS: 99231; 99232 ==

== ENCOUNTER → 2025-03-12 14:29 | Outpatient (BNV) | payer MEDICAID, SELFPAY | PROVIDERS: PCP Internal Medicine; Visit Provider Internal Medicine Medical Oncology | DX: I26.99 Other pulmonary embolism without acute cor pulmonale (principal); Z91.51 Personal history of suicidal behavior | CPT/HCPCS: 99213 ==